=== PATIENT | female | born 1955 ===

== ENCOUNTER 2017-01-20 14:46 | Emergency (ER) | payer OTHER ==
[2017-01-20 14:47] VITALS: BMI 33.5
[2017-01-20 15:00] VITALS: BP 152/86; PULSE 76; RESP 18; TEMP 97.5; O2SAT 96
[2017-01-20] MEDS ORDERED: TDAP Vaccine 0.5 mL Syr IM ONE (15:12)
--- NOTE | 2017-01-20 16:16 | ED PDOC ---
Arrival/HPI <AlexdeyaniraDavidy - Last Filed: 01/20/17 16:59> - General Historian: Patient <Sunny Mcclelland - Last Filed: 01/20/17 21:20> - General Chief Complaint: Lower Extremity Problem/Injury Time Seen by Provider: 01/20/17 15:01 - History of Present Illness Narrative History of Present Illness (Text): 01/20/17 16:11 61 y/o female presenting s/p fall with right knee injury. Patient states she was standing from a sitting position when her right knee gave out and she fell forward injuring her right knee. Patient denies LOC, head injury or syncope. She is complaining of mild right knee discomfort, worse with knee flexion. Patient denies hip pain or ankle pain. Tetanus status is unknown according to the patient. (Sunny Mcclelland) Past Medical History - Provider Review Nursing Documentation Reviewed: Yes - Infectious Disease Hx of Infectious Diseases: None - Tetanus Immunization Tetanus Immunization: Unknown - Cardiac Hx Cardiac Disorders: Yes Hx Hypertension: Yes - Pulmonary Hx Respiratory Disorders: Yes Hx Asthma: Yes Hx Chronic Obstructive Pulmonary Disease (COPD): Yes - Neurological Hx Neurological Disorder: No - HEENT Hx HEENT Disorder: Yes Hx Glaucoma: Yes (laser sx aug 2016) - Renal Hx Renal Disorder: No - Endocrine/Metabolic Hx Endocrine Disorders: No - Hematological/Oncological Hx Blood Disorders: Yes - Integumentary Hx Dermatological Disorder: No Other/Comment: hx shingles face and head 10 yrs ago - Musculoskeletal/Rheumatological Hx Musculoskeletal Disorders: Yes Hx Arthritis: Yes (RA) Hx Falls: No - Gastrointestinal Hx Gastrointestinal Disorders: Yes Other/Comment: heart burn - Genitourinary/Gynecological Hx Genitourinary Disorders: No - Psychiatric Hx Psychophysiologic Disorder: No Hx Depression: No Hx Emotional Abuse: No Hx Physical Abuse: No Hx Substance Use: No - Surgical History Hx Appendectomy: Yes Hx Cholecystectomy: Yes Hx Hysterectomy: Yes - Suicidal Assessment Feels Threatened In Home Enviroment: No <Sunny Mcclelland - Last Filed: 01/20/17 21:20> Family/Social History - Physician Review Nursing Documentation Reviewed: Yes Family/Social History: Unknown Family HX Smoking Status: Former Smoker Hx Alcohol Use: Yes Hx Substance Use: No Hx Substance Use Treatment: No <Sunny Mcclelland - Last Filed: 01/20/17 21:20> Allergies/Home Meds <RachelparvezTee - Last Filed: 01/20/17 16:59> <Sunny Mcclelland - Last Filed: 01/20/17 21:20> Allergies/Adverse Reactions: Allergies Penicillins Allergy (Verified 01/20/17 15:00) SWELLING Home Medications: Home Meds Medication Instructions Recorded Confirmed Albuterol Sulfate [Ventolin Hfa] 0.09 mg IH 06/08/13 11/29/15 Carisoprodol 350 mg PO DAILY 06/08/13 11/29/15 Darunavir Ethanolate [Prezista] 600 mg PO DAILY 06/08/13 11/29/15 Diphenhydramine Hydrochlorid 50 mg PO PRN PRN 06/08/13 11/29/15 [Benadryl] Raltegravir Potassium [Isentress] 400 mg PO DAILY 06/08/13 11/29/15 Ranitidine HCl [Zantac 150] 150 mg PO DAILY 06/08/13 11/29/15 Ritonavir [Norvir] 100 mg PO DAILY 06/08/13 11/29/15 Valsartan [Diovan] 40 mg PO DAILY 06/08/13 11/29/15 Vitamin B Complex & Vitamin C 1 tab PO DAILY 06/08/13 11/29/15 [Strovite] Review of Systems - Physician Review All systems were reviewed & negative as marked: Yes - Review of Systems Constitutional: absent: Fatigue, Fevers Musculoskeletal: absent: Back Pain, Neck Pain Skin: Other (right knee avulsion ) <Sunny Mcclelland - Last Filed: 01/20/17 21:20> Physical Exam Vital Signs Reviewed: Yes Temperature: Afebrile Blood Pressure: Normal Pulse: Regular Respiratory Rate: Normal Appearance: Positive for: Well-Appearing Pain Distress: Mild Mental Status: Positive for: Alert and Oriented X 3 - Systems Exam Head: Present: Atraumatic, Normocephalic Pupils: Present: PERRL Extroacular Muscles: Present: EOMI Conjunctiva: Present: Normal Mouth: Present: Moist Mucous Membranes Neck: Present: Normal Range of Motion Respiratory/Chest: Present: Clear to Auscultation, Good Air Exchange. No: Respiratory Distress Cardiovascular: Present: Regular Rate and Rhythm, Normal S1, S2 Abdomen: Present: Normal Bowel Sounds. No: Tenderness Upper Extremity: Present: Normal Inspection, Normal ROM, NORMAL PULSES. No: Cyanosis, Edema Lower Extremity: Present: NORMAL PULSES, Normal ROM. No: Normal Inspection ( right anterior knee circulinear avulsion. 4 cm in lenth. approx 0.5 to 1cm in depth. ), Edema, CALF TENDERNESS, Tenderness (no jointline tenderness or patellar tenderness to right knee ) Neurological: Present: GCS=15, CN II-XII Intact, Speech Normal, Motor Func Grossly Intact Skin: Present: Warm, Dry Psychiatric: Present: Alert, Oriented x 3, Normal Insight, Normal Concentration <Sunny Mcclelland - Last Filed: 01/20/17 21:20> Vital Signs Temp Pulse Resp BP Pulse Ox 01/20/17 14:55 97.5 F L 76 18 152/86 H 96 Medical Decision Making <Tee Slater - Last Filed: 01/20/17 16:59> <Sunny Mcclelland - Last Filed: 01/20/17 21:20> ED Course and Treatment: 01/20/17 16:33 Patient seen and examined with resident Came up with treatment and disposition plan with resident 01/20/17 16:59 Patient in the emergency department after mechanical fall while at home. Laceration repaired Patient to be discharged home with antibiotics Knee and ankle x-rays show no acute fractures or dislocations. Patient informed of the incidental finding on the ankle x-ray for which she has to follow-up with her primary physician had an extensive d/w pt that although xrays are negative for any acute bony abnormality, it is still very important to fu with pmd and ortho specialist for further w/u and testing such as MRI to r/o any ligamentous/tendenous/meniscal injury. Pt verbalized full understanding of above discussion. Patient is ambulating in the emergency department Pt states she understands to return to the ER right away for new or worsening symptoms or for inability to f/u with PMD or specialist as instructed. Patient states that she fully agrees with and understands discharge instructions. States that she agrees with the plan and disposition. Verbalized and repeated discharge instructions and plan. I have given the patient opportunity to ask any additional questions. (Tee Slater) 01/20/17 16:20 61 y/o female presenting with right anterior circulinear avulsion injury to right anterior knee s/p mechanical fall. There is no history of syncope, focal deficit or loss of consciousness. Avulsion injury requires repair with sutures. - Tetanus booster - Motrin 800mg for pain - xray right knee, right ankle - patient will be discharged on antibiotics and f/u here or with her PCP for suture removal in 7 to 10 days. (Sunny Mcclelland) - RAD Interpretation Radiology Orders: 01/20/17 16:09 ANKLE RIGHT 3 VIEWS ROUTINE [RAD] Stat KNEE W PATELLA RIGHT 3 VIEW [RAD] Stat - Medication Orders Current Medication Orders: Discontinued Medications Ibuprofen (Motrin Tab) 800 mg PO STAT STA Stop: 01/20/17 16:09 Last Admin: 01/20/17 16:20 Dose: 800 MG [facility] Pain/Vitals Document 01/20/17 16:20 FJ (Rec: 01/20/17 16:20 FJ [id number]) Pain Reassessment Is This A Pain ReAssessment? No Sleep Is patient sleeping during reassessment? No Presence of Pain Presence of Pain Yes Pain Scale Used Pain Scale Used Numeric Location Left, Right or Bilateral Right Pain Location Body Site Knee Description Constant Intensity 6 Scale Used Numeric Tetanus/Reduced Diphtheria/Acell Pertussis (Boostrix Vaccine Inj) 0.5 ml IM .ONCE ONE Stop: 01/20/17 15:13 Last Admin: 01/20/17 16:20 Dose: 0.5 ML [facility] Immunization Data Document 01/20/17 16:20 FJA (Rec: 01/20/17 16:21 [id number]) Immunization Data Opt out of sending immunization data to Yes respository? Suppress immunization data to other Yes providers from registry? Vaccine Eligibility Yes Vaccine Information Sheet Given Yes Informed Consent Given Yes Vaccine Lot Number [id number] Vaccine Expiration Date 01/02/19 Site Given Left Deltoid Route Intramuscular Immunization Units ml - Procedure PROCEDURE NOTE (Text): 01/20/17 16:34 Attestation:: I certify that I have explained the specified Operation(s) or Procedure(s), risks, benefits and reasonable alternatives to the Patient and/or other person responsible. The opportunity was given to ask questions and all questions answered - Laceration with EPI simple, single layer contaminated irrigated extensively right lower extremity 4-0 other local infiltration simple, interrupted Site: lower extremity Side (if applicable): left Size (cm): 4 Description: other (circulinear ) Depth: simple, single layer Anesthesia used: lidocaine 1%, with EPI Anesthesia technique: local infiltration Amount (mLs): 15 Pre-repair: wound explored, irrigated extensively, deep structures intact Skin layer closed with: other (ethilon ) Size: 4-0 Number of sutures: 11 Technique: simple, interrupted (Sunny Mcclelland) Disposition/Present on Arrival - Present on Arrival Any Indicators Present on Arrival: No - Disposition Have Diagnosis and Disposition been Completed?: Yes Disposition Time: 17:01 Patient Plan: Discharge <Tee Slater - Last Filed: 01/20/17 16:59> - Present on Arrival History of DVT/PE: No History of Uncontrolled Diabetes: No Urinary Catheter: No History of Decub. Ulcer: No History Surgical Site Infection Following: None <Sunny Mcclelland - Last Filed: 01/20/17 21:20> - Disposition Diagnosis: Fall Disposition: HOME/ ROUTINE Condition: GOOD Discharge Instructions (ExitCare): Care For Your Stitches (ED), Laceration (ED) , Fall Prevention for Older Adults (ED) Additional Instructions: PLEASE RETURN TO THE EMERGENCY DEPARTMENT FOR NEW OR WORSENING SYMPTOMS. RETURN RIGHT AWAY IF YOU CANNOT FOLLOW UP WITH YOUR PRIMARY CARE DOCTOR, CLINIC, OR SPECIALIST IN 1-2 DAYS. Please follow-up with your primary physician or the emergency department for suture removal in 7-10 days Prescriptions: Cephalexin [Keflex] 500 mg PO TID #21 capsule Cephalexin [cephalexin] 500 mg PO Q12H #14 cap Referrals: Ty Ramírez JD, MD [Primary Care Provider] - Follow up with primary
--- NOTE | 2017-01-20 16:28 | PCM.PROC ---
Procedures Attestation:: I certify that I have explained the specified Operation(s) or Procedure(s), risks, benefits and reasonable alternatives to the Patient and/or other person responsible. The opportunity was given to ask questions and all questions answered - Laceration with EPI simple, single layer contaminated irrigated extensively right lower extremity 4-0 other local infiltration simple, interrupted Site: lower extremity Side (if applicable): left Size (cm): 4 Description: other (circulinear ) Depth: simple, single layer Anesthesia used: lidocaine 1%, with EPI Anesthesia technique: local infiltration Amount (mLs): 15 Pre-repair: wound explored, irrigated extensively, deep structures intact Skin layer closed with: other (ethilon ) Size: 4-0 Number of sutures: 11 Technique: simple, interrupted
--- NOTE | 2017-01-20 17:31 | RAD ---
PROCEDURE: Right Knee Radiographs. HISTORY: fall COMPARISON: None. FINDINGS: BONES: Normal. No fracture. JOINTS: Normal. No osteoarthritis. JOINT EFFUSION: None. OTHER FINDINGS: None. IMPRESSION: Normal radiographs of the right knee.
--- NOTE | 2017-01-20 17:32 | RAD ---
PROCEDURE: Right Ankle Radiographs. HISTORY: fall COMPARISON: None FINDINGS: BONES: Normal. No fracture. JOINTS: Normal. No osteoarthritis. Ankle mortise maintained. Talar dome intact SOFT TISSUES: Normal. OTHER FINDINGS: None. IMPRESSION: No acute fracture
== END 2017-01-20 17:32 | disposition home or self-care (01) ==
LOC: ED 14:46
DX: S81.011A Laceration without foreign body, right knee, initial encounter (principal); W01.0XXA Fall on same level from slipping, tripping and stumbling without subsequent striking against object, initial encounter; Y92.009 Unspecified place in unspecified non-institutional (private) residence as the place of occurrence of the external cause; Z23 Encounter for immunization

== ENCOUNTER 2017-02-19 14:46 | Inpatient (IN) | payer OTHER, MEDICAID ==
[2017-02-19] MEDS ORDERED: Albuterol-Ipratrop 3 mg / 0.5 (3 ml) UD IH STA ×3 (15:53→17:06)
[2017-02-19 16:08] LABS: ADD MANUAL DIFF? NO
[2017-02-19 16:12] LABS: VENOUS BLOOD GAS BASE EXCESS -0.6 mmol/L (0.0-2.0); VENOUS BLOOD PH 7.43 (7.32-7.43)
[2017-02-19 16:14] LABS: BASO # 0.03 K/mm3 (0.0-2.0); BASO % 0.4 % (0.0-3.0); EOS # 0.1 (0.0-0.7); EOS % 1.6 % (1.5-5.0); GRAN # 4.13 (1.4-6.5); GRAN % 61.8 % (50.0-68.0); HEMATOCRIT 39.5 % (36.0-48.0); LYMPH # 1.6 (1.2-3.4); LYMPH % 24.3 % (22.0-35.0); MEAN CELL VOLUME 91.6 fL (80.0-105.0); MEAN CORPUSCULAR HEMOGLOBIN 30.6 pg (25.0-35.0); MEAN CORPUSCULAR HGB CONC 33.4 g/dl (31.0-37.0); MEAN PLATELET VOLUME 10.7 fl (7.0-11.0); MONO # 0.8 (0.1-0.6); MONO % 11.9 % (1.0-6.0); PLATELET COUNT 71 10^3/uL (120.0-450.0); RED CELL DISTRIBUTION WIDTH 16.5 % (11.5-14.5); WHITE BLOOD COUNT 6.7 10^3/ul (4.5-11.0)
[2017-02-19 16:24] LABS: ALB/GLOB RATIO 1.1 (1.1-1.8); ALKALINE PHOSPHATASE 62 U/L (38-133); ALT/SGPT 61 U/L (7-56); AST/SGOT 37 U/L (15-39); BILIRUBIN,TOTAL 1.2 mg/dL (0.2-1.3); BLOOD UREA NITROGEN 14 mg/dL (7-21); CALCIUM 9.1 mg/dL (8.4-10.5); CARBON DIOXIDE 21 mmol/L (21-33); CHLORIDE 102 mmol/L (98-107); GFR AFRICAN-AMERICAN > 60; GLUCOSE,RANDOM 111 mg/dL (70-110); POTASSIUM 3.6 mmol/L (3.6-5.0); SODIUM 138 mmol/L (132-148); TOTAL PROTEIN 7.3 g/dL (5.8-8.3)
[2017-02-19 16:35] LABS: TROPONIN I 0.03 ng/mL
--- NOTE | 2017-02-19 16:44 | RAD ---
HISTORY: r/o infiltrate COMPARISON: No prior. FINDINGS: LUNGS: Right perihilar reticular opacities are seen. Otherwise no evidence of infiltrate or consolidation in the lungs P PLEURA: No significant pleural effusion identified, no pneumothorax apparent. CARDIOVASCULAR: Normal. OSSEOUS STRUCTURES: No significant abnormalities. VISUALIZED UPPER ABDOMEN: Normal. OTHER FINDINGS: None. IMPRESSION: Prominent lung markings versus reticular perihilar opacities seen in the right lung.
[2017-02-19] MEDS ORDERED: Vancomycin 1gm in NS 250ml 1 GM/250 ML BAG IVPB STA (17:14)
[2017-02-19] MEDS ORDERED: Morphine 2 mg/ml ISec IVP STA (17:19)
--- NOTE | 2017-02-19 18:54 | ED PDOC ---
Arrival/HPI - General Chief Complaint: GI Problem Time Seen by Provider: 02/19/17 15:35 Historian: Patient - History of Present Illness Narrative History of Present Illness (Text): 02/19/17 15:35 A 61 year old female, whose past medical history includes asthma and HIV (CD 4 count 900+ and viral load undetected), presents to the emergency department complaining of shortness of breath for the past 2 days. Patient notes associated productive cough with white sputum, subjective fever and mild nausea. Patient denies any vomiting, recent travel, or other complaints. Patient says she is compliant with heart medications. Time/Duration: Other (2 days) Symptom Onset: Sudden Symptom Course: Unchanged Quality: Other Activities at Onset: Rest Context: Home Past Medical History - Provider Review Nursing Documentation Reviewed: Yes - Reproductive Menopause: Yes - Cardiac Hx Cardiac Disorders: Yes Hx Hypertension: Yes - Pulmonary Hx Respiratory Disorders: Yes Hx Asthma: Yes - Neurological Hx Neurological Disorder: Yes Hx Dizziness: Yes Hx Headaches: Yes Hx Migraine: Yes - HEENT Hx HEENT Disorder: No - Renal Hx Renal Disorder: No - Endocrine/Metabolic Hx Endocrine Disorders: No - Hematological/Oncological Hx Blood Disorders: Yes Hx Blood Transfusions: Yes Hx Blood Transfusion Reaction: No - Integumentary Hx Dermatological Disorder: No - Musculoskeletal/Rheumatological Hx Musculoskeletal Disorders: Yes Hx Arthritis: Yes Hx Back Pain: Yes - Gastrointestinal Hx Gastrointestinal Disorders: Yes Hx Gastritis: Yes Hx Gastroesophageal Reflux: Yes Hx Nausea: Yes - Genitourinary/Gynecological Hx Genitourinary Disorders: Yes Hx Sexually Transmitted Diseases: Yes - Psychiatric Hx Psychophysiologic Disorder: Yes Hx Anxiety: Yes Hx Depression: Yes Hx Substance Use: No - Surgical History Hx Appendectomy: Yes Hx Cholecystectomy: Yes Hx Hysterectomy: Yes Other/Comment: Fibroid removal. Cyst removal Family/Social History - Physician Review Nursing Documentation Reviewed: Yes Family/Social History: Unknown Family HX Smoking Status: Former Smoker Hx Alcohol Use: Yes Frequency of alcohol use: Socially Hx Substance Use: No Allergies/Home Meds Allergies/Adverse Reactions: Allergies Penicillins Allergy (Verified 02/19/17 15:23) SWELLING Home Medications: Home Meds Medication Instructions Recorded Confirmed ALPRAZolam [Xanax] 1 mg PO QID 02/19/17 02/19/17 Albuterol Sulfate [Proair Hfa] 0.09 mg IH DAILY 02/19/17 02/19/17 Albuterol/Ipratropium [Duoneb 3 3 ml IH Q6 PRN 02/19/17 02/19/17 MG/3 Ml-0.5 MG/3 Ml 3 Ml] Alendronate Sodium [Binosto] 70 mg PO DAILY 02/19/17 02/19/17 Aspirin [[place] Aspirin] 81 mg PO DAILY 02/19/17 02/19/17 Budesonide/Formoterol Fumarate 1 aer IH DAILY 02/19/17 02/19/17 [Symbicort] Cyclobenzaprine [Flexeril] 5 mg PO BID 02/19/17 02/19/17 Darunavir [Prezista] 800 mg PO DAILY 02/19/17 02/19/17 DiphenhydrAMINE [Benadryl] 50 mg PO PRN PRN 02/19/17 02/19/17 Enalapril Maleate [Vasotec] 10 mg PO BID 02/19/17 02/19/17 Famotidine [Heartburn Prevention] 20 mg PO DAILY 02/19/17 02/19/17 Furosemide [Lasix] 20 mg PO DAILY 02/19/17 02/19/17 Hydrochlorothiazide [Microzide] 25 mg PO DAILY 02/19/17 02/19/17 Metoprolol Tartrate [Lopressor] 50 mg PO DAILY 02/19/17 02/19/17 Mv,Min10/Folic Acid/D3/Ala/Lut 1 tab PO DAILY 02/19/17 02/19/17 [Strovite One Caplet] Oxycodone HCl/Acetaminophen 1 each PO Q4 02/19/17 02/19/17 [Endocet 10-325 mg Tablet] Potassium Chloride [Klor-Con 10] 10 meq PO DAILY 02/19/17 02/19/17 Raltegravir Potassium [Isentress] 400 mg PO BID 02/19/17 02/19/17 Ranitidine HCl [Acid Drafting Layout Worker 150] 150 mg PO DAILY 02/19/17 02/19/17 Ritonavir [Norvir] 100 mg PO DAILY 02/19/17 02/19/17 Theophylline Anhydrous [Jose-24] 300 mg PO DAILY 02/19/17 02/19/17 Umeclidinium Brm/Vilanterol Tr 1 pow IH BID 02/19/17 02/19/17 [Anoro Ellipta] Varenicline Tartrate [Chantix] 1 mg PO BID 02/19/17 02/19/17 Review of Systems - Physician Review All systems were reviewed & negative as marked: Yes - Review of Systems Constitutional: Fevers Respiratory: SOB, Cough, Sputum Gastrointestinal: Nausea. absent: Vomiting Physical Exam Vital Signs Reviewed: Yes Vital Signs Temp Pulse Resp BP Pulse Ox 02/19/17 20:00 98.1 F 119 H 20 161/95 H 94 L 02/19/17 18:07 98.1 F 121 H 18 161/78 H 95 02/19/17 15:24 97.9 F 120 H 22 136/91 H 97 Temperature: Afebrile Blood Pressure: Hypertensive Pulse: Tachycardic Respiratory Rate: Normal Appearance: Positive for: Well-Appearing, Non-Toxic, Comfortable Pain Distress: None Mental Status: Positive for: Alert and Oriented X 3 - Systems Exam Head: Present: Atraumatic, Normocephalic Pupils: Present: PERRL Extroacular Muscles: Present: EOMI Conjunctiva: Present: Normal Mouth: Present: Moist Mucous Membranes Neck: Present: Normal Range of Motion Respiratory/Chest: Present: Clear to Auscultation, Good Air Exchange. No: Respiratory Distress, Accessory Muscle Use Cardiovascular: Present: Normal S1, S2, Tachycardic. No: Murmurs Abdomen: Present: Normal Bowel Sounds. No: Tenderness, Distention, Peritoneal Signs Back: Present: Normal Inspection Upper Extremity: Present: Normal Inspection. No: Cyanosis, Edema Lower Extremity: Present: Normal Inspection. No: Edema Neurological: Present: GCS=15, CN II-XII Intact, Speech Normal Skin: Present: Warm, Dry, Normal Color. No: Rashes Psychiatric: Present: Alert, Oriented x 3, Normal Insight, Normal Concentration Medical Decision Making ED Course and Treatment: 02/19/17 15:35 Impression: A 61 year old female with shortness of breath and cough. Differential Diagnosis include but are not limited to: asthma exacerbations. Plan: -- EKG -- Chest X-ray -- Labs -- Duoneb -- Reassess and disposition Progress Notes: 02/19/17 16:45 Chest X-ray: Creator : Grady Bowles IMPRESSION: Prominent lung markings versus reticular perihilar opacities seen in the right lung. 02/19/17 17:[address] Ramírez, who is aware and agrees with the plan to admit the patient to Med/Surg under his service for asthma exacerbation and clinical pneumonia I have discussed the results and plan with the patient, who expresses understanding. Patient given the opportunity to ask question, all questions were answered and there is agreement with the plan to be admitted to the hospital. - Lab Interpretations Microbiology Results: Microbiology Results 02/19/17 16:25 Blood-Venous Blood Culture - Preliminary NO GROWTH AFTER 48 HOURS 02/19/17 16:00 Blood-Venous Blood Culture - Preliminary NO GROWTH AFTER 48 HOURS Lab Results: 02/19/17 16:00 02/19/17 16:00 Lab Results 02/19/17 16:00: Sodium 138, Chloride 102, Potassium 3.6, Carbon Dioxide 21, Anion Gap 19, BUN 14, Creatinine 0.8, Est GFR ( Amer) > 60, Est GFR (Non- Af Amer) > 60, Random Glucose 111 H, Calcium 9.1, Total Bilirubin 1.2, AST 37, ALT 61 H, Alkaline Phosphatase 62, Lactate Dehydrogenase 1057 H, Total Creatine Kinase 88, Troponin I 0.03, NT-Pro-B Natriuret Pep 360, Total Protein 7.3, Albumin 3.8, Globulin 3.4, Albumin/Globulin Ratio 1.1 02/19/17 16:00: pO2 185 H, VBG pH 7.43, VBG pCO2 35.0 L, VBG HCO3 23.2, VBG Total CO2 24.3, VBG O2 Sat (Calc) 99.6 H, VBG Base Excess -0.6 L, VBG Potassium 4.0, Sodium 139.0, Chloride 106.0, Glucose 114 H, Lactate 2.6 H, FiO2 21.0, Venous Blood Potassium 4.0 02/19/17 16:00: WBC 6.7 D, RBC 4.31, Hgb 13.2, Hct 39.5, MCV 91.6, MCH 30.6, MCHC 33.4, RDW 16.5 H, Plt Count 71 L, MPV 10.7, Gran % 61.8, Lymph % (Auto) 24.3, [place] % (Auto) 11.9 H, Eos % (Auto) 1.6, Baso % (Auto) 0.4, Gran # 4.13, Lymph # 1.6, [place] # 0.8 H, Eos # 0.1, Baso # 0.03 I have reviewed the lab results: Yes - RAD Interpretation Radiology Orders: 02/19/17 15:53 CHEST PORTABLE [RAD] Stat - Medication Orders Current Medication Orders: Albuterol/Ipratropium (Duoneb 3 Mg/0.5 Mg (3 Ml) Ud) 3 ml IH [id number] [facility] Last Admin: 02/21/17 13:43 Dose: 3 ml Alprazolam (Xanax) 1 mg PO TID PRN; Protocol PRN Reason: Anxiety Last Admin: 02/21/17 09:51 Dose: 1 mg Re-Assess: Reassess Psych Meds Document 02/21/17 10:51 NB (Rec: 02/21/17 11:30 NB [id number]) Reassess Psych Med Effective Arformoterol Tartrate (Brovana) 15 mcg IH [id number] [facility] Last Admin: 02/21/17 07:56 Dose: 15 mcg Azithromycin (Zithromax) 500 mg PO DAILY GABRIEL PRN Reason: Protocol Last Admin: 02/21/17 09:50 Dose: 500 mg Budesonide (Pulmicort Respules) 0.5 mg IH [id number] [facility] Last Admin: 02/21/17 07:56 Dose: 0.5 mg Lisinopril (Zestril) 10 mg PO DAILY [facility] Last Admin: 02/21/17 09:50 Dose: 10 mg Methylprednisolone (Solu-Medrol) 40 mg IVP Q12 GABRIEL Last Admin: 02/21/17 10:10 Dose: 40 mg Metoprolol Succinate (Toprol Xl) 50 mg PO BRK [facility] Last Admin: 02/21/17 08:56 Dose: 50 mg Oxycodone/Acetaminophen (Percocet 10/325 Mg Tab) 1 tab PO Q6H PRN PRN Reason: Pain, moderate (4-7) Last Admin: 02/21/17 12:18 Dose: 1 tab Raltegravir (Isentress) 400 mg PO BID [facility] Last Admin: 02/21/17 10:16 Dose: 400 mg Ritonavir (Norvir) 100 mg PO BRKDIN [facility] Last Admin: 02/21/17 08:55 Dose: 100 mg Discontinued Medications Acetaminophen (Tylenol 325mg Tab) 650 mg PO STAT STA Stop: 02/20/17 00:17 Last Admin: 02/20/17 00:36 Dose: 650 mg Albuterol/Ipratropium (Duoneb 3 Mg/0.5 Mg (3 Ml) Ud) 3 ml IH STAT STA Stop: 02/19/17 15:54 Last Admin: 02/19/17 16:32 Dose: 3 ml Albuterol/Ipratropium (Duoneb 3 Mg/0.5 Mg (3 Ml) Ud) 3 ml IH STAT STA Stop: 02/19/17 17:07 Last Admin: 02/19/17 17:24 Dose: 3 ml Albuterol/Ipratropium (Duoneb 3 Mg/0.5 Mg (3 Ml) Ud) 3 ml IH STAT STA Stop: 02/19/17 17:07 Last Admin: 02/19/17 17:48 Dose: 3 ml Albuterol/Ipratropium (Duoneb 3 Mg/0.5 Mg (3 Ml) Ud) 3 ml IH STAT STA Stop: 02/20/17 01:33 Last Admin: 02/20/17 01:35 Dose: 3 ml Vancomycin HCl (Vancomycin 1gm) 1 gm in 250 mls @ 167 mls/hr IVPB STAT STA PRN Reason: Protocol Stop: 02/19/17 18:43 Last Admin: 02/19/17 17:48 Dose: 167 mls/hr Aztreonam (Azactam 1 Gm) 100 mls @ 100 mls/hr IVPB Q8 GABRIEL PRN Reason: Protocol Stop: 02/21/17 06:59 Last Admin: 02/21/17 06:10 Dose: 100 mls/hr Iohexol (Omnipaque 300 100 Ml) Confirm Administered Dose 100 ml IJ .STK-MED ONE Stop: 02/20/17 08:31 Iohexol (Omnipaque 300 100 Ml) Confirm Administered Dose 100 ml IJ .STK-MED ONE Stop: 02/20/17 09:00 Lisinopril (Zestril) 10 mg PO ONCE ONE Stop: 02/19/17 21:16 Last Admin: 02/19/17 21:34 Dose: 10 mg Meclizine HCl (Antivert) 25 mg PO STAT STA Stop: 02/19/17 16:11 Last Admin: 02/19/17 16:32 Dose: 25 mg Methylprednisolone (Solu-Medrol) 125 mg IVP STAT STA Stop: 02/19/17 15:54 Last Admin: 02/19/17 16:32 Dose: 125 mg Morphine Sulfate (Morphine) 2 mg IVP STAT STA Stop: 02/19/17 17:20 Last Admin: 02/19/17 17:25 Dose: 2 mg - Scribe Statement The provider has reviewed the documentation as recorded by the Sonny Huber Provider Migelibe Attestation: All medical record entries made by the Sonny were at my direction and personally dictated by me. I have reviewed the chart and agree that the record accurately reflects my personal performance of the history, physical exam, medical decision making, and the department course for this patient. I have also personally directed, reviewed, and agree with the discharge instructions and disposition. Disposition/Present on Arrival - Present on Arrival Any Indicators Present on Arrival: No History of DVT/PE: No History of Uncontrolled Diabetes: No Urinary Catheter: No History of Decub. Ulcer: No History Surgical Site Infection Following: None - Disposition Have Diagnosis and Disposition been Completed?: Yes Diagnosis: Asthma exacerbation, HIV (human immunodeficiency virus infection) Disposition: HOSPITALIZED Disposition Time: 17:15 Patient Problems: Current Active Problems Problem Status Onset Asthma exacerbation Acute HIV (human immunodeficiency virus infection) Acute Condition: STABLE
[2017-02-19] MEDS ORDERED: Home Med 1 UNIT PO ONE (20:58)
[2017-02-19 21:38] LABS: VENOUS BLOOD GAS BASE EXCESS -4.1 mmol/L (0.0-2.0); VENOUS BLOOD PH 7.39 (7.32-7.43)
[2017-02-20 01:01] LABS: VENOUS BLOOD GAS BASE EXCESS -0.7 mmol/L (0.0-2.0); VENOUS BLOOD PH 7.42 (7.32-7.43)
[2017-02-20] MEDS ORDERED: Albuterol-Ipratrop 3 mg / 0.5 (3 ml) UD IH STA (01:32)
[2017-02-20] MEDS ORDERED: Iohexol 300 100 ML IJ ONE ×2 (08:30→08:59)
--- NOTE | 2017-02-20 08:51 | CARD ---
APPROVED REPORT EKG Measurement Heart [id number] <Conclusion> Sinus tachycardia Minimal voltage criteria for LVH, may be normal variant Borderline ECG
[2017-02-20] MEDS: Oxycodone/Acetaminophen 10/325 mg Tab PO PRN ×2 (09:59→16:11)
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
--- NOTE | 2017-02-20 10:26 | CT ---
PROCEDURE: CT Chest with contrast HISTORY: lung infiltrate?/HIV pos. COMPARISON: None. TECHNIQUE: Contiguous axial images were obtained through the chest with intravenous contrast enhancement. Sagittal and coronal reconstructions were performed. IV contrast: 100 mL Omnipaque 300 Radiation dose (DLP): 593.03 mGy-cm. This CT exam was performed using one or more of the following dose reduction techniques: Automated exposure control, adjustment of the mA and/or kV according to patient size, and/or use of iterative reconstruction technique. FINDINGS: LUNGS: 15.5 x 14.8 millimeter spiculated density seen at the right lung upper lobe image 22 series 4. Small foci of ground-glass opacities seen in both lungs nonspecific and the possibility of infectious process is not totally excluded. Otherwise no evidence of consolidation in the lungs. MEDIASTINUM: Unremarkable thoracic aorta. No aneurysm or dissection. Normal sized heart. Main pulmonary artery unremarkable. No vascular congestion. No lymphadenopathy. PLEURA: No pleural fluid. No pneumothorax. BONES: There is suspicious bowel mild compression fracture and the superior endplate of T5. UPPER ABDOMEN: Mild hepatomegaly with findings suspicious for mild hepatic steatosis. OTHER FINDINGS: None. IMPRESSION: Spiculated density at the right lung upper lobe measures 1.5 centimeter. Follow-up reassessment in 1-3 months is suggested to evaluate for possible infectious versus neoplasm process. Small ground-glass opacities in the lungs nonspecific and differential diagnosis includes infectious process. No evidence of pleural effusion mediastinal lymphadenopathy or central pulmonary embolus. Hepatomegaly with associated with mild hepatic steatosis. Suspicious for mild compression fracture at the superior endplate of T5.
[2017-02-20] MEDS: Albuterol-Ipratrop 3 mg / 0.5 (3 ml) UD IH SCH ×2 (13:48→20:37)
[2017-02-20] MEDS: Metoprolol Succinate 50 mg XL Tab PO SCH (16:11)
--- NOTE | 2017-02-20 20:35 | CP.PCM.CON ---
History of Present Illness - History of Present Illness History of Present Illness: Infectious Disease Consultation: February 20, 2017 61 yo female with presentation of nausea, dizziness, and subjective fevers. She also complains of cough, shortness of breath, and wheezing. The patient is known to have HIV and is on HAART treatment. CD4 is reported as over 900 with an undetectable viral load. The patient without leukocytosis. No fevers observed in hospital. Spiculated density in right upper lobe. Small ground-glass opacity at lung bases. PMHx: Hypertension, Asthma, HIV, lymphoma PSHx: hysterectomy, appendectomy, nephrectomy Allergies: PCN Social Hx: No EtOH or illicit drug use. 40 pack year tobacco use history. Active Medications Albuterol/Ipratropium (Duoneb 3 Mg/0.5 Mg (3 Ml) Ud) 3 ml IH [id number] [facility] Last Admin: 02/20/17 13:48 Dose: 3 ml Alprazolam (Xanax) 1 mg PO TID PRN; Protocol PRN Reason: Anxiety Last Admin: 02/20/17 17:53 Dose: 1 mg Lisinopril (Zestril) 10 mg PO DAILY [facility] Last Admin: 02/20/17 10:00 Dose: 10 mg Metoprolol Succinate (Toprol Xl) 50 mg PO BRK [facility] Last Admin: 02/20/17 16:11 Dose: 50 mg Oxycodone/Acetaminophen (Percocet 10/325 Mg Tab) 1 tab PO Q6H PRN PRN Reason: Pain, moderate (4-7) Last Admin: 02/20/17 16:11 Dose: 1 tab Raltegravir (Isentress) 400 mg PO BID [facility] Last Admin: 02/20/17 17:53 Dose: 400 mg Ritonavir (Norvir) 100 mg PO BRKDIN [facility] Last Admin: 02/20/17 17:53 Dose: 100 mg Family Hx: none ROS: leg rash, cough, SOB, wheezing. subjective fever. No melena, hematuria, hematemesis, hematochezia, depression,anxiety. Past Patient History - Past Social History Smoking Status: Former Smoker - CARDIAC Hx Cardiac Disorders: Yes Hx Hypertension: Yes - PULMONARY Hx Respiratory Disorders: Yes Hx Asthma: Yes - NEUROLOGICAL Hx Neurological Disorder: Yes Hx Dizziness: Yes Hx Migraine: Yes - HEENT Hx HEENT Problems: No - RENAL Hx Chronic Kidney Disease: No - ENDOCRINE/METABOLIC Hx Endocrine Disorders: No - HEMATOLOGICAL/ONCOLOGICAL Hx Blood Disorders: Yes Hx Blood Transfusions: Yes Hx Blood Transfusion Reaction: No - INTEGUMENTARY Hx Dermatological Problems: No - MUSCULOSKELETAL/RHEUMATOLOGICAL Hx Musculoskeletal Disorders: Yes Hx Arthritis: Yes Hx Back Pain: Yes - GASTROINTESTINAL Hx Gastrointestinal Disorders: Yes Hx Gastritis: Yes Hx Gastroesophageal Reflux: Yes Hx Nausea: Yes - GENITOURINARY/GYNECOLOGICAL Hx Genitourinary Disorders: Yes Hx Sexually Transmitted Disorders: Yes - PSYCHIATRIC Hx Psychophysiologic Disorder: Yes Hx Anxiety: Yes Hx Depression: Yes Hx Substance Use: No - SURGICAL HISTORY Hx Appendectomy: Yes Hx Cholecystectomy: Yes Hx Hysterectomy: Yes Other/Comment: Fibroid removal. Cyst removal Meds Allergies/Adverse Reactions: Allergies Allergy/AdvReac Type Severity Reaction Status Date / Time Penicillins Allergy SWELLING Verified 02/19/17 15:23 - Medications Medications: Current Medications Albuterol/Ipratropium (Duoneb 3 Mg/0.5 Mg (3 Ml) Ud) 3 ml IH [id number] [facility] Last Admin: 02/20/17 13:48 Dose: 3 ml Alprazolam (Xanax) 1 mg PO TID PRN; Protocol PRN Reason: Anxiety Last Admin: 02/20/17 17:53 Dose: 1 mg Lisinopril (Zestril) 10 mg PO DAILY [facility] Last Admin: 02/20/17 10:00 Dose: 10 mg Metoprolol Succinate (Toprol Xl) 50 mg PO BRK [facility] Last Admin: 02/20/17 16:11 Dose: 50 mg Oxycodone/Acetaminophen (Percocet 10/325 Mg Tab) 1 tab PO Q6H PRN PRN Reason: Pain, moderate (4-7) Last Admin: 02/20/17 16:11 Dose: 1 tab Raltegravir (Isentress) 400 mg PO BID [facility] Last Admin: 02/20/17 17:53 Dose: 400 mg Ritonavir (Norvir) 100 mg PO BRKDIN [facility] Last Admin: 02/20/17 17:53 Dose: 100 mg Physical Exam - Constitutional Appears: Non-toxic, No Acute Distress - Head Exam Head Exam: ATRAUMATIC, NORMOCEPHALIC - Eye Exam Eye Exam: EOMI, PERRL Pupil Exam: NORMAL ACCOMODATION, PERRL - ENT Exam ENT Exam: Mucous Membranes Moist, Normal External Ear Exam, TM's Normal Bilaterally - Neck Exam Neck exam: Positive for: Full Rom, Normal Inspection - Respiratory Exam Respiratory Exam: Decreased Breath Sounds, NORMAL BREATHING PATTERN. absent: Rales, Rhonchi, Wheezes - Cardiovascular Exam Cardiovascular Exam: REGULAR RHYTHM, RRR, +S1, +S2 - GI/Abdominal Exam GI & Abdominal Exam: Normal Bowel Sounds, Soft. absent: Distended, Tenderness - Extremities Exam Extremities exam: Positive for: full ROM, normal inspection - Neurological Exam Neurological exam: Alert, CN II-XII Intact, Normal Gait, Oriented x3 - Psychiatric Exam Psychiatric exam: Normal Affect, Normal Mood - Skin Skin Exam: Intact, Normal Color Results - Vital Signs Recent Vital Signs: Last Vital Signs Temp 97.7 F 02/20/17 16:00 Pulse 118 H 02/20/17 16:11 Resp 20 02/20/17 16:00 BP 106/67 02/20/17 16:11 Pulse Ox 94 L 02/20/17 16:00 - Labs Result Diagrams: 02/19/17 16:00 02/19/17 16:00 Labs: Laboratory Results - last 24 hr 02/19/17 02/20/17 21:25 00:50 pO2 84 H 58 H VBG pH 7.39 7.42 VBG pCO2 33.0 L 36.0 L VBG HCO3 20.0 L 23.4 VBG Total CO2 21.0 L 24.5 VBG O2 Sat (Calc) 98.0 H 93.4 H VBG Base Excess -4.1 L -0.7 L VBG Potassium 3.4 L 3.8 Sodium 140.0 141.0 Chloride 106.0 107.0 Glucose 241 H 237 H Lactate 2.6 H 2.6 H FiO2 21.0 21.0 Venous Blood Potassium 3.4 L 3.8 Assessment & Plan - Assessment and Plan (Free Text) Assessment: 61 yo female with known HIV on good control with HAART presenting with subjective fevers, chills, nausea, and cough. Imaging studies show possible right lung reticular perihilar opacities. CT scan showing spiculated density at the right lung upper lobe about 1.5 centimeter in size. Small ground glass opacities noted. No evidence of pleural effusion. Possible mild compression fracture in T5 superior endplate. Started on one dose of Vancomycin. Will start Teflaro for antibiotic treatment at this time. Thank you for allowing me to participate in the care of the patient, we will follow with you.
[2017-02-21] MEDS: Aztreonam 1 Gm in NS 100mL 100 ML IVPB SCH ×2 (01:16→06:10)
[2017-02-21] MEDS: MethylPREDNISolone 40 mg Vial IVP SCH ×3 (01:16→21:51)
[2017-02-21] MEDS: Albuterol-Ipratrop 3 mg / 0.5 (3 ml) UD IH SCH ×4 (01:18→21:10)
[2017-02-21] MEDS: Oxycodone/Acetaminophen 10/325 mg Tab PO PRN ×4 (01:25→18:00)
--- NOTE | 2017-02-21 07:13 | CON ---
DATE: 02/20/2017 REFERRING PHYSICIAN: Dr. Ramírez. REASON FOR CONSULT: Chronic obstructive lung disease, has a lung nodule, may have sleep apnea syndro me. HISTORY OF PRESENT ILLNESS: This is a 61-year-old female known to have chronic obstructive lung dise ase, history of HIV positive, hypertension, overweight, comes in to Emergency Room with cough, shortn ess of breath, sputum production for the last few days, did not improve by home remedies, comes to ER . She received IV and inhaled bronchodilator with some benefit, persistent symptom, ended up getting admitted, presently feels a little better. Admitted to have loud snoring, daytime sleepy and tired. PAST MEDICAL HISTORY: Asthma, hypertension, HIV positive with non-detectable viral load. ALLERGIES: PENICILLIN. SOCIAL HISTORY: Positive history of smoking. Denied any alcohol use. FAMILY HISTORY: No significant cardiopulmonary disease reported. MEDICATIONS: She is on DuoNeb q. 6 hours, Isentress 400 mg twice a day, Norvir 100 mg twice a day, P ercocet 10/325 one tab q. 6 hours p.r.n., Toprol-XL 50 mg daily, Xanax 1 mg 3 times a day p.r.n., Zes tril 10 mg daily. REVIEW OF SYSTEMS: No headache, no rhinitis. Has cough, shortness of breath. No chest pain, no hilda sea, no vomiting, no diarrhea, no dysuria, no leg pain or leg swelling. Admitted to have snoring at nighttime, daytime sleepy and tired. PHYSICAL EXAMINATION: GENERAL: Lying in the bed in mild distress secondary to shortness of breath. VITAL SIGNS: Temp is 98, heart rate is 118, respiratory rate is 20, blood pressure 106/67 and pulse ox 94% on room air. HEENT: Moist mucous membranes. Crowded airway. Mallampati score is 4. NECK: Supple. No JVD. LUNGS: Have a prolonged expiratory phase with some wheezing. HEART: S1 and S2. ABDOMEN: Soft, nontender. No organomegaly. EXTREMITIES: There is no edema. NEUROLOGIC: Awake, alert, follows simple commands. LABORATORY DATA: Shows hemoglobin 13.2, hematocrit 39.5, WBC 6.7, platelet is 71, blood gas shows pH 7.42, pCO2 is 36, O2 is 58. This is a VBG. Sodium 138, potassium 3.6, chloride 102, bicarbonate 21 , BUN 14, creatinine 0.8, glucose 111, , calcium 9.1, AST 37, ALT 61, alk phos 62. LDH 1057. Tropon in 0.03. Albumin 3.8. Microbiology: Blood cultures have been negative. CAT scan of the chest was done through EG which is remarkable for spiculated density in the right lung upper lobe 1.5 cm, mild ground-glass opacity in the lung, nonspecified, has hepatomegaly, may have a compression fracture of the superior endplate of T5. IMPRESSION AND PLAN: Exacerbation of asthma, may have pneumonia, right upper lobe lung nodule, human immunodeficiency virus positive, hypertension, may have sleep apnea syndrome, anxiety disorder. Agr ee with Dr. Ramírez with the present management. Continue antibiotics, add Solu-Medrol 40 mg q. 12 balbir rs, inhaled bronchodilator. Gastric prophylaxis. Deep venous thrombosis prophylaxis. Sleep apnea p recaution. Outpatient, needs full PFT and also needs attended sleep study. We will follow with you. Tamiko Collado MD cc: [id number] TT: 02/21/2017 07:12:27 Confirmation # [id number] Dictation # [id number] tn
[2017-02-21 07:29] LABS: HEMATOCRIT 37.2 % (36.0-48.0); MEAN CELL VOLUME 93.9 fL (80.0-105.0); MEAN CORPUSCULAR HEMOGLOBIN 30.1 pg (25.0-35.0); RED CELL DISTRIBUTION WIDTH 17.4 % (11.5-14.5); WHITE BLOOD COUNT 14.6 10^3/ul (4.5-11.0)
[2017-02-21 07:39] LABS: ALB/GLOB RATIO 1.2 (1.1-1.8); BILIRUBIN,TOTAL 0.4 mg/dL (0.2-1.3); CALCIUM 8.7 mg/dL (8.4-10.5); POTASSIUM 4.3 mmol/L (3.6-5.0); TOTAL PROTEIN 6.8 g/dL (5.8-8.3)
[2017-02-21] MEDS: Budesonide 0.5 mg/2 ml Inhal Susp UD IH SCH ×2 (07:56→21:10)
[2017-02-21] MEDS: Arformoterol 15 mcg/2 ml Inh Sol IH SCH ×2 (07:56→21:10)
[2017-02-21] MEDS: Metoprolol Succinate 50 mg XL Tab PO SCH (08:56)
--- NOTE | 2017-02-21 16:22 | CP.PCM.PN ---
Subjective - Date & Time of Evaluation Date of Evaluation: 02/21/17 Time of Evaluation: 15:30 - Subjective Subjective: Infectious Disease Follow Up: February 21, 2017 61 yo female with presentation of nausea, dizziness, and subjective fevers. She also complains of cough, shortness of breath, and wheezing. The patient is known to have HIV and is on HAART treatment. CD4 is reported as over 900 with an undetectable viral load. The patient without leukocytosis. No fevers observed in hospital. Spiculated density in right upper lobe. Small ground-glass opacity at lung bases. No new findings today. Supportive care. Objective - Vital Signs/Intake and Output Vital Signs (last 24 hours): Temp Pulse Resp BP Pulse Ox 97.8 F 82 20 109/67 97 02/21/17 07:30 02/21/17 09:50 02/21/17 07:30 02/21/17 09:50 02/21/17 07:30 Intake and Output: 02/21/17 02/21/17 06:59 18:59 Intake Total 240 Balance 240 - Medications Medications: Current Medications Albuterol/Ipratropium (Duoneb 3 Mg/0.5 Mg (3 Ml) Ud) 3 ml IH [id number] [facility] Last Admin: 02/21/17 13:43 Dose: 3 ml Alprazolam (Xanax) 1 mg PO TID PRN; Protocol PRN Reason: Anxiety Last Admin: 02/21/17 09:51 Dose: 1 mg Arformoterol Tartrate (Brovana) 15 mcg IH [id number] [facility] Last Admin: 02/21/17 07:56 Dose: 15 mcg Azithromycin (Zithromax) 500 mg PO DAILY [facility] PRN Reason: Protocol Last Admin: 02/21/17 09:50 Dose: 500 mg Budesonide (Pulmicort Respules) 0.5 mg IH [id number] [facility] Last Admin: 02/21/17 07:56 Dose: 0.5 mg Lisinopril (Zestril) 10 mg PO DAILY [facility] Last Admin: 02/21/17 09:50 Dose: 10 mg Methylprednisolone (Solu-Medrol) 40 mg IVP Q12 [facility] Last Admin: 02/21/17 10:10 Dose: 40 mg Metoprolol Succinate (Toprol Xl) 50 mg PO BRK [facility] Last Admin: 02/21/17 08:56 Dose: 50 mg Oxycodone/Acetaminophen (Percocet 10/325 Mg Tab) 1 tab PO Q6H PRN PRN Reason: Pain, moderate (4-7) Last Admin: 02/21/17 12:18 Dose: 1 tab Raltegravir (Isentress) 400 mg PO BID [facility] Last Admin: 02/21/17 10:16 Dose: 400 mg Ritonavir (Norvir) 100 mg PO BRKDIN [facility] Last Admin: 02/21/17 08:55 Dose: 100 mg - Labs Labs: 02/21/17 06:00 02/21/17 06:00 - Constitutional Appears: Non-toxic, No Acute Distress, Chronically Ill - Head Exam Head Exam: ATRAUMATIC, NORMOCEPHALIC - Eye Exam Eye Exam: EOMI, PERRL Pupil Exam: NORMAL ACCOMODATION, PERRL - ENT Exam ENT Exam: Mucous Membranes Moist, Normal External Ear Exam, TM's Normal Bilaterally - Neck Exam Neck Exam: Full ROM, Normal Inspection - Respiratory Exam Respiratory Exam: Decreased Breath Sounds, NORMAL BREATHING PATTERN. absent: Rales, Rhonchi, Wheezes - Cardiovascular Exam Cardiovascular Exam: REGULAR RHYTHM, RRR, +S1, +S2 - GI/Abdominal Exam GI & Abdominal Exam: Soft, Normal Bowel Sounds. absent: Distended, Tenderness - Extremities Exam Extremities Exam: Full ROM, Normal Inspection - Neurological Exam Neurological Exam: Alert, Awake, CN II-XII Intact, Oriented x3 - Psychiatric Exam Psychiatric exam: Normal Affect, Normal Mood - Skin Skin Exam: Intact, Normal Color Assessment and Plan - Assessment and Plan (Free Text) Assessment: 61 yo female with known HIV on good control with HAART presenting with subjective fevers, chills, nausea, and cough. Imaging studies show possible right lung reticular perihilar opacities. CT scan showing spiculated density at the right lung upper lobe about 1.5 centimeter in size. Small ground glass opacities noted. No evidence of pleural effusion. Possible mild compression fracture in T5 superior endplate. Started on one dose of Vancomycin. Continue on Teflaro for antibiotic treatment at this time. Patient feeling a little better. Thank you for allowing me to participate in the care of the patient, we will follow with you.
--- NOTE | 2017-02-21 17:52 | PN ---
DATE: 02/21/2017 SUBJECTIVE: The patient is lying in bed in no acute distress. She complains of some wheezing, short ness of breath and nonproductive cough. She denies any nausea, vomiting. There is no dysuria or hem aturia, no fever, no chills. OBJECTIVE: VITAL SIGNS: Blood pressure 144/87, temperature 97.6, pulse 90, respiratory rate 22. LUNGS: Show a few scattered crepitations and bilateral expiratory wheezes. HEART: Regular rate and rhythm. ABDOMEN: Soft, nontender. Bowel sounds are normoactive. EXTREMITIES: Without cyanosis, clubbing or edema. NEUROLOGIC: The patient is awake and oriented x 3 without focal sensory or motor deficits. SKIN: Warm and dry. LABORATORY DATA: WBC is 14.6, hemoglobin 11.9, hematocrit 37.2. Sodium 141, potassium 4.3, chloride 105, CO2 of 24, BUN 42, creatinine 2.6, glucose 157. IMPRESSION: 1. Exacerbation of asthma, rule out pneumonia. 2. Human immunodeficiency virus positive. 3. Hypertension. 4. Anxiety disorder. 5. Azotemia, rule out acute kidney injury, possibly secondary to vancomycin versus ESTRELLA inhibitors, po ssibly secondary to IV contrast. PLAN: I will repeat BUN and creatinine levels. Obtain nephrology consultation and renal ultrasound. Continue pulmonary followup with Dr. Collado and infectious disease followup with Dr. Carr. Monitor r enal function closely. Ty Ramírez JD, MD cc: [id number] TT: 02/21/2017 17:51:18 Confirmation # [id number] Dictation # [id number] klarissa
[2017-02-21 18:35] LABS: ALB/GLOB RATIO 1.2 (1.1-1.8); BILIRUBIN,TOTAL 0.4 mg/dL (0.2-1.3); CALCIUM 8.8 mg/dL (8.4-10.5); POTASSIUM 4.2 mmol/L (3.6-5.0); TOTAL PROTEIN 7.2 g/dL (5.8-8.3)
--- NOTE | 2017-02-21 22:32 | PN ---
DATE: 02/21/2017 REFERRING PHYSICIAN: Dr. Ramírez. SUBJECTIVE: She is sitting up in bed. Still has a cough, shortness of breath. Complaining about ba ck pain. No nausea, no vomiting, no diarrhea. No leg pain or leg swelling. OBJECTIVE: GENERAL: No acute distress. VITAL SIGNS: Temp is 98, heart rate 90, respiratory rate is 20, blood pressure 144/87 and pulse ox 9 7% on room air. HEENT: Moist mucous membranes. Small oral cavity. Crowded airway. NECK: Supple, no JVD. LUNGS: Have bilateral wheezing. HEART: S1, S2. ABDOMEN: Soft, nontender. No organomegaly. EXTREMITIES: There is no edema. NEUROLOGIC: Awake, alert, follows simple commands. MEDICATIONS: She is on Brovana 15 mcg inhaled twice a day, DuoNeb q. 6 hours, Isentress 400 mg twice a day, Norvir ____ mg twice a day, Percocet 10/325 one tab q. 6 hours p.r.n., Pulmicort inhaled twic e a day, Solu-Medrol 40 mg q. 12 hours, Toprol-XL 50 mg daily, Xanax 7 mg three times a day p.r.n., Z ithromax 500 mg daily. LABORATORY DATA: Shows hemoglobin 11.9, hematocrit 37.2, WBC 14.6, platelets are 362. Sodium 140, p otassium 4.2, chloride 104, bicarbonate is 19, BUN 53, creatinine 2.7, glucose 147. AST 37, ALT 70, alkaline phosphatase is 81, albumin is 4.0. Microbiology: Blood cultures have been negative. Renal ultrasound is being done. IMPRESSION AND PLAN: Exacerbation of asthma, probably has pneumonia, lung nodule is more suspicious for pneumonia, human immunodeficiency virus positive, hypertension, may have sleep apnea syndrome, an xiety disorder, acute renal failure. Renal failure could be combination of dose of vancomycin, also receiving contrast ____ I doubt that is the cause. Will give her doxycycline 100 mg twice a day. Co ntinue IV steroids, inhaled bronchodilator. Add Singulair 10 mg daily, Daliresp 500 mcg daily. Cont inue pain management. Gastric prophylaxis. Deep vein thrombosis prophylaxis. Follow up her ____ in the morning. Thank you, and will follow with you. Tamiko Collado MD cc: [facility] TT: 02/21/2017 22:31:57 Confirmation # [id number] Dictation # [id number] mn
[2017-02-22] MEDS: Oxycodone/Acetaminophen 10/325 mg Tab PO PRN ×4 (00:27→23:13)
[2017-02-22] MEDS: Albuterol-Ipratrop 3 mg / 0.5 (3 ml) UD IH SCH ×4 (03:10→20:11)
[2017-02-22] MEDS: Budesonide 0.5 mg/2 ml Inhal Susp UD IH SCH ×2 (07:31→20:12)
[2017-02-22] MEDS: Arformoterol 15 mcg/2 ml Inh Sol IH SCH ×2 (07:31→20:11)
[2017-02-22 07:40] LABS: CALCIUM 8.4 mg/dL (8.4-10.5); POTASSIUM 4.1 mmol/L (3.6-5.0)
[2017-02-22] MEDS: Metoprolol Succinate 50 mg XL Tab PO SCH (08:48)
--- NOTE | 2017-02-22 09:23 | US ---
PROCEDURE: Ultrasound of the Kidneys HISTORY: azotemia COMPARISON: None available. TECHNIQUE: Sonogram of the kidneys. FINDINGS: RIGHT KIDNEY: Measures: 11.1 cm. Normal in size, contour and echogenicity. No stone, solid mass lesion or hydronephrosis visualized. LEFT KIDNEY: Measures: 10.1 cm. Normal in size, contour and echogenicity. No stone, solid mass lesion or hydronephrosis visualized. OTHER FINDINGS: None. IMPRESSION: Unremarkable renal sonogram.
[2017-02-22 09:45] LABS: ADD MANUAL DIFF? NO
[2017-02-22 09:47] LABS: BASO # 0.03 K/mm3 (0.0-2.0); BASO % 0.2 % (0.0-3.0); GRAN # 16.59 (1.4-6.5); GRAN % 89.3 % (50.0-68.0); HEMATOCRIT 35.1 % (36.0-48.0); LYMPH # 1.3 (1.2-3.4); LYMPH % 7.1 % (22.0-35.0); MEAN CELL VOLUME 93.9 fL (80.0-105.0); MEAN CORPUSCULAR HEMOGLOBIN 30.7 pg (25.0-35.0); MEAN CORPUSCULAR HGB CONC 32.8 g/dl (31.0-37.0); MEAN PLATELET VOLUME 9.9 fl (7.0-11.0); MONO # 0.6 (0.1-0.6); MONO % 3.4 % (1.0-6.0); PLATELET COUNT 402 10^3/uL (120.0-450.0); RED CELL DISTRIBUTION WIDTH 17.1 % (11.5-14.5); WHITE BLOOD COUNT 18.6 10^3/ul (4.5-11.0)
[2017-02-22] MEDS: MethylPREDNISolone 40 mg Vial IVP SCH ×2 (10:37→21:07)
--- NOTE | 2017-02-22 12:00 | PN ---
DATE: 02/22/2017 SUBJECTIVE: The patient is lying in bed in no acute distress. She complains of some wheezing, short ness of breath and nonproductive cough. She denies any nausea, no vomiting. There is no dysuria, he maturia, no fever, no chills, no abdominal pain. OBJECTIVE: VITAL SIGNS: Blood pressure 116/70, pulse 76, temperature 98.7, respiratory rate 18. LUNGS: Show a few scattered crepitations and bilateral expiratory wheezes. HEART: Regular rate and rhythm. ABDOMEN: Soft, nontender, bowel sounds are normoactive. EXTREMITIES: Without cyanosis, clubbing, or edema. NEUROLOGIC: The patient is awake and oriented x 3 without focal sensory or motor deficits. SKIN: Warm and dry. LABORATORY DATA: WBC is 18.6, hemoglobin 11.5, hematocrit 35.1. Sodium 138, potassium 4.1, chloride 106, CO2 18, BUN 65, creatinine 2.5, glucose 168. IMPRESSION: 1. Exacerbation of asthma, rule out pneumonia. 2. Human immunodeficiency virus positive. 3. Hypertension. 4. Anxiety disorder. 5. Hyperglycemia and leukocytosis probably secondary to steroids. 6. Azotemia, rule out acute kidney injury secondary to intravenous contrast versus vancomycin versus angiotensin converting enzyme inhibitors. PLAN: Continue pulmonary followup with Dr. Collado and infectious disease followup with Dr. Go. De La Rosa tor renal functions. Start IV saline. Nephrology consultation pending. Renal ultrasound is negativ e for any obstruction. Ty Ramírez JD, MD cc: [id number] TT: 02/22/2017 12:00:00 Confirmation # [id number] Dictation # [id number] mn
--- NOTE | 2017-02-22 12:30 | CON ---
DATE: 02/22/2017 REASON FOR CONSULTATION: Acute kidney injury. HISTORY OF PRESENTING ILLNESS: A 61-year-old lady previously unknown to me, admitted on 02/19 with com plaints of headache, abdominal pain, nausea, vomiting, diarrhea. She also complained of shortness of breath, wheezing and cough with whitish sputum. The patient reported very loose stools which was al most black, she says. She had some blood tinge to vomitus. She was admitted for asthmatic bronchiti s. She was started on doxycycline, Solu-Medrol 40 mg IV q. 12, Toprol-XL and Zithromax. She was hem odynamically stable at the time of admission. She had no documented fevers. Her hemoglobin was 13 a t the time of admission. Her BUN was 14 and creatinine was 0.8. Subsequently, on 02/21, her BUN was found to be 42 and creatinine was 2.6. Hence, consultation is requested. PAST MEDICAL AND SURGICAL HISTORY: Longstanding hypertension, HIV. The patient reports she never devries d a documented opportunistic infection. Her CD4 count is 900. Her viral load is negligible. She is on antiretrovirals. She denies any history of diabetes. She denies any history of CAD. She does g lakshmi a history of asthma. She reports she has had multiple pneumonias, cholecystectomy, hysterectomy. FAMILY HISTORY: Noncontributory. SOCIAL HISTORY: No smoking, no alcohol use, no IV drug abuse. ALLERGIES: PENICILLIN. MEDICATIONS: Brovana, roflumilast, doxycycline 100 q. 12, DuoNeb, Isentress, ritonavir, normal salin e with 20 mEq of potassium at 100 that was stopped this morning, Singulair, Solu-Medrol 40 q. 12 hour s, Toprol-XL 50, Xanax, Zithromax, and Zestril 10 mg daily, which was stopped yesterday. REVIEW OF SYSTEMS: All systems are reviewed. Pertinent positives as mentioned in the history of pre senting illness, rest unremarkable. PHYSICAL EXAMINATION: GENERAL: Obese elderly lady sitting in bed in moderate distress secondary to cough. VITAL SIGNS: Blood pressure 116/70, heart rate 76, respiratory rate 18, temperature 98.7. HEENT: Normocephalic, atraumatic. No pallor, no icterus. NECK: Supple, no JVD. LUNGS: Bilateral rhonchi, equal expansion, no rales. CARDIAC: S1, S2, regular rate and rhythm, no murmur, no rub. ABDOMEN: Obese, distended, soft, nontender, positive scar in the right upper quadrant, bowel sounds present. EXTREMITIES: 1+ pitting edema of the lower extremities. INTAKE AND OUTPUT: Not charted. LABORATORY DATA: WBC 18.6, hemoglobin 11.5, hematocrit 35, platelets 402, polys 89%, lymphs 7%, mono cytes 3.4%, no eosinophils. Sodium 138, potassium 4.1, chloride 106, CO2 18, BUN 65, creatinine 2.5, glucose 168, calcium 8.4. Renal ultrasound, right kidney 11 cm, left kidney 10 cm. No hydronephrosis, no stones. CT of the est with contrast shows spiculated density in the right upper lobe measuring 1.5 cm, small ground-gla ss opacities in the lungs. No evidence of pleural effusion, hepatomegaly, suspicious mild compressio n fracture of T5. ASSESSMENT: 1. Acute kidney injury, suspect acute tubular necrosis secondary to contrast exposure. 2. No evidence of acute interstitial nephritis, are negative. 3. Human immunodeficiency virus. 4. Asthmatic bronchitis 5. Leukocytosis ? steroid- related. PLAN: 1. Urinalysis. 2. Urine eosinophils. 3. Avoid nephrotoxins. 4. Agree with holding ESTRELLA inhibitor. 5. Agree with IV fluids. 6. Monitor urine output closely. 7. Daily labs. Kelly Cantu MD cc: [id number] TT: 02/22/2017 12:29:02 Confirmation # [id number] Dictation # [id number] rolando
[2017-02-22 15:08] LABS: PH,URINE 5.5 (4.7-8.0); URINE BILIRUBIN NEGATIVE (NEGATIVE); URINE BLOOD LARGE (NEGATIVE); URINE GLUCOSE (UA) NEGATIVE (NEGATIVE); URINE KETONE NEGATIVE (NEGATIVE); URINE LEUKOCYTE ESTERASE NEGATIVE Leu/uL (NEGATIVE); URINE PROTEIN 100 mg/dL (<30 mg/dL); URINE UROBILINOGEN 0.2 E.U./dL (<1 E.U./dL)
[2017-02-22 15:11] LABS: URINE APPEARANCE SL CLOUDY (CLEAR); URINE COLOR YELLOW (YELLOW)
[2017-02-22 15:17] LABS: URINE WBC 0 - 2 /hpf (0-6)
[2017-02-22 15:18] LABS: URINE BACTERIA FEW (NEG)
--- NOTE | 2017-02-22 18:33 | PN ---
DATE: 02/22/2017 REFERRING PHYSICIAN: Dr. Ramírez. SUBJECTIVE: The patient is sitting side of the bed. Night was unremarkable, feels a little better, decreased cough, decreased shortness of breath. No nausea, no vomiting, no diarrhea. No leg pain or leg swelling. OBJECTIVE: GENERAL: No acute distress. VITAL SIGNS: Temperature is 98, heart rate 76, respiratory rate is 20, blood pressure 116/70, pulse ox 96% on nasal cannula. HEENT: Moist mucous membranes. Small oral cavity. Crowded airway. NECK: Supple. No JVD. LUNGS: Prolonged expiratory phase with some wheezing. HEART: S1 and S2. ABDOMEN: Soft, nontender. No organomegaly. EXTREMITIES: There is no edema. NEUROLOGIC: Awake, alert, follows simple command. MEDICATIONS: She is on Brovana 50 mcg inhaled twice a day, Daliresp 500 mcg daily, doxycycline 100 m g twice a day, DuoNeb q. 6 hours , Isentress 400 mg twice a day, Norvir 100 mg twice a day, Perc ocet 10/325 one tab q. 6 hours p.r.n., potassium with IV fluids, Pulmicort inhaled twice a day, Singu lair 10 mg daily, Solu-Medrol 40 mg q. 12 hours, Toprol-XL 50 mg daily, Xanax 1 mg 3 times a day p.r. n., Zithromax 500 mg daily. LABORATORY DATA: Shows hemoglobin 11.5, hematocrit 35.1, WBC 18.6, platelet is 402. Sodium 138, pot assium 4.1, chloride 106, bicarbonate 18, BUN is 65, creatinine 2.5, glucose 158, calcium 8.4. MICROBIOLOGY: Blood culture has been negative. IMPRESSION AND PLAN: Exacerbation of asthma, probably has pneumonia and lung nodule, probably is inf iltrate, suspicious for malignancy, HIV positive, hypertension, may have a sleep apnea syndrome, anxi ety disorder, acute renal failure. Pulmonary point of view, doing okay. Continue IV steroids, inhal ed bronchodilator, antibiotics. Sleep apnea precautions. Careful with sedation. Keep head elevated at 45 degrees. Continue IV fluid. Nephrology followup. Follow up BUN and creatinine. Concerning pulmonary infiltrate need followup CAT scan to assure the stability of her lung nodule. Will need at tended sleep study as outpatient, PFT as outpatient. Follow up electrolytes in the morning. Thank estela temple and will follow with you. Tamiko Collado MD cc: [phone] TT: 02/22/2017 18:33:04 Confirmation # [id number] Dictation # [id number] mn
--- NOTE | 2017-02-22 21:43 | CP.PCM.PN ---
Subjective - Date & Time of Evaluation Date of Evaluation: 02/22/17 Time of Evaluation: 14:45 - Subjective Subjective: Infectious Disease Follow Up: February 22, 2017 61 yo female with presentation of nausea, dizziness, and subjective fevers. She also complains of cough, shortness of breath, and wheezing. The patient is known to have HIV and is on HAART treatment. CD4 is reported as over 900 with an undetectable viral load. The patient without leukocytosis. No fevers observed in hospital. Spiculated density in right upper lobe. Small ground-glass opacity at lung bases. No new findings today. Supportive care. CAP. Objective - Vital Signs/Intake and Output Vital Signs (last 24 hours): Temp Pulse Resp BP Pulse Ox 97.6 F 87 20 148/79 97 02/22/17 16:00 02/22/17 16:00 02/22/17 16:00 02/22/17 16:00 02/22/17 16:00 Intake and Output: 02/22/17 02/23/17 18:59 06:59 Intake Total 900 Output Total 3 Balance 897 - Medications Medications: Current Medications Albuterol/Ipratropium (Duoneb 3 Mg/0.5 Mg (3 Ml) Ud) 3 ml IH [id number] [facility] Last Admin: 02/22/17 20:11 Dose: 3 ml Alprazolam (Xanax) 1 mg PO TID PRN; Protocol PRN Reason: Anxiety Last Admin: 02/22/17 21:07 Dose: 1 mg Arformoterol Tartrate (Brovana) 15 mcg IH [id number] [facility] Last Admin: 02/22/17 20:11 Dose: 15 mcg Azithromycin (Zithromax) 500 mg PO DAILY [facility] PRN Reason: Protocol Last Admin: 02/22/17 10:38 Dose: 500 mg Budesonide (Pulmicort Respules) 0.5 mg IH [id number] [facility] Last Admin: 02/22/17 20:12 Dose: 0.5 mg Doxycycline Hyclate (Doryx) 100 mg PO Q12 [facility] PRN Reason: Protocol Last Admin: 02/22/17 21:07 Dose: 100 mg Potassium Chloride 20 meq/ (Sodium Chloride) 1,010 mls @ 100 mls/hr IV .Q10H6M [facility] Last Admin: 02/22/17 13:14 Dose: 100 mls/hr Methylprednisolone (Solu-Medrol) 40 mg IVP Q12 [facility] Last Admin: 02/22/17 21:07 Dose: 40 mg Metoprolol Succinate (Toprol Xl) 50 mg PO BRK [facility] Last Admin: 02/22/17 08:48 Dose: 50 mg Montelukast Sodium (Singulair) 10 mg PO HS [facility] Last Admin: 02/22/17 21:07 Dose: 10 mg Oxycodone/Acetaminophen (Percocet 10/325 Mg Tab) 1 tab PO Q6H PRN PRN Reason: Pain, moderate (4-7) Last Admin: 02/22/17 17:05 Dose: 1 tab Raltegravir (Isentress) 400 mg PO BID [facility] Last Admin: 02/22/17 17:02 Dose: 400 mg Ritonavir (Norvir) 100 mg PO BRKDIN [facility] Last Admin: 02/22/17 17:02 Dose: 100 mg Roflumilast (Daliresp) 500 mcg PO DAILY [facility] Last Admin: 02/22/17 10:39 Dose: 500 mcg - Labs Labs: 02/22/17 08:45 02/22/17 06:30 - Constitutional Appears: Non-toxic, No Acute Distress, Chronically Ill - Head Exam Head Exam: ATRAUMATIC, NORMOCEPHALIC - Eye Exam Eye Exam: EOMI, PERRL Pupil Exam: NORMAL ACCOMODATION, PERRL - ENT Exam ENT Exam: Mucous Membranes Moist, Normal External Ear Exam, TM's Normal Bilaterally - Neck Exam Neck Exam: Full ROM, Normal Inspection - Respiratory Exam Respiratory Exam: Clear to Ausculation Bilateral, NORMAL BREATHING PATTERN. absent: Rales, Rhonchi, Wheezes - Cardiovascular Exam Cardiovascular Exam: REGULAR RHYTHM, RRR, +S1, +S2 - GI/Abdominal Exam GI & Abdominal Exam: Soft, Normal Bowel Sounds. absent: Distended, Tenderness - Extremities Exam Extremities Exam: Full ROM, Normal Inspection - Neurological Exam Neurological Exam: Alert, Awake, CN II-XII Intact, Oriented x3 - Psychiatric Exam Psychiatric exam: Normal Affect, Normal Mood - Skin Skin Exam: Intact, Normal Color Assessment and Plan - Assessment and Plan (Free Text) Assessment: 61 yo female with known HIV on good control with HAART presenting with subjective fevers, chills, nausea, and cough. Imaging studies show possible right lung reticular perihilar opacities. CT scan showing spiculated density at the right lung upper lobe about 1.5 centimeter in size. Small ground glass opacities noted. No evidence of pleural effusion. Possible mild compression fracture in T5 superior endplate. Started on one dose of Vancomycin. Continuing on Teflaro for antibiotic treatment at this time. Patient feeling better overall. Thank you for allowing me to participate in the care of the patient, we will follow with you.
[2017-02-23] MEDS: Linezolid 600 mg in D5W 300 ml 600 MG/300 ML BAG IVPB SCH ×2 (00:07→22:08)
[2017-02-23] MEDS: Albuterol-Ipratrop 3 mg / 0.5 (3 ml) UD IH SCH ×4 (01:19→20:37)
[2017-02-23] MEDS: Oxycodone/Acetaminophen 10/325 mg Tab PO PRN ×4 (05:26→22:35)
[2017-02-23 07:20] LABS: ADD MANUAL DIFF? NO
[2017-02-23 07:23] LABS: BASO # 0.07 K/mm3 (0.0-2.0); BASO % 0.4 % (0.0-3.0); GRAN # 14.04 (1.4-6.5); GRAN % 86.8 % (50.0-68.0); HEMATOCRIT 34.3 % (36.0-48.0); LYMPH # 1.2 (1.2-3.4); LYMPH % 7.3 % (22.0-35.0); MEAN CORPUSCULAR HEMOGLOBIN 30.6 pg (25.0-35.0); MEAN CORPUSCULAR HGB CONC 33.2 g/dl (31.0-37.0); MEAN PLATELET VOLUME 9.8 fl (7.0-11.0); MONO # 0.9 (0.1-0.6); MONO % 5.5 % (1.0-6.0); PLATELET COUNT 382 10^3/uL (120.0-450.0); RED CELL DISTRIBUTION WIDTH 16.9 % (11.5-14.5); WHITE BLOOD COUNT 16.2 10^3/ul (4.5-11.0)
[2017-02-23] MEDS: Arformoterol 15 mcg/2 ml Inh Sol IH SCH ×2 (07:31→20:37)
[2017-02-23] MEDS: Budesonide 0.5 mg/2 ml Inhal Susp UD IH SCH ×2 (07:31→20:37)
[2017-02-23] MEDS: Metoprolol Succinate 50 mg XL Tab PO SCH (08:11)
[2017-02-23 09:03] LABS: ALB/GLOB RATIO 1.4 (1.1-1.8); BILIRUBIN,TOTAL 0.3 mg/dL (0.2-1.3); CALCIUM 8.1 mg/dL (8.4-10.5); POTASSIUM 4.8 mmol/L (3.6-5.0); TOTAL PROTEIN 6.1 g/dL (5.8-8.3)
[2017-02-23] MEDS: MethylPREDNISolone 40 mg Vial IVP SCH ×2 (09:07→22:09)
--- NOTE | 2017-02-23 11:50 | PN ---
DATE: 02/23/2017 SUBJECTIVE: The patient is out of bed in a chair in no acute distress. She complains of some wheezi ng and shortness of breath and nonproductive cough. There is no nausea, no vomiting, no dysuria, no hematuria. OBJECTIVE: VITAL SIGNS: Blood pressure 160/85, pulse 80, temperature 97.5, respiratory rate 19. LUNGS: Show a few scattered crepitations and bilateral expiratory wheezes. HEART: Regular rate and rhythm. ABDOMEN: Soft, nontender, bowel sounds are normoactive. EXTREMITIES: Without cyanosis, clubbing, or edema. NEUROLOGIC: The patient is awake and oriented x 3 without focal sensory or motor deficits. SKIN: Warm and dry. LABORATORY DATA: WBC 16.2, hemoglobin 11.4, hematocrit 34.3. Sodium 139, potassium 4.8, chloride 11 0, CO2 of 16, BUN 64, creatinine 1.7, glucose 165. IMPRESSION: 1. Exacerbation of asthma, rule out pneumonia. 2. Human immunodeficiency virus. 3. Hypertension. 4. Anxiety disorder. 5. Hyperglycemia and leukocytosis probably secondary to steroids. 6. Azotemia secondary to acute kidney injury from IV contrast from CAT scan. PLAN: Continue to monitor renal function. Continue pulmonary followup with Dr. Collado. Renal consu ltation with Dr. Cantu is appreciated. Ty Ramírez JD, MD cc: [id number] TT: 02/23/2017 11:50:04 Confirmation # [id number] Dictation # [id number] sn
--- NOTE | 2017-02-23 12:03 | PN ---
DATE: 02/23/2017 REFERRING PHYSICIAN: Dr. Ramírez. SUBJECTIVE: She is lying in the bed. Night was remarkable for cough. According to patient, she has more cough at nighttime than daytime. Not much sputum production. No nausea, no vomiting or diarrh ea. No leg pain or leg swelling. OBJECTIVE: GENERAL: In no acute distress. VITAL SIGNS: Temperature is 98, heart is 80, respiratory rate is 18, blood pressure 160/85, pulse ox 98% on 2 liters nasal cannula. HEENT: Moist mucous membranes. Small oral cavity. Crowded airway. NECK: Supple. No JVD. LUNGS: Have a prolonged respiratory phase with some rhonchi. HEART: S1, S2. ABDOMEN: Soft, nontender. No organomegaly. EXTREMITIES: There is no edema. NEUROLOGIC: Awake, alert, follows simple commands. MEDICATIONS: She is on Brovana 15 mcg inhaled twice a day, Colace 100 mg twice a day, Daliresp 500 m cg daily, doxycycline 100 mg twice a day, DuoNeb q. 6 hours, Isentress 400 mg twice a day, Norvir 100 mg twice a day, Percocet 10/325 one tab q. 6 hours p.r.n., IV fluid with 20 mEq KCl 100 mL per hour, Pulmicort inhaled twice a day, Singulair 10 mg daily, Solu-Medrol 40 mg q. 12 hours, Toprol-XL 50 mg daily, Xanax 1 mg 3 times a day p.r.n., Zithromax 500 mg daily, Zyvox 600 mg q. 12 hours. LABORATORY DATA: Shows hemoglobin 11.4, hematocrit 34.3, WBC 16.2, platelet is 382. Sodium 139, pot assium 4.8, chloride 110, bicarbonate 16, BUN 64, creatinine 1.7, glucose 165, calcium 8.1. AST 32, ALT 50, alkaline phosphatase is 115, albumin is 3.5. MICROBIOLOGY: Blood culture has been negative. IMPRESSION AND PLAN: Exacerbation of chronic obstructive lung disease, may have pneumonia, lung nodu le, human immunodeficiency virus positive, hypertension, may have a component of sleep apnea syndrome , anxiety disorder, renal failure. From pulmonary point of view, a little bit improved. Nocturnal c ough suggesting may have a sleep apnea syndrome. Will place her on CPAP 7 cm with 30% oxygen while s leeping tonight and see how she does. Decrease steroids. Continue IV fluid. Gastric prophylaxis. Deep venous thrombosis prophylaxis. Thank you, and will follow with you. Tamiko Collado MD cc: [phone] TT: 02/23/2017 12:02:19 Confirmation # [id number] Dictation # [id number] mn
--- NOTE | 2017-02-23 14:37 | PN ---
DATE: 02/23/2017 SUBJECTIVE: The patient is seen lying in bed. She is awake. She is alert. Multiple family members at bedside. She reports cough is off and on. She denies any chest tightness. PHYSICAL EXAMINATION: GENERAL: Obese elderly lady lying in bed. VITAL SIGNS: Blood pressure 160/85, heart rate 80, respiratory rate 18, temperature 97.5. HEENT: Normocephalic, atraumatic. NECK: Supple, no JVD. LUNGS: Bilateral equal air entry, bilateral rhonchi, rales right base. CARDIAC: S1, S2, regular rate and rhythm, no murmur, no rub. ABDOMEN: Obese, distended, soft, nontender, bowel sounds present. EXTREMITIES: Trace lower extremity edema. INTAKE AND OUTPUT: Not charted. LABORATORY DATA: WBC 16, hemoglobin 11, hematocrit 34, platelets 382. Sodium 139, potassium 4.8, ch loride 110, CO2 16, BUN 64, creatinine 1.7, glucose 165, calcium 8.1, albumin 3.5, anion gap 13. Uri nalysis: Yellow, slightly cloudy, pH 5.5, specific gravity greater than 1.030, protein 100, blood la rge, nitrite negative, leukocyte esterase negative. Urine eosinophils negative. Blood cultures no growth. CURRENT MEDICATIONS: Brovana, Colace, roflumilast, Doryx, DuoNeb, Raltegravir, ritonavir, Percocet, IV fluids, normal saline with 20 mEq of KCl, Singulair, Solu-Medrol, Toprol-XL, Xanax, Zithromax, Zyv ox. ASSESSMENT: 1. Acute kidney injury, acute tubular necrosis secondary to contrast exposure. 2. Exacerbation of asthma. 3. Suspected pneumonia. 4. Human immunodeficiency virus. 5. Hypertension. 6. Anxiety disorder. PLAN: 1. Repeat chest x-ray, crackles right base. 2. Discontinue IV fluids. 3. Push p.o. fluids. 4. Continue antibiotics. 5. Avoid nephrotoxins. 6. Continue antiretrovirals. 7. No evidence of acute interstitial nephritis. Kelly Cantu MD cc: [id number] TT: 02/23/2017 14:36:08 Confirmation # [id number] Dictation # [id number] jn
--- NOTE | 2017-02-23 15:14 | RAD ---
HISTORY: cough COMPARISON: 02/19/2017 TECHNIQUE: Chest PA and lateral FINDINGS: LUNGS: No active pulmonary disease. PLEURA: No significant pleural effusion identified. No pneumothorax apparent. CARDIOVASCULAR: Normal. OSSEOUS STRUCTURES: No significant abnormalities. VISUALIZED UPPER ABDOMEN: Normal. OTHER FINDINGS: None. IMPRESSION: No active disease.
--- NOTE | 2017-02-23 16:02 | CP.PCM.PN ---
Subjective - Date & Time of Evaluation Date of Evaluation: 02/23/17 Time of Evaluation: 15:15 - Subjective Subjective: Infectious Disease Follow Up: February 23, 2017 61 yo female with presentation of nausea, dizziness, and subjective fevers. She also complains of cough, shortness of breath, and wheezing. The patient is known to have HIV and is on HAART treatment. CD4 is reported as over 900 with an undetectable viral load. The patient without leukocytosis. No fevers observed in hospital. Spiculated density in right upper lobe. Small ground-glass opacity at lung bases. No new findings today. Supportive care. CAP. Most recent Chest X-ray clear. Objective - Vital Signs/Intake and Output Vital Signs (last 24 hours): Temp Pulse Resp BP Pulse Ox 97.5 F L 80 19 160/85 H 98 02/23/17 08:00 02/23/17 08:11 02/23/17 08:00 02/23/17 08:11 02/23/17 08:00 Intake and Output: 02/23/17 02/23/17 06:59 18:59 Intake Total 540 1080 Balance 540 1080 - Medications Medications: Current Medications Albuterol/Ipratropium (Duoneb 3 Mg/0.5 Mg (3 Ml) Ud) 3 ml IH [id number] [facility] Last Admin: 02/23/17 13:38 Dose: 3 ml Alprazolam (Xanax) 1 mg PO TID PRN; Protocol PRN Reason: Anxiety Last Admin: 02/23/17 07:34 Dose: 1 mg Arformoterol Tartrate (Brovana) 15 mcg IH [id number] [facility] Last Admin: 02/23/17 07:31 Dose: 15 mcg Azithromycin (Zithromax) 500 mg PO DAILY [facility] PRN Reason: Protocol Last Admin: 02/23/17 09:06 Dose: 500 mg Budesonide (Pulmicort Respules) 0.5 mg IH [id number] [facility] Last Admin: 02/23/17 07:31 Dose: 0.5 mg Docusate Sodium (Colace) 100 mg PO BID [facility] Last Admin: 02/23/17 10:13 Dose: 100 mg Doxycycline Hyclate (Doryx) 100 mg PO Q12 [facility] PRN Reason: Protocol Last Admin: 02/23/17 09:06 Dose: 100 mg Potassium Chloride 20 meq/ (Sodium Chloride) 1,010 mls @ 100 mls/hr IV .Q10H6M [facility] Stop: 02/23/17 18:00 Last Admin: 02/23/17 11:44 Dose: 100 mls/hr Linezolid (Zyvox 600mg/300ml D5w) 600 mg in 300 mls @ 200 mls/hr IVPB Q12 [facility] PRN Reason: Protocol Stop: 02/28/17 23:59 Last Admin: 02/23/17 00:07 Dose: 200 mls/hr Methylprednisolone (Solu-Medrol) 20 mg IVP Q12 [facility] Metoprolol Succinate (Toprol Xl) 50 mg PO BRK [facility] Last Admin: 02/23/17 08:11 Dose: 50 mg Montelukast Sodium (Singulair) 10 mg PO HS [facility] Last Admin: 02/22/17 21:07 Dose: 10 mg Oxycodone/Acetaminophen (Percocet 10/325 Mg Tab) 1 tab PO Q6H PRN PRN Reason: Pain, moderate (4-7) Last Admin: 02/23/17 11:44 Dose: 1 tab Raltegravir (Isentress) 400 mg PO BID [facility] Last Admin: 02/23/17 09:10 Dose: 400 mg Ritonavir (Norvir) 100 mg PO BRKDIN [facility] Last Admin: 02/23/17 08:11 Dose: 100 mg Roflumilast (Daliresp) 500 mcg PO DAILY [facility] Last Admin: 02/23/17 09:07 Dose: 500 mcg - Labs Labs: 02/23/17 07:00 02/23/17 07:00 - Constitutional Appears: Non-toxic, No Acute Distress, Chronically Ill - Head Exam Head Exam: ATRAUMATIC, NORMOCEPHALIC - Eye Exam Eye Exam: EOMI, PERRL Pupil Exam: NORMAL ACCOMODATION, PERRL - ENT Exam ENT Exam: Mucous Membranes Moist, Normal External Ear Exam, TM's Normal Bilaterally - Neck Exam Neck Exam: Full ROM, Normal Inspection - Respiratory Exam Respiratory Exam: Clear to Ausculation Bilateral, NORMAL BREATHING PATTERN. absent: Rales, Rhonchi, Wheezes - Cardiovascular Exam Cardiovascular Exam: REGULAR RHYTHM, RRR, +S1, +S2 - GI/Abdominal Exam GI & Abdominal Exam: Soft, Normal Bowel Sounds. absent: Distended, Tenderness - Extremities Exam Extremities Exam: Full ROM, Normal Inspection - Neurological Exam Neurological Exam: Alert, Awake, CN II-XII Intact, Oriented x3 - Psychiatric Exam Psychiatric exam: Normal Affect, Normal Mood - Skin Skin Exam: Intact, Normal Color Assessment and Plan - Assessment and Plan (Free Text) Assessment: 61 yo female with known HIV on good control with HAART presenting with subjective fevers, chills, nausea, and cough. Imaging studies show possible right lung reticular perihilar opacities. CT scan showing spiculated density at the right lung upper lobe about 1.5 centimeter in size. Small ground glass opacities noted. No evidence of pleural effusion. Possible mild compression fracture in T5 superior endplate. Started on one dose of Vancomycin. Difficult to administer more doses as the patient's renal function was affected by the dye administration and possibly the Vancomycin dose. Patient feeling better overall. Zyvox given instead due to PCN allergies. Thank you for allowing me to participate in the care of the patient, we will follow with you.
[2017-02-24] MEDS: Albuterol-Ipratrop 3 mg / 0.5 (3 ml) UD IH SCH ×4 (01:33→21:51)
[2017-02-24] MEDS: Oxycodone/Acetaminophen 10/325 mg Tab PO PRN ×4 (04:43→23:56)
[2017-02-24] MEDS: Arformoterol 15 mcg/2 ml Inh Sol IH SCH ×2 (07:10→21:51)
[2017-02-24] MEDS: Budesonide 0.5 mg/2 ml Inhal Susp UD IH SCH ×2 (07:10→21:51)
[2017-02-24 08:30] LABS: CALCIUM 8.1 mg/dL (8.4-10.5); POTASSIUM 5.4 mmol/L (3.6-5.0)
[2017-02-24] MEDS: MethylPREDNISolone 40 mg Vial IVP SCH ×2 (09:23→21:22)
[2017-02-24] MEDS: Linezolid 600 mg in D5W 300 ml 600 MG/300 ML BAG IVPB SCH ×2 (09:25→21:22)
[2017-02-24] MEDS: Metoprolol Succinate 50 mg XL Tab PO SCH (09:26)
--- NOTE | 2017-02-24 12:55 | CP.PCM.PN ---
Subjective - Date & Time of Evaluation Date of Evaluation: 02/24/17 Time of Evaluation: 12:00 - Subjective Subjective: Infectious Disease Follow Up: February 23, 2017 61 yo female with presentation of nausea, dizziness, and subjective fevers. She also complains of cough, shortness of breath, and wheezing. The patient is known to have HIV and is on HAART treatment. CD4 is reported as over 900 with an undetectable viral load. The patient without leukocytosis. No fevers observed in hospital. Spiculated density in right upper lobe. Small ground-glass opacity at lung bases. No new findings today. Supportive care. CAP. Most recent Chest X-ray clear. Highly anxious personality. Objective - Vital Signs/Intake and Output Vital Signs (last 24 hours): Temp Pulse Resp BP Pulse Ox 97.0 F L 78 24 162/92 H 97 02/24/17 07:30 02/24/17 07:30 02/24/17 07:30 02/24/17 09:26 02/24/17 07:30 Intake and Output: 02/24/17 02/24/17 06:59 18:59 Intake Total 540 240 Balance 540 240 - Medications Medications: Current Medications Albuterol/Ipratropium (Duoneb 3 Mg/0.5 Mg (3 Ml) Ud) 3 ml IH [id number] [facility] Last Admin: 02/24/17 07:10 Dose: 3 ml Alprazolam (Xanax) 1 mg PO TID PRN; Protocol PRN Reason: Anxiety Last Admin: 02/24/17 09:24 Dose: 1 mg Arformoterol Tartrate (Brovana) 15 mcg IH [id number] [facility] Last Admin: 02/24/17 07:10 Dose: 15 mcg Azithromycin (Zithromax) 500 mg PO DAILY [facility] PRN Reason: Protocol Last Admin: 02/24/17 09:24 Dose: 500 mg Budesonide (Pulmicort Respules) 0.5 mg IH [id number] [facility] Last Admin: 02/24/17 07:10 Dose: 0.5 mg Docusate Sodium (Colace) 100 mg PO BID [facility] Last Admin: 02/24/17 09:24 Dose: 100 mg Doxycycline Hyclate (Doryx) 100 mg PO Q12 [facility] PRN Reason: Protocol Last Admin: 02/24/17 09:23 Dose: 100 mg Linezolid (Zyvox 600mg/300ml D5w) 600 mg in 300 mls @ 200 mls/hr IVPB Q12 [facility] PRN Reason: Protocol Stop: 02/28/17 23:59 Last Admin: 02/24/17 09:25 Dose: 200 mls/hr Methylprednisolone (Solu-Medrol) 20 mg IVP Q12 [facility] Last Admin: 02/24/17 09:23 Dose: 20 mg Metoprolol Succinate (Toprol Xl) 50 mg PO BRK [facility] Last Admin: 02/24/17 09:26 Dose: 50 mg Montelukast Sodium (Singulair) 10 mg PO HS [facility] Last Admin: 02/23/17 22:10 Dose: 10 mg Oxycodone/Acetaminophen (Percocet 10/325 Mg Tab) 1 tab PO Q6H PRN PRN Reason: Pain, moderate (4-7) Last Admin: 02/24/17 11:10 Dose: 1 tab Raltegravir (Isentress) 400 mg PO BID [facility] Last Admin: 02/24/17 09:23 Dose: 400 mg Ritonavir (Norvir) 100 mg PO BRKDIN [facility] Last Admin: 02/24/17 09:23 Dose: 100 mg Roflumilast (Daliresp) 500 mcg PO DAILY [facility] Last Admin: 02/24/17 09:23 Dose: 500 mcg - Labs Labs: 02/23/17 07:00 02/24/17 08:11 - Constitutional Appears: Non-toxic, No Acute Distress, Chronically Ill - Head Exam Head Exam: ATRAUMATIC, NORMOCEPHALIC - Eye Exam Eye Exam: EOMI, PERRL Pupil Exam: NORMAL ACCOMODATION, PERRL - ENT Exam ENT Exam: Mucous Membranes Moist, Normal External Ear Exam, TM's Normal Bilaterally - Neck Exam Neck Exam: Full ROM, Normal Inspection - Respiratory Exam Respiratory Exam: Clear to Ausculation Bilateral, NORMAL BREATHING PATTERN. absent: Rales, Rhonchi, Wheezes - Cardiovascular Exam Cardiovascular Exam: REGULAR RHYTHM, RRR, +S1, +S2 - GI/Abdominal Exam GI & Abdominal Exam: Soft, Normal Bowel Sounds. absent: Distended, Tenderness - Extremities Exam Extremities Exam: Full ROM, Normal Inspection - Neurological Exam Neurological Exam: Alert, Awake, CN II-XII Intact, Oriented x3 - Psychiatric Exam Psychiatric exam: Normal Affect, Normal Mood - Skin Skin Exam: Intact, Normal Color Assessment and Plan - Assessment and Plan (Free Text) Assessment: 61 yo female with known HIV on good control with HAART presenting with subjective fevers, chills, nausea, and cough. Imaging studies show possible right lung reticular perihilar opacities. CT scan showing spiculated density at the right lung upper lobe about 1.5 centimeter in size. Small ground glass opacities noted. No evidence of pleural effusion. Possible mild compression fracture in T5 superior endplate. Started on one dose of Vancomycin. Difficult to administer more doses as the patient's renal function was affected by the dye administration and possibly the Vancomycin dose. Patient feeling better overall. Zyvox given instead due to PCN allergies. Creatinine improving. Thank you for allowing me to participate in the care of the patient, we will follow with you.
--- NOTE | 2017-02-24 14:04 | PN ---
DATE: 02/24/2017 SUBJECTIVE: The patient is seen sitting in bed. She appears anxious. She complains of shortness of breath. She complains of bleeding from her right elbow. She has multiple ecchymoses, she appears v edith flushed. PHYSICAL EXAMINATION: GENERAL: Obese elderly lady sitting in bed. VITAL SIGNS: Blood pressure 162/92, heart rate 78, respiratory rate 24, temperature 97. HEENT: Normocephalic, atraumatic, positive pallor. NECK: Supple, no JVD. LUNGS: Bilateral equal air entry, bilateral rhonchi, minimal rales. CARDIAC: S1, S2, regular rate and rhythm, no murmur, no rub. ABDOMEN: Obese, distended, soft, nontender, bowel sounds present. EXTREMITIES: 1+ pitting edema of the lower extremities, diffuse ecchymosis of the upper extremities. INTAKE AND OUTPUT: /not charted. LABORATORY DATA: WBC 16, hemoglobin 11, hematocrit 34, platelets 382. Sodium 140, potassium 5.4, ch loride 113, CO2 14, BUN 47, creatinine 1.2, glucose 116, calcium 8.1. CURRENT MEDICATIONS: Brovana, Colace, Daliresp, doxycycline 100 q. 12, DuoNeb, raltegravir, Norvir, Percocet, Singulair, Solu-Medrol, Toprol-XL, Xanax, Zithromax, Zyvox. ASSESSMENT AND PLAN: 1. Acute kidney injury, resolving. 2. Hyperkalemia, likely secondary to IV fluids with potassium that she received. 3. Asthma exacerbation. 4. Leukocytosis ? related to steroids. 5. Diffuse ecchymosis. 6. Human immunodeficiency virus. PLAN: 1. Resolved acute kidney injury, acute tubular necrosis secondary to contrast exposure. 2. Check PT, PTT, INR. 3. Continue HAART. 4. Continue empiric antibiotics. 5. Continue respiratory treatments. Kelly Cantu MD cc: [id number] TT: 02/24/2017 14:04:13 Confirmation # [id number] Dictation # [id number] dn
[2017-02-24 14:09] LABS: INR 1.06 (0.93-1.08)
--- NOTE | 2017-02-24 14:11 | PN ---
DATE: 02/24/2017 SUBJECTIVE: The patient is out of bed in a chair in no acute distress. She complains of some wheezi ng and shortness of breath and nonproductive cough which is decreased from previous. She also compla ins of fatigue and generalized muscle aches. There is no nausea, no vomiting, no diarrhea, no hematu jose raul. OBJECTIVE: VITAL SIGNS: Blood pressure 162/92, pulse 78, temperature 97, respiratory rate 24. LUNGS: Show an occasional expiratory wheeze and a few scattered crepitations at the bases. HEART: Regular rate and rhythm. ABDOMEN: Soft, nontender, bowel sounds are normoactive. EXTREMITIES: Without cyanosis, clubbing, or edema. NEUROLOGIC: The patient is awake and oriented x 3 without focal sensory or motor deficits. SKIN: Warm and dry. LABORATORY DATA: Sodium is 140, potassium 5.4, chloride 113, CO2 14, BUN 47, creatinine 1.2, glucose 116. IMPRESSION: 1. Exacerbation of asthma with possible pneumonia. 2. Human immunodeficiency virus positive. 3. Hypertension. 4. Anxiety disorder. 5. Hyperglycemia and leukocytosis probably secondary to steroids. 6. Acute kidney injury secondary to IV contrast from CT scan of the chest. 7. Metabolic acidosis/hyperkalemia, rule out lactic acidosis secondary to Zyvox. PLAN: Renal function continues to improve. We will check lactic acid level. Continue pulmonary fol lowup with Dr. Collado, infectious disease followup with Dr. Carr, renal followup with Dr. Cantu, social work for discharge planning. Ty Ramírez JD, MD cc: [id number] TT: 02/24/2017 14:11:07 Confirmation # [id number] Dictation # [id number] rolando
--- NOTE | 2017-02-24 19:21 | PN ---
DATE: 02/24/2017 REFERRING PHYSICIAN: Dr. Ramírez. SUBJECTIVE: She is sitting side of the bed, short of breath with minimal exertion. Tolerated CPAP w ell last night. Cough seemed better last night. No nausea, no vomiting, no diarrhea, no leg pain or leg swelling, but gets short of breath with minimal exertion though. OBJECTIVE: GENERAL: No acute distress. VITAL SIGNS: Temp is 98, heart rate is 78, respiratory rate is 24, blood pressure 164/91, pulse ox 9 6% on room air. HEENT: Moist mucous membranes. Crowded airway. Mallampati score is 4. NECK: Supple. No JVD. LUNGS: Has a prolonged expiratory phase, no wheezing. HEART: S1 and S2. ABDOMEN: Soft, nontender. No organomegaly. EXTREMITIES: There is not much edema. NEUROLOGIC: Awake, alert, follows simple commands. MEDICATIONS: She is on Brovana 15 mcg inhaled twice a day, Colace 100 mg twice a day, Daliresp 500 m cg daily, doxycycline 100 mg twice a day, DuoNeb q. 6 hours, Isentress 400 mg twice a day, Mycelex tr oche 10 mg 5 times a day, Norvir 100 mg twice a day, Percocet 10/325 mg q. 6 hours p.r.n., Pulmicort inhaled twice a day, Singulair 10 mg daily, Solu-Medrol 20 mg q. 12 hours, Toprol-XL 50 mg daily, Xa nax 1 mg q. 8 hours p.r.n., Zithromax 500 mg daily, Zyvox 600 mg twice a day. LABORATORY DATA: Reviewed. INR 1.06, PTT is 21. Sodium 140, potassium 5.4, chloride 113, bicarbonat e is 14, BUN 47, creatinine 1.2, glucose is 116, calcium is 8.1. Procalcitonin is 1.63. Microbiolog y: Blood cultures have been negative. IMPRESSION AND PLAN: Exacerbation of chronic obstructive lung disease, pneumonia, lung nodule, human immunodeficiency virus positive, hypertension, may have sleep apnea syndrome, renal insufficiency. Pulmonary status seems improved compared to last few days. Tolerated BiPAP well and cough was decrea sed. Procalcitonin is high, suggesting maybe nodule is a pneumonia, but of course needs followup CT scan to assure the stability of this nodule. I also would like to rule out cardiac causes of shortne ss of breath. May start with an echocardiogram to assess RV and LV function. May not be a bad idea to assess coronary arteries. Will follow with you. Tamiko Collado MD cc: [phone] TT: 02/24/2017 19:20:27 Confirmation # [id number] Dictation # [id number] rn
[2017-02-25] MEDS: Albuterol-Ipratrop 3 mg / 0.5 (3 ml) UD IH SCH ×4 (02:52→22:17)
[2017-02-25] MEDS: Oxycodone/Acetaminophen 10/325 mg Tab PO PRN ×3 (06:05→18:51)
[2017-02-25] MEDS: Budesonide 0.5 mg/2 ml Inhal Susp UD IH SCH ×2 (08:14→22:17)
[2017-02-25] MEDS: Arformoterol 15 mcg/2 ml Inh Sol IH SCH ×2 (08:14→22:16)
[2017-02-25] MEDS: Metoprolol Succinate 50 mg XL Tab PO SCH (08:20)
[2017-02-25] MEDS: MethylPREDNISolone 40 mg Vial IVP SCH ×2 (09:39→21:33)
[2017-02-25] MEDS: Linezolid 600 mg in D5W 300 ml 600 MG/300 ML BAG IVPB SCH (09:39)
--- NOTE | 2017-02-25 11:59 | PN ---
DATE: 02/25/2017 SUBJECTIVE: The patient is out of bed in a chair in no acute distress. She denies any shortness of breath. She complains of some fatigue, muscle aches with mild nausea. No vomiting, no diarrhea or h ematuria. OBJECTIVE: VITAL SIGNS: Blood pressure 162/90, pulse 74, temperature 97.5, respiratory rate 20. LUNGS: Show a few scattered crepitations and occasional expiratory wheeze. HEART: Regular rate and rhythm. ABDOMEN: Soft, nontender. Bowel sounds are normoactive. EXTREMITIES: Without cyanosis, clubbing, or edema. NEUROLOGIC: The patient is awake and oriented x 3 without focal sensory or motor deficits. SKIN: Warm and dry. LABORATORY DATA: Lactic acid is elevated at 3.2. IMPRESSION: 1. Lactic acidosis with mild hyperkalemia, probably secondary to Zyvox. 2. Exacerbation of asthma with possible pneumonia. 3. Human immunodeficiency virus positive. 4. Hypertension. 5. Anxiety disorder. 6. Hyperglycemia and leukocytosis probably secondary to steroids. 7. Status post acute kidney injury secondary to IV contrast from CT chest. PLAN: We will discontinue IV Zyvox, monitor electrolytes, renal function. Continue pulmonary follow up with Dr. Collado, infectious disease followup with Dr. Carr, and renal followup with Dr. Cantu. Heidi al work for discharge planning. Ty Ramírez JD, MD cc: [phone] TT: 02/25/2017 11:58:08 Confirmation # [id number] Dictation # [id number] florentin
--- NOTE | 2017-02-25 18:12 | CP.PCM.PN ---
Subjective - Date & Time of Evaluation Date of Evaluation: 02/25/17 Time of Evaluation: 15:30 - Subjective Subjective: Infectious Disease Follow Up: February 25, 2017 61 yo female with presentation of nausea, dizziness, and subjective fevers. She also complains of cough, shortness of breath, and wheezing. The patient is known to have HIV and is on HAART treatment. CD4 is reported as over 900 with an undetectable viral load. The patient without leukocytosis. No fevers observed in hospital. Spiculated density in right upper lobe. Small ground-glass opacity at lung bases. No new findings today. Supportive care. CAP. Most recent Chest X-ray clear. Highly anxious personality. Lactic acid levels are elevated at 3.2. Unclear if this is secondary to Zyvox or present since start of admission. CO2 levels are low however. Noted that Zyvox was stopped. Patient did receive 3 days worth. There are case reports of Zyvox being the cause of lactic acidosis. Objective - Vital Signs/Intake and Output Vital Signs (last 24 hours): Temp Pulse Resp BP Pulse Ox 97.5 F L 74 22 162/90 H 97 02/25/17 08:00 02/25/17 08:20 02/25/17 08:00 02/25/17 08:20 02/25/17 08:00 Intake and Output: 02/25/17 02/25/17 06:59 18:59 Intake Total 1200 540 Balance 1200 540 - Medications Medications: Current Medications Albuterol/Ipratropium (Duoneb 3 Mg/0.5 Mg (3 Ml) Ud) 3 ml IH [id number] [facility] Last Admin: 02/25/17 14:20 Dose: 3 ml Alprazolam (Xanax) 1 mg PO TID PRN; Protocol PRN Reason: Anxiety Last Admin: 02/24/17 21:21 Dose: 1 mg Arformoterol Tartrate (Brovana) 15 mcg IH [id number] [facility] Last Admin: 02/25/17 08:14 Dose: 15 mcg Budesonide (Pulmicort Respules) 0.5 mg IH [id number] [facility] Last Admin: 02/25/17 08:14 Dose: 0.5 mg Clotrimazole (Mycelex Estee) 10 mg MT 5XD [facility] Last Admin: 02/25/17 17:02 Dose: 10 mg Docusate Sodium (Colace) 100 mg PO BID [facility] Last Admin: 02/25/17 17:02 Dose: 100 mg Doxycycline Hyclate (Doryx) 100 mg PO Q12 [facility] PRN Reason: Protocol Last Admin: 02/25/17 09:39 Dose: 100 mg Methylprednisolone (Solu-Medrol) 20 mg IVP Q12 [facility] Last Admin: 02/25/17 09:39 Dose: 20 mg Metoprolol Succinate (Toprol Xl) 50 mg PO BRK [facility] Last Admin: 02/25/17 08:20 Dose: 50 mg Montelukast Sodium (Singulair) 10 mg PO HS [facility] Last Admin: 02/24/17 21:21 Dose: 10 mg Oxycodone/Acetaminophen (Percocet 10/325 Mg Tab) 1 tab PO Q6H PRN PRN Reason: Pain, moderate (4-7) Last Admin: 02/25/17 11:51 Dose: 1 tab Raltegravir (Isentress) 400 mg PO BID [facility] Last Admin: 02/25/17 17:02 Dose: 400 mg Ritonavir (Norvir) 100 mg PO BRKDIN [facility] Last Admin: 02/25/17 17:02 Dose: 100 mg Roflumilast (Daliresp) 500 mcg PO DAILY [facility] Last Admin: 02/25/17 09:38 Dose: 500 mcg - Labs Labs: 02/23/17 07:00 02/24/17 08:11 PT 11.5 Seconds (9.9-11.8) 02/24/17 13:42 INR 1.06 (0.93-1.08) 02/24/17 13:42 APTT 21.0 Seconds (23.7-30.8) L 02/24/17 13:42 - Constitutional Appears: Non-toxic, No Acute Distress, Chronically Ill - Head Exam Head Exam: ATRAUMATIC, NORMOCEPHALIC - Eye Exam Eye Exam: EOMI, PERRL Pupil Exam: NORMAL ACCOMODATION, PERRL - ENT Exam ENT Exam: Mucous Membranes Moist, Normal External Ear Exam, TM's Normal Bilaterally - Neck Exam Neck Exam: Full ROM, Normal Inspection - Respiratory Exam Respiratory Exam: Clear to Ausculation Bilateral, NORMAL BREATHING PATTERN. absent: Rales, Rhonchi, Wheezes - Cardiovascular Exam Cardiovascular Exam: REGULAR RHYTHM, RRR, +S1, +S2 - GI/Abdominal Exam GI & Abdominal Exam: Soft, Normal Bowel Sounds. absent: Distended, Tenderness - Extremities Exam Extremities Exam: Full ROM, Normal Inspection - Neurological Exam Neurological Exam: Alert, Awake, CN II-XII Intact, Oriented x3 - Psychiatric Exam Psychiatric exam: Anxious, Normal Affect - Skin Additional comments: multiple bruises on arms and legs. Assessment and Plan - Assessment and Plan (Free Text) Assessment: 61 yo female with known HIV on good control with HAART presenting with subjective fevers, chills, nausea, and cough. Imaging studies show possible right lung reticular perihilar opacities. CT scan showing spiculated density at the right lung upper lobe about 1.5 centimeter in size. Small ground glass opacities noted. No evidence of pleural effusion. Possible mild compression fracture in T5 superior endplate. Started on one dose of Vancomycin. Difficult to administer more doses as the patient's renal function was affected by the dye administration and possibly the Vancomycin dose. Patient feeling better overall. Zyvox given instead due to PCN allergies. Creatinine improving. Lactic acid was done showing a value of 3.2. Noted Zyvox stopped for fears of lactic acidosis secondary to Zyvox administration. Monitor lactic acidosis. Continue to monitor renal function. Noted low CO2 levels as well. Thank you for allowing me to participate in the care of the patient, we will follow with you.
--- NOTE | 2017-02-25 18:57 | PN ---
DATE: 02/25/2017 REFERRING PHYSICIAN: Dr. Ramírez. SUBJECTIVE: She is out of bed to chair, feels better, slept well, used BiPAP, still having shortness of breath and minimal exertion. No nausea, vomiting, diarrhea. No leg pain or leg swelling. OBJECTIVE: GENERAL: No acute distress. VITAL SIGNS: Temperature is 98, heart rate 74, respiratory rate is 20, blood pressure 162/90, pulse ox 97% on room air. HEENT: Moist mucous membranes. Small oral cavity. Crowded airway. NECK: Supple. No JVD. LUNGS: Has a fair airflow with prolonged expiratory phase. HEART: S1 and S2. ABDOMEN: Soft, nontender. No organomegaly. EXTREMITIES: No edema. NEUROLOGIC: Awake, alert, follows simple commands. MEDICATIONS: She is on Brovana 15 mcg inhaled twice a day, Colace 100 mg twice a day, Daliresp 500 m cg daily, doxycycline 100 mg daily, DuoNeb q. 6 hours, Isentress 400 mg twice a day, Mycelex mireya 1 0 mg 5 times a day, Norvir 100 mg twice a day, Percocet 10/325 one tab q. 6 hours p.r.n., Pulmicort i nhaled twice a day, Singulair 10 mg at bedtime, Solu-Medrol 20 mg q. 12 hours, metoprolol succinate 5 0 mg daily, Xanax p.r.n. basis. LABORATORY DATA: Reviewed. No new lab is available. IMPRESSION AND PLAN: Exacerbation of chronic obstructive lung disease and lung nodules, HIV positive , hypertension, may have sleep apnea syndrome, renal insufficiency. Need to rule out cardiac causes of shortness of breath. Echocardiogram has been ordered. Also need to rule out pulmonary hypertensi on, may continue CPAP while sleeping, bronchodilator, antibiotics. Gastric prophylaxis. DVT prophyl axis. Thank you and will follow with you. Tamiko Collado MD cc: [phone] TT: 02/25/2017 18:57:07 Confirmation # [id number] Dictation # [id number] mn
[2017-02-26] MEDS: Oxycodone/Acetaminophen 10/325 mg Tab PO PRN ×4 (01:04→19:53)
[2017-02-26] MEDS: Albuterol-Ipratrop 3 mg / 0.5 (3 ml) UD IH SCH ×4 (03:19→20:15)
[2017-02-26] MEDS: Metoprolol Succinate 50 mg XL Tab PO SCH (08:45)
[2017-02-26] MEDS: Budesonide 0.5 mg/2 ml Inhal Susp UD IH SCH ×2 (08:46→20:15)
[2017-02-26] MEDS: Arformoterol 15 mcg/2 ml Inh Sol IH SCH ×2 (08:46→20:15)
[2017-02-26 08:55] LABS: ADD MANUAL DIFF? NO
[2017-02-26 08:58] LABS: BASO % 0.7 % (0.0-3.0); GRAN % 86.3 % (50.0-68.0); HEMATOCRIT 35.3 % (36.0-48.0); LYMPH % 7.1 % (22.0-35.0); MEAN CELL VOLUME 91.5 fL (80.0-105.0); MEAN CORPUSCULAR HEMOGLOBIN 30.1 pg (25.0-35.0); MEAN CORPUSCULAR HGB CONC 32.9 g/dl (31.0-37.0); MEAN PLATELET VOLUME 9.4 fl (7.0-11.0); MONO # 0.9 (0.1-0.6); MONO % 5.9 % (1.0-6.0); PLATELET COUNT 335 10^3/uL (120.0-450.0); RED CELL DISTRIBUTION WIDTH 16.7 % (11.5-14.5); WHITE BLOOD COUNT 14.6 10^3/ul (4.5-11.0)
[2017-02-26 09:12] LABS: ALB/GLOB RATIO 1.3 (1.1-1.8); ALKALINE PHOSPHATASE 53 U/L (38-133); ALT/SGPT 55 U/L (7-56); AST/SGOT 28 U/L (15-39); BILIRUBIN,TOTAL 0.5 mg/dL (0.2-1.3); BLOOD UREA NITROGEN 40 mg/dL (7-21); CARBON DIOXIDE 22 mmol/L (21-33); CHLORIDE 109 mmol/L (98-107); GFR AFRICAN-AMERICAN > 60; GLUCOSE,RANDOM 111 mg/dL (70-110); POTASSIUM 4.4 mmol/L (3.6-5.0); SODIUM 140 mmol/L (132-148); TOTAL PROTEIN 6.6 g/dL (5.8-8.3)
[2017-02-26] MEDS: MethylPREDNISolone 40 mg Vial IVP SCH ×2 (09:42→22:38)
--- NOTE | 2017-02-26 14:26 | PN ---
DATE: 02/26/2017 SUBJECTIVE: The patient is out of bed in a chair in no acute distress. She denies any shortness of breath. She complains of some fatigue, muscle aches and mild ____. There is no ____, no vomiting, n o hematuria. OBJECTIVE: VITAL SIGNS: Blood pressure 165/80, pulse 75, temperature 97.9, respiratory rate 18. LUNGS: Show a few scattered crepitations and occasional expiratory wheeze. HEART: Regular rate and rhythm. ABDOMEN: Soft, nontender, bowel sounds are normoactive. EXTREMITIES: Without cyanosis, clubbing, or edema. NEUROLOGIC: The patient is awake and oriented x 3 without focal sensory or motor deficits. SKIN: Warm and dry. LABORATORY DATA: WBC is 14.6, hemoglobin 11.6, hematocrit 35.3, sodium 140, potassium 4.4, chloride 109, CO2 of 22, BUN 40, creatinine 0.9, glucose 111. IMPRESSION: 1. Metabolic acidosis, probably lactic acidosis, improving status post discontinuation Zyvox. Hyper kalemia has also resolved. 2. Exacerbation of asthma with possible pneumonia. 3. Human immunodeficiency virus positive. 4. Hypertension. 5. Anxiety disorder. 6. Hyperglycemia and leukocytosis, probably secondary to steroids. PLAN: Continue IV steroid taper as tolerated. Pulmonary followup with Dr. Collado, ID followup with Dr. Carr and renal followup with Dr. Cantu. Social work for discharge planning. We will add amlodipin e 5 mg daily for elevated blood pressure. Check, monitor electrolytes and labs in a.m. Ty Ramírez JD, MD cc: [id number] TT: 02/26/2017 12:13:31 Confirmation # [id number] Dictation # [id number] sn
--- NOTE | 2017-02-26 16:08 | PN ---
DATE: 02/26/2017 SUBJECTIVE: The patient is seen lying in bed. She is awake. She is alert. She is complaining of s hortness of breath. She is anxious. PHYSICAL EXAMINATION: GENERAL: Elderly lady, lying in bed. VITAL SIGNS: Blood pressure 187/99, heart rate 88, respiratory rate 18, temperature 97.9. HEENT: Normocephalic, atraumatic. NECK: Supple, no JVD. LUNGS: Bilateral rhonchi, distant breath sounds. CARDIAC: S1, S2, regular rate and rhythm, no murmur, no rub. ABDOMEN: Obese, distended, soft, nontender, bowel sounds present. EXTREMITIES: Trace lower extremity edema. INTAKE AND OUTPUT: Not charted. LABORATORY DATA: WBC 14.6, hemoglobin 11.6, hematocrit 35, platelets 335. Sodium 140, potassium 4.4 , chloride 109, CO2 22, BUN 40, creatinine 0.9, glucose 111. Lactic acid 3.2. Calcium 9.0, albumin 3.7. Blood cultures negative. CURRENT MEDICATIONS: Brovana, Colace, doxycycline 100 q. 12, Isentress, amlodipine 5, Norvir, Singul air, Solu-Medrol, Toprol-XL 50, Xanax. ASSESSMENT: 1. Resolved acute kidney injury. 2. Asthma exacerbation. 3. ? Superimposed infection. 4. Severe uncontrolled hypertension. 5. Human immunodeficiency virus. 6. Anxiety. PLAN: 1. Restart Vasotec 10 mg b.i.d., home med. 2. Okay with amlodipine 5 mg daily. 3. Elevated lactic acid? Repeat cultures. 4. Continue antibiotics as per infectious disease recommendations. 5. Avoid nephrotoxins. Kelly Cantu MD cc: [id number] TT: 02/26/2017 16:07:35 Confirmation # [id number] Dictation # [id number] en
--- NOTE | 2017-02-26 18:50 | CP.PCM.PN ---
Subjective - Date & Time of Evaluation Date of Evaluation: 02/26/17 Time of Evaluation: 17:30 - Subjective Subjective: Infectious Disease Follow Up: February 26, 2017 61 yo female with presentation of nausea, dizziness, and subjective fevers. She also complains of cough, shortness of breath, and wheezing. The patient is known to have HIV and is on HAART treatment. CD4 is reported as over 900 with an undetectable viral load. The patient without leukocytosis. No fevers observed in hospital. Spiculated density in right upper lobe. Small ground-glass opacity at lung bases. No new findings today. Supportive care. CAP. Most recent Chest X-ray clear. Highly anxious personality. Lactic acid levels are elevated at 3.2. Unclear if this is secondary to Zyvox or present since start of admission. CO2 levels are low however. Noted that Zyvox was stopped. Patient did receive 3 days worth. There are case reports of Zyvox being the cause of lactic acidosis. Lactic acid did show improvement today. The patient remains highly anxious. Supportive care. Patient complains that she is still short of breath. Objective - Vital Signs/Intake and Output Vital Signs (last 24 hours): Temp Pulse Resp BP Pulse Ox 97.9 F 79 18 186/97 H 99 02/26/17 07:52 02/26/17 16:52 02/26/17 07:52 02/26/17 16:52 02/26/17 07:52 Intake and Output: 02/26/17 02/26/17 06:59 18:59 Intake Total 660 600 Balance 660 600 - Medications Medications: Current Medications Albuterol/Ipratropium (Duoneb 3 Mg/0.5 Mg (3 Ml) Ud) 3 ml IH [id number] [facility] Last Admin: 02/26/17 14:00 Dose: Not Given Alprazolam (Xanax) 1 mg PO TID PRN; Protocol PRN Reason: Anxiety Last Admin: 02/25/17 21:33 Dose: 1 mg Amlodipine Besylate (Norvasc) 5 mg PO DAILY [facility] Last Admin: 02/26/17 12:11 Dose: 5 mg Arformoterol Tartrate (Brovana) 15 mcg IH [id number] [facility] Last Admin: 02/26/17 08:46 Dose: 15 mcg Budesonide (Pulmicort Respules) 0.5 mg IH [id number] [facility] Last Admin: 02/26/17 08:46 Dose: 0.5 mg Clotrimazole (Mycelex Estee) 10 mg MT 5XD [facility] Last Admin: 02/26/17 17:06 Dose: 10 mg Docusate Sodium (Colace) 100 mg PO BID [facility] Last Admin: 02/26/17 17:06 Dose: 100 mg Doxycycline Hyclate (Doryx) 100 mg PO Q12 [facility] PRN Reason: Protocol Last Admin: 02/26/17 09:40 Dose: 100 mg Lisinopril (Zestril) 20 mg PO DAILY [facility] Last Admin: 02/26/17 16:52 Dose: 20 mg Methylprednisolone (Solu-Medrol) 20 mg IVP Q12 [facility] Last Admin: 02/26/17 09:42 Dose: 20 mg Metoprolol Succinate (Toprol Xl) 50 mg PO BRK [facility] Last Admin: 02/26/17 08:45 Dose: 50 mg Montelukast Sodium (Singulair) 10 mg PO HS [facility] Last Admin: 02/25/17 21:33 Dose: 10 mg Oxycodone/Acetaminophen (Percocet 10/325 Mg Tab) 1 tab PO Q6H PRN PRN Reason: Pain, moderate (4-7) Last Admin: 02/26/17 13:38 Dose: 1 tab Raltegravir (Isentress) 400 mg PO BID [facility] Last Admin: 02/26/17 17:06 Dose: 400 mg Ritonavir (Norvir) 100 mg PO BRKDIN [facility] Last Admin: 02/26/17 17:06 Dose: 100 mg Roflumilast (Daliresp) 500 mcg PO DAILY [facility] Last Admin: 02/26/17 09:41 Dose: 500 mcg - Labs Labs: 02/26/17 08:15 02/26/17 08:15 PT 11.5 Seconds (9.9-11.8) 02/24/17 13:42 INR 1.06 (0.93-1.08) 02/24/17 13:42 APTT 21.0 Seconds (23.7-30.8) L 02/24/17 13:42
--- NOTE | 2017-02-26 22:30 | PN ---
DATE: 02/26/2017 REFERRING PHYSICIAN: Dr. Ramírez. SUBJECTIVE: She is sitting on the side of the bed. Tolerated well BiPAP last night. Cough is cyndy r, still short of breath with exertion. No nausea, vomiting, diarrhea. No leg pain or leg swelling. OBJECTIVE: GENERAL: No acute distress. VITAL SIGNS: Temp is 98, heart rate is , respiratory rate is 20, blood pressure 186/97, pulse o x 97% on room air. HEENT: Moist mucous membranes. Crowded airway. NECK: Short, thick neck. LUNGS: Have a prolonged respiratory phase. No wheezing. HEART: S1, S2. ABDOMEN: Soft, nontender. No organomegaly. EXTREMITIES: There is no edema. NEUROLOGIC: Awake, alert, follows simple commands. MEDICATIONS: She is on Brovana 15 mcg inhaled twice a day, Colace 100 mg twice a day, Daliresp 500 m cg daily, doxycycline 100 mg daily, DuoNeb q. 6 hours, Isentress 400 mg twice a day, Mycelex mireya 1 0 mg 5 times a day, Norvasc 5 mg daily, Norvir 100 mg twice a day, Percocet 10/325 one tab q. 6 hour s p.r.n., Pulmicort inhaled twice a day, Singulair 10 mg daily, Solu-Medrol 20 mg q. 12 hours, Toprol -XL 50 mg daily, Xanax 1 mg 3 times a day p.r.n., Zestril 20 mg daily. LABORATORY DATA: Shows hemoglobin 11.6, hematocrit 35.3, WBC 14.6, platelet is 235. Sodium 140, pot assium 4.4, chloride 109, bicarbonate 22, BUN 40, creatinine 0.9, glucose 111, lactic acid is 2.8, T 28, ALT 55, alk phos is 53, albumin is 3.7. Microbiology: Blood cultures have been negative. Ech ocardiogram is done and the report is still pending. IMPRESSION AND PLAN: Exacerbation of chronic obstructive lung disease, has a lung nodule, HIV positi ve, hypertension, may have sleep apnea syndrome, renal insufficiency. Echocardiogram report is still pending. Will continue to encourage BiPAP while sleeping. Keep head elevated at 45 degrees. Needs followup CAT scan to assure the stability of right upper lobe infiltrate versus nodule. Gastric pro phylaxis, DVT prophylaxis. Echo is unremarkable. Thank you and will follow with you. Tamiko Collado MD cc: [phone] TT: 02/26/2017 22:29:47 Confirmation # [id number] Dictation # [id number] mn
--- NOTE | 2017-02-27 01:19 | CARD ---
APPROVED REPORT EXAM: Two-dimensional and M-mode echocardiogram with Doppler and color Doppler. 2D DIMENSIONS IVSd1.3 (0.7-1.1cm)LVDd4.7 (3.9-5.9cm) PWd1.3 (0.7-1.1cm)LVDs2.7 (2.5-4.0cm) FS (%) 43.2 %LVEF (%)74.3 (>50%) M-Mode DIMENSIONS Left Atrium (MM)3.30 (2.5-4.0cm)Aortic Root4.10 (2.2-3.7cm) Aortic Cusp Exc.1.80 (1.5-2.0cm) Aortic Valve AoV Peak Qcbtfbdn667.0cm/sAoV VTI53.9cmAO Peak GR.22mmHg LVOT Peak Aufuvfuo639.0cm/sLVOT VTI39.60cmAO Mean GR.13mmHg Mitral Valve MV E Xbruhpti104.0cm/sMV A Zqahamjo834.0cm/sE/A ratio0.9 TDI Lateral E' Peak V7.12cm/sMedial E' Peak V5.46cm/sE/Lateral E'17.1 E/Medial E'22.3 Tricuspid Valve TR Peak Trlrwkpb593da/sRAP YEOMPHJF42jgEvDJ Peak Gr.29mmHg VEAR00coHn LEFT VENTRICLE The left ventricle is normal size. There is mild concentric left ventricular hypertrophy. The left ventricular function is normal. The left ventricular ejection fraction is within the normal range. There is normal LV segmental wall motion. Transmitral Doppler flow pattern is Grade I-abnormal relaxation pattern. RIGHT VENTRICLE The right ventricle is normal size. There is normal right ventricular wall thickness. The right ventricular systolic function is normal. ATRIA The left atrium size is normal. The right atrium size is normal. AORTIC VALVE The aortic valve is severely sclerotic. There is mild valvular aortic stenosis. MITRAL VALVE Mitral regurgitation is trace. TRICUSPID VALVE There is mild pulmonary hypertension. GREAT VESSELS The aortic root is normal in size. The IVC is normal in size and collapses >50% with inspiration. PERICARDIAL EFFUSION There is a trace loculated anterior pericardial effusion. <Conclusion> The left ventricle is normal size. There is mild concentric left ventricular hypertrophy. The left ventricular function is normal. The left ventricular ejection fraction is within the normal range. There is normal LV segmental wall motion. Transmitral Doppler flow pattern is Grade I-abnormal relaxation pattern. The aortic valve is severely sclerotic. There is mild valvular aortic stenosis. There is mild pulmonary hypertension.
[2017-02-27] MEDS: Albuterol-Ipratrop 3 mg / 0.5 (3 ml) UD IH SCH ×4 (02:55→19:30)
[2017-02-27] MEDS: Oxycodone/Acetaminophen 10/325 mg Tab PO PRN ×3 (03:31→19:35)
[2017-02-27] MEDS: Arformoterol 15 mcg/2 ml Inh Sol IH SCH ×2 (07:30→19:30)
[2017-02-27] MEDS: Budesonide 0.5 mg/2 ml Inhal Susp UD IH SCH ×2 (07:30→19:30)
[2017-02-27] MEDS: Metoprolol Succinate 50 mg XL Tab PO SCH (07:59)
[2017-02-27] MEDS: MethylPREDNISolone 40 mg Vial IVP SCH ×2 (10:04→21:17)
--- NOTE | 2017-02-27 13:57 | PN ---
DATE: 02/27/2017 SUBJECTIVE: Patient appears to be comfortable. Creatinine has dropped back to baseline. MEDICATIONS: Medication list reviewed. The patient is currently on Brovana, Colace, Daliresp, Doryx, DuoNeb, Isentress, Mycelex, Norvasc, Norvir, Percocet, Pulmicort, Singulair, Solu-Medrol, metoprolol, Xanax, and lisinopril. OBJECTIVE: INTAKE AND OUTPUT: Intake 1440, output not charted. VITAL SIGNS: Blood pressure 168/89, heart rate is 73, respiratory rate is 20, pulse ox 100 with a temperature of 98.2. HEENT: Shows her to be normocephalic, atraumatic. Conjunctivae are pink. Sclerae are nonicteric. NECK: Supple, no neck vein distention. CHEST: Clear to auscultation and percussion. No rales, no rhonchi, no wheezing. CARDIOVASCULAR: Shows a regular rate and rhythm without murmurs, rubs, or gallops. ABDOMEN: Soft. Mild obesity. Bowel sounds normal. No rebound, no guarding. EXTREMITIES: Show 1+ pitting edema of her lower extremities bilaterally. No cyanosis, no clubbing. LABORATORY DATA AND IMAGING: CBC: White blood cell count today 14.6, hemoglobin 11.6 with a platelet count of 335,000. Chemistries show normal electrolytes. Chloride 109, BUN is down from 65-40. Creatinine is down from 2.7 to 0.9. Glucose is 111. Lactic acid mildly elevated at 2.8. Liver enzymes are normal. Calcium is 9.0. Albumin is 3.7. ASSESSMENT: 1. Acute renal failure, resolved. The patient is mildly prerenal secondary to the use of steroids. Of note, the patient does have some mild leg edema. Presently, the patient is receiving no diuretic therapy. 2. Asthma exacerbation, currently stable on above medication. 3. Hypertension. The patient has been restarted back on all blood pressure medicine, expect blood pressure parameters to improve. 4. History of human immunodeficiency virus. The patient continues on HAART therapy. 5. Mild anemia, currently stable. PLAN: 1. Continue present blood pressure medication. Would be cautious not to increase the dose of calcium channel colton in light of her lower extremity edema. Once her BUN stabilizes, diuretic therapy may be added to her blood pressure medication, especially given her lower extremity edema. 2. Continue to monitor labs closely while an inpatient. 3. ID and pulmonary followup appreciated. 4. The patient will likely require a followup CT scan imaging study of her right upper lobe density. Umesh Tran MD cc: [id number] TT: 02/27/2017 13:56:45 Confirmation # [id number] Dictation # [id number] rolando MARTEL
--- NOTE | 2017-02-27 14:37 | PN ---
DATE: 02/27/2017 SUBJECTIVE: The patient is out of bed in a chair in no acute distress. She denies any shortness noelle ath. She complains of some fatigue, muscle aches and mild nausea. There is no vomiting, no hematuri a. OBJECTIVE: VITAL SIGNS: Blood pressure 168/89, temperature 98.2, pulse 73, respiratory rate 20. LUNGS: Clear. HEART: Regular rate and rhythm. ABDOMEN: Soft, nontender, bowel sounds are normoactive. EXTREMITIES: Without cyanosis, clubbing, or edema. NEUROLOGIC: The patient is awake and oriented x 3 without focal sensory or motor deficits. SKIN: Warm and dry. IMPRESSION: 1. Lactic acidosis, improving, status post discontinuation of Zyvox. 2. Exacerbation of asthma with pneumonia versus bronchitis. 3. Human immunodeficiency virus positive. 4. Hypertension. 5. Anxiety disorder. 6. Hyperglycemia and leukocytosis secondary to steroids. PLAN: Continue to taper IV steroids as tolerated. Pulmonary followup with Dr. Collado, ID followup w [facility] Dr. Carr, and renal followup with Dr. Cantu is appreciated. Will increase amlodipine to 10 mg kristin y for elevated blood pressure. Monitor electrolytes and lactic acid levels. Social work for dischar ge planning. Ty Ramírez JD, MD cc: [id number] TT: 02/27/2017 14:37:14 Confirmation # [id number] Dictation # [id number]
--- NOTE | 2017-02-27 15:20 | CP.PCM.PN ---
Subjective - Date & Time of Evaluation Date of Evaluation: 02/27/17 Time of Evaluation: 14:00 - Subjective Subjective: Infectious Disease Follow Up: February 27, 2017 61 yo female with presentation of nausea, dizziness, and subjective fevers. She also complains of cough, shortness of breath, and wheezing. The patient is known to have HIV and is on HAART treatment. CD4 is reported as over 900 with an undetectable viral load. The patient without leukocytosis. No fevers observed in hospital. Spiculated density in right upper lobe. Small ground-glass opacity at lung bases. No new findings today. Supportive care. CAP. Most recent Chest X-ray clear. Highly anxious personality. Lactic acid levels are elevated at 3.2. Unclear if this is secondary to Zyvox or present since start of admission. CO2 levels are low however. Noted that Zyvox was stopped. Patient did receive 3 days worth. There are case reports of Zyvox being the cause of lactic acidosis. Lactic acid did show improvement today. The patient remains highly anxious. Supportive care. Patient complains that she is still short of breath. Echocardiogram shows severe sclerotic disease to the aortic valve. Objective - Vital Signs/Intake and Output Vital Signs (last 24 hours): Temp Pulse Resp BP Pulse Ox 98.2 F 73 20 168/89 H 100 02/27/17 09:04 02/27/17 10:10 02/27/17 09:04 02/27/17 10:10 02/27/17 09:04 Intake and Output: 02/27/17 02/27/17 06:59 18:59 Intake Total 840 780 Balance 840 780 - Medications Medications: Current Medications Albuterol/Ipratropium (Duoneb 3 Mg/0.5 Mg (3 Ml) Ud) 3 ml IH [id number] [facility] Last Admin: 02/27/17 13:30 Dose: 3 ml Alprazolam (Xanax) 1 mg PO TID PRN; Protocol PRN Reason: Anxiety Last Admin: 02/25/17 21:33 Dose: 1 mg Amlodipine Besylate (Norvasc) 10 mg PO DAILY [facility] Arformoterol Tartrate (Brovana) 15 mcg IH [id number] [facility] Last Admin: 02/27/17 07:30 Dose: 15 mcg Budesonide (Pulmicort Respules) 0.5 mg IH [id number] [facility] Last Admin: 02/27/17 07:30 Dose: 0.5 mg Clotrimazole (Mycelex Estee) 10 mg MT 5XD [facility] Last Admin: 02/27/17 10:11 Dose: 10 mg Docusate Sodium (Colace) 100 mg PO BID [facility] Last Admin: 02/27/17 10:10 Dose: 100 mg Doxycycline Hyclate (Doryx) 100 mg PO Q12 [facility] PRN Reason: Protocol Last Admin: 02/27/17 10:10 Dose: 100 mg Lisinopril (Zestril) 20 mg PO DAILY [facility] Last Admin: 02/27/17 10:10 Dose: 20 mg Methylprednisolone (Solu-Medrol) 20 mg IVP Q12 [facility] Last Admin: 02/27/17 10:04 Dose: 20 mg Metoprolol Succinate (Toprol Xl) 50 mg PO BRK [facility] Last Admin: 02/27/17 07:59 Dose: 50 mg Montelukast Sodium (Singulair) 10 mg PO HS [facility] Last Admin: 02/26/17 22:37 Dose: 10 mg Oxycodone/Acetaminophen (Percocet 10/325 Mg Tab) 1 tab PO Q6H PRN PRN Reason: Pain, moderate (4-7) Last Admin: 02/27/17 12:10 Dose: 1 tab Raltegravir (Isentress) 400 mg PO BID [facility] Last Admin: 02/27/17 10:11 Dose: 400 mg Ritonavir (Norvir) 100 mg PO BRKDIN [facility] Last Admin: 02/27/17 10:09 Dose: 100 mg Roflumilast (Daliresp) 500 mcg PO DAILY [facility] Last Admin: 02/27/17 10:10 Dose: 500 mcg - Labs Labs: 02/26/17 08:15 02/26/17 08:15 PT 11.5 Seconds (9.9-11.8) 02/24/17 13:42 INR 1.06 (0.93-1.08) 02/24/17 13:42 APTT 21.0 Seconds (23.7-30.8) L 02/24/17 13:42 - Constitutional Appears: Non-toxic, No Acute Distress, Chronically Ill - Head Exam Head Exam: ATRAUMATIC, NORMOCEPHALIC - Eye Exam Eye Exam: EOMI, PERRL Pupil Exam: NORMAL ACCOMODATION, PERRL - ENT Exam ENT Exam: Mucous Membranes Moist, Normal External Ear Exam, TM's Normal Bilaterally - Neck Exam Neck Exam: Full ROM, Normal Inspection - Respiratory Exam Respiratory Exam: Clear to Ausculation Bilateral, NORMAL BREATHING PATTERN. absent: Rales, Rhonchi, Wheezes - Cardiovascular Exam Cardiovascular Exam: REGULAR RHYTHM, RRR, +S1, +S2 - GI/Abdominal Exam GI & Abdominal Exam: Soft, Normal Bowel Sounds. absent: Distended, Tenderness - Extremities Exam Extremities Exam: Full ROM, Normal Inspection - Neurological Exam Neurological Exam: Alert, Awake, CN II-XII Intact, Oriented x3 - Psychiatric Exam Psychiatric exam: Normal Affect, Normal Mood - Skin Skin Exam: Intact, Normal Color Assessment and Plan - Assessment and Plan (Free Text) Assessment: 61 yo female with known HIV on good control with HAART presenting with subjective fevers, chills, nausea, and cough. Imaging studies show possible right lung reticular perihilar opacities. CT scan showing spiculated density at the right lung upper lobe about 1.5 centimeter in size. Small ground glass opacities noted. No evidence of pleural effusion. Possible mild compression fracture in T5 superior endplate. Started on one dose of Vancomycin. Difficult to administer more doses as the patient's renal function was affected by the dye administration and possibly the Vancomycin dose. Patient feeling better overall. Zyvox given instead due to PCN allergies. Creatinine improving. Renal insufficiency resolved. Lactic acid was done showing a value of 2.8 down from 3.2. Noted Zyvox stopped for fears of lactic acidosis secondary to Zyvox administration. Monitor lactic acidosis. Continue to monitor renal function. Noted low CO2 levels as well. No lactic acid level done today. Thank you for allowing me to participate in the care of the patient, we will follow with you.
--- NOTE | 2017-02-27 23:19 | PN ---
DATE: 02/27/2017 REFERRING PHYSICIAN: Dr. Ramírez. SUBJECTIVE: She is lying in the bed. Overall, feels better, decreased cough, decreased shortness of breath. No nausea, vomiting, diarrhea. No leg pain or leg swelling. OBJECTIVE: GENERAL: In no acute distress. VITAL SIGNS: Temp is 98, heart rate is 90, respiratory rate is 20, blood pressure 159/93, pulse ox 1 00% on room air. HEENT: Moist mucous membranes. Crowded airway. No thrush noted. NECK: Supple. No JVD. LUNGS: Has prolonged expiratory phase.ve HEART: S1 and S2. ABDOMEN: Soft, nontender. No organomegaly. EXTREMITIES: No edema. NEUROLOGIC: Awake, alert, follows simple command. MEDICATIONS: She is on Brovana 15 mcg inhaled twice a day, Colace 100 mg twice a day, Daliresp 500 m cg daily, doxycycline 100 mg twice a day, DuoNeb q. 6 hours, Isentress 400 mg twice a day, Mycelex tr oche 10 mg 5 times a day, Norvasc 10 mg twice a day, Percocet 10/325 one tab q. 6 hours p.r.n., Pulmi ernestine inhaled twice a day, Singulair 10 mg daily, Solu-Medrol 20 mg q. 12 hours, Toprol-XL 50 mg daily , Xanax 1 mg 3 times a day p.r.n., Zestril 20 mg daily. LABORATORY DATA: No new lab is available since yesterday. Blood cultures have been negative. Echoc ardiogram was done yesterday, which shows mild pulmonary hypertension, mild concentric left ventricul ar hypertrophy, right ventricular systolic pressure estimated at 39. IMPRESSION AND PLAN: Exacerbation of chronic lung disease, lung nodule versus pneumonia, HIV positiv e, hypertension, may have sleep apnea syndrome, renal insufficiency. Echocardiogram suggests mild pu lmonary hypertension with mild cardiac diastolic dysfunction. Pulmonary point of view, doing well. Will discontinue Solu-Medrol, place on prednisone 20 mg daily and taper off next 5 days, continue inh aled bronchodilator, antibiotics as per infectious diseases. Gastric prophylaxis. DVT prophylaxis. Will need outpatient pulmonary function test to assess the lung function. If lung function is cherelle l, she will benefit from a pulmonary vasodilator that may be related to combination of sleep apnea sy ndrome and HIV status. Also has some difficulties swallowing with pain. Will discontinued Nystatin, add Diflucan 200 mg for 4-5 days. Thank you, will follow with you. Tamiko Collado MD cc: [phone] TT: 02/27/2017 23:18:31 Confirmation # [id number] Dictation # [id number] mn
[2017-02-28] MEDS: Albuterol-Ipratrop 3 mg / 0.5 (3 ml) UD IH SCH ×4 (02:00→20:16)
[2017-02-28] MEDS: Oxycodone/Acetaminophen 10/325 mg Tab PO PRN ×2 (02:46→08:32)
[2017-02-28] MEDS: Budesonide 0.5 mg/2 ml Inhal Susp UD IH SCH ×2 (07:26→20:16)
[2017-02-28] MEDS: Arformoterol 15 mcg/2 ml Inh Sol IH SCH ×2 (07:26→20:16)
[2017-02-28 07:52] LABS: HEMATOCRIT 36.2 % (36.0-48.0); MEAN CELL VOLUME 89.4 fL (80.0-105.0); MEAN CORPUSCULAR HEMOGLOBIN 30.1 pg (25.0-35.0); MEAN CORPUSCULAR HGB CONC 33.7 g/dl (31.0-37.0); MEAN PLATELET VOLUME 9.6 fl (7.0-11.0); RED CELL DISTRIBUTION WIDTH 16.4 % (11.5-14.5); WHITE BLOOD COUNT 12.5 10^3/ul (4.5-11.0)
[2017-02-28 08:04] LABS: ALB/GLOB RATIO 1.3 (1.1-1.8); ALKALINE PHOSPHATASE 61 U/L (38-133); ALT/SGPT 60 U/L (7-56); AST/SGOT 26 U/L (15-39); BILIRUBIN,TOTAL 0.5 mg/dL (0.2-1.3); BLOOD UREA NITROGEN 37 mg/dL (7-21); CALCIUM 9.1 mg/dL (8.4-10.5); CARBON DIOXIDE 25 mmol/L (21-33); CHLORIDE 105 mmol/L (98-107); GFR AFRICAN-AMERICAN > 60; GLUCOSE,RANDOM 131 mg/dL (70-110); MAGNESIUM 2.4 mg/dL (1.7-2.2); PHOSPHOROUS 3.9 mg/dL (2.5-4.5); POTASSIUM 3.9 mmol/L (3.6-5.0); SODIUM 141 mmol/L (132-148); TOTAL PROTEIN 6.2 g/dL (5.8-8.3)
[2017-02-28] MEDS: Metoprolol Succinate 50 mg XL Tab PO SCH (08:30)
--- NOTE | 2017-02-28 13:17 | CT ---
PROCEDURE: CT Chest without contrast HISTORY: right upper lobe nodule COMPARISON: 02/20/2017. Summary of findings on the comparison examination: Spiculated density right upper lobe 1.5 cm. TECHNIQUE: Contiguous axial images were obtained through the chest without intravenous contrast enhancement. Sagittal and coronal reconstructions were performed. Radiation dose (DLP): 731.72 mGy-cm. This CT exam was performed using one or more of the following dose reduction techniques: Automated exposure control, adjustment of the mA and/or kV according to patient size, and/or use of iterative reconstruction technique. FINDINGS: LUNGS: Interval improvement in right apical infiltrate compared to the prior study. B improvement over a relatively short appeared of time suggests an acute infectious/inflammatory etiology. Subsegmental infiltrate in the lingula a new finding compared to the prior study. MEDIASTINUM: Unremarkable thoracic aorta. No aneurysm. No radiographic findings to suggest acute or significant cardiovascular disease. Trace pericardial effusion. Main pulmonary artery unremarkable. No vascular congestion. No lymphadenopathy. PLEURA: No pleural fluid. No pneumothorax. BONES: No fracture. No destructive lesion. UPPER ABDOMEN: Grossly unremarkable. OTHER FINDINGS: None. IMPRESSION: Interval improvement right apical infiltrate. New subsegmental infiltrate in the lingula.
--- NOTE | 2017-02-28 14:04 | PN ---
DATE: 02/28/2017 SUBJECTIVE: The patient is out of bed in no acute distress. She denies any cough or shortness of br eath. There is no nausea, vomiting or hematuria. OBJECTIVE: VITAL SIGNS: Blood pressure 168/95, pulse 69, temperature 97.8, respiratory rate 20. LUNGS: Clear. HEART: Regular rate and rhythm. ABDOMEN: Soft, nontender, bowel sounds are normoactive. EXTREMITIES: Without cyanosis, clubbing, or edema. NEUROLOGIC: The patient is awake and oriented x 3 without focal sensory or motor deficits. SKIN: Warm and dry. LABORATORY DATA: WBC is 12.5, hemoglobin 12.2, hematocrit 36.2. Sodium 141, potassium 3.9, chloride 105, CO2 of 25, BUN 37, creatinine 0.9, glucose 131. Lactic acid level is 3.3. CT scan of the ches t shows improvement of the right apical infiltrate with a new subsegmental lingular infiltrate. IMPRESSION: 1. Exacerbation of asthma with pneumonia versus bronchitis. 2. Lactic acidosis, status post discontinuation of Zyvox. 3. Human immunodeficiency virus positive. 4. Hypertension. 5. Hyperglycemia and leukocytosis secondary to steroids. 6. Anxiety disorder. PLAN: The patient is now on p.o. prednisone. Continue pulmonary followup with Dr. Collado, ID follow up with Dr. Carr and renal followup with Dr. Cantu. Continue to adjust medications for elevated blood pressure. Social work for discharge planning. Ty Ramírez JD, MD cc: [id number] TT: 02/28/2017 14:03:50 Confirmation # [id number] Dictation # [id number]
--- NOTE | 2017-02-28 15:46 | CP.PCM.PN ---
Subjective - Date & Time of Evaluation Date of Evaluation: 02/28/17 Time of Evaluation: 14:30 - Subjective Subjective: Infectious Disease Follow Up: February 28, 2017 61 yo female with presentation of nausea, dizziness, and subjective fevers. She also complains of cough, shortness of breath, and wheezing. The patient is known to have HIV and is on HAART treatment. CD4 is reported as over 900 with an undetectable viral load. The patient without leukocytosis. No fevers observed in hospital. Spiculated density in right upper lobe. Small ground-glass opacity at lung bases. No new findings today. Supportive care. CAP. Most recent Chest X-ray clear. Highly anxious personality. Lactic acid levels are elevated at 3.2. Unclear if this is secondary to Zyvox or present since start of admission. CO2 levels are low however. Noted that Zyvox was stopped. Patient did receive 3 days worth. There are case reports of Zyvox being the cause of lactic acidosis. Lactic acid did show improvement today. The patient remains highly anxious. Supportive care. Patient complains that she is still short of breath. Echocardiogram shows severe sclerotic disease to the aortic valve. Objective - Vital Signs/Intake and Output Vital Signs (last 24 hours): Temp Pulse Resp BP Pulse Ox 97.8 F 69 20 168/95 H 99 02/28/17 08:00 02/28/17 10:04 02/28/17 08:00 02/28/17 10:04 02/28/17 08:00 Intake and Output: 02/28/17 02/28/17 06:59 18:59 Intake Total 900 1080 Balance 900 1080 - Medications Medications: Current Medications Albuterol/Ipratropium (Duoneb 3 Mg/0.5 Mg (3 Ml) Ud) 3 ml IH [id number] [facility] Last Admin: 02/28/17 13:10 Dose: 3 ml Alprazolam (Xanax) 1 mg PO TID PRN; Protocol PRN Reason: Anxiety Last Admin: 02/28/17 08:32 Dose: 1 mg Amlodipine Besylate (Norvasc) 10 mg PO DAILY [facility] Last Admin: 02/28/17 10:03 Dose: 10 mg Arformoterol Tartrate (Brovana) 15 mcg IH [id number] [facility] Last Admin: 02/28/17 07:26 Dose: 15 mcg Budesonide (Pulmicort Respules) 0.5 mg IH [id number] [facility] Last Admin: 02/28/17 07:26 Dose: 0.5 mg Docusate Sodium (Colace) 100 mg PO BID [facility] Last Admin: 02/28/17 10:11 Dose: Not Given Fluconazole (Diflucan) 200 mg PO DAILY [facility] PRN Reason: Protocol Last Admin: 02/28/17 10:04 Dose: 200 mg Furosemide (Lasix) 20 mg PO DAILY [facility] Lisinopril (Zestril) 20 mg PO DAILY [facility] Last Admin: 02/28/17 10:04 Dose: 20 mg Metoprolol Succinate (Toprol Xl) 50 mg PO BRK [facility] Last Admin: 02/28/17 08:30 Dose: 50 mg Montelukast Sodium (Singulair) 10 mg PO HS [facility] Last Admin: 02/27/17 21:16 Dose: 10 mg Prednisone (Prednisone Tab) 20 mg PO DAILY [facility] Last Admin: 02/28/17 10:04 Dose: 20 mg Raltegravir (Isentress) 400 mg PO BID [facility] Last Admin: 02/28/17 10:03 Dose: 400 mg Ritonavir (Norvir) 100 mg PO BRKDIN [facility] Last Admin: 02/28/17 08:32 Dose: 100 mg Roflumilast (Daliresp) 500 mcg PO DAILY [facility] Last Admin: 02/28/17 10:06 Dose: 500 mcg - Labs Labs: 02/28/17 07:00 02/28/17 07:00 PT 11.5 Seconds (9.9-11.8) 02/24/17 13:42 INR 1.06 (0.93-1.08) 02/24/17 13:42 APTT 21.0 Seconds (23.7-30.8) L 02/24/17 13:42 - Constitutional Appears: Non-toxic, No Acute Distress, Chronically Ill - Head Exam Head Exam: ATRAUMATIC, NORMOCEPHALIC - Eye Exam Eye Exam: EOMI, PERRL Pupil Exam: NORMAL ACCOMODATION, PERRL - ENT Exam ENT Exam: Mucous Membranes Moist, Normal External Ear Exam, TM's Normal Bilaterally - Neck Exam Neck Exam: Full ROM, Normal Inspection - Respiratory Exam Respiratory Exam: Clear to Ausculation Bilateral, NORMAL BREATHING PATTERN. absent: Rales, Rhonchi, Wheezes - Cardiovascular Exam Cardiovascular Exam: REGULAR RHYTHM, RRR, +S1, +S2 - GI/Abdominal Exam GI & Abdominal Exam: Soft, Normal Bowel Sounds. absent: Distended, Tenderness - Extremities Exam Extremities Exam: Full ROM, Normal Inspection - Neurological Exam Neurological Exam: Alert, Awake, CN II-XII Intact, Oriented x3 - Psychiatric Exam Psychiatric exam: Normal Affect, Normal Mood - Skin Skin Exam: Intact, Normal Color Assessment and Plan - Assessment and Plan (Free Text) Assessment: 61 yo female with known HIV on good control with HAART presenting with subjective fevers, chills, nausea, and cough. Imaging studies show possible right lung reticular perihilar opacities. CT scan showing spiculated density at the right lung upper lobe about 1.5 centimeter in size. Small ground glass opacities noted. No evidence of pleural effusion. Possible mild compression fracture in T5 superior endplate. Started on one dose of Vancomycin. Difficult to administer more doses as the patient's renal function was affected by the dye administration and possibly the Vancomycin dose. Patient feeling better overall. Zyvox given instead due to PCN allergies. Creatinine improving. Renal insufficiency resolved. Lactic acid showing a value of 3.3 today up from 2.8. Noted Zyvox stopped for fears of lactic acidosis secondary to Zyvox administration. Monitor lactic acidosis. Continue to monitor renal function. Noted low CO2 levels as well. No lactic acid level done today. Thank you for allowing me to participate in the care of the patient, we will follow with you.
--- NOTE | 2017-02-28 16:21 | PN ---
DATE: 02/28/2017 SUBJECTIVE: The patient is seen sitting in chair. She is awake. She is alert. She is comfortable. She denies any pain. She denies any shortness of breath. PHYSICAL EXAMINATION: GENERAL: Obese elderly lady sitting in bed. VITAL SIGNS: Blood pressure 160/95, heart rate 69, respiratory rate 18-20, temperature 97.8. HEENT: Normocephalic, atraumatic. NECK: Supple, no JVD. LUNGS: Bilateral equal air entry, bilateral rhonchi. CARDIAC: S1, S2, regular rate and rhythm, no murmur, no rub. ABDOMEN: Obese, distended, soft, nontender, bowel sounds present. EXTREMITIES: Trace lower extremity edema. INTAKE AND OUTPUT: Not charted. LABORATORY DATA: WBC 12.5, hemoglobin 12, hematocrit 36, platelets 314. Sodium 141, potassium 3.9, chloride 105, CO2 25, BUN 37, creatinine 0.9, glucose 131. Lactic acid 3.3, calcium 9.1, phosphorus 3.9, magnesium 2.4, albumin 3.5. CURRENT MEDICATIONS: Brovana, Colace, Diflucan, Isentress, Norvasc, Norvir, prednisone, Singulair, T oprol-XL 50, Zestril 20. ASSESSMENT: 1. Resolved acute kidney injury, acute tubular necrosis secondary to contrast exposure. 2. Severe uncontrolled hypertension. The patient was on metoprolol 50 mg daily, Vasotec 10 b.i.d. a t home. Currently, she is on Zestril 20, Toprol-XL 50, amlodipine 10 and blood pressure is uncontrol led. 3. Asthma, status post exacerbation. 4. Human immunodeficiency virus. 5. Anxiety. PLAN: 1. Restart Lasix 20 mg daily, outpatient medication. Hopefully, will control blood pressure better. 2. If blood pressure is still uncontrolled, increase Zestril. 3. Continue respiratory treatments/inhaler/steroids. 4. Continue HAART therapy. 5. Discharge planning. Kelly Cantu MD cc: [id number] TT: 02/28/2017 16:21:06 Confirmation # [id number] Dictation # [id number] cn
--- NOTE | 2017-02-28 16:34 | PN ---
DATE: 02/28/2017 REFERRING PHYSICIAN: Dr. Ramírez. SUBJECTIVE: She is sitting side of the bed. Feels better. Decreased cough, decreased shortness of breath. No nausea, vomiting or diarrhea. No leg pain or leg swelling. OBJECTIVE: GENERAL: No acute distress. VITAL SIGNS: Temp is 98, heart rate is 69, respiratory rate is 20, blood pressure 168/95, pulse ox 9 9% on 2 liter nasal cannula. HEENT: Moist mucous membranes. Small oral cavity. NECK: Supple, no JVD. LUNGS: Have fair airflow with a few rhonchi. HEART: S1, S2. ABDOMEN: Soft, nontender. No organomegaly. EXTREMITIES: There is no edema. NEUROLOGIC: Awake, alert, follows simple commands. MEDICATIONS: She is on Brovana 15 mcg inhaled twice a day, Colace 100 mg twice a day, Daliresp 500 m cg daily, Diflucan 200 mg daily, DuoNeb q. 6 hours, Isentress 400 mg twice a day, Lasix 20 mg daily, Norvasc 10 mg daily, Norvir 100 mg with breakfast, prednisone 20 mg daily, Pulmicort inhaled twice a day, Singulair 10 mg daily, Toprol-XL 50 mg daily, Xanax 1 mg q. 8 hours p.r.n., Zestril 20 mg daily. LABORATORY DATA: Shows hemoglobin 12.2, hematocrit 36.2, WBC 12.2, platelet is 314. Sodium 141, pot assium 3.9, chloride 105, bicarbonate 25, BUN 37, creatinine 0.9, glucose 131. Lactic acid is 3.3, p hosphorus 3.9, magnesium 2.4. AST 26, ALT 60, alkaline phosphatase is 61, albumin is 3.5. MICROBIOLOGY: Blood culture has been negative. CAT scan of the chest is repeated because of the right upper lobe nodular infiltrate, so this CAT sca n last night shows interval improvement right apical infiltrate. There is a new segmental infarct in the lingula though. IMPRESSION AND PLAN: Exacerbation of chronic obstructive lung disease, lung nodule which now seems l andreas is pneumonia, resolving; human immunodeficiency virus positive, may have a sleep apnea syndrome, renal insufficiency, mild pulmonary hypertension with cardiac diastolic dysfunction, has increased la ctic acid. Pulmonary point of view, she is doing much better. I will decrease prednisone to 10 mg d aily and taper off in the next few days. Continue BiPAP while sleeping. Outpatient, she needs atten ded sleep study in the hospital. She has done very well with the BiPAP. Also may have a esophagitis . Continue Diflucan, completing 5 days' course. Thank you, and will follow with you. Tamiko Collado MD cc: [phone] TT: 02/28/2017 16:34:04 Confirmation # [id number] Dictation # [id number] mn
[2017-03-01] MEDS ORDERED: oxyCODONE 10 mg Immediate Release Tab PO ONE (17:50)
[2017-03-01] MEDS ORDERED: oxyCODONE 10 mg Immediate Release Tab ONE (18:06)
--- NOTE | 2017-03-01 19:23 | CP.PCM.PCO ---
Physician Communication Note - Physician Communication Note Physician Communication Note: written note in chart for today due to technical difficulties with EMR
--- NOTE | 2017-03-01 19:44 | PN ---
DATE: 03/01/2017 SUBJECTIVE: The patient is lying in bed in no acute distress. She complains of some dizziness statu s post fall. She states that she hit her head. The patient denies any nausea, no vomiting. There i s no chest pain or shortness of breath. PHYSICAL EXAMINATION: VITAL SIGNS: Blood pressure 165/92, pulse 79, temperature 97.7, respiratory rate 20. LUNGS: Clear. HEART: Regular rate and rhythm. ABDOMEN: Soft, nontender, bowel sounds are normoactive. EXTREMITIES: Without cyanosis, clubbing, or edema. NEUROLOGIC: The patient is awake and oriented x 3 without focal sensory or motor deficits. SKIN: Warm and dry. IMPRESSION: 1. Exacerbation of asthma with pneumonia. 2. Lactic acidosis, possibly secondary to Zyvox. 3. Human immunodeficiency virus positive. 4. Hypertension. 5. Hyperglycemia and leukocytosis secondary to steroids. 6. Anxiety disorder. PLAN: Continue pulmonary followup with Dr. Collado, ID followup with Dr. Carr and renal followup with Galina Cantu. Will add hydrochlorothiazide 25 mg daily. Social work for discharge planning. Ty Ramírez JD, MD cc: [phone] TT: 03/01/2017 19:43:22 Confirmation # [id number] Dictation # [id number] rolando
[2017-03-01] MEDS: Arformoterol 15 mcg/2 ml Inh Sol IH SCH (20:36)
[2017-03-01] MEDS: Albuterol-Ipratrop 3 mg / 0.5 (3 ml) UD IH SCH (20:36)
[2017-03-01] MEDS: Budesonide 0.5 mg/2 ml Inhal Susp UD IH SCH (20:37)
[2017-03-01] MEDS ORDERED: Benzocaine/Menthol (Cepacol) Lozenge MT PRN (21:05)
--- NOTE | 2017-03-01 22:40 | PN ---
DATE: 03/01/2017 REFERRING PHYSICIAN: Dr. Ramírez SUBJECTIVE: She is lying in the bed, no acute distress. Breathing is better. No cough, no nausea, no vomiting, diarrhea. No leg pain or leg swelling. Apparently, she slipped and fell, does have bru ises on the right elbow. OBJECTIVE: GENERAL: In no acute distress. VITAL SIGNS: Temp is 98, heart rate is 79, respiratory rate is 20, blood pressure 165/92, pulse ox 9 8% on room air. HEENT: Moist mucous membranes. Crowded airway. Mallampati score is 4. NECK: Supple. No JVD. LUNGS: Has a fair airflow with few rhonchi. HEART: S1, S2. ABDOMEN: Soft, nontender. No organomegaly. EXTREMITIES: There is no edema. NEUROLOGIC: Awake, alert, follows simple command. MEDICATIONS: She is on Brovana 15 mcg inhaled twice a day, Cepacol lozenges q. 12 hours p.r.n., Cola ce 100 mg twice a day, mcg daily, Diflucan 200 mg daily, DuoNeb q. 6 hours, hydrochlorothiazide 25 mg daily, Isentress 400 mg twice a day, Lasix 20 mg daily, Norvasc 10 mg daily, Norvir 100 mg twi ce a day, prednisone 10 mg daily, Pulmicort inhaler twice a day, Singulair 10 mg daily, Toprol-XL 50 mg daily, Xanax 1 mg 3 times a day p.r.n., Zestril 20 mg daily. LABORATORY DATA: Reviewed. Microbiology: Blood cultures have been negative. IMPRESSION AND PLAN: Exacerbation of chronic obstructive lung disease, previously thought lung nodul e is improving, probably was pneumonia, HIV positive, sleep apnea syndrome, renal insufficiency, mild pulmonary hypertension, cardiac diastolic dysfunction, probably have a sleep apnea syndrome. We juan manuel l decrease prednisone to 5 mg daily. Continue inhaled bronchodilators. Continue Diflucan for a tota l of 5 days, Cepacol lozenges, outpatient sleep study and PFT. Follow up labs in the morning. Thank you and we will follow with you. Tamiko Collado MD cc: [phone] TT: 03/01/2017 22:39:48 Confirmation # [id number] Dictation # [id number] cn
--- NOTE | 2017-03-01 23:25 | CT ---
PROCEDURE: CT HEAD WITHOUT CONTRAST. HISTORY: COMPARISON: None available. TECHNIQUE: Axial computed tomography images were obtained through the head/brain without intravenous contrast. Radiation dose: Total exam DLP = mGy-cm. This CT exam was performed using one or more of the following dose reduction techniques: Automated exposure control, adjustment of the mA and/or kV according to patient size, and/or use of iterative reconstruction technique. FINDINGS: HEMORRHAGE: No no parenchymal, subarachnoid or extra-axial hemorrhage. BRAIN: Minor chronic periventricular white matter ischemic changes. . Small extra-axial calcification right posterior temporoparietal region likely representing a simple dural base calcification. Possibility of an incidental tiny meningioma less likely though due to the lack of surrounding soft tissue however not completely excluded. Mild generalized volume loss. VENTRICLES: No evidence of obstructive hydrocephalus. CALVARIUM: No acute calvarial fractures. PARANASAL SINUSES: Mild hypoplasia right chamber frontal sinus. Remaining visualized paranasal sinuses are well-developed and currently well-aerated. MASTOID AIR CELLS: There is partial opacification of the right mastoid air complex right middle ear canal. OTHER FINDINGS: Note made of what appears represent exophthalmos. Clinic correlation with the ophthalmologic examination. IMPRESSION: No acute intracranial hemorrhage. Minor chronic periventricular white matter ischemic changes. Mild generalized volume loss. Small extra-axial calcification right posterior temporoparietal region as above Partial opacification right mastoid air complex and right middle ear canal. Findings consistent with mild exophthalmos.
[2017-03-02] MEDS: Albuterol-Ipratrop 3 mg / 0.5 (3 ml) UD IH SCH ×4 (03:00→20:23)
[2017-03-02] MEDS: Arformoterol 15 mcg/2 ml Inh Sol IH SCH ×2 (07:18→20:23)
[2017-03-02] MEDS: Budesonide 0.5 mg/2 ml Inhal Susp UD IH SCH ×2 (07:18→20:23)
[2017-03-02 07:20] LABS: HEMATOCRIT 37.9 % (36.0-48.0); MEAN CELL VOLUME 89.8 fL (80.0-105.0); MEAN CORPUSCULAR HEMOGLOBIN 30.3 pg (25.0-35.0); MEAN CORPUSCULAR HGB CONC 33.8 g/dl (31.0-37.0); MEAN PLATELET VOLUME 9.3 fl (7.0-11.0); RED CELL DISTRIBUTION WIDTH 15.9 % (11.5-14.5)
[2017-03-02 08:07] LABS: ALB/GLOB RATIO 1.1 (1.1-1.8); ALKALINE PHOSPHATASE 59 U/L (38-133); ALT/SGPT 66 U/L (7-56); AST/SGOT 23 U/L (15-39); BILIRUBIN,TOTAL 0.6 mg/dL (0.2-1.3); BLOOD UREA NITROGEN 30 mg/dL (7-21); CALCIUM 10.6 mg/dL (8.4-10.5); CARBON DIOXIDE 32 mmol/L (21-33); CHLORIDE 98 mmol/L (98-107); GFR AFRICAN-AMERICAN > 60; GLUCOSE,RANDOM 70 mg/dL (70-110); POTASSIUM 3.9 mmol/L (3.6-5.0); SODIUM 136 mmol/L (132-148); TOTAL PROTEIN 5.7 g/dL (5.8-8.3)
[2017-03-02] MEDS: Metoprolol Succinate 50 mg XL Tab PO SCH (08:29)
--- NOTE | 2017-03-02 09:34 | PN ---
DATE: 03/01/2017 SUBJECTIVE: The patient is seen lying in bed. She is awake. She is alert. She is using her an inh aler. She denies any chest tightness. She denies any shortness of breath. PHYSICAL EXAMINATION: GENERAL: Obese elderly lady lying in bed. VITAL SIGNS: Blood pressure 140/77, heart rate 85, respiratory rate 20, temperature 98. HEENT: Normocephalic, atraumatic. NECK: Supple, no JVD. LUNGS: Bilateral equal air entry, bilateral rhonchi. CARDIAC: S1, S2, regular rate and rhythm, no murmur, no rub. ABDOMEN: Obese, distended, soft, nontender, bowel sounds present. EXTREMITIES: No lower extremity edema. INTAKE AND OUTPUT: 1080/not charted. LABORATORY DATA: No labs available for review because of system failure. CURRENT MEDICATIONS: Brovana, Colace, Diflucan, hydrochlorothiazide, Lasix. ASSESSMENT: 1. Resolved acute kidney injury. 2. Asthmatic bronchitis. 3. Severe hypertension. 4. Human immunodeficiency virus. PLAN: 1. Continue current antihypertensives. 2. Avoid nephrotoxins. 3. Continue HAART therapy. 4. Continue respiratory treatments. Kelly Cantu MD cc: [phone] TT: 03/02/2017 09:33:23 Confirmation # [id number] Dictation # [id number] mn
[2017-03-02 10:22] LABS: BLOOD UREA NITROGEN 34 mg/dL (7-21); CHLORIDE 102 mmol/L (98-107); GFR AFRICAN-AMERICAN > 60; GLUCOSE,RANDOM 93 mg/dL (70-110); SODIUM 140 mmol/L (132-148)
[2017-03-02 10:23] LABS: ALB/GLOB RATIO 1.2 (1.1-1.8); ALKALINE PHOSPHATASE 57 U/L (38-133); ALT/SGPT 71 U/L (7-56); AST/SGOT 35 U/L (15-39); BILIRUBIN,TOTAL 0.8 mg/dL (0.2-1.3); CALCIUM 9.9 mg/dL (8.4-10.5); CARBON DIOXIDE 29 mmol/L (21-33); MAGNESIUM 2.3 mg/dL (1.7-2.2); TOTAL PROTEIN 6.6 g/dL (5.8-8.3)
[2017-03-02] MEDS: Apap-Butalbital-Caffeine 325-50-40mg Tab PO PRN ×2 (11:29→20:37)
[2017-03-02 11:58] LABS: MEAN CELL VOLUME 90.5 fL (80.0-105.0); MEAN CORPUSCULAR HEMOGLOBIN 30.8 pg (25.0-35.0); RED CELL DISTRIBUTION WIDTH 16.1 % (11.5-14.5); WHITE BLOOD COUNT 13.9 10^3/ul (4.5-11.0)
[2017-03-02] MEDS: Oxycodone/Acetaminophen 10/325 mg Tab PO PRN (13:10)
--- NOTE | 2017-03-02 14:12 | PN ---
DATE: 03/02/2017 SUBJECTIVE: The patient is lying in bed in no acute distress. She complains of some headache and di zziness. She denies nausea, no vomiting. There is no chest pain or shortness of breath. PHYSICAL EXAMINATION: VITAL SIGNS: Blood pressure 148/98, pulse 72, temperature 97.8, respiratory rate 20. LUNGS: Clear. HEART: Regular rate and rhythm. ABDOMEN: Soft, nontender, bowel sounds are normoactive. EXTREMITIES: Without cyanosis, clubbing, or edema. NEUROLOGIC: The patient is awake and oriented x 3 without focal sensory or motor deficits. SKIN: Warm and dry. LABORATORY DATA: WBC 16.0, hemoglobin 12.8, hematocrit 37.9. Sodium 136, potassium 3.9, chloride 98 , CO2 32, BUN 30, creatinine 0.7, glucose 70. CT scan of the head was negative for any acute bleeds or infarcts. IMPRESSION: 1. Possible postconcussion syndrome, status post head injury from fall. 2. Lactic acidosis, possibly secondary to Zyvox. 3. Human immunodeficiency virus positive. 4. Exacerbation of asthma with bilateral pneumonia, clinically improved. 5. Hypertension. 6. Leukocytosis, probably secondary to steroids. 7. Anxiety disorder. PLAN: We will obtain neurology consult with Dr. Akins. Continue pulmonary followup with Dr. Collado and ID followup with Dr. Carr, renal followup with Dr. Cantu. Social work for discharge planning. Ty Ramírez JD, MD cc: [phone] TT: 03/02/2017 14:11:49 Confirmation # [id number] Dictation # [id number] rolando
--- NOTE | 2017-03-02 16:17 | CP.PCM.PN ---
Subjective - Date & Time of Evaluation Date of Evaluation: 03/02/17 Time of Evaluation: 14:30 - Subjective Subjective: Infectious Disease Follow Up: March 02, 2017 61 yo female with presentation of nausea, dizziness, and subjective fevers. She also complains of cough, shortness of breath, and wheezing. The patient is known to have HIV and is on HAART treatment. CD4 is reported as over 900 with an undetectable viral load. The patient without leukocytosis. No fevers observed in hospital. Spiculated density in right upper lobe. Small ground-glass opacity at lung bases. No new findings today. Supportive care. CAP. Most recent Chest X-ray clear. Highly anxious personality. Lactic acid levels are elevated at 3.3 on last check. Zyvox was stopped several days ago. Patient did receive 3 days worth. There are case reports of Zyvox being the cause of lactic acidosis. The lactic acidosis has not improved. Lactic acid did show improvement today. The patient remains highly anxious. Supportive care. Patient complains that she is still short of breath. Echocardiogram shows severe sclerotic disease to the aortic valve. The patient did have a fall yesterday while going to the bathroom. Objective - Vital Signs/Intake and Output Vital Signs (last 24 hours): Temp Pulse Resp BP Pulse Ox 97.8 F 74 20 125/79 99 03/02/17 15:49 03/02/17 15:49 03/02/17 15:49 03/02/17 15:49 03/02/17 15:49 Intake and Output: 03/02/17 03/02/17 06:59 18:59 Intake Total 540 Balance 540 - Medications Medications: Current Medications Acetaminophen (Tylenol 325mg Tab) 650 mg PO QD6 PRN PRN Reason: Pain, Mild (1-3) Acetaminophen/Butalbital/Caffeine (Fioricet) 1 tab PO Q4H PRN PRN Reason: Headache Last Admin: 03/02/17 11:29 Dose: 1 tab Albuterol/Ipratropium (Duoneb 3 Mg/0.5 Mg (3 Ml) Ud) 3 ml IH [id number] Last Admin: 03/02/17 13:32 Dose: 3 ml Alprazolam (Xanax) 1 mg PO TID PRN; Protocol PRN Reason: Anxiety Last Admin: 02/28/17 21:25 Dose: 1 mg Amlodipine Besylate (Norvasc) 10 mg PO DAILY [facility] Last Admin: 03/02/17 10:26 Dose: 10 mg Arformoterol Tartrate (Brovana) 15 mcg IH [id number] [facility] Last Admin: 03/02/17 07:18 Dose: 15 mcg Benzocaine/Menthol (Cepacol Sore Throat) 1 linda MT Q2H PRN PRN Reason: Sore Throat Budesonide (Pulmicort Respules) 0.5 mg IH [id number] [facility] Last Admin: 03/02/17 07:18 Dose: 0.5 mg Docusate Sodium (Colace) 100 mg PO BID [facility] Last Admin: 03/02/17 10:24 Dose: 100 mg Fluconazole (Diflucan) 200 mg PO DAILY [facility] PRN Reason: Protocol Last Admin: 03/02/17 10:25 Dose: 200 mg Furosemide (Lasix) 20 mg PO DAILY [facility] Last Admin: 03/02/17 10:26 Dose: 20 mg Hydrochlorothiazide (Hydrodiuril) 25 mg PO DAILY [facility] Last Admin: 03/02/17 10:25 Dose: 25 mg Lisinopril (Zestril) 20 mg PO DAILY [facility] Last Admin: 03/02/17 10:27 Dose: 20 mg Metoprolol Succinate (Toprol Xl) 50 mg PO BRK [facility] Last Admin: 03/02/17 08:29 Dose: 50 mg Montelukast Sodium (Singulair) 10 mg PO HS [facility] Last Admin: 03/01/17 21:45 Dose: 10 mg Oxycodone/Acetaminophen (Percocet 10/325 Mg Tab) 1 tab PO Q4H PRN PRN Reason: Pain, moderate (4-7) Last Admin: 03/02/17 13:10 Dose: 1 tab Prednisone (Prednisone Tab) 5 mg PO DAILY [facility] Last Admin: 03/02/17 10:26 Dose: 5 mg Raltegravir (Isentress) 400 mg PO BID [facility] Last Admin: 03/02/17 10:26 Dose: 400 mg Ritonavir (Norvir) 100 mg PO BRKDIN [facility] Last Admin: 03/02/17 08:29 Dose: 100 mg Roflumilast (Daliresp) 500 mcg PO DAILY [facility] Last Admin: 03/02/17 10:25 Dose: 500 mcg - Labs Labs: 03/02/17 07:00 03/02/17 07:00 PT 11.5 Seconds (9.9-11.8) 02/24/17 13:42 INR 1.06 (0.93-1.08) 02/24/17 13:42 APTT 21.0 Seconds (23.7-30.8) L 02/24/17 13:42 - Constitutional Appears: Non-toxic, No Acute Distress, Chronically Ill - Head Exam Head Exam: ATRAUMATIC, NORMOCEPHALIC - Eye Exam Eye Exam: EOMI, PERRL Pupil Exam: NORMAL ACCOMODATION, PERRL - ENT Exam ENT Exam: Mucous Membranes Moist, Normal External Ear Exam, TM's Normal Bilaterally - Neck Exam Neck Exam: Full ROM, Normal Inspection - Respiratory Exam Respiratory Exam: Clear to Ausculation Bilateral, NORMAL BREATHING PATTERN. absent: Rales, Rhonchi, Wheezes - Cardiovascular Exam Cardiovascular Exam: REGULAR RHYTHM, RRR, +S1, +S2 - GI/Abdominal Exam GI & Abdominal Exam: Soft, Normal Bowel Sounds. absent: Distended, Tenderness - Extremities Exam Extremities Exam: Full ROM, Normal Inspection - Neurological Exam Neurological Exam: Alert, Awake, CN II-XII Intact, Oriented x3 - Psychiatric Exam Psychiatric exam: Normal Affect, Normal Mood - Skin Skin Exam: Intact, Normal Color Assessment and Plan - Assessment and Plan (Free Text) Assessment: 61 yo female with known HIV on good control with HAART presenting with subjective fevers, chills, nausea, and cough. Imaging studies show possible right lung reticular perihilar opacities. CT scan showing spiculated density at the right lung upper lobe about 1.5 centimeter in size. Small ground glass opacities noted. No evidence of pleural effusion. Possible mild compression fracture in T5 superior endplate. Started on one dose of Vancomycin. Difficult to administer more doses as the patient's renal function was affected by the dye administration and possibly the Vancomycin dose. Patient feeling better overall. Zyvox given instead due to PCN allergies. Creatinine improving. Renal insufficiency resolved. Lactic acid showing a value of 3.3 on last check up from 2.8. Noted Zyvox stopped for fears of lactic acidosis secondary to Zyvox administration but lactic acid levels remain high. Monitor lactic acidosis. Continue to monitor renal function. Noted low CO2 levels as well. No lactic acid level done today. Noted rapid response yesterday for fall. Patient attempted to go to bathroom under her own power. Thank you for allowing me to participate in the care of the patient, we will follow with you.
--- NOTE | 2017-03-02 19:16 | CON ---
DATE: 03/02/2017 CHIEF COMPLAINT: Headache. HISTORY OF PRESENT ILLNESS: This is a 61-year-old woman with history of HIV controlled on HAART pres ented with subjective fevers, chills and nausea. Study showed possible right lung particulate perihi lar opacities. CAT scan of the chest showed spiculated density to the right lung in the upper lobe 1 .5 cm and small ground glass opacities. She is on vancomycin per ID, feels much better. She had a s lip and fall in the bathroom when she was using her cane and hit the back of her head. She has a hea dache which is occipitally and on the frontal areas as well, diffuse pressure type without any auras. She is on CPAP for underlying COPD. She following commands, moving all extremities equally. CT he ad showed no acute intracranial abnormalities. PAST MEDICAL HISTORY: COPD, history of HIV, history of sleep apnea syndrome, renal insufficiency. SOCIAL HISTORY: No illicit drug use, smoking or ETOH abuse. FAMILY HISTORY: Noncontributory. HOME MEDICATIONS: Reviewed via nurse reconciliation sheet. ALLERGIES: PENICILLIN. FAMILY HISTORY: Noncontributory. PHYSICAL EXAMINATION: VITAL SIGNS: Temperature 97.8, pulse rate 74, blood pressure 125/79, respiratory rate 20, oxygen 99% on room air. GENERAL: The patient is sitting up in bed in no acute distress. HEENT: Atraumatic, normocephalic. PERRLA. Extraocular muscles intact. NECK: Supple, no JVD, no adenopathy noted. LUNGS: Clear to auscultation. No adventitious sounds. HEART: S1, S2, normal rate and rhythm. No murmurs, rubs, or gallops. ABDOMEN: Soft, nontender, nondistended. Bowel sounds are present. EXTREMITIES: No clubbing, no cyanosis. Peripheral pulses 2+ bilaterally. NEUROLOGIC: The patient is alert, oriented to person, place, month and year. Speech is fluent, with out any errors. Cranial nerves II through XII are intact. MOTOR: Moves all extremities equally. Toes downgoing bilaterally. SENSORY: Light touch, pinprick is decreased at the calves bilateral, decreased vibration of the toes . DTRs are 2+ throughout, 1 the ankles. COORDINATION: [id number] intact. GAIT: Deferred for now. LABORATORIES: Sodium is 136, potassium 3.9, chloride 98, carbon dioxide 22, BUN of 30, creatinine 0. 7, random glucose 70, calcium 10.6. ASSESSMENT AND PLAN: A 61-year-old woman with history of human immunodeficiency virus currently on H AART, chronic obstructive pulmonary disease, CPAP, history of renal insufficiency, hypertension came in for subjective fevers, chills and nausea being treated by ID. Had a slip and fall on the floor ou tside the bathroom and hit the back of the head. Complaining of headaches, mostly secondary to hyper tensive urgency with elevated blood pressure superimposed underlying posttraumatic headache. At this time, recommend Fioricet 1 tab p.o. q. 4 hours p.r.n. acute onset of headache and possible gabapenti n 300 mg p.o. at bedtime. At this time, continue with current present management. Thank you for this consult. We will sign off. Compa Akins MD cc: [id number] TT: 03/02/2017 19:15:57 Confirmation # [id number] Dictation # [id number] jn
--- NOTE | 2017-03-02 20:22 | PN ---
DATE: 03/02/2017 SUBJECTIVE: The patient is seen lying in bed. The patient is awake. She is alert. She is comforta ble. She reports that she fell last night. She fell backwards as she was trying to get into bed. S he hit her head. She just had a CT scan of her head. She denies any headaches, dizziness or . PHYSICAL EXAMINATION: GENERAL: Obese lady lying in bed. VITAL SIGNS: Blood pressure 125/79, heart rate 74, respiratory rate 20, temperature 97.8. HEENT: Normocephalic, atraumatic. NECK: Supple, no JVD. LUNGS: Bilateral equal air entry, no rales, no rhonchi. CARDIAC: S1, S2, regular rate and rhythm, no murmur, no rub. ABDOMEN: Obese, distended, soft, nontender, bowel sounds present. EXTREMITIES: Contusions, bruises on both elbows, 2+ pitting edema of her lower extremities. LABORATORY DATA: Sodium 136, potassium 3.9, chloride 98, CO2 of 32, BUN 30, creatinine 0.7, glucose 70, calcium 10.6, albumin 3.0, corrected calcium is 11.3, WBC 16, hemoglobin 12.8, hematocrit 38, sue telets 226. CURRENT MEDICATIONS: Brovana, Cepacol, Colace, Daliresp, Diflucan, DuoNeb, hydrochlorothiazide 25 mg daily, Isentress, Lasix 20, amlodipine 10, Norvir, oxycodone, prednisone 5 daily, Singulair, Pulmico rt, Toprol-XL, Tylenol, Xanax, lisinopril 20. ASSESSMENT: 1. Resolved acute kidney injury, acute tubular necrosis. 2. Hypertension. 3. Human immunodeficiency virus. 4. Asthma. 5. Hypercalcemia. PLAN: 1. Discontinue hydrochlorothiazide. 2. Increase Lasix to 40 mg daily. 3. Check vitamin D and PTH levels. 4. Continue antihypertensives. 5. . Kelly Cantu MD cc: [id number] TT: 03/02/2017 20:20:48 Confirmation # [id number] Dictation # [id number] mn
--- NOTE | 2017-03-02 20:42 | PN ---
DATE: 03/02/2017 REFERRING PHYSICIAN: Dr. Ramírez. SUBJECTIVE: She is lying in the bed, head at 45 degrees, night was unremarkable. Yesterday, she sli pped and had a CAT scan done today. No sore throat today. No cough, no sputum production, no nausea , no vomiting, no diarrhea. No leg pain or leg swelling. Has some skin breakdown on the right elbow area. OBJECTIVE: GENERAL: No acute distress. VITAL SIGNS: Temperature is 98, heart rate is 74, respiratory rate is 20, blood pressure 125/79, pul se ox 99% on room air. HEENT: Moist mucous membranes. Small oral cavity, no thrush. NECK: Supple. No JVD. LUNGS: Has a fair airflow with rhonchi. HEART: S1, S2. ABDOMEN: Soft, nontender. No organomegaly. EXTREMITIES: There is no edema. Right elbow has some skin breakdown. NEUROLOGIC: Awake, alert, follows simple command. MEDICATIONS: She is on Brovana 15 mcg inhaled twice a day, Cepacol lozenges q. 2 hours, Colace 100 m g twice a day, Daliresp 500 mcg daily, Diflucan 200 mg daily, DuoNeb q. 6 hours, furosemide 1 tab q. 4 hours p.r.n., Isentress 400 mg twice a day, Lasix 40 mg daily, Norvasc 10 mg daily, Norvir 100 mg t wice a day, Percocet 10/325 one tab q. 4 hours p.r.n., prednisone 5 mg daily, Pulmicort inhaler twice a day, Singulair 10 mg daily, metoprolol succinate 50 mg daily, Tylenol p.r.n., Xanax 1 mg 3 times a day p.r.n., Zestril 20 mg daily. LABORATORY DATA: Shows hemoglobin 12.8, hematocrit 37.9, WBC 16.0, and platelet is 226. Blood gases yesterday shows VBG pH 7.42, pCO2 of 31, O2 of 58. Sodium 136, potassium 3.9, chloride 98, bicarbon ate 32, BUN 30, creatinine 0.7, calcium is 10.6, AST 23, ALT 66, alkaline phosphatase is 99, albumin is 3.0. Microbiology: Blood cultures have been no growth. Had a CAT scan of the head done after a slip and fall, which shows no acute intracranial hemorrhage and minor chronic periventricular white m atter ischemic changes, mild degenerative volume loss, small extraaxial calcification in the right po sterior temporoparietal region as above, partial opacification of right mastoid complex and the right middle ear. IMPRESSION AND PLAN: Exacerbation of chronic obstructive lung disease, resolving pneumonia, HIV posi tive, sleep apnea syndrome, renal insufficiency, mild pulmonary hypertension, cardiac diastolic dysfu nction, may have a sleep apnea syndrome, esophagitis. Pulmonary point of view, doing great. We will discontinue prednisone. Continue inhaled bronchodilator, keep head elevated at 45 degrees. Discont inue after 5 days. Fall precaution. Outpatient sleep study and also the PFT. Thank you and rut echols will follow with you. Tamiko Collado MD cc: [id number] TT: 03/02/2017 20:42:07 Confirmation # [id number] Dictation # [id number] mn
[2017-03-03] MEDS: Albuterol-Ipratrop 3 mg / 0.5 (3 ml) UD IH SCH ×4 (03:38→20:30)
[2017-03-03] MEDS: Apap-Butalbital-Caffeine 325-50-40mg Tab PO PRN ×3 (07:25→21:00)
[2017-03-03 07:49] LABS: BLOOD UREA NITROGEN 31 mg/dL (7-21); CALCIUM 10.1 mg/dL (8.4-10.5); CARBON DIOXIDE 32 mmol/L (21-33); CHLORIDE 98 mmol/L (98-107); GFR AFRICAN-AMERICAN > 60; GLUCOSE,RANDOM 79 mg/dL (70-110); POTASSIUM 3.6 mmol/L (3.6-5.0); SODIUM 136 mmol/L (132-148)
[2017-03-03] MEDS: Budesonide 0.5 mg/2 ml Inhal Susp UD IH SCH ×2 (08:37→20:30)
[2017-03-03] MEDS: Arformoterol 15 mcg/2 ml Inh Sol IH SCH ×2 (08:37→20:29)
[2017-03-03] MEDS: Metoprolol Succinate 50 mg XL Tab PO SCH ×2 (08:57→08:59)
[2017-03-03] MEDS ORDERED: Alum-Mag Hydrox-Simethicone Susp (30 mL) PO PRN (14:00)
--- NOTE | 2017-03-03 14:32 | PN ---
DATE: 03/03/2017 SUBJECTIVE: The patient is lying in bed. She complains of abdominal pain, which she describes as ep igastric discomfort which is nonradiating with mild nausea, no vomiting. There is no melena, no brig ht red blood per rectum, no dysuria, no vaginal bleeding or discharge, no melena, no bright red blood per rectum. The patient also denies any chest pain or shortness of breath. PHYSICAL EXAMINATION: VITAL SIGNS: Blood pressure 116/75, pulse 85, temperature 97.9, respiratory rate 18. LUNGS: Clear. HEART: Regular rate and rhythm. ABDOMEN: Soft. There is mild epigastric tenderness to palpation with no guarding, no rebound. Lowell l sounds are normoactive. EXTREMITIES: Without cyanosis, clubbing, or edema. NEUROLOGIC: The patient is awake and oriented x 3 without focal sensory or motor deficits. SKIN: Warm and dry. IMPRESSION: 1. Abdominal pain, rule out gastritis, status post steroids. 2. Postconcussion syndrome, status post head injury from fall. 3. Lactic acidosis, possibly secondary to Zyvox. 4. Human immunodeficiency virus positive. 5. Exacerbation of asthma with bilateral pneumonia, clinically improved. 6. Hypertension. 7. Leukocytosis, probably secondary to steroids. 8. Anxiety disorder. PLAN: We will check labs, amylase, lipase, urinalysis and urine C and S. Continue pulmonary followup with Dr. Collado and ID followup with Dr. Carr, renal up with Dr. Cantu. Social work for discharge [facility]. Ty Ramírez JD, MD cc: [id number] TT: 03/03/2017 14:32:02 Confirmation # [id number] Dictation # [id number] rolando
--- NOTE | 2017-03-03 17:52 | PN ---
DATE: 03/03/2017 SUBJECTIVE: The patient is seen lying in bed. She is awake. She is alert. She is comfortable. Sh e denies any pain. She denies any shortness of breath. PHYSICAL EXAMINATION: GENERAL: Obese elderly lady lying in bed. VITAL SIGNS: Blood pressure 116/75, heart rate 85, respiratory rate 18, temperature 98. HEENT: Normocephalic, atraumatic. NECK: Supple, no JVD. LUNGS: Bilateral equal air entry, bilateral good expansion, no rales. CARDIAC: S1, S2, regular rate and rhythm, no murmur, no rub. ABDOMEN: Obese, distended, soft, nontender, bowel sounds present. EXTREMITIES: Chronic stasis changes, 1+ pitting edema. INTAKE AND OUTPUT: Not charted. LABORATORY DATA: WBC 16, hemoglobin 12.8, hematocrit 37.9, platelets 226. Sodium 136, potassium 3.6 , chloride 98, CO2 of 32, BUN 31, creatinine 0.7, glucose 79, calcium 10.1, vitamin D 18.9, AST 23, A LT 66, albumin 3.0. CURRENT MEDICATIONS: Brovana, Colace, Daliresp, Diflucan, DuoNeb, Fioricet, Raltegravir, Lasix 40 p. o. daily, Neurontin, amlodipine 10, Norvir, Percocet, Protonix, Pulmicort, Singulair, Toprol-XL 50, T ylenol, Xanax, Zestril. ASSESSMENT: 1. Acute kidney injury, acute tubular necrosis secondary to contrast exposure, resolved. 2. Asthma exacerbation, now compensated. 3. Status post fall. 4. Human immunodeficiency virus. 5. Hypertension, well controlled. 6. Leukocytosis. 7. Hypercalcemia. PLAN: 1. Discontinued hydrochlorothiazide, continue to keep off it. 2. Continue increased Lasix at 40 mg per day. 3. Continue antihypertensive. 4. Physical therapy. 5. Discharge planning. Kelly Cantu MD cc: [id number] TT: 03/03/2017 17:51:39 Confirmation # [id number] Dictation # [id number] florentin
--- NOTE | 2017-03-03 21:13 | CP.PCM.PN ---
Subjective - Date & Time of Evaluation Date of Evaluation: 03/03/17 Time of Evaluation: 18:30 - Subjective Subjective: Infectious Disease Follow Up: March 03, 2017 61 yo female with presentation of nausea, dizziness, and subjective fevers. She also complains of cough, shortness of breath, and wheezing. The patient is known to have HIV and is on HAART treatment. CD4 is reported as over 900 with an undetectable viral load. The patient without leukocytosis. No fevers observed in hospital. Spiculated density in right upper lobe. Small ground-glass opacity at lung bases. No new findings today. Supportive care. CAP. Most recent Chest X-ray clear. Highly anxious personality. Lactic acid levels are elevated at 3.3 on last check. Zyvox was stopped several days ago. Patient did receive 3 days worth. There are case reports of Zyvox being the cause of lactic acidosis. The lactic acidosis has not improved. Lactic acid did show improvement today. The patient remains highly anxious. Supportive care. Patient complains that she is still short of breath. Echocardiogram shows severe sclerotic disease to the aortic valve. The patient did have a fall two days ago while going to the bathroom. Leukocytosis up to 16 today... Steroid related. Objective - Vital Signs/Intake and Output Vital Signs (last 24 hours): Temp Pulse Resp BP Pulse Ox 98.0 F 86 18 83/53 L 100 03/03/17 16:00 03/03/17 16:00 03/03/17 16:00 03/03/17 16:00 03/03/17 16:00 - Medications Medications: Current Medications Acetaminophen (Tylenol 325mg Tab) 650 mg PO QD6 PRN PRN Reason: Pain, Mild (1-3) Acetaminophen/Butalbital/Caffeine (Fioricet) 1 tab PO Q4H PRN PRN Reason: Headache Last Admin: 03/03/17 21:00 Dose: 1 tab Al Hydrox/Mg Hydrox/Simethicone (Maalox Plus 30 Ml) 30 ml PO DAILY PRN PRN Reason: Indigestion / Heartburn Albuterol/Ipratropium (Duoneb 3 Mg/0.5 Mg (3 Ml) Ud) 3 ml IH [id number] GABRIEL Last Admin: 03/03/17 20:30 Dose: 3 ml Alprazolam (Xanax) 1 mg PO TID PRN; Protocol PRN Reason: Anxiety Last Admin: 02/28/17 21:25 Dose: 1 mg Amlodipine Besylate (Norvasc) 10 mg PO DAILY [facility] Last Admin: 03/03/17 10:47 Dose: 10 mg Arformoterol Tartrate (Brovana) 15 mcg IH [id number] [facility] Last Admin: 03/03/17 20:29 Dose: 15 mcg Benzocaine/Menthol (Cepacol Sore Throat) 1 linda MT Q2H PRN PRN Reason: Sore Throat Budesonide (Pulmicort Respules) 0.5 mg IH [id number] [facility] Last Admin: 03/03/17 20:30 Dose: 0.5 mg Docusate Sodium (Colace) 100 mg PO BID [facility] Last Admin: 03/03/17 17:34 Dose: Not Given Fluconazole (Diflucan) 200 mg PO DAILY [facility] PRN Reason: Protocol Last Admin: 03/03/17 10:47 Dose: 200 mg Furosemide (Lasix) 40 mg PO DAILY [facility] Last Admin: 03/03/17 10:47 Dose: 40 mg Gabapentin (Neurontin) 300 mg PO HS [facility] PRN Reason: Protocol Last Admin: 03/03/17 21:00 Dose: 300 mg Lisinopril (Zestril) 20 mg PO DAILY [facility] Last Admin: 03/03/17 10:47 Dose: 20 mg Metoprolol Succinate (Toprol Xl) 50 mg PO BRK [facility] Last Admin: 03/03/17 08:59 Dose: 50 mg Montelukast Sodium (Singulair) 10 mg PO HS [facility] Last Admin: 03/03/17 21:00 Dose: 10 mg Oxycodone/Acetaminophen (Percocet 10/325 Mg Tab) 1 tab PO Q4H PRN PRN Reason: Pain, moderate (4-7) Last Admin: 03/02/17 13:10 Dose: 1 tab Pantoprazole Sodium (Protonix Ec Tab) 40 mg PO 0630 [facility] Raltegravir (Isentress) 400 mg PO BID [facility] Last Admin: 03/03/17 17:34 Dose: 400 mg Ritonavir (Norvir) 100 mg PO BRKDIN [facility] Last Admin: 03/03/17 17:34 Dose: 100 mg Roflumilast (Daliresp) 500 mcg PO DAILY [facility] Last Admin: 03/03/17 10:47 Dose: 500 mcg - Labs Labs: 03/02/17 07:00 03/03/17 07:25 PT 11.5 Seconds (9.9-11.8) 02/24/17 13:42 INR 1.06 (0.93-1.08) 02/24/17 13:42 APTT 21.0 Seconds (23.7-30.8) L 02/24/17 13:42 - Constitutional Appears: Non-toxic, No Acute Distress, Chronically Ill - Head Exam Head Exam: ATRAUMATIC, NORMOCEPHALIC - Eye Exam Eye Exam: EOMI, PERRL Pupil Exam: NORMAL ACCOMODATION, PERRL - ENT Exam ENT Exam: Mucous Membranes Moist, Normal External Ear Exam, TM's Normal Bilaterally - Neck Exam Neck Exam: Full ROM, Normal Inspection - Respiratory Exam Respiratory Exam: Clear to Ausculation Bilateral, NORMAL BREATHING PATTERN. absent: Rales, Rhonchi, Wheezes - Cardiovascular Exam Cardiovascular Exam: REGULAR RHYTHM, RRR, +S1, +S2 - GI/Abdominal Exam GI & Abdominal Exam: Soft, Normal Bowel Sounds. absent: Distended, Tenderness - Extremities Exam Extremities Exam: Full ROM, Normal Inspection - Neurological Exam Neurological Exam: Alert, Awake, CN II-XII Intact, Oriented x3 - Psychiatric Exam Psychiatric exam: Normal Affect, Normal Mood - Skin Skin Exam: Intact, Normal Color Assessment and Plan - Assessment and Plan (Free Text) Assessment: 61 yo female with known HIV on good control with HAART presenting with subjective fevers, chills, nausea, and cough. Imaging studies show possible right lung reticular perihilar opacities. CT scan showing spiculated density at the right lung upper lobe about 1.5 centimeter in size. Small ground glass opacities noted. No evidence of pleural effusion. Possible mild compression fracture in T5 superior endplate. Started on one dose of Vancomycin. Difficult to administer more doses as the patient's renal function was affected by the dye administration and possibly the Vancomycin dose. Patient feeling better overall. Zyvox given instead due to PCN allergies. Creatinine improving. Renal insufficiency resolved. Lactic acid showing a value of 3.3 on last check up from 2.8. Noted Zyvox stopped for fears of lactic acidosis secondary to Zyvox administration but lactic acid levels remain high. Monitor lactic acidosis. Continue to monitor renal function. Noted low CO2 levels as well. No lactic acid level done today. Noted rapid response two days ago for fall. Patient attempted to go to bathroom under her own power. Noted leukocytosis of 16 today... steroid related ? Thank you for allowing me to participate in the care of the patient, we will follow with you.
--- NOTE | 2017-03-03 22:51 | PN ---
DATE: 03/03/2017 REFERRING PHYSICIAN: Dr. Ramírez. SUBJECTIVE: She is lying in the bed, head at 45 degrees. Tolerated BiPAP well. Cough is better, so re throat is better. No nausea, no vomiting. Mild abdominal discomfort, dysuria. No leg pain or le g swelling. OBJECTIVE: GENERAL: No acute distress. VITAL SIGNS: Temperature is 98, heart rate 86, respiratory rate is 18, blood pressure is 116/75, pul se ox 99% on room air. HEENT: Moist mucous membranes. Small oral cavity. Crowded airway. NECK: Supple. No JVD. LUNGS: Has a fair airflow with few rhonchi. HEART: S1 and S2. ABDOMEN: Soft, nontender. No organomegaly. EXTREMITIES: There is no edema. NEUROLOGIC: Awake, alert, follows simple command. MEDICATIONS: She is on Brovana 15 mcg inhaled twice a day, Cepacol lozenges q. 2 hours p.r.n., Colac e 100 mg twice a day, Daliresp 500 mcg daily, Diflucan 200 mg daily, DuoNeb q. 6 hours, Fioricet 1 ta b q. 4 hours p.r.n., Isentress 400 mg twice a day, Lasix 40 mg daily, MiraLax 30 mL p.o. daily p.r.n. , Neurontin 300 mg at bedtime, Norvasc 10 mg daily, Norvir 100 mg twice a day, Percocet 10/325 one ta b q. 4 hours p.r.n., Protonix 40 mg daily, Pulmicort inhaled twice a day, Singulair 10 mg daily, Topr ol-XL 50 mg daily, Tylenol p.r.n., Xanax 1 mg q. 8 hours p.r.n., Zestril 20 mg daily. LABORATORY DATA: Reviewed and noted. Sodium 136, potassium 3.6, chloride , bicarbonate 32, BUN 31, creatinine 0.7, glucose 79, calcium is 10.1, AST 23, ALT 66, alkaline phosphatase is 59, albumin is 3.0. Vitamin D is 18.9. IMPRESSION AND PLAN: Exacerbation of chronic obstructive lung disease, resolving pneumonia, HIV posi tive, sleep apnea syndrome, renal insufficiency, mild pulmonary hypertension, cardiac diastolic dysfu nction. Pulmonary point of view, doing okay. Continue bronchodilator. Keep head elevated at 45 deg kelly. Sleep apnea precaution. Encourage CPAP use. Gastric prophylaxis, deep venous thrombosis prop hylaxis. Fall precaution. Thank you and will follow with you. Tamiko Collado MD cc: [id number] TT: 03/03/2017 22:51:05 Confirmation # [id number] Dictation # [id number] mn
[2017-03-04] MEDS: Albuterol-Ipratrop 3 mg / 0.5 (3 ml) UD IH SCH ×4 (01:31→19:55)
[2017-03-04] MEDS: Apap-Butalbital-Caffeine 325-50-40mg Tab PO PRN ×3 (05:39→20:03)
[2017-03-04] MEDS: Pantoprazole 40 mg EC Tab PO SCH (05:40)
[2017-03-04 06:18] LABS: ALB/GLOB RATIO 1.2 (1.1-1.8); ALKALINE PHOSPHATASE 76 U/L (38-133); ALT/SGPT 72 U/L (7-56); AMYLASE 107 U/L (35-125); AST/SGOT 28 U/L (15-39); BILIRUBIN,TOTAL 0.5 mg/dL (0.2-1.3); BLOOD UREA NITROGEN 32 mg/dL (7-21); CALCIUM 10.2 mg/dL (8.4-10.5); CARBON DIOXIDE 36 mmol/L (21-33); CHLORIDE 97 mmol/L (98-107); GFR AFRICAN-AMERICAN > 60; GLUCOSE,RANDOM 103 mg/dL (70-110); LIPASE 138 U/L (23-300); POTASSIUM 3.7 mmol/L (3.6-5.0); SODIUM 137 mmol/L (132-148); TOTAL PROTEIN 5.5 g/dL (5.8-8.3)
[2017-03-04 06:20] LABS: HEMATOCRIT 38.7 % (36.0-48.0); MEAN CELL VOLUME 91.3 fL (80.0-105.0); MEAN CORPUSCULAR HEMOGLOBIN 30.4 pg (25.0-35.0); MEAN CORPUSCULAR HGB CONC 33.3 g/dl (31.0-37.0); MEAN PLATELET VOLUME 10.6 fl (7.0-11.0); PLATELET COUNT 230 10^3/uL (120.0-450.0); RED CELL DISTRIBUTION WIDTH 16.3 % (11.5-14.5); WHITE BLOOD COUNT 16.8 10^3/ul (4.5-11.0)
[2017-03-04 06:21] LABS: ADD MANUAL DIFF? YES
[2017-03-04 07:18] LABS: NEUTROPHIL 67 % (50.0-70.0)
[2017-03-04 07:19] LABS: ANISOCYTOSIS SLIGHT; BAND 4 % (0-2); MYELOCYTE 2 %; PLATELET ESTIMATE NORMAL (NORMAL)
[2017-03-04] MEDS: Budesonide 0.5 mg/2 ml Inhal Susp UD IH SCH ×2 (07:50→19:54)
[2017-03-04] MEDS: Arformoterol 15 mcg/2 ml Inh Sol IH SCH ×2 (07:50→19:54)
[2017-03-04] MEDS: Metoprolol Succinate 50 mg XL Tab PO SCH (09:37)
--- NOTE | 2017-03-04 13:17 | PN ---
DATE: 03/04/2017 SUBJECTIVE: The patient is lying in bed in no acute distress. Her abdominal pain has resolved. She complains of some dizziness and headache. No nausea, no vomiting, no diaphoresis, no chest pain or shortness of breath. There is no cough. PHYSICAL EXAMINATION: VITAL SIGNS: Blood pressure is 91/56, temperature 98, pulse 88, respiratory rate 19. LUNGS: Clear. HEART: Regular rate and rhythm. ABDOMEN: Soft, nontender, bowel sounds are normoactive. EXTREMITIES: Without cyanosis, clubbing, or edema. NEUROLOGIC: The patient is awake and oriented x 3 without focal sensory or motor deficits. SKIN: Warm and dry. LABORATORY DATA: WBC 16.8, hemoglobin 12.9, hematocrit 38.7, sodium 137, potassium 3.7, chloride 97, CO2 36, BUN 32, creatinine 1.0. Glucose 103. IMPRESSION: 1. Mild headache and dizziness, possibly postconcussion syndrome, status post fall. 2. Mild hypotension secondary to antihypertensive medications. 3. Lactic acidosis, possibly secondary to Zyvox, clinically improved. 4. Human immunodeficiency virus positive. 5. Exacerbation of asthma with bilateral pneumonia, clinically improved. 6. Hypertension, now patient is slightly hypotensive on multiple medications. 7. Leukocytosis, improving, possibly secondary to steroids. 8. Anxiety disorder. PLAN: Neurology consult by Dr. Akins is appreciated. Continue ID followup with Dr. Carr, pulmonary f ollowup with Dr. Collado and renal followup with Dr. Cantu. Monitor blood pressure. Will discontinue amlodipine secondary to mild hypotension. Social work for discharge planning. Ty Ramírez JD, MD cc: [id number] TT: 03/04/2017 13:16:12 Confirmation # [id number] Dictation # [id number] mn
--- NOTE | 2017-03-04 18:08 | CP.PCM.PN ---
Subjective - Date & Time of Evaluation Date of Evaluation: 03/04/17 Time of Evaluation: 17:01 - Subjective Subjective: Infectious Disease Follow Up: March 04, 2017 61 yo female with presentation of nausea, dizziness, and subjective fevers. She also complains of cough, shortness of breath, and wheezing. The patient is known to have HIV and is on HAART treatment. CD4 is reported as over 900 with an undetectable viral load. The patient without leukocytosis. No fevers observed in hospital. Spiculated density in right upper lobe. Small ground-glass opacity at lung bases. No new findings today. Supportive care. CAP. Most recent Chest X-ray clear. Highly anxious personality. Lactic acid levels are elevated at 3.3 on last check. Zyvox was stopped several days ago. Patient did receive 3 days worth. There are case reports of Zyvox being the cause of lactic acidosis. The lactic acidosis has not improved a great deal and is persisting at 2.4. Lactic acid did show improvement today. The patient remains highly anxious. Supportive care. Patient complains that she is still short of breath. Echocardiogram shows severe sclerotic disease to the aortic valve. The patient did have a fall two days ago while going to the bathroom. Leukocytosis up to 16.8 today... Steroid related. Objective - Vital Signs/Intake and Output Vital Signs (last 24 hours): Temp Pulse Resp BP Pulse Ox 98.2 F 91 H 18 96/61 L 99 03/04/17 17:37 03/04/17 17:37 03/04/17 17:37 03/04/17 17:37 03/04/17 17:37 Intake and Output: 03/04/17 03/04/17 06:59 18:59 Intake Total 240 Output Total 0 Balance 240 - Medications Medications: Current Medications Acetaminophen (Tylenol 325mg Tab) 650 mg PO QD6 PRN PRN Reason: Pain, Mild (1-3) Acetaminophen/Butalbital/Caffeine (Fioricet) 1 tab PO Q4H PRN PRN Reason: Headache Last Admin: 03/04/17 09:36 Dose: 1 tab Al Hydrox/Mg Hydrox/Simethicone (Maalox Plus 30 Ml) 30 ml PO DAILY PRN PRN Reason: Indigestion / Heartburn Albuterol/Ipratropium (Duoneb 3 Mg/0.5 Mg (3 Ml) Ud) 3 ml IH [id number] [facility] Last Admin: 03/04/17 14:07 Dose: 3 ml Alprazolam (Xanax) 1 mg PO TID PRN; Protocol PRN Reason: Anxiety Last Admin: 02/28/17 21:25 Dose: 1 mg Arformoterol Tartrate (Brovana) 15 mcg IH [id number] [facility] Last Admin: 03/04/17 07:50 Dose: 15 mcg Benzocaine/Menthol (Cepacol Sore Throat) 1 linda MT Q2H PRN PRN Reason: Sore Throat Budesonide (Pulmicort Respules) 0.5 mg IH [id number] [facility] Last Admin: 03/04/17 07:50 Dose: 0.5 mg Docusate Sodium (Colace) 100 mg PO BID [facility] Last Admin: 03/04/17 17:25 Dose: Not Given Furosemide (Lasix) 40 mg PO DAILY [facility] Last Admin: 03/04/17 09:36 Dose: Not Given Gabapentin (Neurontin) 300 mg PO HS [facility] PRN Reason: Protocol Last Admin: 03/03/17 21:00 Dose: 300 mg Lisinopril (Zestril) 20 mg PO DAILY [facility] Last Admin: 03/04/17 09:37 Dose: Not Given Metoprolol Succinate (Toprol Xl) 50 mg PO BRK [facility] Last Admin: 03/04/17 09:37 Dose: Not Given Montelukast Sodium (Singulair) 10 mg PO HS [facility] Last Admin: 03/03/17 21:00 Dose: 10 mg Oxycodone/Acetaminophen (Percocet 10/325 Mg Tab) 1 tab PO Q4H PRN PRN Reason: Pain, moderate (4-7) Last Admin: 03/02/17 13:10 Dose: 1 tab Pantoprazole Sodium (Protonix Ec Tab) 40 mg PO 0630 [facility] Last Admin: 03/04/17 05:40 Dose: 40 mg Raltegravir (Isentress) 400 mg PO BID [facility] Last Admin: 03/04/17 17:28 Dose: 400 mg Ritonavir (Norvir) 100 mg PO BRKDIN [facility] Last Admin: 03/04/17 17:28 Dose: 100 mg Roflumilast (Daliresp) 500 mcg PO DAILY [facility] Last Admin: 03/04/17 09:36 Dose: 500 mcg - Labs Labs: 03/04/17 05:15 03/04/17 05:15 PT 11.5 Seconds (9.9-11.8) 02/24/17 13:42 INR 1.06 (0.93-1.08) 02/24/17 13:42 APTT 21.0 Seconds (23.7-30.8) L 02/24/17 13:42 - Constitutional Appears: Non-toxic, No Acute Distress, Chronically Ill - Head Exam Head Exam: ATRAUMATIC, NORMOCEPHALIC - Eye Exam Eye Exam: EOMI, PERRL Pupil Exam: NORMAL ACCOMODATION, PERRL - ENT Exam ENT Exam: Mucous Membranes Moist, Normal External Ear Exam, TM's Normal Bilaterally - Neck Exam Neck Exam: Full ROM, Normal Inspection - Respiratory Exam Respiratory Exam: Clear to Ausculation Bilateral, NORMAL BREATHING PATTERN. absent: Rales, Rhonchi, Wheezes - Cardiovascular Exam Cardiovascular Exam: REGULAR RHYTHM, RRR, +S1, +S2 - GI/Abdominal Exam GI & Abdominal Exam: Soft, Normal Bowel Sounds. absent: Distended, Tenderness - Extremities Exam Extremities Exam: Full ROM, Normal Inspection - Neurological Exam Neurological Exam: Alert, Awake, CN II-XII Intact, Oriented x3 - Psychiatric Exam Psychiatric exam: Normal Affect, Normal Mood - Skin Skin Exam: Intact, Normal Color Assessment and Plan - Assessment and Plan (Free Text) Assessment: 61 yo female with known HIV on good control with HAART presenting with subjective fevers, chills, nausea, and cough. Imaging studies show possible right lung reticular perihilar opacities. CT scan showing spiculated density at the right lung upper lobe about 1.5 centimeter in size. Small ground glass opacities noted. No evidence of pleural effusion. Possible mild compression fracture in T5 superior endplate. Started on one dose of Vancomycin. Difficult to administer more doses as the patient's renal function was affected by the dye administration and possibly the Vancomycin dose. Patient feeling better overall. Zyvox given instead due to PCN allergies. Creatinine improving. Renal insufficiency resolved. Lactic acid showing a value of 2.4. Noted Zyvox stopped for fears of lactic acidosis secondary to Zyvox administration but lactic acid levels remain high. Monitor lactic acidosis. Continue to monitor renal function. Noted low CO2 levels as well. Lactic acidosis persisting. Given persistence, unlikely secondary to Zyvox. Noted rapid response two days ago for fall. Patient attempted to go to bathroom under her own power. Noted leukocytosis of 16.8 today... steroid related? Thank you for allowing me to participate in the care of the patient, we will follow with you.
--- NOTE | 2017-03-05 00:14 | PN ---
DATE: 03/04/2017 PULMONARY PROGRESS NOTE REFERRING PHYSICIAN: Dr. Ramírez. SUBJECTIVE: She is sitting side of the bed, having lunch, night was unremarkable. No headache, no r hinitis, no nausea, no vomiting, no diarrhea. No leg pain or leg swelling. OBJECTIVE: GENERAL: No acute distress. VITAL SIGNS: Temp is 98, heart rate is , respiratory rate is 18, blood pressure 96/61, pulse ox 99% on room air. HEENT: Moist mucous membranes. Crowded airway. NECK: Supple. No JVD. LUNGS: Has a fair airflow with rhonchi. HEART: S1, S2. ABDOMEN: Soft, nontender. No organomegaly. EXTREMITIES: No edema. NEUROLOGIC: Awake, alert, follows simple commands. MEDICATIONS: She is on Brovana 15 mcg inhaled twice a day, Cepacol lozenges q. 2 hours p.r.n., Colac e 100 mg twice a day, Daliresp 500 mcg daily, DuoNeb q. 6 hours, Fioricet 1 tab q. 4 hours p.r.n., Is entress 400 mg twice a day, Lasix 40 mg daily, Neurontin 300 mg at bedtime, Norvir 100 mg twice a day , Percocet 10/325 one tab q. 4 hours p.r.n., Protonix 40 mg daily, Pulmicort inhaled twice a day, Sin gulair 10 mg daily, Toprol-XL 50 mg daily, Tylenol on a p.r.n. basis, Xanax 1 mg 3 times a day p.r.n. , Zestril 20 mg daily. LABORATORY DATA: Shows hemoglobin 12.9, hematocrit 38.7, WBC 16.8, platelet is 230. Sodium 137, pot assium 3.7, chloride 97, bicarbonate 36, BUN is 32, creatinine 1.0. Lactic acid 2.4, calcium is 10.2 . AST 28, ALT 72, alkaline phosphatase is 76, albumin is 3.0. Lipase is 138, is 107, vitamin D is 18.9. Microbiology: Blood cultures have been no growth. IMPRESSION AND PLAN: Exacerbation of chronic obstructive lung disease, resolving pneumonia, HIV posi tive, sleep apnea syndrome, renal insufficiency, mild pulmonary hypertension, cardiac diastolic dysfu nction. Pulmonary point of view, doing well. Will continue inhaled bronchodilator, keep head elevat ed at 45 degrees. Encourage BiPAP use. May decrease the Lasix to 20 mg daily. Gastric prophylaxis, deep venous thrombosis prophylaxis. Fall precautions. Will need outpatient PFT and attended sleep study. Thank you and we will follow with you. Tamiko Collado MD cc: [phone] TT: 03/05/2017 00:14:22 Confirmation # [id number] Dictation # [id number] mn
[2017-03-05] MEDS: Pantoprazole 40 mg EC Tab PO SCH (05:37)
[2017-03-05] MEDS: Arformoterol 15 mcg/2 ml Inh Sol IH SCH ×2 (07:54→20:09)
[2017-03-05] MEDS: Albuterol-Ipratrop 3 mg / 0.5 (3 ml) UD IH SCH ×3 (07:54→20:09)
[2017-03-05] MEDS: Budesonide 0.5 mg/2 ml Inhal Susp UD IH SCH ×2 (07:54→20:09)
[2017-03-05] MEDS: Metoprolol Succinate 50 mg XL Tab PO SCH (08:26)
--- NOTE | 2017-03-05 12:08 | PN ---
DATE: 03/05/2017 SUBJECTIVE: The patient is lying in bed in no acute distress. She complains of some dizziness and h eadache. There is no nausea, no vomiting, no diaphoresis, no chest pain or shortness of breath. PHYSICAL EXAMINATION: VITAL SIGNS: Blood pressure 93/53, pulse 92, temperature 97.9, respiratory rate 20. LUNGS: Clear. HEART: Regular rate and rhythm. ABDOMEN: Soft, nontender, bowel sounds are normoactive. EXTREMITIES: Without cyanosis, clubbing, or edema. NEUROLOGIC: The patient is awake and oriented x 3 without focal sensory or motor deficits. SKIN: Warm and dry. LABORATORY DATA: Lactate level from 03/04/2017 is 2.4. IMPRESSION: 1. Mild hypotension secondary to antihypertensive medications. 2. Lactic acidosis, possibly secondary to Zyvox, resolving. 3. Human immunodeficiency virus positive. 4. Exacerbation of asthma with bilateral pneumonia, clinically improved. PLAN: Will discontinue lisinopril and observe blood pressure. Continue ID followup with Dr. Carr, pul monary followup with Dr. Collado, neurology followup with Dr. Akins and renal followup with Dr. Cantu . Social work for discharge planning. Ty Ramírez JD, MD cc: [phone] TT: 03/05/2017 11:56:20 Confirmation # [id number] Dictation # [id number] mn
[2017-03-05] MEDS: Oxycodone/Acetaminophen 10/325 mg Tab PO PRN ×2 (13:03→22:48)
--- NOTE | 2017-03-05 16:37 | PN ---
DATE: 03/05/2017 SUBJECTIVE: The patient is in 5R. She is comfortable. Complains of some dizziness. PHYSICAL EXAMINATION: VITAL SIGNS: Blood pressure 93/53, heart rate 92, respiratory rate 20, temperature 97.9. EXTREMITIES: Trace lower extremity edema. INTAKE AND OUTPUT: . It is at 760/600. LABORATORY DATA: WBC 16.8, hemoglobin 12.9, hematocrit 38.7, platelets 230, 67% polys, 4% bands. Sodium 137, potassium 3.7, chloride 97, CO2 36, BUN 32, creatinine 1.0, glucose 103, lactic acid 2.4, calcium 10.2. AST 28, ALT 72, albumin 3.0. Vitamin D 18.9. PTH 6. CURRENT MEDICATIONS: Brovana, Cepacol, Colace, Daliresp, DuoNeb, Fioricet, Isentress, Lasix 20 p.o. daily which was held this morning, Maalox, Neurontin, Norvir, Percocet, Protonix, Pulmicort, Singula ir, Toprol-XL 50, Tylenol, vitamin D, Xanax. ASSESSMENT: 1. Resolved acute kidney injury. 2. Asthma exacerbation. 3. Anxiety disorder. 4. Human immunodeficiency virus. 5. Hypercalcemia, workup consistent with primary hypercalcemia. 6. Hypotension. PLAN: 1. Check PTH related peptide. 2. Agree with decreasing Lasix to 20 mg daily. 3. Would opt for discontinuation of Toprol-XL over Zestril, would restart Zestril for renal protecti on. 4. Elevated WBCs, bandemia, check urinalysis, blood cultures. Kelly Cantu MD cc: [phone] TT: 03/05/2017 16:37:14 Confirmation # [id number] Dictation # [id number] ln
--- NOTE | 2017-03-05 18:44 | CP.PCM.PN ---
Subjective - Date & Time of Evaluation Date of Evaluation: 03/05/17 Time of Evaluation: 16:45 - Subjective Subjective: Infectious Disease Follow Up: March 05, 2017 61 yo female with presentation of nausea, dizziness, and subjective fevers. She also complains of cough, shortness of breath, and wheezing. The patient is known to have HIV and is on HAART treatment. CD4 is reported as over 900 with an undetectable viral load. The patient without leukocytosis. No fevers observed in hospital. Spiculated density in right upper lobe. Small ground-glass opacity at lung bases. No new findings today. Supportive care. CAP. Most recent Chest X-ray clear. Highly anxious personality. Lactic acid levels remained elevated at 2.4. Zyvox was stopped several days ago. Patient did receive 3 days worth. There are case reports of Zyvox being the cause of lactic acidosis. The lactic acidosis has not improved a great deal and is persisting at 2.4... given this Zyvox is unlikely the culprit for the lactic acidosis. Lactic acid did show improvement today. The patient remains highly anxious. Supportive care. Patient complains that she is still short of breath. Echocardiogram shows severe sclerotic disease to the aortic valve. The patient did have a fall two days ago while going to the bathroom. Leukocytosis up to 16.8 yesterday... Steroid related. Monitor leukocytosis. Objective - Vital Signs/Intake and Output Vital Signs (last 24 hours): Temp Pulse Resp BP Pulse Ox 97.9 F 92 H 20 93/53 L 100 03/05/17 07:30 03/05/17 08:26 03/05/17 07:30 03/05/17 08:26 03/05/17 07:30 Intake and Output: 03/05/17 03/05/17 06:59 18:59 Intake Total 760 900 Output Total 600 Balance 160 900 - Medications Medications: Current Medications Acetaminophen (Tylenol 325mg Tab) 650 mg PO QD6 PRN PRN Reason: Pain, Mild (1-3) Acetaminophen/Butalbital/Caffeine (Fioricet) 1 tab PO Q4H PRN PRN Reason: Headache Last Admin: 03/04/17 20:03 Dose: 1 tab Al Hydrox/Mg Hydrox/Simethicone (Maalox Plus 30 Ml) 30 ml PO DAILY PRN PRN Reason: Indigestion / Heartburn Albuterol/Ipratropium (Duoneb 3 Mg/0.5 Mg (3 Ml) Ud) 3 ml IH [id number] [facility] Last Admin: 03/05/17 13:57 Dose: 3 ml Alprazolam (Xanax) 1 mg PO TID PRN; Protocol PRN Reason: Anxiety Last Admin: 02/28/17 21:25 Dose: 1 mg Arformoterol Tartrate (Brovana) 15 mcg IH [id number] [facility] Last Admin: 03/05/17 07:54 Dose: 15 mcg Benzocaine/Menthol (Cepacol Sore Throat) 1 linda MT Q2H PRN PRN Reason: Sore Throat Budesonide (Pulmicort Respules) 0.5 mg IH [id number] [facility] Last Admin: 03/05/17 07:54 Dose: 0.5 mg Cholecalciferol (Vitamin D) 2,000 iu PO DAILY [facility] Docusate Sodium (Colace) 100 mg PO BID [facility] Last Admin: 03/05/17 17:07 Dose: Not Given Furosemide (Lasix) 20 mg PO DAILY [facility] Last Admin: 03/05/17 10:00 Dose: Not Given Gabapentin (Neurontin) 300 mg PO [facility] PRN Reason: Protocol Last Admin: 03/04/17 21:15 Dose: 300 mg Metoprolol Succinate (Toprol Xl) 50 mg PO BRK [facility] Last Admin: 03/05/17 08:26 Dose: Not Given Montelukast Sodium (Singulair) 10 mg PO HS [facility] Last Admin: 03/04/17 21:15 Dose: 10 mg Oxycodone/Acetaminophen (Percocet 10/325 Mg Tab) 1 tab PO Q4H PRN PRN Reason: Pain, moderate (4-7) Last Admin: 03/05/17 13:03 Dose: 1 tab Pantoprazole Sodium (Protonix Ec Tab) 40 mg PO 0630 [facility] Last Admin: 03/05/17 05:37 Dose: 40 mg Raltegravir (Isentress) 400 mg PO BID [facility] Last Admin: 03/05/17 17:10 Dose: 400 mg Ritonavir (Norvir) 100 mg PO BRKDIN [facility] Last Admin: 03/05/17 17:10 Dose: 100 mg Roflumilast (Daliresp) 500 mcg PO DAILY [facility] Last Admin: 03/05/17 09:49 Dose: 500 mcg - Labs Labs: 03/04/17 05:15 03/04/17 05:15 PT 11.5 Seconds (9.9-11.8) 02/24/17 13:42 INR 1.06 (0.93-1.08) 02/24/17 13:42 APTT 21.0 Seconds (23.7-30.8) L 02/24/17 13:42 - Constitutional Appears: Non-toxic, No Acute Distress, Chronically Ill - Head Exam Head Exam: ATRAUMATIC, NORMOCEPHALIC - Eye Exam Eye Exam: EOMI, PERRL Pupil Exam: NORMAL ACCOMODATION, PERRL - ENT Exam ENT Exam: Mucous Membranes Moist, Normal External Ear Exam, TM's Normal Bilaterally - Neck Exam Neck Exam: Full ROM, Normal Inspection - Respiratory Exam Respiratory Exam: Clear to Ausculation Bilateral, NORMAL BREATHING PATTERN. absent: Rales, Rhonchi, Wheezes - Cardiovascular Exam Cardiovascular Exam: REGULAR RHYTHM, RRR, +S1, +S2 - GI/Abdominal Exam GI & Abdominal Exam: Soft, Normal Bowel Sounds. absent: Distended, Tenderness - Extremities Exam Extremities Exam: Full ROM, Normal Inspection - Neurological Exam Neurological Exam: Alert, Awake, CN II-XII Intact, Oriented x3 - Psychiatric Exam Psychiatric exam: Normal Affect, Normal Mood - Skin Skin Exam: Intact, Normal Color Assessment and Plan - Assessment and Plan (Free Text) Assessment: 61 yo female with known HIV on good control with HAART presenting with subjective fevers, chills, nausea, and cough. Imaging studies show possible right lung reticular perihilar opacities. CT scan showing spiculated density at the right lung upper lobe about 1.5 centimeter in size. Small ground glass opacities noted. No evidence of pleural effusion. Possible mild compression fracture in T5 superior endplate. Started on one dose of Vancomycin. Difficult to administer more doses as the patient's renal function was affected by the dye administration and possibly the Vancomycin dose. Patient feeling better overall. Zyvox given instead due to PCN allergies. Creatinine improving. Renal insufficiency resolved. Lactic acid showing a value of 2.4. Noted Zyvox stopped for fears of lactic acidosis secondary to Zyvox administration but lactic acid levels remain high. Monitor lactic acidosis. Continue to monitor renal function. Noted low CO2 levels as well. Lactic acidosis persisting. Given persistence, unlikely secondary to Zyvox. Noted rapid response two days ago for fall. Patient attempted to go to bathroom under her own power. Noted leukocytosis of 16.8 yesterday... steroid related? Monitor leukocytosis. Thank you for allowing me to participate in the care of the patient, we will follow with you.
--- NOTE | 2017-03-05 22:23 | PN ---
DATE: 03/05/2017 REFERRING PHYSICIAN: Dr. Ramírez. SUBJECTIVE: She is lying in the bed, feels tired and sleepy. Blood pressure has been low. No heada eugenio, no rhinitis, no chest pain, no nausea, no vomiting, diarrhea. No leg pain or leg swelling. OBJECTIVE: GENERAL: No acute distress. VITAL SIGNS: Temperature is 98, heart rate is 72, respiratory rate is 20, blood pressure 92/55, puls e ox 95% on 2 liters nasal cannula. HEENT: Moist mucous membranes. Crowded airway. Mallampati score is 4. NECK: Supple. No JVD. LUNGS: Has a fair airflow. HEART: S1 and S2. ABDOMEN: Soft, nontender. No organomegaly. EXTREMITIES: There is no edema. NEUROLOGIC: Awake, alert, follows simple command. MEDICATIONS: She is on Brovana 15 mcg inhaled twice a day, Cepacol lozenges q. 2 hours p.r.n., Colac e 100 mg twice a day, Daliresp 500 mcg daily, DuoNeb q. 6 hours, Fioricet 1 tab q. 4 hours p.r.n., Is entress 400 mg twice a day, Lasix 20 mg daily, 30 mL daily p.r.n., Neurontin 300 mg at bedtime, Norvir 100 mg twice a day, Percocet 10/325 one tab q. 4 hours p.r.n., Protonix 40 mg daily, budesoni de 0.5 mg inhaled twice a day, Singulair 10 mg daily, Toprol-XL 50 mg daily, Tylenol p.r.n. basis, Vi tamin D 2000 international units daily, Xanax 1 mg 3 times a day p.r.n. LABORATORY DATA: Reviewed. No new lab is available since yesterday. Microbiology: Blood cultures have been negative. IMPRESSION AND PLAN: Exacerbation of chronic obstructive lung disease, resolved pneumonia, HIV posit lakshmi, sleep apnea syndrome, renal insufficiency, mild pulmonary hypertension, cardiac diastolic dysfun ction. Pulmonary point of view, doing okay. He may have adrenal insufficiency. I spoke to nursing staff. P.m. cortisol level is 10. Prednisone 20 mg will be given after the blood draw. Gastric pro phylaxis, deep venous thrombosis prophylaxis. Fall precautions. We will dose prednisone once the co rtisol level is available from tomorrow, 20 mg given after blood drawing today. Thank you and will follow with you. Tamiko Collado MD cc: [phone] TT: 03/05/2017 22:23:06 Confirmation # [id number] Dictation # [id number] mn
[2017-03-06] MEDS: Albuterol-Ipratrop 3 mg / 0.5 (3 ml) UD IH SCH ×3 (01:43→13:29)
[2017-03-06] MEDS: Pantoprazole 40 mg EC Tab PO SCH (06:04)
[2017-03-06] MEDS: Arformoterol 15 mcg/2 ml Inh Sol IH SCH (07:27)
[2017-03-06] MEDS: Budesonide 0.5 mg/2 ml Inhal Susp UD IH SCH (07:28)
[2017-03-06 08:25] VITALS: BP 119/82; PULSE 85; RESP 18; TEMP 97.8; O2SAT 99
[2017-03-06] MEDS: Metoprolol Succinate 50 mg XL Tab PO SCH (09:45)
[2017-03-06] MEDS: Apap-Butalbital-Caffeine 325-50-40mg Tab PO PRN (11:05)
--- NOTE | 2017-03-06 12:37 | PN ---
DATE: 03/06/2017 SUBJECTIVE: The patient is currently seen on 5R. She states she is having a much better day than tigre echols had yesterday. Lower extremity edema has resolved. She is entirely comfortable and is asking me a bout possible discharge home later today. MEDICATIONS: List reviewed. The patient is currently on Brovana, Cepacol, Colace, Daliresp, DuoNeb, Fioricet, Isentress, Lasix 20 mg a day, Maalox, Neurontin, Norvir, Protonix, Pulmicort Respules, Sin gulair, Toprol, p.r.n. Tylenol, vitamin D, and Xanax p.r.n. OBJECTIVE: INTAKE AND OUTPUT: Intake is 1580, output is not charted. VITAL SIGNS: Blood pressure 119/82, temperature is 97.8, respiratory rate is 18 with a pulse of 85. HEENT: Shows her to be normocephalic, atraumatic. Conjunctivae are pink. Sclerae are nonicteric. NECK: Supple, no neck vein distention. CHEST: Clear to auscultation and percussion. No rales, no rhonchi, no wheezing. CARDIOVASCULAR: Shows a regular rate and rhythm without murmurs, rubs, or gallops. ABDOMEN: Soft. Moderate obesity. No rebound, no guarding. Bowel sounds are normal. EXTREMITIES: Show no lower extremity edema. No cyanosis, no clubbing. LABORATORY DATA AND IMAGING: CBC from 03/04: White blood cell count 6.8, hemoglobin is 12.9 with a p latelet count of 230,000. Chemistry showed normal electrolytes. BUN 32 with a creatinine of 1.0. C alcium is 10.2 with albumin of 3.0. Vitamin D level was low at 18.9. PTH was low at 6.0. PTH relat ed peptide is pending. ASSESSMENT: 1. Acute renal failure, resolved. The patient remains mildly prerenal. She is currently off steroi ds, but she is on low dose diuretic therapy. This mild degree of prerenal azotemia is acceptable to prevent edema. 2. Asthma exacerbation. The patient is currently stable on above inhalation medication and therapy. 3. History of hypertension. The patient's blood pressure remains controlled. The patient remains o n low dose beta colton therapy. Presently, she is off ESTRELLA inhibitors. She does remain on low dose Lasix. Blood pressures have been in the 120s systolic with diastolics in the 80 range, which are acc eptable. 4. History of human immunodeficiency virus. The patient will continue on HAART therapy. 5. History of mild anemia and leukocytosis. These appear to be stable. PLAN: 1. The patient is currently stable on present medication. 2. From my standpoint, she may be discharged home on p.r.n. use of Lasix therapy to use when she not ices edema of her lower extremity. 3. Follow up with ID and pulmonary during hospitalization. 4. The patient is awaiting visit by Dr. Ramírez to see whether or not she will be discharged home late r today. Umesh Tran MD cc: [id number] TT: 03/06/2017 12:37:03 Confirmation # [id number] Dictation # [id number]
--- NOTE | 2017-03-06 15:13 | DS ---
HOSPITAL COURSE: The patient is a 61-year-old female who [facility] for exacerbation of asthma with pneumonia. The patient was admitted, treated with IV antibiotics, seen in consultation by Dr. Carr for infectious disease and Dr. Collado for pulmonary. The patient was treated with nebulizers and low flow oxygen with improvement. Her hospital course was c omplicated by the development of lactic acidosis presumed secondary to Zyvox and elevated blood press ure. She was started on antihypertensive medications including lisinopril and amlodipine as well as metoprolol. Hospital course was then further complicated by hypotension. The hypotension resolved a fter discontinuation of amlodipine and lisinopril and the patient is now medically stable for dischar ge. There is no chest pain, no shortness of breath, no fever, no chills, no nausea, no vomiting, no diarrhea. PHYSICAL EXAMINATION: VITAL SIGNS: Blood pressure 119/82, temperature 97.8, pulse 85, respiratory rate 18. LUNGS: Clear. HEART: Regular rate and rhythm. ABDOMEN: Soft, nontender, bowel sounds are normoactive. EXTREMITIES: Without cyanosis, clubbing, or edema. NEUROLOGIC: The patient is awake and oriented x 3 without focal sensory or motor deficits. SKIN: Warm and dry. IMPRESSION: 1. Exacerbation of asthma. 2. Bilateral pneumonia. 3. Human immunodeficiency virus positive. 4. Lactic acidosis, presumably secondary to Zyvox, improved. 5. Hypertension. PLAN: The patient will be discharged to home in stable condition today on the following medications: Norvir 100 mg daily, metoprolol 50 mg daily, Xanax 1 mg q.i.d. Symbicort darunavir 800 mg daily, ra ltegravir 400 mg twice daily, ranitidine 150 mg daily, famotidine 20 mg daily. The patient will be m aintained on a heart-healthy diet, activities ad libitum. She will be scheduled as an outpatient [facility] the next 1-2 weeks. Ty Ramírez JD, MD cc: [id number] TT: 03/06/2017 15:12:59 klarissa
--- NOTE | 2017-03-06 16:19 | CP.PCM.PN ---
Subjective - Date & Time of Evaluation Date of Evaluation: 03/06/17 Time of Evaluation: 14:00 - Subjective Subjective: Infectious Disease Follow Up: March 06, 2017 61 yo female with presentation of nausea, dizziness, and subjective fevers. She also complains of cough, shortness of breath, and wheezing. The patient is known to have HIV and is on HAART treatment. CD4 is reported as over 900 with an undetectable viral load. The patient without leukocytosis. No fevers observed in hospital. Spiculated density in right upper lobe. Small ground-glass opacity at lung bases. No new findings today. Supportive care. CAP. Most recent Chest X-ray clear. Highly anxious personality. Lactic acid levels remained elevated at 2.4. Zyvox was stopped several days ago. Patient did receive 3 days worth. There are case reports of Zyvox being the cause of lactic acidosis. The lactic acidosis has not improved a great deal and is persisting at 2.4... given this Zyvox is unlikely the culprit for the lactic acidosis. Lactic acid did show improvement today. The patient remains highly anxious. Supportive care. Patient complains that she is still short of breath. Echocardiogram shows severe sclerotic disease to the aortic valve. The patient did have a fall two days ago while going to the bathroom. Leukocytosis up to 16.8 on last check... Steroid related. Monitor leukocytosis. Objective - Vital Signs/Intake and Output Vital Signs (last 24 hours): Temp Pulse Resp BP Pulse Ox 97.8 F 85 18 119/82 99 03/06/17 08:26 03/06/17 08:26 03/06/17 08:26 03/06/17 09:45 03/06/17 08:26 Intake and Output: 03/06/17 03/06/17 06:59 18:59 Intake Total 680 Balance 680 - Labs Labs: 03/04/17 05:15 03/04/17 05:15 PT 11.5 Seconds (9.9-11.8) 02/24/17 13:42 INR 1.06 (0.93-1.08) 02/24/17 13:42 APTT 21.0 Seconds (23.7-30.8) L 02/24/17 13:42 - Constitutional Appears: Non-toxic, No Acute Distress, Chronically Ill - Head Exam Head Exam: ATRAUMATIC, NORMOCEPHALIC - Eye Exam Eye Exam: EOMI, PERRL Pupil Exam: NORMAL ACCOMODATION, PERRL - ENT Exam ENT Exam: Mucous Membranes Moist, Normal External Ear Exam, TM's Normal Bilaterally - Neck Exam Neck Exam: Full ROM, Normal Inspection - Respiratory Exam Respiratory Exam: Clear to Ausculation Bilateral, NORMAL BREATHING PATTERN. absent: Rales, Rhonchi, Wheezes - Cardiovascular Exam Cardiovascular Exam: REGULAR RHYTHM, RRR, +S1, +S2 - GI/Abdominal Exam GI & Abdominal Exam: Soft, Normal Bowel Sounds. absent: Distended, Tenderness - Extremities Exam Extremities Exam: Full ROM, Normal Inspection - Neurological Exam Neurological Exam: Alert, Awake, CN II-XII Intact, Oriented x3 - Psychiatric Exam Psychiatric exam: Normal Affect, Normal Mood - Skin Skin Exam: Intact, Normal Color Assessment and Plan - Assessment and Plan (Free Text) Assessment: 61 yo female with known HIV on good control with HAART presenting with subjective fevers, chills, nausea, and cough. Imaging studies show possible right lung reticular perihilar opacities. CT scan showing spiculated density at the right lung upper lobe about 1.5 centimeter in size. Small ground glass opacities noted. No evidence of pleural effusion. Possible mild compression fracture in T5 superior endplate. Started on one dose of Vancomycin. Difficult to administer more doses as the patient's renal function was affected by the dye administration and possibly the Vancomycin dose. Patient feeling better overall. Zyvox given instead due to PCN allergies. Creatinine improving. Renal insufficiency resolved. Lactic acid showing a value of 2.4. Noted Zyvox stopped for fears of lactic acidosis secondary to Zyvox administration but lactic acid levels remain high. Monitor lactic acidosis. Continue to monitor renal function. Noted low CO2 levels as well. Lactic acidosis persisting. Given persistence, unlikely secondary to Zyvox. Noted rapid response two days ago for fall. Patient attempted to go to bathroom under her own power. Noted leukocytosis of 16.8 on last check... steroid related? Monitor leukocytosis. Thank you for allowing me to participate in the care of the patient, we will follow with you.
== END 2017-03-06 14:24 | disposition home health service (06) | DRG 190 ==
LOC: ED 14:46 → MERGE 17:17 → ERH 17:17 → 5RSO 20:12
PROVIDERS: ADMIT Internal Medicine; ATTEND Internal Medicine
PROC: 3E0F7GC Introduction of Other Therapeutic Substance into Respiratory Tract, Via Natural or Artificial Opening (ICD-10-PCS; 2017-02-20)
PROC: 3E03328 Introduction of Oxazolidinones into Peripheral Vein, Percutaneous Approach (ICD-10-PCS; principal; 2017-02-22)
PROC: 5A09457 Assistance with Respiratory Ventilation, 24-96 Consecutive Hours, Continuous Positive Airway Pressure (ICD-10-PCS; 2017-02-23)
DX: J44.0 Chronic obstructive pulmonary disease with (acute) lower respiratory infection (principal); J18.9 Pneumonia, unspecified organism; J44.1 Chronic obstructive pulmonary disease with (acute) exacerbation; N17.0 Acute kidney failure with tubular necrosis; I27.2 Other secondary pulmonary hypertension; E87.2 Acidosis; E83.52 Hypercalcemia; Z21 Asymptomatic human immunodeficiency virus [HIV] infection status; I10 Essential (primary) hypertension; F41.9 Anxiety disorder, unspecified; T38.0X5A Adverse effect of glucocorticoids and synthetic analogues, initial encounter; R73.9 Hyperglycemia, unspecified; T50.8X5A Adverse effect of diagnostic agents, initial encounter; E87.5 Hyperkalemia; D64.9 Anemia, unspecified; W01.0XXA Fall on same level from slipping, tripping and stumbling without subsequent striking against object, initial encounter; F07.81 Postconcussional syndrome; Y92.231 Patient bathroom in hospital as the place of occurrence of the external cause; I95.2 Hypotension due to drugs; T46.4X5A Adverse effect of angiotensin-converting-enzyme inhibitors, initial encounter; T46.1X5A Adverse effect of calcium-channel blockers, initial encounter; G44.309 Post-traumatic headache, unspecified, not intractable; G47.30 Sleep apnea, unspecified; T36.8X5A Adverse effect of other systemic antibiotics, initial encounter; Z79.899 Other long term (current) drug therapy; Y93.89 Activity, other specified; Y99.8 Other external cause status; Z85.72 Personal history of non-Hodgkin lymphomas; Z90.710 Acquired absence of both cervix and uterus; Z90.49 Acquired absence of other specified parts of digestive tract; Z87.891 Personal history of nicotine dependence; Z88.0 Allergy status to penicillin

== ENCOUNTER 2017-04-02 14:05 | Inpatient (IN) | payer MEDICAID, OTHER ==
[2017-04-02 14:16] VITALS: BMI 32.7
[2017-04-02] MEDS ORDERED: Morphine 4 mg/ml ISec IM STA (14:38)
--- NOTE | 2017-04-02 14:59 | ED PDOC ---
Arrival/HPI - General Historian: Patient - History of Present Illness Time/Duration: Prior to Arrival Symptom Onset: Sudden Symptom Course: Worsening Quality: Aching Context: Walking - General Chief Complaint: Trauma Time Seen by Provider: 04/02/17 14:38 - History of Present Illness Narrative History of Present Illness (Text): 04/02/17 14:53 Patient is a 61 y/o with PMH of HIV for 25 years ( CD4 count 940s, viral load undetectable), asthma and htn presenting s/p fall. Patient states few minutes prior to presenting [place], [place] walker when she tripped on one of the pot holes and fell to her knees. Patient states she strikes her left knee to the ground, denies hitting her head, denies LOC. Patient states she has been falling a lot, fell few weeks ago and injured her right knee. patient currently c/o pain and dizziness. (Marine Mejía) Past Medical History - Provider Review Nursing Documentation Reviewed: Yes - Travel History Have you recently traveled outside [place] w/in the past 3 mons?: No - Tetanus Immunization Tetanus Immunization: Unknown - Cardiac Hx Cardiac Disorders: Yes Hx Hypertension: Yes - Pulmonary Hx Respiratory Disorders: Yes Hx Asthma: Yes - Neurological Hx Neurological Disorder: Yes Hx Dizziness: Yes Hx Headaches: Yes Hx Migraine: Yes - HEENT Hx HEENT Disorder: No - Renal Hx Renal Disorder: No - Endocrine/Metabolic Hx Endocrine Disorders: No - Hematological/Oncological Hx Blood Disorders: Yes Hx Blood Transfusions: Yes Hx Blood Transfusion Reaction: No - Integumentary Hx Dermatological Disorder: No - Musculoskeletal/Rheumatological Hx Falls: No - Gastrointestinal Hx Gastrointestinal Disorders: Yes Hx Gastritis: Yes Hx Gastroesophageal Reflux: Yes Hx Nausea: Yes - Genitourinary/Gynecological Hx Genitourinary Disorders: Yes Hx Sexually Transmitted Diseases: Yes - Psychiatric Hx Substance Use: No - Surgical History Hx Appendectomy: Yes Hx Cholecystectomy: Yes Hx Hysterectomy: Yes Other/Comment: Fibroid removal. Cyst removal Family/Social History - Physician Review Nursing Documentation Reviewed: Yes Family/Social History: Hypertension, CAD/IN Smoking Status: Former Smoker Hx Alcohol Use: No (socially) Hx Substance Use: No Allergies/Home Meds Allergies/Adverse Reactions: Allergies Penicillins Allergy (Verified 04/02/17 14:16) SWELLING Home Medications: Home Meds Medication Instructions Recorded Confirmed ALPRAZolam [Xanax] 1 mg PO QID 02/19/17 02/19/17 Albuterol Sulfate [Proair Hfa] 0.09 mg IH DAILY 02/19/17 02/19/17 Albuterol/Ipratropium [Duoneb 3 3 ml IH Q6 PRN 02/19/17 02/19/17 MG/3 Ml-0.5 MG/3 Ml 3 Ml] Alendronate Sodium [Binosto] 70 mg PO DAILY 02/19/17 02/19/17 Aspirin [[place] Aspirin] 81 mg PO DAILY 02/19/17 02/19/17 Budesonide/Formoterol Fumarate 1 aer IH DAILY 02/19/17 02/19/17 [Symbicort] Cyclobenzaprine [Flexeril] 5 mg PO BID 02/19/17 02/19/17 Darunavir [Prezista] 800 mg PO DAILY 02/19/17 02/19/17 DiphenhydrAMINE [Benadryl] 50 mg PO PRN PRN 02/19/17 02/19/17 Enalapril Maleate [Vasotec] 10 mg PO BID 02/19/17 02/19/17 Famotidine [Heartburn Prevention] 20 mg PO DAILY 02/19/17 02/19/17 Furosemide [Lasix] 20 mg PO DAILY 02/19/17 02/19/17 Hydrochlorothiazide [Microzide] 25 mg PO DAILY 02/19/17 02/19/17 Metoprolol Tartrate [Lopressor] 50 mg PO DAILY 02/19/17 02/19/17 Mv,Min10/Folic Acid/D3/Ala/Lut 1 tab PO DAILY 02/19/17 02/19/17 [Strovite One Caplet] Oxycodone HCl/Acetaminophen 1 each PO Q4 02/19/17 02/19/17 [Endocet 10-325 mg Tablet] Potassium Chloride [Klor-Con 10] 10 meq PO DAILY 02/19/17 02/19/17 Raltegravir Potassium [Isentress] 400 mg PO BID 02/19/17 02/19/17 Ranitidine HCl [Acid Pig Conveyor Operator 150] 150 mg PO DAILY 02/19/17 02/19/17 Ritonavir [Norvir] 100 mg PO DAILY 02/19/17 02/19/17 Theophylline Anhydrous [Jose-24] 300 mg PO DAILY 02/19/17 02/19/17 Umeclidinium Brm/Vilanterol Tr 1 pow IH BID 02/19/17 02/19/17 [Anoro Ellipta] Varenicline Tartrate [Chantix] 1 mg PO BID 02/19/17 02/19/17 Review of Systems - Review of Systems Constitutional: Normal Eyes: Normal ENT: Normal Respiratory: Normal Cardiovascular: Normal Gastrointestinal: Normal Genitourinary Female: Normal Musculoskeletal: Other (left knee pain ) Skin: Other Neurological: Dizziness Endocrine: Normal Hemo/Lymphatic: Normal Psychiatric: Normal Physical Exam Temperature: Afebrile Blood Pressure: Hypertensive Pulse: Regular Respiratory Rate: Normal Appearance: Positive for: Well-Appearing, Non-Toxic, Comfortable Pain Distress: Moderate Mental Status: Positive for: Alert and Oriented X 3 - Systems Exam Head: Present: Atraumatic, Normocephalic. No: Tenderness, Contusion, Abrasion, Laceration Mouth: Present: Dry Neck: Present: Normal Range of Motion Respiratory/Chest: Present: Clear to Auscultation, Good Air Exchange. No: Respiratory Distress, Accessory Muscle Use, Wheezes, Rales, Retracting, Rhonchi Cardiovascular: Present: Regular Rate and Rhythm, Normal S1, S2. No: Murmurs, Tachycardic, Bradycardic Abdomen: Present: Normal Bowel Sounds. No: Tenderness, Distention Upper Extremity: Present: Normal Inspection. No: Cyanosis, Edema Lower Extremity: Present: NORMAL PULSES, Tenderness, Other (Left lower extremities: large knee laceration, with open skin flap, exposing adipose tissue , + active hemorrhaging. + dorsalis pedis pulse, patient is able to wiggle her toes, and able to list her left lower extremities ) Neurological: Present: GCS=15 Skin: Present: Warm, Dry, Laceration (large left knee wound with open flap of skin, able to visilized the fatty adipose, unable to see a bone, + active bleeding. ) Psychiatric: Present: Alert, Oriented x 3, Normal Insight, Normal Concentration Vital Signs Temp Pulse Resp BP Pulse Ox 04/02/17 14:16 97.9 F 88 18 162/71 H 98 Medical Decision Making Re-evaluation Time: 15:10 Reassessment Condition: Improving,but remains with symptoms - Lab Interpretations I have reviewed the lab results: Yes (hgb 10.1 from 12.9) - RAD Interpretation Historical Site Guide: ED Physician - EKG Interpretation Interpreted by ED Physician: Yes Type: 12 lead EKG ED Course and Treatment: Patient seen and examined with resident. Came up with treatment and disposition plan with resident. (Renny Sanders) 04/02/17 15:11 Patient is a 61 y/o with PMH of HIV for 25 years ( CD4 count 940s, viral load undetectable), asthma and htn presenting s/p fall and trauma of her left knee. Plan: Pain management with stat dose 4 mg morphine IM LEFT KNEE AND PATELLA X-RAY Chest x-ray, ekg, cbc, cmp, PT, PTT, type and screen. Discussed with Dr Sanders. 04/02/17 15:36 Patient states the pain has improved. Reports she had tetanus shot 3 weeks ago here at [facility], wasn't able to locate history of tetanus shot on the emr, will give a dose of TDAP booster. 04/02/17 16:53 Dr Sanders spoke to Dr Ramírez, prefers Dr Marcelo for orthopedic. 04/02/17 16:54 Dr Marcelo aware, will take patient for wound debridement, and possible ORIF tonight. (Marine Mejía) - Lab Interpretations Lab Results: 04/02/17 17:00 04/02/17 17:00 Lab Results 04/02/17 17:00: PT 11.8, INR 1.09 H, APTT 20.1 L 04/02/17 17:00: Sodium 137, Potassium 4.2, Chloride 109 H, Carbon Dioxide 23, Anion Gap 9 L, BUN 22 H, Creatinine 0.7, Est GFR ( Amer) > 60, Est GFR ( Non-Af Amer) > 60, Random Glucose 123 H, Calcium 8.5, Total Bilirubin 0.7, AST 46 H, ALT 47, Alkaline Phosphatase 45, Total Protein 6.0, Albumin 3.2, Globulin 2.8, Albumin/Globulin Ratio 1.1 04/02/17 17:00: WBC 9.9 D, RBC 3.37 L, Hgb 10.1 L, Hct 31.5 L, MCV 93.5, MCH 30.0, MCHC 32.1, RDW 15.9 H, Plt Count 236, MPV 11.2 H, Gran % 69.9 H, Lymph % ( Auto) 19.5 L, [place] % (Auto) 9.8 H, Eos % (Auto) 0.4 L, Baso % (Auto) 0.4, Gran # 6.93 H, Lymph # 1.9, [place] # 1.0 H, Eos # 0.0, Baso # 0.04 - RAD Interpretation Narrative RAD Interpretations (Text): 04/02/17 18:14 Normal chest x-ray, no acute findings. 04/02/17 18:15 Knee x-ray with left knee patella fracture. (Marine Mejía) Radiology Orders: 04/02/17 14:38 KNEE WITH PATELLA LEFT 3 VIEW [RAD] Stat 04/02/17 14:50 CHEST PORTABLE [RAD] Stat - EKG Interpretation EKG Interpretation (Text): 04/02/17 18:15 NSR at HR of 63 bmp. (Marine Mejía) - Medication Orders Current Medication Orders: Sodium Chloride (Sodium Chloride 0.9%) 1,000 mls @ 100 mls/hr IV .Q10H GABRIEL Clindamycin Phosphate 600 mg/ (Sodium Chloride) 54 mls @ 108 mls/hr IVPB STAT STA PRN Reason: Protocol Stop: 04/02/17 18:24 Discontinued Medications Acetaminophen (Tylenol 325mg Tab) 650 mg PO STAT STA Stop: 04/02/17 16:08 Last Admin: 04/02/17 17:03 Dose: 650 mg Aztreonam (Azactam 1 Gm) 100 mls @ 100 mls/hr IVPB STAT STA PRN Reason: Protocol Stop: 04/02/17 16:36 Morphine Sulfate (Morphine) 4 mg IM STAT STA Stop: 04/02/17 14:39 Last Admin: 04/02/17 15:03 Dose: 4 mg Tetanus/Reduced Diphtheria/Acell Pertussis (Boostrix Vaccine Inj) 0.5 ml IM .ONCE ONE Stop: 04/02/17 16:20 Last Admin: 04/02/17 17:04 Dose: 0.5 ml - Procedure PROCEDURE NOTE (Text): 04/02/17 16:08 Wound irrigated thoroughly with normal saline, xeroform dressing applied, then multiple layers of 4x4 were placed on top of the xeroform then dressed with curlex. (Marine Mejía) Disposition/Present on Arrival - Present on Arrival Any Indicators Present on Arrival: No History of DVT/PE: No History of Uncontrolled Diabetes: No Urinary Catheter: No History Surgical Site Infection Followin, 5 - Disposition Have Diagnosis and Disposition been Completed?: Yes Disposition Time: 16:59 Patient Plan: Admission - Disposition Diagnosis: Patella fracture, Laceration of knee, left, complicated Disposition: HOSPITALIZED Patient Problems: Current Active Problems Problem Status Onset Laceration of knee, left, complicated Acute Patella fracture Acute Condition: SERIOUS
[2017-04-02] MEDS ORDERED: Aztreonam 1 Gm in NS 100mL 100 ML IVPB STA (15:37)
[2017-04-02] MEDS ORDERED: TDAP Vaccine 0.5 mL Syr IM ONE (16:19)
[2017-04-02] MEDS ORDERED: Sodium Chloride 0.9% 1,000 ML IV SCH (17:00)
[2017-04-02 17:11] LABS: ADD MANUAL DIFF? NO
[2017-04-02 17:28] LABS: BASO # 0.04 K/mm3 (0.0-2.0); BASO % 0.4 % (0.0-3.0); EOS % 0.4 % (1.5-5.0); GRAN # 6.93 (1.4-6.5); GRAN % 69.9 % (50.0-68.0); HEMATOCRIT 31.5 % (36.0-48.0); LYMPH # 1.9 (1.2-3.4); LYMPH % 19.5 % (22.0-35.0); MEAN CELL VOLUME 93.5 fL (80.0-105.0); MEAN CORPUSCULAR HGB CONC 32.1 g/dl (31.0-37.0); MEAN PLATELET VOLUME 11.2 fl (7.0-11.0); MONO % 9.8 % (1.0-6.0); PLATELET COUNT 236 10^3/uL (120.0-450.0); RED CELL DISTRIBUTION WIDTH 15.9 % (11.5-14.5); WHITE BLOOD COUNT 9.9 10^3/ul (4.5-11.0)
[2017-04-02 17:34] LABS: ALB/GLOB RATIO 1.1 (1.1-1.8); ALKALINE PHOSPHATASE 45 U/L (38-133); ALT/SGPT 47 U/L (7-56); AST/SGOT 46 U/L (15-39); BILIRUBIN,TOTAL 0.7 mg/dL (0.2-1.3); BLOOD UREA NITROGEN 22 mg/dL (7-21); CALCIUM 8.5 mg/dL (8.4-10.5); CARBON DIOXIDE 23 mmol/L (21-33); CHLORIDE 109 mmol/L (98-107); GFR AFRICAN-AMERICAN > 60; GLUCOSE,RANDOM 123 mg/dL (70-110); SODIUM 137 mmol/L (132-148)
[2017-04-02 17:48] LABS: INR 1.09 (0.93-1.08); PARTIAL THROMBOPLASTIN TIME 20.1 Seconds (23.7-30.8)
[2017-04-02 17:58] LABS: POTASSIUM 4.2 mmol/L (3.6-5.0)
[2017-04-02] MEDS ORDERED: Albuterol HFA 90 mcg/actuation (8 g) ONE (18:40)
--- NOTE | 2017-04-02 18:40 | CON ---
DATE: 04/02/2017 HISTORY OF PRESENT ILLNESS: A 61-year-old female, seen in the Emergency Room for traumatic arthrotomy of the left knee with exposed patellar tendon and patella and entering into the joint, as is air in the joint of the left knee. She is HIV positive. She fell when walking with her walker because she evidently has neuropathy. and she also fell 3 weeks ago and lacerated her right knee area prepatellar with sutures still in there, but the present laceration was to the left knee, has a jagged laceration 6 inches on the medial side and x 7 incheson the lateral side in a Vtype laceration. the compliating thing is she hatd a transverse laseration 21 cm above the present laeration about10 inches long from medial to lateral.and ahe had contaminated tissue down to the tendon and bone and entering the joint as there is air in the joint on the x-ray. She had a simple irrigation in the ER and the rest of it has to be done in the OR. We are going to bring her to the OR urgently to do a formal I and D, exploration of the joint and extensor mechanism. Hopefully , we could do a primary wound closure after the surgery is complete and primarily close the wound. If not, we will have to leave it open and put her on a VAC machine. I will give another dictation after I do the procedure. The patient understands the risks and complications of this procedure. FINAL DIAGNOSIS: Traumatic arthrotomy of left knee with exposed bone, tendon and synovium and we are going to do of the wound and possible deep exploration to see if the patellar tendon is ruptured too. Tomas Marcelo DO cc: [id number] TT: 04/02/2017 18:39:17 Confirmation # [id number] Dictation # [id number] MTDD
[2017-04-02] MEDS ORDERED: Propofol 10 mg/ml Inj (20 ML) ONE (18:42)
[2017-04-02] MEDS ORDERED: ePHEDrine 50 mg/ml Inj ONE (18:56)
[2017-04-02] MEDS ORDERED: Sevoflurane - Inhalation Anesthetic Liq (250 ml) ONE (19:45)
[2017-04-02] MEDS ORDERED: Desflurane Inhalation Anesthetic Liq (240 ml) ONE (19:47)
[2017-04-02] MEDS: HYDROmorphone 0.5 mg/0.5 ml ISec IVP PRN ×2 (20:15→20:30)
[2017-04-02] MEDS ORDERED: Lactated Ringer's 1,000 ML IV SCH (20:17)
--- NOTE | 2017-04-02 20:44 | OP ---
PROCEDURE DATE: 04/02/2017 PREOPERATIVE DIAGNOSIS: Deep large V-shaped laceration apex distally of her left knee with an 8 cm medial wing and a 7 cm lateral wing of the shaped laceration down to the patellar tendon and patella exposed. POSTOPERATIVE DIAGNOSIS: Deep large V-shaped laceration apex distally of her left knee with 8 cm medial wing and a 7 cm lateral wing of the shaped laceration down to the patellar tendon and patella exposed. No intra-articular extension noted through the exploration. PROCEDURE: Irrigation and debridement with a simple 6000 mL of normal saline. Exploration of the wound showed no communication with the joint, but she had extensive laceration, 8 cm long on the medial side, which went from parapatellar down to the tibial tubercle at a 45-degree angle, meeting the distal extent of the lateral limb, which is going from the tibial tubercle proximally to the lateral parapatellar region. That was 7 cm long. With exposed patella and patellar tendon. She had a preexisting laceration 1-year- old, transverse, about 2 cm above that V laceration, decrease in the blood supply to the distal flap, which had cyanosis to the distal marginal edge of the skin. PROCEDURE: The patient taken to the OR. Under general anesthesia of tracheal tube. Tourniquet applied to 300 mmHg pressure. Wound exploration was done with first doing deep irrigation with normal saline with a lavage pulse. The edges were measured 8 cm in the lateral limb and 7 cm on the medial limb, and it was down to the patellar tendon and the patella, and we took off the blood clots and defatted the skin because it looks like it is going to have to heal with sort of like a full-thickness skin flap, so we defatted everything. The distal margin of the skin was cyanotic already, more on the lateral side than medial side because the blood supply comes from the medial side. So, what we did is just trimmed the distal margin of that skin on the lateral side and closed the wound after it was cleaned with 6000 mL of normal saline, with a layer of 2-0 Vicryl in the far, and near and far sutures of 2-0 nylon interrupted space enough where it could drain with the planned vacuum-assisted closure device to do negative pressure. This was applied after the wound was closed and pressure was put on 100 mmHg pressure continuous. Will keep it on for 3 days then examine the wound. We will have to keep the patient in the hospital and she may require plastic surgery consult in the future. Hopefully, I could keep the sutures in for 3 weeks. She was put in a knee immobilizer to protect the VAC and the knee from hyperflexion, but she will be able to ambulate with weightbearing. So, the prognosis is guarded for skin necrosis because of the transverse laceration that occurred a year ago while she was in [place]. That will decrease the blood supply to the new laceration, primarily the lateral side. As I said, she had good dorsalis pedis pulses. She was a smoker up until 6 months ago, so she had a couple of bad prognostic considerations of the smoking. The proximal laceration done a year ago and the poor skin turgor. The patient had the tourniquet deflated and no excess bleeding came from the wound. The VAC is applied and will keep it on for, like I said, 3 days. Will be admitted to the floor.the goal is to get the wound to heal with out infection and skin necrosis,or other wound complications. Tomas Marcelo DO cc: [id number] TT: 04/02/2017 20:43:53 klarissa MARTEL
[2017-04-02] MEDS ORDERED: Dextrose 5%/0.45% NS 1,000 ML IV SCH (20:45)
[2017-04-02] MEDS: Aztreonam 1 Gm in NS 100mL 100 ML IVPB SCH (21:41)
[2017-04-02] MEDS: Oxycodone/Acetaminophen 5/325 mg Tab PO PRN (21:41)
[2017-04-02] MEDS: HYDROmorphone 0.5 mg/0.5 ml ISec SC PRN (23:29)
[2017-04-03] MEDS: Oxycodone/Acetaminophen 5/325 mg Tab PO PRN ×3 (02:29→11:24)
[2017-04-03] MEDS: HYDROmorphone 0.5 mg/0.5 ml ISec SC PRN ×5 (03:30→21:05)
[2017-04-03] MEDS: Aztreonam 1 Gm in NS 100mL 100 ML IVPB SCH ×3 (06:05→21:05)
--- NOTE | 2017-04-03 08:05 | RAD ---
HISTORY: dizziness COMPARISON: No prior. FINDINGS: Comparison chest 02/23/2017 LUNGS: No active pulmonary disease. PLEURA: No significant pleural effusion identified, no pneumothorax apparent. CARDIOVASCULAR: Normal. OSSEOUS STRUCTURES: No significant abnormalities. VISUALIZED UPPER ABDOMEN: Normal. OTHER FINDINGS: None. IMPRESSION: No acute infiltrates.
[2017-04-03 09:29] LABS: ADD MANUAL DIFF? NO
[2017-04-03 09:41] LABS: BASO # 0.02 K/mm3 (0.0-2.0); BASO % 0.3 % (0.0-3.0); EOS # 0.1 (0.0-0.7); EOS % 0.9 % (1.5-5.0); GRAN # 5.59 (1.4-6.5); GRAN % 70.1 % (50.0-68.0); HEMATOCRIT 29.6 % (36.0-48.0); LYMPH # 1.4 (1.2-3.4); MEAN CELL VOLUME 93.4 fL (80.0-105.0); MEAN CORPUSCULAR HEMOGLOBIN 30.3 pg (25.0-35.0); MEAN CORPUSCULAR HGB CONC 32.4 g/dl (31.0-37.0); MEAN PLATELET VOLUME 10.6 fl (7.0-11.0); MONO # 0.9 (0.1-0.6); MONO % 10.7 % (1.0-6.0); PLATELET COUNT 224 10^3/uL (120.0-450.0); RED CELL DISTRIBUTION WIDTH 15.9 % (11.5-14.5)
--- NOTE | 2017-04-03 10:23 | PN ---
DATE: 04/03/2017 A 61-year-old female with large and extensive deep laceration of the left knee going down to the patellar tendon and patella with exposed retinaculum, but no evidence of traumatic arthrotomy. It was cleaned and irrigated last night and closed in layers and applied a VAC machine to increase the chances of revascularization of that proximally based skin flap below a 1-year-old transverse laceration that was about a cm proximal to the current laceration. This will decrease the blood supply to that proximally based flap. Some of the skin was already turning cyanotic, which was removed and hopefully the VAC machine can encourage granulation after we defatted the proximal base flap. We will keep her in a knee immobilizer for a couple of weeks and keep the VAC on for at least 4 or 5 days. May have to change it to prolong its usefulness. I will try to keep her contained in the room, she can get out of bed, but no bending of the knee as I told her this could compromise the revascularization of that flap and if need be, we will get a plastic surgery consult. In the meantime, she is on antibiotics and VAC machine and the knee immobilizer but could be allowed up out of bed without bending the left knee and she could put weight on that left leg, limited with a walker. Tomas Marcelo DO cc: [id number] TT: 04/03/2017 10:22:33 Confirmation # [id number] Dictation # [id number] MTDD
--- NOTE | 2017-04-03 10:51 | RAD ---
PROCEDURE: Left Knee Radiographs. HISTORY: Pain. COMPARISON: None. FINDINGS: BONES: No acute fracture. JOINTS: Patellofemoral osteoarthritis. Medial and lateral compartments appear preserved. JOINT EFFUSION: None. OTHER FINDINGS: Soft tissue wound anterior infrapatellar soft tissues was subcutaneous emphysema, more prominent laterally. IMPRESSION: Soft tissue wound. No fracture. Patellofemoral osteoarthritis.
[2017-04-03] MEDS: Vancomycin 1gm in NS 250ml 1 GM/250 ML BAG IVPB SCH ×2 (11:24→22:31)
[2017-04-03] MEDS: Metoprolol Succinate 50 mg XL Tab PO SCH (11:25)
--- NOTE | 2017-04-03 17:44 | CARD ---
APPROVED REPORT EKG Measurement Heart [id number] <Conclusion> Unusual P axis, possible ectopic atrial rhythm Minimal voltage criteria for LVH, may be normal variant Abnormal ECG
--- NOTE | 2017-04-03 18:26 | HP ---
HISTORY OF PRESENT ILLNESS: The patient is a 61-year-old female [facility]2017 after suffering a laceration of the left knee. X-ray of the left knee was negati ve for fracture. The patient claims to have fallen into a hole while walking on the street with her walker. There was no loss of consciousness, no seizures. The patient was seen in consultation by [facility] surgery, Dr. Tomas Marcelo, who took the patient to the operating room for debridement and wound closure and placement of a VAC to assist with wound healing. The patient does not complai n of any pain at the present time. The patient complains of some mild nausea with no vomiting, no di arrhea, no chest pain, no shortness of breath. PAST MEDICAL HISTORY: Includes hypertension, asthma. 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 She is followed as an outpatient by Dr. Juanjo Hoyt. She reports her vi ral load is undetectable with an adequate CD4 count greater than 900. The patient also has a history of lymphoma in the remote past. PAST SURGICAL HISTORY: Includes total abdominal hysterectomy, appendectomy and cholecystectomy. ALLERGIES: THE PATIENT REPORTS AN ALLERGY TO [facility] WHERE SHE GETS FACIAL SWELLING. CURRENT MEDICATIONS: Include Xanax 1 mg q.i.d., albuterol inhaler q.i.d., alendronate 70 mg q. weekl y, Ecotrin 81 mg daily, Symbicort 160/4.5 one inhalation twice daily, Darunavir 800 mg daily, enalapr il 10 mg twice daily, Pepcid 20 mg daily, Lasix 20 mg daily, metoprolol 50 mg daily, Strovite 1 tab d aily, Percocet 10/325 one tab q. 4 hours, potassium chloride 10 mEq daily, Raltegravir 400 mg twice d aily, Norvir 100 mg daily. SOCIAL HISTORY: The patient denies alcohol or drug use. She has approximately [id number] history of tobacco use. FAMILY HISTORY: Noncontributory. REVIEW OF SYSTEMS: Essentially negative other than above. PHYSICAL EXAMINATION: GENERAL: The patient is a well-developed female in no acute distress. VITAL SIGNS: Blood pressure 123/76, temperature 97.6, pulse 71, respiratory rate 20. HEENT: Head is normocephalic, atraumatic. Pupils equal, round and reactive to light. Extraocular m ovements intact. NECK: Supple, with no thyromegaly, no carotid bruit, no adenopathy. LUNGS: Clear. HEART: Regular rate and rhythm. ABDOMEN: Soft, nontender, bowel sounds are normoactive. EXTREMITIES: Without cyanosis, clubbing or edema. There is a knee immobilizer present on the left l eg. There is no swelling in the left foot. There is good capillary refill as well. NEUROLOGIC: The patient is awake and oriented x 3 without focal sensory or motor deficits. SKIN: Warm and dry. LABORATORY DATA: WBC is 8.0, hemoglobin 9.6, hematocrit 29.6. Sodium 137, potassium 4.2, chloride 1 09, CO2 23, BUN 22, creatinine 0.7, glucose 123. IMAGING: Chest x-ray shows no active disease. X-ray of the left knee is negative for fracture. IMPRESSION: 1. Complex laceration of the left knee, status post fall. 2. Human immunodeficiency virus positive. 3. Asthma. 4. Hypertension. 5. Anxiety disorder. PLAN: The patient is admitted to the medical surgical floor. The patient is being followed by Dr. Tess lopez for orthopedics/surgery. Will obtain an infectious disease consult with Dr. Carr for antib iotics. Social work for discharge planning for possible subacute rehab for wound care and further amanda juares. Ty Ramírez JD, MD cc: [id number] TT: 04/03/2017 18:25:21 wa
--- NOTE | 2017-04-03 19:48 | CP.PCM.CON ---
History of Present Illness - History of Present Illness History of Present Illness: 61 year old female with PMH of HIV with last CD4 940, virus load undetectable, asthma, HTN, obesity with BMI 33 came in because of a fall when she tripped on one of the potholes on the street and he sustained a laceration on her left knee , all the way to the patella. She underwent surgery yesterday and is now doing well. She denies fever or chills, no nausea or vomiting, no chest pain, no SOB, no headache or dizziness, no abdominal pain, no diarrhea, no dysuria. Infectious Diseases consult is requested to further evaluate and manage. Review of Systems - Review of Systems All systems: reviewed and no additional remarkable complaints except (as per HPI ) Past Patient History - Tetanus Immunizations Tetanus Immunization: Unknown - Past Social History Smoking Status: Never Smoked - CARDIAC Hx Cardiac Disorders: Yes Hx Hypertension: Yes - PULMONARY Hx Respiratory Disorders: Yes Hx Asthma: Yes - NEUROLOGICAL Hx Neurological Disorder: Yes Hx Dizziness: Yes Hx Migraine: Yes - HEENT Hx HEENT Problems: No - RENAL Hx Chronic Kidney Disease: No - ENDOCRINE/METABOLIC Hx Endocrine Disorders: No - HEMATOLOGICAL/ONCOLOGICAL Hx Blood Disorders: Yes - INTEGUMENTARY Hx Dermatological Problems: No - MUSCULOSKELETAL/RHEUMATOLOGICAL Hx Falls: No - GASTROINTESTINAL Hx Gastrointestinal Disorders: Yes Hx Gastroesophageal Reflux: Yes - GENITOURINARY/GYNECOLOGICAL Hx Genitourinary Disorders: Yes Hx Sexually Transmitted Disorders: Yes - PSYCHIATRIC Hx Psychophysiologic Disorder: Yes Hx Anxiety: Yes Hx Depression: Yes - SURGICAL HISTORY Hx Surgeries: Yes - ANESTHESIA Hx Anesthesia Reactions: No Hx Malignant Hyperthermia: No Meds Allergies/Adverse Reactions: Allergies Allergy/AdvReac Type Severity Reaction Status Date / Time Penicillins Allergy SWELLING Verified 04/02/17 14:16 - Medications Medications: Current Medications Alprazolam (Xanax) 1 mg PO TID PRN; Protocol PRN Reason: Anxiety Famotidine (Pepcid) 20 mg PO 1000,2200 [facility] Hydromorphone HCl (Dilaudid) 0.5 mg SC Q4H PRN PRN Reason: Pain, severe (8-10) Last Admin: 04/03/17 07:50 Dose: 0.5 mg Sodium Chloride (Sodium Chloride 0.9%) 1,000 mls @ 100 mls/hr IV .Q10H [facility] Aztreonam (Azactam 1 Gm) 100 mls @ 100 mls/hr IVPB Q8 [facility] PRN Reason: Protocol Stop: 04/09/17 22:01 Last Admin: 04/03/17 06:05 Dose: 100 mls/hr Dextrose/Sodium Chloride (Dextrose 5%/0.45% Ns 1000 Ml) 1,000 mls @ 100 mls/hr IV .Q10H [facility] Vancomycin HCl (Vancomycin 1gm) 1 gm in 250 mls @ 167 mls/hr IVPB Q12H [facility] PRN Reason: Protocol Metoprolol Succinate (Toprol Xl) 50 mg PO BRK [facility] Oxycodone/Acetaminophen (Percocet 5/325 Mg Tab) 1 tab PO Q4H PRN PRN Reason: Pain, moderate (4-7) Stop: 04/05/17 20:30 Last Admin: 04/03/17 06:36 Dose: 1 tab Raltegravir (Isentress) 400 mg PO BID [facility] Ritonavir (Norvir) 100 mg PO BRKDIN [facility] Physical Exam - Constitutional Appears: Non-toxic, No Acute Distress - Head Exam Head Exam: NORMAL INSPECTION - ENT Exam ENT Exam: Mucous Membranes Moist - Neck Exam Neck exam: Negative for: Lymphadenopathy, Meningismus - Respiratory Exam Respiratory Exam: Decreased Breath Sounds - Cardiovascular Exam Cardiovascular Exam: +S1, +S2 - GI/Abdominal Exam GI & Abdominal Exam: Soft. absent: Tenderness - Extremities Exam Additional comments: left knee with immobilizer in place Results - Vital Signs Recent Vital Signs: Last Vital Signs Temp 97.6 F 04/03/17 07:30 Pulse 71 04/03/17 07:30 Resp 20 04/03/17 07:30 BP 123/76 04/03/17 07:30 Pulse Ox 98 04/03/17 07:30 - Labs Result Diagrams: 04/03/17 09:10 04/02/17 17:00 Labs: Laboratory Results - last 24 hr 04/03/17 04/03/17 04/03/17 07:47 09:10 09:10 WBC 8.0 RBC 3.17 L Hgb 9.6 L Hct 29.6 L MCV 93.4 MCH 30.3 MCHC 32.4 RDW 15.9 H Plt Count 224 MPV 10.6 Gran % 70.1 H Lymph % (Auto) 18.0 L Whitley % (Auto) 10.7 H Eos % (Auto) 0.9 L Baso % (Auto) 0.3 Gran # 5.59 Lymph # 1.4 Whitley # 0.9 H Eos # 0.1 Baso # 0.02 Blood Type O POSITIVE Blood Type Confirm O POSITIVE Antibody Screen Negative BBK History Checked No verified bt Assessment & Plan - Assessment and Plan (Free Text) Plan: Assessment Contaminated lacerated wound of the left knee (all the way to patella), S/P surgery POD #1 HIV with last CD4 940, virus load undetectable asthma HTN obesity with BMI 33 Plan Started patient on Vancomycin and Azactam; follow up OR cx/pathology continue Isentress, boosted Prezista (patient is to bring her own supply of Prezista because it is non-formulary) will follow clinically
[2017-04-04] MEDS: HYDROmorphone 0.5 mg/0.5 ml ISec SC PRN ×6 (01:39→22:07)
[2017-04-04] MEDS: Aztreonam 1 Gm in NS 100mL 100 ML IVPB SCH ×3 (05:22→22:09)
[2017-04-04 08:26] LABS: ALB/GLOB RATIO 1.1 (1.1-1.8); ALKALINE PHOSPHATASE 69 U/L (38-133); ALT/SGPT 76 U/L (7-56); AST/SGOT 41 U/L (15-39); BILIRUBIN,TOTAL 0.3 mg/dL (0.2-1.3); BLOOD UREA NITROGEN 9 mg/dL (7-21); CALCIUM 7.6 mg/dL (8.4-10.5); CARBON DIOXIDE 23 mmol/L (21-33); CHLORIDE 110 mmol/L (95-110); GFR AFRICAN-AMERICAN > 60; GLUCOSE,RANDOM 104 mg/dL (70-110); POTASSIUM 3.5 mmol/L (3.6-5.0); SODIUM 138 mmol/L (132-148); TOTAL PROTEIN 5.3 g/dL (5.8-8.3)
[2017-04-04] MEDS: Enoxaparin 30 mg Syringe SC SCH (10:36)
[2017-04-04] MEDS: Metoprolol Succinate 50 mg XL Tab PO SCH (10:36)
[2017-04-04] MEDS: Vancomycin 1gm in NS 250ml 1 GM/250 ML BAG IVPB SCH ×2 (10:37→22:34)
[2017-04-04] MEDS ORDERED: Potassium Chloride 20 mEq ER Tab PO ONE (13:20)
--- NOTE | 2017-04-04 13:54 | PN ---
DATE: 04/04/2017 SUBJECTIVE: The patient is lying in bed in no acute distress. The pain in the left knee has diminis hed. OBJECTIVE: VITAL SIGNS: Blood pressure 107/62, temperature 98.3, pulse 82, respiratory rate 20. LUNGS: Clear. HEART: Regular rate and rhythm. ABDOMEN: Soft, nontender, bowel sounds are normoactive. EXTREMITIES: Left knee immobilizer is intact. Wound VAC with a few milliliters of serosanguineous d rainage. NEUROLOGIC: The patient is awake and oriented x 3 without focal sensory or motor deficits. SKIN: Warm and dry. LABORATORY DATA: Sodium 138, potassium 3.5, chloride 110, CO2 23, BUN 9, creatinine 0.6, glucose 104 . IMPRESSION: 1. Infected complex laceration of the left knee, status post fall. 2. Human immunodeficiency virus positive. 3. Asthma. 4. Hypertension. 5. Anxiety disorder. PLAN: Continue wound care, IV antibiotics and infectious disease followup as well as orthopedic surg edith followup with Dr. Marcelo. Social work for discharge planning. Ty Ramírez JD, MD cc: [id number] TT: 04/04/2017 13:54:04 Confirmation # [id number] Dictation # [id number] mn
[2017-04-04] MEDS ORDERED: Home Med 1 UNIT PO SCH (17:30)
--- NOTE | 2017-04-04 17:33 | CP.PCM.PN ---
Subjective - Date & Time of Evaluation Date of Evaluation: 04/04/17 Time of Evaluation: 11:10 - Subjective Subjective: Comfortable, afebrile, less pain in the left leg. Objective - Vital Signs/Intake and Output Vital Signs (last 24 hours): Temp Pulse Resp BP Pulse Ox 98.3 F 82 20 107/62 96 04/04/17 07:30 04/04/17 07:30 04/04/17 07:30 04/04/17 07:30 04/04/17 07:30 Intake and Output: 04/04/17 04/04/17 06:59 18:59 Intake Total 760 Balance 760 - Medications Medications: Current Medications Alprazolam (Xanax) 1 mg PO TID PRN; Protocol PRN Reason: Anxiety Enoxaparin Sodium (Lovenox) 30 mg SC DAILY [facility] PRN Reason: Protocol Famotidine (Pepcid) 20 mg PO 1000,2200 [facility] Last Admin: 04/03/17 21:05 Dose: 20 mg Hydromorphone HCl (Dilaudid) 0.5 mg SC Q4H PRN PRN Reason: Pain, severe (8-10) Last Admin: 04/04/17 06:00 Dose: 0.5 mg Sodium Chloride (Sodium Chloride 0.9%) 1,000 mls @ 100 mls/hr IV .Q10H [facility] Last Admin: 04/03/17 16:25 Dose: 100 mls/hr Aztreonam (Azactam 1 Gm) 100 mls @ 100 mls/hr IVPB Q8 [facility] PRN Reason: Protocol Stop: 04/09/17 22:01 Last Admin: 04/04/17 05:22 Dose: 100 mls/hr Vancomycin HCl (Vancomycin 1gm) 1 gm in 250 mls @ 167 mls/hr IVPB Q12H [facility] PRN Reason: Protocol Last Admin: 04/03/17 22:31 Dose: 167 mls/hr Metoprolol Succinate (Toprol Xl) 50 mg PO BRK [facility] Last Admin: 04/03/17 11:25 Dose: 50 mg Ondansetron HCl (Zofran Tab) 4 mg PO Q8H PRN PRN Reason: Nausea/Vomiting Last Admin: 04/03/17 16:24 Dose: 4 mg Oxycodone/Acetaminophen (Percocet 5/325 Mg Tab) 1 tab PO Q4H PRN PRN Reason: Pain, moderate (4-7) Stop: 04/05/17 20:30 Last Admin: 04/03/17 11:24 Dose: 1 tab Raltegravir (Isentress) 400 mg PO BID [facility] Last Admin: 04/03/17 16:24 Dose: 400 mg Ritonavir (Norvir) 100 mg PO BRKDIN [facility] Last Admin: 04/03/17 16:24 Dose: 100 mg - Labs Labs: 04/04/17 07:20 PT 11.8 Seconds (9.9-11.8) 04/02/17 17:00 INR 1.09 (0.93-1.08) H 04/02/17 17:00 APTT 20.1 Seconds (23.7-30.8) L 04/02/17 17:00 - Constitutional Appears: Non-toxic, No Acute Distress - Head Exam Head Exam: NORMAL INSPECTION - Neck Exam Neck Exam: absent: Meningismus - Respiratory Exam Respiratory Exam: Decreased Breath Sounds - Cardiovascular Exam Cardiovascular Exam: +S1, +S2 - GI/Abdominal Exam GI & Abdominal Exam: Soft. absent: Tenderness - Extremities Exam Additional comments: left leg with immobilizer in place Assessment and Plan - Assessment and Plan (Free Text) Plan: Assessment Contaminated lacerated wound of the left knee (all the way to patella), S/P surgery POD #2 HIV with last CD4 940, virus load undetectable asthma HTN obesity with BMI 33 Plan continue Vancomycin and Azactam; follow up OR cx/pathology continue Isentress, boosted Prezista (patient is to bring her own supply of Prezista because it is non-formulary) will continue follow clinically
[2017-04-05] MEDS: HYDROmorphone 0.5 mg/0.5 ml ISec SC PRN ×4 (04:32→19:40)
[2017-04-05] MEDS: Aztreonam 1 Gm in NS 100mL 100 ML IVPB SCH ×3 (05:46→21:03)
--- NOTE | 2017-04-05 09:11 | PN ---
DATE: 04/05/2017 LOCATION: Room 569, bed 2. She underwent a primary irrigation and debridement, and primary wound closure of her deep laceration of her left knee which was quite extensive, and we had to use a VAC machine because there is a good c ying of skin necrosis. We are going to take the VAC machine off tomorrow and check on the integrity of the proximally based flap below a horizontal laceration by a centimeter or 2. So we will probabl y take it off tomorrow afternoon and see how the flap looks. If need be, we could put another VAC on or continue treatment with the dressings and a knee immobilizer. The skin may not demarcate for at least 2-3 weeks so I will follow her by changing the VAC tomorrow, which will be 04/06/2017. Tomas Marcelo DO cc: [id number] TT: 04/05/2017 09:10:31 Confirmation # [id number] Dictation # [id number] crystal
[2017-04-05] MEDS: Enoxaparin 30 mg Syringe SC SCH (09:25)
[2017-04-05] MEDS: Metoprolol Succinate 50 mg XL Tab PO SCH (09:25)
--- NOTE | 2017-04-05 10:34 | PN ---
DATE: 04/05/2017 SUBJECTIVE: The patient is lying in bed in no acute distress. She complains of mild discomfort of t he left knee. OBJECTIVE: VITAL SIGNS: Blood pressure 140/80, temperature 97.7, respiratory rate 20, pulse 79. LUNGS: Clear. HEART: Regular rate and rhythm. ABDOMEN: Soft, nontender, bowel sounds are normoactive. EXTREMITIES: Left knee immobilizer is intact, wound VAC with a few mL of bloody drainage. NEUROLOGIC: The patient is awake and oriented x 3 without focal sensory or motor deficits. SKIN: Warm and dry. IMPRESSION: 1. Infected complex laceration of left knee, status post fall. 2. Human immunodeficiency virus positive. 3. Asthma. 4. Hypertension. 5. Anxiety disorder. PLAN: Continue physical therapy, wound care, IV antibiotics. Infectious disease followup with Dr. Tresa alfredo and orthopedic surgery followup with Dr. Marcelo. Social work for discharge planning. Ty Ramírez JD, MD cc: [id number] TT: 04/05/2017 10:33:04 Confirmation # [id number] Dictation # [id number] jn
[2017-04-05] MEDS: Vancomycin 1gm in NS 250ml 1 GM/250 ML BAG IVPB SCH ×2 (10:40→22:24)
[2017-04-05] MEDS ORDERED: Bacitracin 500 Units/gm Oint Foilpak UD ONE (18:02)
[2017-04-06] MEDS: HYDROmorphone 0.5 mg/0.5 ml ISec SC PRN ×4 (00:30→17:50)
[2017-04-06] MEDS: Aztreonam 1 Gm in NS 100mL 100 ML IVPB SCH ×3 (05:40→22:25)
[2017-04-06] MEDS: Enoxaparin 30 mg Syringe SC SCH (10:17)
[2017-04-06] MEDS: Metoprolol Succinate 50 mg XL Tab PO SCH (10:17)
[2017-04-06] MEDS: Vancomycin 1gm in NS 250ml 1 GM/250 ML BAG IVPB SCH ×2 (10:18→23:44)
[2017-04-06] MEDS ORDERED: HYDROmorphone 0.5 mg/0.5 ml ISec ONE (10:22)
--- NOTE | 2017-04-06 11:14 | PN ---
DATE: 04/06/2017 SUBJECTIVE: The patient is lying in bed in no acute distress. OBJECTIVE: VITAL SIGNS: Blood pressure 147/91, temperature 97.8, pulse 78, respiratory rate 20. LUNGS: Clear. HEART: Regular rate and rhythm. ABDOMEN: Soft, nontender, bowel sounds are normoactive. EXTREMITIES: There is a left knee immobilizer, which is intact. Wound VAC with a few mL of serosang uineous drainage. NEUROLOGIC: The patient is awake and oriented x 3 without focal sensory or motor deficits. SKIN: Warm and dry. IMPRESSION: 1. Infected complex laceration of the left knee, status post fall. 2. Human immunodeficiency virus positive. 3. Asthma. 4. Hypertension. 5. Anxiety disorder. PLAN: Continue physical therapy, wound care. IV antibiotics. Infectious disease follow up with Dr. Carr and orthopedic surgery follow up with Dr. Marcelo. Social work for discharge planning. Ty Ramírez JD, MD cc: [id number] TT: 04/06/2017 11:13:37 Confirmation # [id number] Dictation # [id number] jn
[2017-04-06 12:07] LABS: ADD MANUAL DIFF? NO
[2017-04-06 12:10] LABS: BASO # 0.03 K/mm3 (0.0-2.0); BASO % 0.6 % (0.0-3.0); EOS # 0.1 (0.0-0.7); EOS % 2.4 % (1.5-5.0); GRAN # 3.15 (1.4-6.5); GRAN % 58.6 % (50.0-68.0); HEMATOCRIT 29.7 % (36.0-48.0); LYMPH # 1.5 (1.2-3.4); LYMPH % 27.6 % (22.0-35.0); MEAN CORPUSCULAR HEMOGLOBIN 29.7 pg (25.0-35.0); MEAN CORPUSCULAR HGB CONC 31.6 g/dl (31.0-37.0); MEAN PLATELET VOLUME 10.9 fl (7.0-11.0); MONO # 0.6 (0.1-0.6); MONO % 10.8 % (1.0-6.0); PLATELET COUNT 199 10^3/uL (120.0-450.0); RED CELL DISTRIBUTION WIDTH 16.1 % (11.5-14.5); WHITE BLOOD COUNT 5.4 10^3/ul (4.5-11.0)
[2017-04-06 12:22] LABS: ALB/GLOB RATIO 1.1 (1.1-1.8); ALKALINE PHOSPHATASE 81 U/L (38-133); ALT/SGPT 54 U/L (7-56); AST/SGOT 28 U/L (15-39); BILIRUBIN,TOTAL 0.3 mg/dL (0.2-1.3); BLOOD UREA NITROGEN 8 mg/dL (7-21); CALCIUM 8.6 mg/dL (8.4-10.5); CARBON DIOXIDE 23 mmol/L (21-33); CHLORIDE 110 mmol/L (98-107); GFR AFRICAN-AMERICAN > 60; GLUCOSE,RANDOM 103 mg/dL (70-110); POTASSIUM 3.5 mmol/L (3.6-5.0); SODIUM 139 mmol/L (132-148); TOTAL PROTEIN 5.9 g/dL (5.8-8.3)
--- NOTE | 2017-04-06 15:16 | PN ---
DATE: 04/06/2017 The patient is a 61-year-old female who underwent a primary skin closure with application of VAC and defatting the large proximally based flap right over the patella and patellar tendon on 04/04/2017. I took the VAC machine off today. The wound shows pre-ischemic change of her proximally based flap. I called the plastic surgeon, Dr. Montano, number [phone] with the urgent phone number of [phone]. I just left a message on both phones for consult to have the plastic surgeon see the patient so they can follow her for the pre-ischemic changes on her skin on the left knee that measures approximately 7 x 8 cm right under or distal to a 1-year-old transverse laceration of her left knee from a fall. Hopefully, the doctor gets back with me so we can have a plastic surgeon on the case in case she needs a skin graft or a muscle flap. Tomas Marcelo DO cc: [id number] TT: 04/06/2017 15:15:39 Confirmation # [id number] Dictation # [id number] klarissa MARTEL
[2017-04-06] MEDS ORDERED: HYDROmorphone 0.5 mg/0.5 ml ISec IVP STA (22:15)
--- NOTE | 2017-04-06 22:34 | CP.PCM.PN ---
Subjective - Date & Time of Evaluation Date of Evaluation: 04/06/17 Time of Evaluation: 22:30 - Subjective Subjective: S: Patient was seen at bedside for her complaint of left leg pain. Has no other complaints. No weakness, no paraesthesia. Medical record was reviewed. S/P left knee wound drainage. O: Last Vital Signs 3 Temp 97.7 F 04/06/17 17:49 Pulse 82 04/06/17 17:49 Resp 20 04/06/17 17:49 BP 129/66 04/06/17 17:49 Pulse Ox 98 04/06/17 17:49 Awake, alert, not in distress. EXT: Left lower extremity in brace. Can wiggle her toes. No loss of sensation. No swelling ,no deformity of left foot present. LUNGS: Normal breathing pattern. A: Left leg pain. P:Dilaudid 0.5 mg IV stat. Objective - Vital Signs/Intake and Output Vital Signs (last 24 hours): Temp Pulse Resp BP Pulse Ox 97.7 F 82 20 129/66 98 04/06/17 17:49 04/06/17 17:49 04/06/17 17:49 04/06/17 17:49 04/06/17 17:49 - Medications Medications: Current Medications Alprazolam (Xanax) 1 mg PO TID PRN; Protocol PRN Reason: Anxiety Last Admin: 04/06/17 11:24 Dose: 1 mg Enoxaparin Sodium (Lovenox) 30 mg SC DAILY [facility] PRN Reason: Protocol Last Admin: 04/06/17 10:17 Dose: 30 mg Famotidine (Pepcid) 20 mg PO 1000,2200 [facility] Last Admin: 04/06/17 22:25 Dose: 20 mg Home Med (Home Med) 1 unit PO DAILY [facility] Aztreonam (Azactam 1 Gm) 100 mls @ 100 mls/hr IVPB Q8 [facility] PRN Reason: Protocol Stop: 04/09/17 22:01 Last Admin: 04/06/17 22:25 Dose: 100 mls/hr Vancomycin HCl (Vancomycin 1gm) 1 gm in 250 mls @ 167 mls/hr IVPB Q12H [facility] PRN Reason: Protocol Last Admin: 04/06/17 10:18 Dose: 167 mls/hr Metoprolol Succinate (Toprol Xl) 50 mg PO BRK [facility] Last Admin: 04/06/17 10:17 Dose: 50 mg Ondansetron HCl (Zofran Tab) 4 mg PO Q8H PRN PRN Reason: Nausea/Vomiting Last Admin: 04/03/17 16:24 Dose: 4 mg Raltegravir (Isentress) 400 mg PO BID [facility] Last Admin: 04/06/17 17:50 Dose: 400 mg Ritonavir (Norvir) 100 mg PO BRKDIN [facility] Last Admin: 04/06/17 17:50 Dose: 100 mg - Labs Labs: 04/06/17 12:00 04/06/17 12:00 PT 11.8 Seconds (9.9-11.8) 04/02/17 17:00 INR 1.09 (0.93-1.08) H 04/02/17 17:00 APTT 20.1 Seconds (23.7-30.8) L 04/02/17 17:00
[2017-04-07] MEDS ORDERED: HYDROmorphone 0.5 mg/0.5 ml ISec IVP STA (04:47)
[2017-04-07] MEDS: Aztreonam 1 Gm in NS 100mL 100 ML IVPB SCH ×3 (06:45→21:14)
[2017-04-07] MEDS: Metoprolol Succinate 50 mg XL Tab PO SCH (08:27)
[2017-04-07] MEDS: Enoxaparin 30 mg Syringe SC SCH (09:32)
[2017-04-07] MEDS: HYDROmorphone 0.5 mg/0.5 ml ISec IVP PRN ×3 (09:32→21:14)
--- NOTE | 2017-04-07 09:49 | PN ---
DATE: 04/07/2017 The patient has large impending necrotic tissue over her left knee due to the fact she had a previous laceration 1 year ago just above this new laceration which was 7 x 8 cm. I had called Dr. Montano, but now Dr. Betancourt has taken over the service of Dr. Montano, so it is going to be Dr. Betancourt, have to have call her. The number is [phone] and the backup number is [phone] Betancourt. So I am going to reach out and try to get her to see the case for plastic surgery coverage of the impending skin necrosis of the patient's left knee.dr [facility] will also evaluate the ptientas advised by dr betancourt. Tomas Marcelo DO cc: [id number] TT: 04/07/2017 09:48:02 Confirmation # [id number] Dictation # [id number] patricia MTDGalina
--- NOTE | 2017-04-07 10:34 | CP.PCM.CON ---
<RolandoYari - Last Filed: 04/07/17 10:30> History of Present Illness - History of Present Illness History of Present Illness: 61 y/o female with PMHx of HIV for 25 years, asthma and htn was seen at bedside this morning with attending Dr. Dempsey after request for podiatry consult. Pt states she fell in a pothole on Sunday and got a large laceration on her left knee. Pt states that Dr. Marcelo took her into the operating room on Sunday for primary closure of the wound. Patient states she is in a moderate amount of pain today. Review of Systems - Review of Systems All systems: reviewed and no additional remarkable complaints except (HPI) Review of Systems: except per HPI - Constitutional Constitutional: As Per HPI Past Patient History - Tetanus Immunizations Tetanus Immunization: Unknown - Past Social History Smoking Status: Never Smoked - CARDIAC Hx Cardiac Disorders: Yes (CAD) Hx Hypertension: Yes - PULMONARY Hx Respiratory Disorders: Yes Hx Asthma: Yes - NEUROLOGICAL Hx Neurological Disorder: Yes Hx Dizziness: Yes Hx Migraine: Yes - HEENT Hx HEENT Problems: No - RENAL Hx Chronic Kidney Disease: No - ENDOCRINE/METABOLIC Hx Endocrine Disorders: No - HEMATOLOGICAL/ONCOLOGICAL Hx Blood Disorders: Yes - INTEGUMENTARY Hx Dermatological Problems: No - MUSCULOSKELETAL/RHEUMATOLOGICAL Hx Arthritis: Yes (OA) - GASTROINTESTINAL Hx Gastrointestinal Disorders: Yes Hx Gastroesophageal Reflux: Yes - GENITOURINARY/GYNECOLOGICAL Hx Genitourinary Disorders: Yes Hx Sexually Transmitted Disorders: Yes - PSYCHIATRIC Hx Psychophysiologic Disorder: Yes Hx Anxiety: Yes Hx Depression: Yes - SURGICAL HISTORY Hx Surgeries: Yes - ANESTHESIA Hx Anesthesia Reactions: No Hx Malignant Hyperthermia: No Meds Allergies/Adverse Reactions: Allergies Allergy/AdvReac Type Severity Reaction Status Date / Time Penicillins Allergy SWELLING Verified 04/02/17 14:16 - Medications Medications: Current Medications Alprazolam (Xanax) 1 mg PO TID PRN; Protocol PRN Reason: Anxiety Last Admin: 04/07/17 09:31 Dose: 1 mg Enoxaparin Sodium (Lovenox) 30 mg SC DAILY [facility] PRN Reason: Protocol Last Admin: 04/07/17 09:32 Dose: 30 mg Famotidine (Pepcid) 20 mg PO 1000,2200 [facility] Last Admin: 04/07/17 09:31 Dose: 20 mg Home Med (Home Med) 1 unit PO DAILY [facility] Hydromorphone HCl (Dilaudid) 0.5 mg IVP Q4H PRN PRN Reason: Pain, moderate (4-7) Last Admin: 04/07/17 09:32 Dose: 0.5 mg Aztreonam (Azactam 1 Gm) 100 mls @ 100 mls/hr IVPB Q8 [facility] PRN Reason: Protocol Stop: 04/09/17 22:01 Last Admin: 04/07/17 06:45 Dose: 100 mls/hr Vancomycin HCl (Vancomycin 1gm) 1 gm in 250 mls @ 167 mls/hr IVPB Q12H [facility] PRN Reason: Protocol Last Admin: 04/06/17 23:44 Dose: 167 mls/hr Metoprolol Succinate (Toprol Xl) 50 mg PO BRK [facility] Last Admin: 04/07/17 08:27 Dose: 50 mg Ondansetron HCl (Zofran Tab) 4 mg PO Q8H PRN PRN Reason: Nausea/Vomiting Last Admin: 04/03/17 16:24 Dose: 4 mg Raltegravir (Isentress) 400 mg PO BID [facility] Last Admin: 04/07/17 09:31 Dose: 400 mg Ritonavir (Norvir) 100 mg PO BRKDIN [facility] Last Admin: 04/07/17 08:27 Dose: 100 mg Physical Exam - Constitutional Appears: Well, Non-toxic, No Acute Distress - Extremities Exam Additional comments: Left lower extremity focused examination: Vasc: DP/PT 2/4. Temp gradient WNL. CFT < 3 sec x 5. No pedal edema. Derm: Surgical site appears well-coapted, no dehiscence, sutures intact along the primary closure site, measuring approximately 17 cm V-shape on the anterior aspect of the left knee. Superficial skin blisters noted in wound periphery. No drainage, no malodor, no fluctuance, no necrotic changes noted, no clinical signs of infection. Neuro: Protective sensation grossly intact Ortho: No ROM of L knee and joints distal to left knee secondary to guarding. - Neurological Exam Neurological exam: Abnormal Gait, Alert, Oriented x3 - Psychiatric Exam Psychiatric exam: Normal Affect, Normal Mood - Skin Skin Exam: Normal Color, Warm Results - Vital Signs Recent Vital Signs: Last Vital Signs Temp 98.4 F 04/07/17 07:30 Pulse 80 04/07/17 08:27 Resp 20 04/07/17 07:30 BP 125/80 04/07/17 08:27 Pulse Ox 95 04/07/17 07:30 - Labs Result Diagrams: 04/06/17 12:00 04/06/17 12:00 Labs: Laboratory Results - last 24 hr 04/06/17 04/06/17 04/06/17 12:00 12:00 16:32 WBC 5.4 D RBC 3.16 L Hgb 9.4 L Hct 29.7 L MCV 94.0 MCH 29.7 MCHC 31.6 RDW 16.1 H Plt Count 199 MPV 10.9 Gran % 58.6 Lymph % (Auto) 27.6 Zavala % (Auto) 10.8 H Eos % (Auto) 2.4 Baso % (Auto) 0.6 Gran # 3.15 Lymph # 1.5 Zavala # 0.6 Eos # 0.1 Baso # 0.03 Sodium 139 Potassium 3.5 L Chloride 110 H Carbon Dioxide 23 Anion Gap 10 BUN 8 Creatinine 0.5 Est GFR ( Amer) > 60 Est GFR (Non-Af Amer) > 60 POC Glucose (mg/dL) 138 H Random Glucose 103 Calcium 8.6 Total Bilirubin 0.3 AST 28 ALT 54 Alkaline Phosphatase 81 Total Protein 5.9 Albumin 3.1 Globulin 2.7 Albumin/Globulin Ratio 1.1 Assessment & Plan - Assessment and Plan (Free Text) Assessment: 61 y/o female 4 days s/p primary closure of left anterior knee wound by Dr. Marcelo secondary to fall. Plan: Pt seen and evaluated at bedside with attending Dr. Dempsey Chart, labs and vitals reviewed - afebrile Post-op dressing removed and surgical site evaluated Applied adaptic, ABD, DSD and ESTRELLA bandage to left knee. Dr. Dempsey discussed findings with Dr. Marcelo Podiatry will continue to follow and monitor surgical site <Jesús Dempsey - Last Filed: 04/09/17 13:07> Meds - Medications Medications: Current Medications Acetaminophen (Tylenol 325mg Tab) 650 mg PO Q6H PRN PRN Reason: Fever >100.4 F Acetaminophen/Butalbital/Caffeine (Fioricet) 1 tab PO Q6H PRN PRN Reason: Headache Last Admin: 04/08/17 13:11 Dose: 1 tab Albuterol/Ipratropium (Duoneb 3 Mg/0.5 Mg (3 Ml) Ud) 3 ml IH [id number] [facility] Last Admin: 04/09/17 07:32 Dose: 3 ml Alprazolam (Xanax) 1 mg PO TID PRN; Protocol PRN Reason: Anxiety Last Admin: 04/07/17 09:31 Dose: 1 mg Enoxaparin Sodium (Lovenox) 30 mg SC DAILY [facility] PRN Reason: Protocol Last Admin: 04/09/17 09:02 Dose: 30 mg Famotidine (Pepcid) 20 mg PO 1000,2200 [facility] Last Admin: 04/09/17 09:02 Dose: 20 mg Home Med (Home Med) 1 unit PO DAILY [facility] Hydromorphone HCl (Dilaudid) 0.5 mg IVP Q4H PRN PRN Reason: Pain, moderate (4-7) Last Admin: 04/09/17 08:30 Dose: 0.5 mg Metoprolol Succinate (Toprol Xl) 50 mg PO BRK [facility] Last Admin: 04/09/17 08:30 Dose: 50 mg Ondansetron HCl (Zofran Tab) 4 mg PO Q8H PRN PRN Reason: Nausea/Vomiting Last Admin: 04/08/17 08:28 Dose: 4 mg Raltegravir (Isentress) 400 mg PO BID [facility] Last Admin: 04/09/17 09:02 Dose: 400 mg Ritonavir (Norvir) 100 mg PO BRKDIN [facility] Last Admin: 04/09/17 08:30 Dose: 100 mg Results - Vital Signs Recent Vital Signs: Last Vital Signs Temp 98.0 F 04/09/17 07:30 Pulse 74 04/09/17 08:30 Resp 18 04/09/17 07:30 BP 127/66 04/09/17 08:30 Pulse Ox 98 04/09/17 07:30 - Labs Result Diagrams: 04/09/17 07:15 04/09/17 07:15 Labs: Laboratory Results - last 24 hr 04/08/17 04/09/17 04/09/17 15:00 07:15 07:15 WBC 3.7 L D RBC 2.99 L Hgb 8.6 L Hct 27.4 L MCV 91.6 MCH 28.8 MCHC 31.4 RDW 15.8 H Plt Count 179 MPV 10.1 Gran % 60.5 Lymph % (Auto) 23.9 Zavala % (Auto) 12.1 H Eos % (Auto) 3.0 Baso % (Auto) 0.5 Gran # 2.25 Lymph # 0.9 L Zavala # 0.5 Eos # 0.1 Baso # 0.02 Sodium 138 Potassium 2.7 L* D Chloride 102 Carbon Dioxide 32 Anion Gap 7 L BUN 10 Creatinine 0.7 Est GFR ( Amer) > 60 Est GFR (Non-Af Amer) > 60 Random Glucose 90 Calcium 8.4 Total Bilirubin 0.4 AST 35 ALT 54 Alkaline Phosphatase 45 Total Protein 5.4 L Albumin 2.7 L Globulin 2.7 Albumin/Globulin Ratio 1.0 L Random Vancomycin 9.7 L Attending/Attestation - Attestation I have personally seen and examined this patient.: Yes I have fully participated in the care of the patient.: Yes I have reviewed all pertinent clinical information: Yes
[2017-04-07] MEDS: Vancomycin 1gm in NS 250ml 1 GM/250 ML BAG IVPB SCH ×2 (10:35→22:34)
[2017-04-07] MEDS: Albuterol-Ipratrop 3 mg / 0.5 (3 ml) UD IH SCH ×3 (10:48→20:53)
--- NOTE | 2017-04-07 11:57 | PN ---
DATE: 04/07/2017 SUBJECTIVE: The patient is lying in bed in no acute distress. She previously had some shortness of breath and wheezing and received a DuoNeb treatment with some improvement. She denies any chest pain or shortness of breath at the present time. OBJECTIVE: VITAL SIGNS: Blood pressure 125/80, pulse 80, temperature 98.4, respiratory rate 20. LUNGS: Show a few bibasilar crackles and occasional expiratory wheeze. HEART: Regular rate and rhythm. No JVD. ABDOMEN: Soft, nontender, bowel sounds are normoactive. EXTREMITIES: Left knee immobilizer is intact. Right lower extremity shows 1-2+ edema to the ankles bilaterally. IMPRESSION: 1. Infected complex laceration of the left knee, status post fall. As per Dr. Marcelo, the wou nd appears somewhat ischemic and will need plastic surgery evaluation for possible grafting or flap. 2. Human immunodeficiency virus positive. 3. Asthma. 4. Hypertension, hypertensive cardiovascular disease, possible early congestive heart failure. 5. Anxiety disorder. PLAN: Continue wound care, IV antibiotics. Infectious disease followup with Dr. Carr. Continue surgi nathen followup with Dr. Marcelo, the patient is for plastic surgery evaluation. We will continue DuoNeb treatments q. 6 hours and give Lasix 20 mg IV x 1 dose and observe. Physical therapy and soci al work for discharge planning. Ty Ramírez JD, MD cc: [id number] TT: 04/07/2017 11:57:15 Confirmation # [id number] Dictation # [id number] meka
--- NOTE | 2017-04-07 13:44 | CP.PCM.CON ---
History of Present Illness - History of Present Illness History of Present Illness: Surgery: Dr. Chatterjee Reason for consult: impending necrosis of skin flap CC: fall HPI: Patient is a 61 y/o HIV+ female w/ recent history of fall about 5 days ago. Patient states she was walking with her walker to a doctor's appointment and her walker got stuck in a pot hole. Subsequently, patient fell on left knee and suffered a deep V shaped laceration to the lateral and mid portion of her knee. Patient underwent primary closure of the laceration with laurie Barahona, however there was concern of distal lateral margin ischemia to the skin flap post-operatively. Patient states she has fallen on that same knee a few years ago and suffered a laceration to the knee however she states it healed on its own. Patient currently receiving physical therapy treatment in which she reports ambulating with assistance and walker. She reports pain to the knee but controlled with medication. She denies f/c/n/v. PMH: HIV+, followed by Dr. Hoyt as outpatient and she reports full compliance with medication, asthma, obesity, HTN PSH: laceration repair Social: former smoker Review of Systems - Review of Systems Review of Systems: negative unless in HPI Past Patient History - Tetanus Immunizations Tetanus Immunization: Unknown - Past Social History Smoking Status: Never Smoked - CARDIAC Hx Cardiac Disorders: Yes (CAD) Hx Hypertension: Yes - PULMONARY Hx Respiratory Disorders: Yes Hx Asthma: Yes - NEUROLOGICAL Hx Neurological Disorder: Yes Hx Dizziness: Yes Hx Migraine: Yes - HEENT Hx HEENT Problems: No - RENAL Hx Chronic Kidney Disease: No - ENDOCRINE/METABOLIC Hx Endocrine Disorders: No - HEMATOLOGICAL/ONCOLOGICAL Hx Blood Disorders: Yes - INTEGUMENTARY Hx Dermatological Problems: No - MUSCULOSKELETAL/RHEUMATOLOGICAL Hx Arthritis: Yes (OA) - GASTROINTESTINAL Hx Gastrointestinal Disorders: Yes Hx Gastroesophageal Reflux: Yes - GENITOURINARY/GYNECOLOGICAL Hx Genitourinary Disorders: Yes Hx Sexually Transmitted Disorders: Yes - PSYCHIATRIC Hx Psychophysiologic Disorder: Yes Hx Anxiety: Yes Hx Depression: Yes - SURGICAL HISTORY Hx Surgeries: Yes - ANESTHESIA Hx Anesthesia Reactions: No Hx Malignant Hyperthermia: No Meds Allergies/Adverse Reactions: Allergies Allergy/AdvReac Type Severity Reaction Status Date / Time Penicillins Allergy SWELLING Verified 04/02/17 14:16 - Medications Medications: Current Medications Albuterol/Ipratropium (Duoneb 3 Mg/0.5 Mg (3 Ml) Ud) 3 ml IH [id number] [facility] Last Admin: 04/07/17 10:48 Dose: 3 ml Alprazolam (Xanax) 1 mg PO TID PRN; Protocol PRN Reason: Anxiety Last Admin: 04/07/17 09:31 Dose: 1 mg Enoxaparin Sodium (Lovenox) 30 mg SC DAILY [facility] PRN Reason: Protocol Last Admin: 04/07/17 09:32 Dose: 30 mg Famotidine (Pepcid) 20 mg PO 1000,2200 [facility] Last Admin: 04/07/17 09:31 Dose: 20 mg Home Med (Home Med) 1 unit PO DAILY [facility] Hydromorphone HCl (Dilaudid) 0.5 mg IVP Q4H PRN PRN Reason: Pain, moderate (4-7) Last Admin: 04/07/17 09:32 Dose: 0.5 mg Aztreonam (Azactam 1 Gm) 100 mls @ 100 mls/hr IVPB Q8 [facility] PRN Reason: Protocol Stop: 04/09/17 22:01 Last Admin: 04/07/17 13:04 Dose: 100 mls/hr Vancomycin HCl (Vancomycin 1gm) 1 gm in 250 mls @ 167 mls/hr IVPB Q12H [facility] PRN Reason: Protocol Last Admin: 04/07/17 10:35 Dose: 167 mls/hr Metoprolol Succinate (Toprol Xl) 50 mg PO BRK [facility] Last Admin: 04/07/17 08:27 Dose: 50 mg Ondansetron HCl (Zofran Tab) 4 mg PO Q8H PRN PRN Reason: Nausea/Vomiting Last Admin: 04/07/17 11:59 Dose: 4 mg Raltegravir (Isentress) 400 mg PO BID [facility] Last Admin: 04/07/17 09:31 Dose: 400 mg Ritonavir (Norvir) 100 mg PO BRKDIN [facility] Last Admin: 04/07/17 08:27 Dose: 100 mg Physical Exam - Constitutional Appears: Non-toxic, No Acute Distress - Head Exam Head Exam: ATRAUMATIC, NORMOCEPHALIC - Eye Exam Eye Exam: EOMI - ENT Exam ENT Exam: Mucous Membranes Moist - Respiratory Exam Respiratory Exam: NORMAL BREATHING PATTERN. absent: Respiratory Distress - Cardiovascular Exam Cardiovascular Exam: REGULAR RHYTHM. absent: Tachycardia - Extremities Exam Extremities exam: Positive for: normal capillary refill. Negative for: calf tenderness, pedal edema Additional comments: Left mid to lateral V shaped laceration s/p primary closure encompassing entirety of knee joint. Distal lateral and medial skin edges w/ some dusky appearance directly at suture line. remainder of skin flap w/ some erythema congestion, blanches with brisk refill. hemorrhagic blister noted to distal lateral portion of wound. distal pulse palpable - Neurological Exam Neurological exam: Alert, Oriented x3 - Psychiatric Exam Psychiatric exam: Normal Affect, Normal Mood - Skin Skin Exam: Dry, Warm Results - Vital Signs Recent Vital Signs: Last Vital Signs Temp 98.4 F 04/07/17 07:30 Pulse 80 04/07/17 08:27 Resp 20 04/07/17 07:30 BP 126/78 04/07/17 11:35 Pulse Ox 95 04/07/17 07:30 - Labs Result Diagrams: 04/06/17 12:00 04/06/17 12:00 Labs: Laboratory Results - last 24 hr 04/06/17 16:32 POC Glucose (mg/dL) 138 H Assessment & Plan - Assessment and Plan (Free Text) Assessment: 61 y/o F s/p primary closure of left knee laceration w/ possible ischemia to sutured skin edges Plan: -cont dressing changes per podiatry -cont physical therapy -
[2017-04-07] MEDS: Apap-Butalbital-Caffeine 325-50-40mg Tab PO PRN ×2 (17:31→23:24)
[2017-04-08] MEDS: Albuterol-Ipratrop 3 mg / 0.5 (3 ml) UD IH SCH ×4 (01:58→20:20)
[2017-04-08] MEDS: Aztreonam 1 Gm in NS 100mL 100 ML IVPB SCH (05:17)
[2017-04-08] MEDS: HYDROmorphone 0.5 mg/0.5 ml ISec IVP PRN ×3 (05:24→20:22)
[2017-04-08] MEDS: Apap-Butalbital-Caffeine 325-50-40mg Tab PO PRN ×2 (05:25→13:11)
[2017-04-08] MEDS: Metoprolol Succinate 50 mg XL Tab PO SCH (08:28)
[2017-04-08] MEDS: Enoxaparin 30 mg Syringe SC SCH (09:42)
--- NOTE | 2017-04-08 11:42 | RAD ---
HISTORY: fever COMPARISON: 04/02/2017 TECHNIQUE: Chest PA and lateral FINDINGS: LUNGS: No active pulmonary disease. PLEURA: No significant pleural effusion identified. No pneumothorax apparent. CARDIOVASCULAR: Normal. OSSEOUS STRUCTURES: No significant abnormalities. VISUALIZED UPPER ABDOMEN: Normal. OTHER FINDINGS: None. IMPRESSION: No active disease.
--- NOTE | 2017-04-08 13:05 | PN ---
DATE: 04/08/2017 SUBJECTIVE: The patient is lying in bed. She is complaining of some nausea and vomiting this mornin g. There is no chest pain or shortness of breath. OBJECTIVE: VITAL SIGNS: Blood pressure 156/80, temperature 99.1, T-max 100.2, pulse 97, respiratory rate 20. LUNGS: Show a few bibasilar crackles. HEART: Regular rate and rhythm. ABDOMEN: Soft, nontender, bowel sounds are normoactive. EXTREMITIES: Left knee immobilizer is intact. Right lower extremity shows trace edema to the ankles . IMPRESSION: 1. Infected complex laceration of the left knee, status post fall. 2. Human immunodeficiency virus positive. 3. Asthma. 4. Hypertension, hypertensive cardiovascular disease, mild congestive heart failure. 5. Anxiety disorder. 6. Acute gastroenteritis, rule out viral, rule out secondary to antibiotics. PLAN: Continue wound care. Will hold IV antibiotics. Check vancomycin level. Continue infectious disease followup with Dr. Carr. Continue surgical followup with Dr. Marcelo. Awaiting plastic vazquez rgery evaluation. Physical therapy and social work for discharge planning. Ty Ramírez JD, MD cc: [id number] TT: 04/08/2017 13:04:50 Confirmation # [id number] Dictation # [id number] en
[2017-04-09] MEDS: HYDROmorphone 0.5 mg/0.5 ml ISec IVP PRN ×4 (02:12→22:36)
[2017-04-09] MEDS: Albuterol-Ipratrop 3 mg / 0.5 (3 ml) UD IH SCH ×4 (02:25→20:10)
[2017-04-09 07:21] LABS: ADD MANUAL DIFF? NO
[2017-04-09 07:27] LABS: BASO # 0.02 K/mm3 (0.0-2.0); BASO % 0.5 % (0.0-3.0); EOS # 0.1 (0.0-0.7); GRAN # 2.25 (1.4-6.5); GRAN % 60.5 % (50.0-68.0); HEMATOCRIT 27.4 % (36.0-48.0); LYMPH # 0.9 (1.2-3.4); LYMPH % 23.9 % (22.0-35.0); MEAN CELL VOLUME 91.6 fL (80.0-105.0); MEAN CORPUSCULAR HEMOGLOBIN 28.8 pg (25.0-35.0); MEAN CORPUSCULAR HGB CONC 31.4 g/dl (31.0-37.0); MEAN PLATELET VOLUME 10.1 fl (7.0-11.0); MONO # 0.5 (0.1-0.6); MONO % 12.1 % (1.0-6.0); PLATELET COUNT 179 10^3/uL (120.0-450.0); RED CELL DISTRIBUTION WIDTH 15.8 % (11.5-14.5); WHITE BLOOD COUNT 3.7 10^3/ul (4.5-11.0)
[2017-04-09 07:42] LABS: ALKALINE PHOSPHATASE 45 U/L (38-133); ALT/SGPT 54 U/L (7-56); AST/SGOT 35 U/L (15-39); BILIRUBIN,TOTAL 0.4 mg/dL (0.2-1.3); BLOOD UREA NITROGEN 10 mg/dL (7-21); CALCIUM 8.4 mg/dL (8.4-10.5); CARBON DIOXIDE 32 mmol/L (21-33); CHLORIDE 102 mmol/L (98-107); GFR AFRICAN-AMERICAN > 60; GLUCOSE,RANDOM 90 mg/dL (70-110); SODIUM 138 mmol/L (132-148); TOTAL PROTEIN 5.4 g/dL (5.8-8.3)
[2017-04-09 07:47] LABS: POTASSIUM 2.7 mmol/L (3.6-5.0)
[2017-04-09] MEDS: Metoprolol Succinate 50 mg XL Tab PO SCH (08:30)
[2017-04-09] MEDS: Enoxaparin 30 mg Syringe SC SCH (09:02)
[2017-04-09] MEDS ORDERED: Potassium Chloride 40 mEq/30 ml LIQ UD PO ONE (09:07)
--- NOTE | 2017-04-09 09:26 | PN ---
DATE: 04/09/2017 ROOM: 569, bed 2. She underwent surgical repair of a large unstable laceration of her left prepatellar region on 2016, complicated by a horizontal laceration 2 cm above the new laceration. Today, the dressing was changed. The skin is still hyperemic, but it blanches. She has marginal necrosis of the lateral win g of the V-shaped incision, but the sutures are dry. Hopefully, the revascularization will avoid any skin graft. Will have to keep her leg protected by not bending it, no trauma, keep sterile dressing s on and keep the knee immobilizer. A good thing for her is that if she could go to TCU for 8 days t hat would bring it out to 2 weeks and we should know much more whether the knee is going to need furt her skin coverage with a graft. So we are still waiting for the skin laceration to demarcate. We ca n only help it improve by keeping it immobile and dressed and observe frequently. So if she goes vaibhav e, this may not happen because she does have a history of falling quite a lot from a neuropathy. Hop efully, she can go to [facility] Tomas Marcelo DO cc: [id number] TT: 04/09/2017 09:25:40 Confirmation # [id number] Dictation # [id number]
--- NOTE | 2017-04-09 11:12 | PN ---
DATE: 04/09/2017 SUBJECTIVE: The patient is lying in bed, in no acute distress. There is no nausea, vomiting. She f eels better than previously. No chest pain, no shortness of breath. OBJECTIVE: VITAL SIGNS: Blood pressure 127/66, pulse 74, temperature 98, respiratory rate 18. LUNGS: Clear. HEART: Regular rate and rhythm. ABDOMEN: Soft, nontender, bowel sounds are normoactive. EXTREMITIES: Left wound is clean and intact. Extremities without edema. NEUROLOGIC: The patient is awake and oriented x 3 without focal, sensory or motor deficits. SKIN: Warm and dry. LABORATORY DATA: WBCs 3.7, hemoglobin 8.6, hematocrit 27.4. Sodium 138, potassium 2.7, chloride 102 , CO2 32, BUN 10, creatinine 0.7, glucose 90. Chest x-ray showed no active disease. Blood cultures from yesterday are pending. IMPRESSION: 1. Hypokalemia, probably secondary to diuretics and vomiting. 2. Infected complex laceration of the left knee, status post fall. 3. Human immunodeficiency virus positive. 4. Asthma. 5. Hypertension, hypertensive cardiovascular disease and mild congestive heart failure. 6. Anxiety disorder. 7. Acute gastroenteritis, probably viral, improved. PLAN: Continue wound care. Surgical followup with Dr. Marcelo. Infectious disease followup [facility] Dr. Carr. We will continue to monitor off IV antibiotics. Physical therapy and social work for dis charge planning. Ty Ramírez JD, MD cc: [id number] TT: 04/09/2017 11:12:08 Confirmation # [id number] Dictation # [id number] en
--- NOTE | 2017-04-09 11:34 | CP.PCM.PN ---
Subjective - Date & Time of Evaluation Date of Evaluation: 04/09/17 Time of Evaluation: 11:31 - Subjective Subjective: 61 y/o female was seen at bedside with attending Dr. Fischer for left knee laceration which Dr. Marcelo performed delayed primary closure of the wound on 04/02/17. Patient is resting comfortably in bed with knee immobilizer. Dressing is c/d/i to left knee. Patient is having mild pain in the area. She denies any acute events overnight. She denies n/v/sob/f/cp or chills. Objective - Vital Signs/Intake and Output Vital Signs (last 24 hours): Temp Pulse Resp BP Pulse Ox 98.0 F 74 18 127/66 98 04/09/17 07:30 04/09/17 08:30 04/09/17 07:30 04/09/17 08:30 04/09/17 07:30 Intake and Output: 04/09/17 04/09/17 06:59 18:59 Intake Total 600 Balance 600 - Medications Medications: Current Medications Acetaminophen (Tylenol 325mg Tab) 650 mg PO Q6H PRN PRN Reason: Fever >100.4 F Acetaminophen/Butalbital/Caffeine (Fioricet) 1 tab PO Q6H PRN PRN Reason: Headache Last Admin: 04/08/17 13:11 Dose: 1 tab Albuterol/Ipratropium (Duoneb 3 Mg/0.5 Mg (3 Ml) Ud) 3 ml IH [id number] [facility] Last Admin: 04/09/17 07:32 Dose: 3 ml Alprazolam (Xanax) 1 mg PO TID PRN; Protocol PRN Reason: Anxiety Last Admin: 04/07/17 09:31 Dose: 1 mg Enoxaparin Sodium (Lovenox) 30 mg SC DAILY [facility] PRN Reason: Protocol Last Admin: 04/09/17 09:02 Dose: 30 mg Famotidine (Pepcid) 20 mg PO 1000,2200 [facility] Last Admin: 04/09/17 09:02 Dose: 20 mg Home Med (Home Med) 1 unit PO DAILY [facility] Hydromorphone HCl (Dilaudid) 0.5 mg IVP Q4H PRN PRN Reason: Pain, moderate (4-7) Last Admin: 04/09/17 08:30 Dose: 0.5 mg Metoprolol Succinate (Toprol Xl) 50 mg PO BRK [facility] Last Admin: 04/09/17 08:30 Dose: 50 mg Ondansetron HCl (Zofran Tab) 4 mg PO Q8H PRN PRN Reason: Nausea/Vomiting Last Admin: 04/08/17 08:28 Dose: 4 mg Raltegravir (Isentress) 400 mg PO BID [facility] Last Admin: 04/09/17 09:02 Dose: 400 mg Ritonavir (Norvir) 100 mg PO BRKDIN [facility] Last Admin: 04/09/17 08:30 Dose: 100 mg - Labs Labs: 04/09/17 07:15 04/09/17 07:15 PT 11.8 Seconds (9.9-11.8) 04/02/17 17:00 INR 1.09 (0.93-1.08) H 04/02/17 17:00 APTT 20.1 Seconds (23.7-30.8) L 04/02/17 17:00 - Constitutional Appears: Well, Non-toxic, No Acute Distress - Extremities Exam Additional comments: Dressing is c/d/i with knee immobilizer in place to left lower extremity. - Neurological Exam Neurological Exam: Alert, Awake, Oriented x3 - Psychiatric Exam Psychiatric exam: Normal Affect, Normal Mood Assessment and Plan - Assessment and Plan (Free Text) Assessment: 61 y/o female 7 days s/p primary closure of left anterior knee wound by Dr. Marcelo secondary to fall. Plan: Pt seen and evaluated at bedside with attending Dr. Fischer Chart, labs and vitals reviewed - afebrile Dressing is c/d/i with knee immobilizer in place to left lower extremity Will discuss treatment plan with Dr. Marcelo Podiatry will continue to follow and monitor surgical site
--- NOTE | 2017-04-09 14:23 | CP.PCM.PN ---
Subjective - Date & Time of Evaluation Date of Evaluation: 04/09/17 Time of Evaluation: 14:22 - Subjective Subjective: pt needs angiocath insertion. Objective - Vital Signs/Intake and Output Vital Signs (last 24 hours): Temp Pulse Resp BP Pulse Ox 98.0 F 74 18 127/66 98 04/09/17 07:30 04/09/17 08:30 04/09/17 07:30 04/09/17 08:30 04/09/17 07:30 Intake and Output: 04/09/17 04/09/17 06:59 18:59 Intake Total 600 Balance 600 - Medications Medications: Current Medications Acetaminophen (Tylenol 325mg Tab) 650 mg PO Q6H PRN PRN Reason: Fever >100.4 F Acetaminophen/Butalbital/Caffeine (Fioricet) 1 tab PO Q6H PRN PRN Reason: Headache Last Admin: 04/08/17 13:11 Dose: 1 tab Albuterol/Ipratropium (Duoneb 3 Mg/0.5 Mg (3 Ml) Ud) 3 ml IH [id number] [facility] Last Admin: 04/09/17 13:32 Dose: 3 ml Alprazolam (Xanax) 1 mg PO TID PRN; Protocol PRN Reason: Anxiety Last Admin: 04/07/17 09:31 Dose: 1 mg Enoxaparin Sodium (Lovenox) 30 mg SC DAILY [facility] PRN Reason: Protocol Last Admin: 04/09/17 09:02 Dose: 30 mg Famotidine (Pepcid) 20 mg PO 1000,2200 [facility] Last Admin: 04/09/17 09:02 Dose: 20 mg Home Med (Home Med) 1 unit PO DAILY [facility] Hydromorphone HCl (Dilaudid) 0.5 mg IVP Q4H PRN PRN Reason: Pain, moderate (4-7) Last Admin: 04/09/17 08:30 Dose: 0.5 mg Metoprolol Succinate (Toprol Xl) 50 mg PO BRK [facility] Last Admin: 04/09/17 08:30 Dose: 50 mg Ondansetron HCl (Zofran Tab) 4 mg PO Q8H PRN PRN Reason: Nausea/Vomiting Last Admin: 04/08/17 08:28 Dose: 4 mg Raltegravir (Isentress) 400 mg PO BID [facility] Last Admin: 04/09/17 09:02 Dose: 400 mg Ritonavir (Norvir) 100 mg PO BRKDIN [facility] Last Admin: 04/09/17 08:30 Dose: 100 mg - Labs Labs: 04/09/17 07:15 04/09/17 07:15 PT 11.8 Seconds (9.9-11.8) 04/02/17 17:00 INR 1.09 (0.93-1.08) H 04/02/17 17:00 APTT 20.1 Seconds (23.7-30.8) L 04/02/17 17:00 Assessment and Plan - Assessment and Plan (Free Text) Assessment: 24 guage angiocath inserted in left wrist area.
[2017-04-09 16:38] VITALS: RESP 20
--- NOTE | 2017-04-09 17:07 | PN ---
DATE: 04/09/2017 SUBJECTIVE: The patient seen earlier today in 569, bed 2. No fevers and no chills, no nausea. PHYSICAL EXAMINATION: VITAL SIGNS: Temperature of 98, T-max yesterday was 100.2, blood pressure is 125/70, respiratory rat e of 20. HEENT: Unremarkable. NECK: Supple. LUNGS: Have decreased breath sounds. ABDOMEN: Soft, nontender. LABORATORY DATA: Reveals a white count of 3.7, hemoglobin of 8. Coagulation is noted. Platelets ar e 179. BUN of 10, creatinine of 0.7. Vanco random is 9.7. Blood cultures are no growth. ASSESSMENT AND PLAN: This is a 61-year-old female with a macerated wound of left knee status post vazquez rgery, postoperative noted. The patient positive human immunodeficiency virus. The patient states t hat she sees Dr. Hoyt in [place] for her human immunodeficiency virus, currently on Persista, _ ____ and Isentress regarding taking her human immunodeficiency virus medication. Recommend valeria ing her human immunodeficiency virus medications from home, including the Isentress 400 mg p.o. b.i.d . and ritonavir 100 mg p.o. and Persista. Zafar Greene MD cc: 350 TT: 04/09/2017 17:06:36 Confirmation # [id number] Dictation # [id number]
--- NOTE | 2017-04-09 18:45 | CP.PCM.PCO ---
Physician Communication Note - Physician Communication Note Physician Communication Note: Plastic Surgery consult requested Assessment & Plan - Assessment and Plan (Free Text) Assessment: I spoke with Dr. Butler over the weekend. Dr. Montano and I are no longer on staff at [facility]. Wound care consult recommended and if the patient needs a skin graft in the future, will see as out patient and schedule as needed.
[2017-04-10] MEDS: Albuterol-Ipratrop 3 mg / 0.5 (3 ml) UD IH SCH ×4 (01:25→20:19)
[2017-04-10] MEDS: HYDROmorphone 0.5 mg/0.5 ml ISec IVP PRN ×4 (05:18→20:32)
[2017-04-10 07:35] LABS: ALKALINE PHOSPHATASE 49 U/L (38-133); ALT/SGPT 54 U/L (7-56); AST/SGOT 34 U/L (15-39); BILIRUBIN,TOTAL 0.3 mg/dL (0.2-1.3); BLOOD UREA NITROGEN 8 mg/dL (7-21); CALCIUM 8.6 mg/dL (8.4-10.5); CARBON DIOXIDE 30 mmol/L (21-33); CHLORIDE 102 mmol/L (98-107); GFR AFRICAN-AMERICAN > 60; GLUCOSE,RANDOM 100 mg/dL (70-110); SODIUM 138 mmol/L (132-148); TOTAL PROTEIN 5.6 g/dL (5.8-8.3)
[2017-04-10] MEDS: Metoprolol Succinate 50 mg XL Tab PO SCH (07:59)
[2017-04-10 09:03] LABS: ADD MANUAL DIFF? NO
[2017-04-10 09:06] LABS: BASO # 0.01 K/mm3 (0.0-2.0); BASO % 0.3 % (0.0-3.0); EOS # 0.1 (0.0-0.7); EOS % 3.9 % (1.5-5.0); GRAN # 1.57 (1.4-6.5); GRAN % 47.5 % (50.0-68.0); HEMATOCRIT 27.7 % (36.0-48.0); LYMPH # 1.1 (1.2-3.4); LYMPH % 32.9 % (22.0-35.0); MEAN CELL VOLUME 91.1 fL (80.0-105.0); MEAN CORPUSCULAR HEMOGLOBIN 28.9 pg (25.0-35.0); MEAN CORPUSCULAR HGB CONC 31.8 g/dl (31.0-37.0); MEAN PLATELET VOLUME 10.4 fl (7.0-11.0); MONO # 0.5 (0.1-0.6); MONO % 15.4 % (1.0-6.0); PLATELET COUNT 200 10^3/uL (120.0-450.0); RED CELL DISTRIBUTION WIDTH 15.5 % (11.5-14.5); WHITE BLOOD COUNT 3.3 10^3/ul (4.5-11.0)
[2017-04-10] MEDS ORDERED: Potassium Chloride 40 mEq/30 ml LIQ UD PO ONE (09:11)
[2017-04-10] MEDS: Enoxaparin 30 mg Syringe SC SCH (10:08)
[2017-04-10] MEDS: PREZISTA 800 MG PO SCH (10:17)
--- NOTE | 2017-04-10 13:21 | CP.PCM.PN ---
<JesePolina rahman - Last Filed: 04/10/17 13:25> Subjective - Date & Time of Evaluation Date of Evaluation: 04/10/17 Time of Evaluation: 13:19 - Subjective Subjective: 61 y/o female was seen at bedside with attending Dr. Dempsey for left knee laceration which Dr. Marcelo performed delayed primary closure of the wound on 04/02/17. Patient is resting comfortably in bed with knee immobilizer. Dressing is c/d/i to left knee. Patient is having mild pain in the area. Patient also admits to pain in the left great toe over the last couple of days with noticeable redness and swelling. She denies any acute events overnight. She denies n/v/sob/f/cp or chills. Objective - Vital Signs/Intake and Output Vital Signs (last 24 hours): Temp Pulse Resp BP Pulse Ox 97.6 F 87 20 165/87 H 94 L 04/10/17 07:30 04/10/17 07:59 04/10/17 07:30 04/10/17 07:59 04/10/17 07:30 Intake and Output: 04/10/17 04/10/17 06:59 18:59 Intake Total 600 Output Total 400 Balance 200 - Medications Medications: Current Medications Acetaminophen (Tylenol 325mg Tab) 650 mg PO Q6H PRN PRN Reason: Fever >100.4 F Acetaminophen/Butalbital/Caffeine (Fioricet) 1 tab PO Q6H PRN PRN Reason: Headache Last Admin: 04/08/17 13:11 Dose: 1 tab Albuterol/Ipratropium (Duoneb 3 Mg/0.5 Mg (3 Ml) Ud) 3 ml IH [id number] [facility] Last Admin: 04/10/17 07:17 Dose: 3 ml Alprazolam (Xanax) 1 mg PO TID PRN; Protocol PRN Reason: Anxiety Last Admin: 04/07/17 09:31 Dose: 1 mg Enoxaparin Sodium (Lovenox) 30 mg SC DAILY [facility] PRN Reason: Protocol Last Admin: 04/10/17 10:08 Dose: 30 mg Famotidine (Pepcid) 20 mg PO 1000,2200 [facility] Last Admin: 04/10/17 10:03 Dose: 20 mg Home Med (Home Med) 1 unit PO DAILY [facility] Last Admin: 04/10/17 10:17 Dose: 1 unit Hydromorphone HCl (Dilaudid) 0.5 mg IVP Q4H PRN PRN Reason: Pain, moderate (4-7) Last Admin: 04/10/17 11:23 Dose: 0.5 mg Indomethacin (Indocin) 25 mg PO TID [facility] Last Admin: 04/10/17 10:08 Dose: 25 mg Metoprolol Succinate (Toprol Xl) 50 mg PO BRK [facility] Last Admin: 04/10/17 07:59 Dose: 50 mg Ondansetron HCl (Zofran Tab) 4 mg PO Q8H PRN PRN Reason: Nausea/Vomiting Last Admin: 04/08/17 08:28 Dose: 4 mg Raltegravir (Isentress) 400 mg PO BID [facility] Last Admin: 04/10/17 10:03 Dose: 400 mg Ritonavir (Norvir) 100 mg PO BRKDIN [facility] Last Admin: 04/10/17 07:59 Dose: 100 mg - Labs Labs: 04/10/17 08:28 04/10/17 06:45 PT 11.8 Seconds (9.9-11.8) 04/02/17 17:00 INR 1.09 (0.93-1.08) H 04/02/17 17:00 APTT 20.1 Seconds (23.7-30.8) L 04/02/17 17:00 - Constitutional Appears: Well, Non-toxic, No Acute Distress - Extremities Exam Additional comments: Left lower extremity focused examination: Vasc: DP/PT 2/4. Temp gradient WNL. CFT < 3 sec x 5. No pedal edema noted. Derm: Surgical site appears well-coapted, no dehiscence, sutures intact along the primary closure site, measuring approximately 17 cm V-shape on the anterior aspect of the left knee. No drainage, no malodor, no fluctuance, no necrotic changes noted, no clinical signs of infection. Erythema noted at medial aspect of 1st MPJ. Neuro: Protective sensation grossly intact Ortho: Pain upon light palpation of medial aspect of 1st MPJ. No ROM of L knee and joints distal to left knee secondary to guarding. - Neurological Exam Neurological Exam: Alert, Awake, Oriented x3 - Psychiatric Exam Psychiatric exam: Normal Affect, Normal Mood Assessment and Plan - Assessment and Plan (Free Text) Assessment: 61 y/o female 8 days s/p primary closure of left anterior knee wound by Dr. Marcelo secondary to fall and new onset of left great toe pain. Plan: Pt seen and evaluated at bedside with attending Dr. Dempsey Chart, labs and vitals reviewed - afebrile Post-op dressing removed and surgical site evaluated Applied adaptic, ABD, DSD and ESTRELLA bandage to left knee. Ordered serum uric acid Ordered left foot x-ray Podiatry will continue to follow and monitor surgical site <Jesús Dempsey - Last Filed: 04/13/17 11:03> Objective - Vital Signs/Intake and Output Vital Signs (last 24 hours): Temp Pulse Resp BP Pulse Ox 98.1 F 84 20 132/72 96 04/11/17 16:00 04/11/17 16:00 04/11/17 16:00 04/11/17 16:00 04/11/17 16:00 - Labs Labs: 04/11/17 06:30 04/11/17 06:30 PT 11.8 Seconds (9.9-11.8) 04/02/17 17:00 INR 1.09 (0.93-1.08) H 04/02/17 17:00 APTT 20.1 Seconds (23.7-30.8) L 04/02/17 17:00 Attending/Attestation - Attestation I have personally seen and examined this patient.: Yes I have fully participated in the care of the patient.: Yes I have reviewed all pertinent clinical information, including history, physical exam and plan: Yes
--- NOTE | 2017-04-10 17:34 | CP.PCM.PN ---
Subjective - Date & Time of Evaluation Date of Evaluation: 04/10/17 Time of Evaluation: 17:00 - Subjective Subjective: Infectious Disease Follow Up: April 10, 2017 61 yo female with presentation of left knee laceration after falling in the street when tripping on a pothole. She had washout done in the OR. The patient is known to have HIV and is on HAART treatment. CD4 is reported as 940 with an undetectable viral load on last check. The patient without leukocytosis. No fevers observed in hospital. Anxiety issues. Currently off antibiotics... had received a few days of Vancomycin, Aztreonam, and Clindamycin. Small ground-glass opacity at lung bases on last hospitalization. PMHx: Hypertension, Asthma, HIV, lymphoma, anxiety. PSHx: hysterectomy, appendectomy, nephrectomy Allergies: PCN Social Hx: No EtOH or illicit drug use. 40 pack year tobacco use history. Active Medications Acetaminophen (Tylenol 325mg Tab) 650 mg PO Q6H PRN PRN Reason: Fever >100.4 F Acetaminophen/Butalbital/Caffeine (Fioricet) 1 tab PO Q6H PRN PRN Reason: Headache Last Admin: 04/08/17 13:11 Dose: 1 tab Albuterol/Ipratropium (Duoneb 3 Mg/0.5 Mg (3 Ml) Ud) 3 ml IH [id number] [facility] Last Admin: 04/10/17 13:38 Dose: 3 ml Alprazolam (Xanax) 1 mg PO TID PRN; Protocol PRN Reason: Anxiety Last Admin: 04/07/17 09:31 Dose: 1 mg Enoxaparin Sodium (Lovenox) 30 mg SC DAILY [facility] PRN Reason: Protocol Last Admin: 04/10/17 10:08 Dose: 30 mg Famotidine (Pepcid) 20 mg PO 1000,2200 [facility] Last Admin: 04/10/17 10:03 Dose: 20 mg Home Med (Home Med) 1 unit PO DAILY [facility] Last Admin: 04/10/17 10:17 Dose: 1 unit Hydromorphone HCl (Dilaudid) 0.5 mg IVP Q4H PRN PRN Reason: Pain, moderate (4-7) Last Admin: 04/10/17 16:31 Dose: 0.5 mg Indomethacin (Indocin) 25 mg PO TID [facility] Last Admin: 04/10/17 17:15 Dose: 25 mg Metoprolol Succinate (Toprol Xl) 50 mg PO BRK [facility] Last Admin: 04/10/17 07:59 Dose: 50 mg Ondansetron HCl (Zofran Tab) 4 mg PO Q8H PRN PRN Reason: Nausea/Vomiting Last Admin: 04/08/17 08:28 Dose: 4 mg Raltegravir (Isentress) 400 mg PO BID [facility] Last Admin: 04/10/17 17:15 Dose: 400 mg Ritonavir (Norvir) 100 mg PO BRKDIN [facility] Last Admin: 04/10/17 17:15 Dose: 100 mg Family Hx: none ROS: leg rash, cough, SOB, wheezing. subjective fever. No melena, hematuria, hematemesis, hematochezia, depression,anxiety. Objective - Vital Signs/Intake and Output Vital Signs (last 24 hours): Temp Pulse Resp BP Pulse Ox 98.1 F 83 20 122/65 96 04/10/17 16:00 04/10/17 16:00 04/10/17 16:00 04/10/17 16:00 04/10/17 16:00 Intake and Output: 04/10/17 04/10/17 06:59 18:59 Intake Total 600 780 Output Total 400 500 Balance 200 280 - Medications Medications: Current Medications Acetaminophen (Tylenol 325mg Tab) 650 mg PO Q6H PRN PRN Reason: Fever >100.4 F Acetaminophen/Butalbital/Caffeine (Fioricet) 1 tab PO Q6H PRN PRN Reason: Headache Last Admin: 04/08/17 13:11 Dose: 1 tab Albuterol/Ipratropium (Duoneb 3 Mg/0.5 Mg (3 Ml) Ud) 3 ml IH [id number] [facility] Last Admin: 04/10/17 13:38 Dose: 3 ml Alprazolam (Xanax) 1 mg PO TID PRN; Protocol PRN Reason: Anxiety Last Admin: 04/07/17 09:31 Dose: 1 mg Enoxaparin Sodium (Lovenox) 30 mg SC DAILY [facility] PRN Reason: Protocol Last Admin: 04/10/17 10:08 Dose: 30 mg Famotidine (Pepcid) 20 mg PO 1000,2200 [facility] Last Admin: 04/10/17 10:03 Dose: 20 mg Home Med (Home Med) 1 unit PO DAILY [facility] Last Admin: 04/10/17 10:17 Dose: 1 unit Hydromorphone HCl (Dilaudid) 0.5 mg IVP Q4H PRN PRN Reason: Pain, moderate (4-7) Last Admin: 04/10/17 16:31 Dose: 0.5 mg Indomethacin (Indocin) 25 mg PO TID [facility] Last Admin: 04/10/17 17:15 Dose: 25 mg Metoprolol Succinate (Toprol Xl) 50 mg PO BRK [facility] Last Admin: 04/10/17 07:59 Dose: 50 mg Ondansetron HCl (Zofran Tab) 4 mg PO Q8H PRN PRN Reason: Nausea/Vomiting Last Admin: 04/08/17 08:28 Dose: 4 mg Raltegravir (Isentress) 400 mg PO BID [facility] Last Admin: 04/10/17 17:15 Dose: 400 mg Ritonavir (Norvir) 100 mg PO BRKDIN [facility] Last Admin: 04/10/17 17:15 Dose: 100 mg - Labs Labs: 04/10/17 08:28 04/10/17 06:45 PT 11.8 Seconds (9.9-11.8) 04/02/17 17:00 INR 1.09 (0.93-1.08) H 04/02/17 17:00 APTT 20.1 Seconds (23.7-30.8) L 04/02/17 17:00 - Constitutional Appears: Non-toxic, No Acute Distress, Chronically Ill - Head Exam Head Exam: ATRAUMATIC, NORMOCEPHALIC - Eye Exam Eye Exam: EOMI, PERRL Pupil Exam: NORMAL ACCOMODATION, PERRL - ENT Exam ENT Exam: Mucous Membranes Moist, Normal External Ear Exam, TM's Normal Bilaterally - Neck Exam Neck Exam: Full ROM, Normal Inspection - Respiratory Exam Respiratory Exam: Clear to Ausculation Bilateral, NORMAL BREATHING PATTERN. absent: Rales, Rhonchi, Wheezes - Cardiovascular Exam Cardiovascular Exam: REGULAR RHYTHM, RRR, +S1, +S2 - GI/Abdominal Exam GI & Abdominal Exam: Soft, Normal Bowel Sounds. absent: Distended, Tenderness - Extremities Exam Extremities Exam: Full ROM, Normal Inspection - Neurological Exam Neurological Exam: Alert, Awake, CN II-XII Intact, Oriented x3 - Psychiatric Exam Psychiatric exam: Normal Affect, Normal Mood - Skin Skin Exam: Intact, Normal Color Additional comments: laceration on left knee. cleaned in OR a few days ago. dressed. Assessment and Plan - Assessment and Plan (Free Text) Assessment: 61 yo female with known HIV controlled well with HAART. Laceration of the left knee after falling in the outside after tripping on a pothole. The patient continuing HAART. Currently off antibiotics. Will monitor wound site. The patient had about 2-3 days of IV Vancomycin, Aztreonam, and Clindamycin. Patient does have some anxiety issues as well. Thank you for allowing me to participate in the care of this patient, we will follow with you.
--- NOTE | 2017-04-10 17:48 | RAD ---
PROCEDURE: Left Foot Radiographs. HISTORY: left foot pain COMPARISON: None. FINDINGS: BONES: Normal. No fracture. JOINTS: Normal. SOFT TISSUES: Normal. OTHER FINDINGS: None. IMPRESSION: Normal left foot radiographs.
[2017-04-10 19:45] LABS: PH,URINE 6.5 (4.7-8.0); URINE BILIRUBIN NEGATIVE (NEGATIVE); URINE BLOOD LARGE (NEGATIVE); URINE GLUCOSE (UA) NEGATIVE (NEGATIVE); URINE KETONE NEGATIVE (NEGATIVE); URINE LEUKOCYTE ESTERASE NEGATIVE Leu/uL (NEGATIVE); URINE PROTEIN 30 mg/dL (<30 mg/dL); URINE UROBILINOGEN 0.2 E.U./dL (<1 E.U./dL)
[2017-04-10 19:50] LABS: URINE APPEARANCE CLEAR (CLEAR); URINE COLOR YELLOW (YELLOW)
[2017-04-10 19:54] LABS: URINE BACTERIA MANY (NEG); URINE RBC 25 - 30 /hpf (0-2)
[2017-04-10 19:56] LABS: URINE AMORPHOUS SEDIMENT MODERATE
[2017-04-11] MEDS: HYDROmorphone 0.5 mg/0.5 ml ISec IVP PRN ×2 (00:40→04:57)
[2017-04-11] MEDS: Albuterol-Ipratrop 3 mg / 0.5 (3 ml) UD IH SCH ×3 (01:14→13:18)
[2017-04-11 06:44] LABS: ADD MANUAL DIFF? NO
[2017-04-11 06:49] LABS: BASO # 0.04 K/mm3 (0.0-2.0); BASO % 1.1 % (0.0-3.0); EOS # 0.2 (0.0-0.7); EOS % 4.8 % (1.5-5.0); GRAN # 1.85 (1.4-6.5); GRAN % 48.9 % (50.0-68.0); HEMATOCRIT 27.8 % (36.0-48.0); LYMPH # 1.1 (1.2-3.4); MEAN CELL VOLUME 91.4 fL (80.0-105.0); MEAN CORPUSCULAR HEMOGLOBIN 29.3 pg (25.0-35.0); MONO # 0.7 (0.1-0.6); MONO % 17.2 % (1.0-6.0); PLATELET COUNT 219 10^3/uL (120.0-450.0); RED CELL DISTRIBUTION WIDTH 15.5 % (11.5-14.5); WHITE BLOOD COUNT 3.8 10^3/ul (4.5-11.0)
[2017-04-11 07:07] LABS: ALKALINE PHOSPHATASE 54 U/L (38-133); ALT/SGPT 51 U/L (7-56); AST/SGOT 36 U/L (15-39); BILIRUBIN,TOTAL 0.3 mg/dL (0.2-1.3); BLOOD UREA NITROGEN 10 mg/dL (7-21); CALCIUM 8.6 mg/dL (8.4-10.5); CARBON DIOXIDE 29 mmol/L (21-33); CHLORIDE 102 mmol/L (98-107); GFR AFRICAN-AMERICAN > 60; GLUCOSE,RANDOM 99 mg/dL (70-110); POTASSIUM 3.3 mmol/L (3.6-5.0); SODIUM 136 mmol/L (132-148); TOTAL PROTEIN 5.8 g/dL (5.8-8.3); URIC ACID 5.9 mg/dL (2.5-6.2)
[2017-04-11] MEDS: Metoprolol Succinate 50 mg XL Tab PO SCH (08:15)
[2017-04-11] MEDS ORDERED: Potassium Chloride 40 mEq/30 ml LIQ UD PO ONE (09:25)
[2017-04-11] MEDS: PREZISTA 800 MG PO SCH (09:53)
[2017-04-11] MEDS: Enoxaparin 30 mg Syringe SC SCH (09:58)
[2017-04-11] MEDS ORDERED: HYDROmorphone 0.5 mg/0.5 ml ISec IVP PRN (12:17)
--- NOTE | 2017-04-11 13:32 | CP.PCM.PN ---
Subjective - Date & Time of Evaluation Date of Evaluation: 04/11/17 Time of Evaluation: 13:29 - Subjective Subjective: 61 y/o female was seen at bedside with attending Dr. Fischer for left knee laceration which Dr. Marcelo performed delayed primary closure of the wound on 04/02/17. Patient is resting comfortably in bed with knee immobilizer. Dressing is c/d/i to left knee. Patient is having mild pain in the area. Patient also admits continued pain in the left great toe over the last couple of days with noticeable redness and swelling. Patient states her left great toe is very sensitive to touch. She denies any acute events overnight. She denies n/ v/sob/f/cp or chills. No other pedal complaints at this time. Objective - Vital Signs/Intake and Output Vital Signs (last 24 hours): Temp Pulse Resp BP Pulse Ox 98.8 F 83 20 140/75 97 04/11/17 07:47 04/11/17 08:15 04/11/17 07:47 04/11/17 08:15 04/11/17 07:47 Intake and Output: 04/11/17 04/11/17 06:59 18:59 Intake Total 780 Output Total 300 Balance 480 - Medications Medications: Current Medications Acetaminophen (Tylenol 325mg Tab) 650 mg PO Q6H PRN PRN Reason: Fever >100.4 F Last Admin: 04/11/17 10:01 Dose: 650 mg Acetaminophen/Butalbital/Caffeine (Fioricet) 1 tab PO Q6H PRN PRN Reason: Headache Last Admin: 04/08/17 13:11 Dose: 1 tab Albuterol/Ipratropium (Duoneb 3 Mg/0.5 Mg (3 Ml) Ud) 3 ml IH [id number] [facility] Last Admin: 04/11/17 13:18 Dose: 3 ml Alprazolam (Xanax) 1 mg PO TID PRN; Protocol PRN Reason: Anxiety Last Admin: 04/07/17 09:31 Dose: 1 mg Enoxaparin Sodium (Lovenox) 30 mg SC DAILY [facility] PRN Reason: Protocol Last Admin: 04/11/17 09:58 Dose: 30 mg Famotidine (Pepcid) 20 mg PO 1000,2200 [facility] Last Admin: 04/11/17 09:58 Dose: 20 mg Home Med (Home Med) 1 unit PO DAILY [facility] Last Admin: 04/11/17 09:53 Dose: 1 unit Hydromorphone HCl (Dilaudid) 0.5 mg IVP Q4H PRN PRN Reason: Pain, moderate (4-7) Last Admin: 04/11/17 12:32 Dose: 0.5 mg Indomethacin (Indocin) 25 mg PO TID [facility] Last Admin: 04/11/17 09:53 Dose: 25 mg Metoprolol Succinate (Toprol Xl) 50 mg PO BRK [facility] Last Admin: 04/11/17 08:15 Dose: 50 mg Ondansetron HCl (Zofran Tab) 4 mg PO Q8H PRN PRN Reason: Nausea/Vomiting Last Admin: 04/08/17 08:28 Dose: 4 mg Raltegravir (Isentress) 400 mg PO BID [facility] Last Admin: 04/10/17 17:15 Dose: 400 mg Ritonavir (Norvir) 100 mg PO BRKDIN [facility] Last Admin: 04/11/17 08:15 Dose: 100 mg - Labs Labs: 04/11/17 06:30 04/11/17 06:30 PT 11.8 Seconds (9.9-11.8) 04/02/17 17:00 INR 1.09 (0.93-1.08) H 04/02/17 17:00 APTT 20.1 Seconds (23.7-30.8) L 04/02/17 17:00 - Constitutional Appears: Well, Non-toxic, No Acute Distress - Extremities Exam Additional comments: Left lower extremity focused examination: Vasc: DP/PT 2/4. Temp gradient WNL. CFT < 3 sec x 5. Nonpitting edema noted to knee. Derm: Surgical site appears well-coapted, no dehiscence, sutures intact along the primary closure site, measuring approximately 17 cm V-shape on the anterior aspect of the left knee. No drainage, no malodor, no fluctuance, no necrotic changes noted, no clinical signs of infection. Erythema noted at medial aspect of 1st MPJ. Neuro: Protective sensation grossly intact Ortho: Pain upon light palpation of medial aspect of 1st MPJ. No ROM of L knee and joints distal to left knee secondary to guarding. - Neurological Exam Neurological Exam: Alert, Awake, Oriented x3 - Psychiatric Exam Psychiatric exam: Normal Affect, Normal Mood Assessment and Plan - Assessment and Plan (Free Text) Assessment: 61 y/o female 1) 9 days s/p primary closure of left anterior knee wound by Dr. Marcelo secondary to fall and 2)gout Plan: Patient examined and evaluated with attending Dr. Fischer Charts, labs, vitals reviewed: afebrile, WBC = 3.8 Knee was dressed with xeroform, ABDs, kerlix, stockinette, and knee immobilizer Patient is to continue with medical management of gout Podiatry will continue wound management to L knee Will continue to follow while in-house
[2017-04-11] MEDS ORDERED: Oxycodone/Acetaminophen 5/325 mg Tab PO PRN (15:54)
--- NOTE | 2017-04-11 16:20 | CP.PCM.PN ---
Subjective - Date & Time of Evaluation Date of Evaluation: 04/11/17 Time of Evaluation: 15:15 - Subjective Subjective: Infectious Disease Follow Up: April 11, 2017 61 yo female with presentation of left knee laceration after falling in the street when tripping on a pothole. She had washout done in the OR. The patient is known to have HIV and is on HAART treatment. CD4 is reported as 940 with an undetectable viral load on last check. The patient without leukocytosis. No fevers observed in hospital. Anxiety issues. Currently off antibiotics... had received a few days of Vancomycin, Aztreonam, and Clindamycin. Small ground-glass opacity at lung bases on last hospitalization. Patient complaining of pain in the left big toe but the mild erythema present yesterday appears resolved today. Area remains sensitive to light touch. There was a question of whether the patient has gout... uric acid was normal at last check. Patient has some anxiety issues. Objective - Vital Signs/Intake and Output Vital Signs (last 24 hours): Temp Pulse Resp BP Pulse Ox 98.8 F 83 20 140/75 97 04/11/17 07:47 04/11/17 08:15 04/11/17 07:47 04/11/17 08:15 04/11/17 07:47 Intake and Output: 04/11/17 04/11/17 06:59 18:59 Intake Total 780 720 Output Total 300 Balance 480 720 - Medications Medications: Current Medications Acetaminophen (Tylenol 325mg Tab) 650 mg PO Q6H PRN PRN Reason: Fever >100.4 F Last Admin: 04/11/17 10:01 Dose: 650 mg Acetaminophen/Butalbital/Caffeine (Fioricet) 1 tab PO Q6H PRN PRN Reason: Headache Last Admin: 04/08/17 13:11 Dose: 1 tab Albuterol/Ipratropium (Duoneb 3 Mg/0.5 Mg (3 Ml) Ud) 3 ml IH [id number] [facility] Last Admin: 04/11/17 13:18 Dose: 3 ml Alprazolam (Xanax) 1 mg PO TID PRN; Protocol PRN Reason: Anxiety Last Admin: 04/07/17 09:31 Dose: 1 mg Enoxaparin Sodium (Lovenox) 30 mg SC DAILY [facility] PRN Reason: Protocol Last Admin: 04/11/17 09:58 Dose: 30 mg Famotidine (Pepcid) 20 mg PO 1000,2200 [facility] Last Admin: 04/11/17 09:58 Dose: 20 mg Home Med (Home Med) 1 unit PO DAILY [facility] Last Admin: 04/11/17 09:53 Dose: 1 unit Hydromorphone HCl (Dilaudid) 0.5 mg IVP Q4H PRN PRN Reason: Pain, moderate (4-7) Last Admin: 04/11/17 12:32 Dose: 0.5 mg Indomethacin (Indocin) 25 mg PO TID [facility] Last Admin: 04/11/17 09:53 Dose: 25 mg Metoprolol Succinate (Toprol Xl) 50 mg PO BRK [facility] Last Admin: 04/11/17 08:15 Dose: 50 mg Ondansetron HCl (Zofran Tab) 4 mg PO Q8H PRN PRN Reason: Nausea/Vomiting Last Admin: 04/08/17 08:28 Dose: 4 mg Raltegravir (Isentress) 400 mg PO BID [facility] Last Admin: 04/10/17 17:15 Dose: 400 mg Ritonavir (Norvir) 100 mg PO BRKDIN [facility] Last Admin: 04/11/17 08:15 Dose: 100 mg - Labs Labs: 04/11/17 06:30 04/11/17 06:30 PT 11.8 Seconds (9.9-11.8) 04/02/17 17:00 INR 1.09 (0.93-1.08) H 04/02/17 17:00 APTT 20.1 Seconds (23.7-30.8) L 04/02/17 17:00 - Constitutional Appears: Non-toxic, No Acute Distress, Chronically Ill - Head Exam Head Exam: ATRAUMATIC, NORMOCEPHALIC - Eye Exam Eye Exam: EOMI, PERRL Pupil Exam: NORMAL ACCOMODATION, PERRL - ENT Exam ENT Exam: Mucous Membranes Moist, Normal External Ear Exam, TM's Normal Bilaterally - Neck Exam Neck Exam: Full ROM, Normal Inspection - Respiratory Exam Respiratory Exam: Clear to Ausculation Bilateral, NORMAL BREATHING PATTERN. absent: Rales, Rhonchi, Wheezes - Cardiovascular Exam Cardiovascular Exam: REGULAR RHYTHM, RRR, +S1, +S2 - GI/Abdominal Exam GI & Abdominal Exam: Soft, Normal Bowel Sounds. absent: Distended, Tenderness - Extremities Exam Extremities Exam: Full ROM, Normal Inspection - Neurological Exam Neurological Exam: Alert, Awake, CN II-XII Intact, Oriented x3 - Skin Skin Exam: Normal Color Additional comments: laceration on left knee now closed with delayed primary closure by Dr. Marcelo. cleaned in OR a few days ago. dressed. Assessment and Plan - Assessment and Plan (Free Text) Assessment: 61 yo female with known HIV controlled well with HAART. Laceration of the left knee after falling in the outside after tripping on a pothole. The patient continuing HAART. Currently off antibiotics. Will monitor wound site. The patient had about 2-3 days of IV Vancomycin, Aztreonam, and Clindamycin. The laceration was closed by delayed primary closure by Dr. Marcelo. Patient does have some anxiety issues as well. There is a question that the patient has gout in the big left toe as well. The patient has issues with anxiety. Thank you for allowing me to participate in the care of this patient, we will follow with you.
[2017-04-11 16:40] VITALS: BP 132/72; PULSE 84; TEMP 98.1; O2SAT 96
[2017-04-11] MEDS ORDERED: HYDROmorphone 0.5 mg/0.5 ml ISec SC STA (16:44)
== END 2017-04-11 22:06 | DRG 605 ==
LOC: ED 14:05 → UNDOADMOB 16:59 → ERH 16:59 → SDS 18:30 → 5RNO 21:09 → MERGE 04-03 12:46 → OBSVTOIN 04-03 12:46 → 5RNO 04-03 20:30
PROVIDERS: ADMIT Internal Medicine; ATTEND Internal Medicine
PROC: 3E0234Z Introduction of Serum, Toxoid and Vaccine into Muscle, Percutaneous Approach (ICD-10-PCS; 2017-04-02)
PROC: 0HQLXZZ Repair Left Lower Leg Skin, External Approach (ICD-10-PCS; principal; 2017-04-02 19:30)
PROC: 0HDLXZZ Extraction of Left Lower Leg Skin, External Approach (ICD-10-PCS; 2017-04-02 19:30)
PROC: 3E0F7GC Introduction of Other Therapeutic Substance into Respiratory Tract, Via Natural or Artificial Opening (ICD-10-PCS; 2017-04-07)
DX: S81.012A Laceration without foreign body, left knee, initial encounter (principal); W01.0XXA Fall on same level from slipping, tripping and stumbling without subsequent striking against object, initial encounter; I11.0 Hypertensive heart disease with heart failure; I50.9 Heart failure, unspecified; Z21 Asymptomatic human immunodeficiency virus [HIV] infection status; F41.9 Anxiety disorder, unspecified; J45.909 Unspecified asthma, uncomplicated; G62.9 Polyneuropathy, unspecified; K52.9 Noninfective gastroenteritis and colitis, unspecified; Z79.899 Other long term (current) drug therapy; M79.675 Pain in left toe(s); M10.9 Gout, unspecified; K21.9 Gastro-esophageal reflux disease without esophagitis; E87.6 Hypokalemia; T50.2X5A Adverse effect of carbonic-anhydrase inhibitors, benzothiadiazides and other diuretics, initial encounter; E66.9 Obesity, unspecified; Z68.33 Body mass index [BMI] 33.0-33.9, adult; Z23 Encounter for immunization; Z85.72 Personal history of non-Hodgkin lymphomas; Z91.81 History of falling; Y93.01 Activity, walking, marching and hiking; Y92.410 Unspecified street and highway as the place of occurrence of the external cause; Y99.8 Other external cause status; Z90.49 Acquired absence of other specified parts of digestive tract

== ENCOUNTER 2017-04-22 16:05 | Inpatient (IN) | payer OTHER ==
[2017-04-22 16:11] VITALS: BMI 34.0
--- NOTE | 2017-04-22 16:27 | ED PDOC ---
Arrival/HPI - General Chief Complaint: GI Problem Time Seen by Provider: 04/22/17 16:09 Historian: Patient - History of Present Illness Narrative History of Present Illness (Text): 04/22/17 16:24 Michelle Gamino is a 61 year old female, with a history of hypertension, asthma , appendectomy, cholecystectomy, hysterectomy, and HIV, presents to the emergency department complaining of right upper quadrant abdominal pain associated with nausea/vomiting, cough, and sob for the past 3 days. Patient recently had a left knee surgery following fall last week and was transferred to a rehabilitation center. Reports that the vomiting is accompanied with dizzy spells and room spinning sensation. Also notes that abdominal pain radiates to the back and informs of mild burning sensation while urinating. Denies fever, headache, chest pain, neck pain, leg pain, or any other complaints at this time. PMD: Dr. Ramírez Time/Duration: Other (3 days ) Symptom Onset: Gradual Severity Level: Mild Activities at Onset: Light Context: Other (rehabilitation center ) Past Medical History - Provider Review Nursing Documentation Reviewed: Yes - Infectious Disease Hx of Infectious Diseases: None - Tetanus Immunization Tetanus Immunization: Unknown - Reproductive Menopause: No - Cardiac Hx Cardiac Disorders: Yes - Pulmonary Hx Respiratory Disorders: Yes Hx Asthma: Yes - Neurological Hx Neurological Disorder: No - HEENT Hx HEENT Disorder: Yes - Renal Hx Renal Disorder: No - Endocrine/Metabolic Hx Endocrine Disorders: No - Hematological/Oncological Hx Blood Disorders: Yes - Integumentary Hx Dermatological Disorder: No - Musculoskeletal/Rheumatological Hx Arthritis: Yes (RA) - Gastrointestinal Hx Gastrointestinal Disorders: Yes Hx Gastroesophageal Reflux: Yes - Genitourinary/Gynecological Hx Genitourinary Disorders: No - Psychiatric Hx Psychophysiologic Disorder: No Hx Depression: No Hx Substance Use: No - Surgical History Hx Orthopedic Surgery: Yes (left knee surgery) - Anesthesia Hx Anesthesia Reactions: No Hx Malignant Hyperthermia: No - Suicidal Assessment Feels Threatened In Home Enviroment: No Family/Social History - Physician Review Nursing Documentation Reviewed: Yes Family/Social History: No Known Family HX Smoking Status: Former Smoker Hx Alcohol Use: Yes Hx Substance Use: No Hx Substance Use Treatment: No Allergies/Home Meds Allergies/Adverse Reactions: Allergies Penicillins Allergy (Verified 01/20/17 15:00) SWELLING Home Medications: Home Meds Medication Instructions Recorded Confirmed Albuterol/Ipratropium [Duoneb 3 3 ml IH Q6 PRN 02/19/17 04/22/17 MG/3 Ml-0.5 MG/3 Ml 3 Ml] Darunavir [Prezista] 800 mg PO DAILY 02/19/17 04/22/17 Famotidine [Heartburn Prevention] 20 mg PO DAILY 02/19/17 04/22/17 Review of Systems - Physician Review All systems were reviewed & negative as marked: Yes - Review of Systems Constitutional: Night Sweats. absent: Fatigue, Fevers ENT: absent: Sore Throat, Rhinorrhea Respiratory: SOB, Cough. absent: Sputum Cardiovascular: absent: Chest Pain, Palpitations Gastrointestinal: Abdominal Pain, Nausea, Vomiting. absent: Diarrhea Genitourinary Female: Dysuria Musculoskeletal: Back Pain Neurological: Dizziness. absent: Focal Weakness Physical Exam Vital Signs Reviewed: Yes Vital Signs Temp Pulse Resp BP Pulse Ox 04/22/17 17:53 89 16 167/73 H 99 04/22/17 17:40 78 18 138/80 96 04/22/17 16:30 99.4 F 04/22/17 16:10 98.5 F 89 18 136/76 95 Temperature: Afebrile Blood Pressure: Normal Pulse: Regular Respiratory Rate: Normal Appearance: Positive for: Non-Toxic Pain Distress: None Mental Status: Positive for: Alert and Oriented X 3 - Systems Exam Head: Present: Atraumatic, Normocephalic Pupils: Present: PERRL Conjunctiva: Present: Normal Mouth: Present: Moist Mucous Membranes Pharnyx: Present: Normal. No: ERYTHEMA, EXUDATE, TONSILS ENLARGED Respiratory/Chest: Present: Clear to Auscultation, Good Air Exchange. No: Respiratory Distress, Accessory Muscle Use Cardiovascular: Present: Regular Rate and Rhythm, Normal S1, S2. No: Murmurs Abdomen: Present: Normal Bowel Sounds. No: Tenderness, Distention, Peritoneal Signs, Rebound, Guarding Upper Extremity: Present: Normal Inspection. No: Cyanosis, Edema Lower Extremity: Present: Normal Inspection. No: Edema Neurological: Present: GCS=15, CN II-XII Intact, Speech Normal, Motor Func Grossly Intact, Normal Sensory Function Skin: Present: Warm, Dry, Normal Color. No: Rashes Psychiatric: Present: Alert, Oriented x 3, Normal Insight, Normal Concentration Medical Decision Making ED Course and Treatment: 04/22/17 16:31 Impression: A 61 year old female who presents to the emergency department complaining of abdominal pain associated with nausea and vomiting for 3 days. Differential Diagnosis include but are not limited to: gastritis vs gastroenteritis vs pneumonia vs renal stone Plan: -- EKG -- CT abdomen pelvis -- Labs, Cardiac enzymes -- Chest X-ray -- Pepcid -- Zofran -- IV fluids -- Urinalysis -- Reassess and disposition Progress Notes: 04/22/17 16:57 EKG interpreted by me: NSR @ 85 bpm. Normal interval. Borderline left axis deviation. No STT changes. 04/22/17 20:49 EXAM: CT Abdomen and Pelvis results reviewed: FINDINGS: LOWER THORAX: Small area of consolidation in the right lung base posteriorly, suspicious for a very small infiltrate/pneumonia (versus atelectasis). ABDOMEN: LIVER: Diffuse fatty infiltration of the liver. More focal areas of low density in the liver, abutting the falciform ligament, most compatible with more focal fatty infiltration. The liver is enlarged. GALLBLADDER AND BILE DUCTS: Cholecystectomy clips. Mild biliary ductal dilatation, most likely related to the post cholecystectomy state. No radiopaque common bile duct stones are visualized. Recommend correlation with LFTs as clinically indicated. PANCREAS: No CT evidence of acute pancreatitis. SPLEEN: No acute abnormality of the spleen identified. ADRENALS: No acute abnormality of the adrenal glands identified. KIDNEYS AND URETERS: No acute abnormality of the kidneys identified. No evidence of significant hydrouereteronephrosis. STOMACH AND BOWEL: No acute abnormality of the stomach, small bowel or colon identified. No evidence of bowel obstruction. APPENDIX: Normal appendix is not seen, however, there are no significant inflammatory changes visualized in the expected location of the appendix to suggest appendicitis. Recommend clinical correlation. PELVIS: BLADDER: No acute abnormality of the bladder identified. REPRODUCTIVE: Uterus is surgically absent. No evidence of large adnexal masses. ABDOMEN and PELVIS: INTRAPERITONEAL SPACE: No evidence of free intraperitoneal air or fluid. BONES/JOINTS: Bony structures appear demineralized. No acute abnormality of the visualized bony structures identified. SOFT TISSUES: Mild, diffuse subcutaneous edema involving the pelvic wall soft tissues. Atrophy of the right hip and gluteal musculature, most likely secondary to disuse. VASCULATURE: No evidence of abdominal aortic aneurysm. No evidence of periaortic hemorrhage. LYMPH NODES: No evidence of diffuse lymphadenopathy. IMPRESSION: - Findings suspicious for a very small pneumonia (versus atelectasis) in the right lung base - Otherwise, no evidence of significant acute process. - Mild biliary ductal dilatation, most likely related to the post cholecystectomy state. Recommend correlation with LFTs as clinically indicated. - Enlarged, fatty liver. - See above for remaining findings. 04/22/17 22:16 Patient with noted history with GI symptoms and cough and some sob. Vitals are unremarkable. Labs with mild ast/alt elevation but otherwise unremarkable. Abdomen is nontender. CT a/p showing finding suspicious for possible pneumonia R lung base. Given her symptoms, will start on iv antibiotics. Patient remains nauseated in the ED and will need additinal antiemetics, so will admit to the hospital for IV antibiotics. Case discussed with Dr. Ty Ramírez. 04/22/17 22:20 Patient given levaquin due to PCN allergy and vanco added due to possible nosocomial etiology. - Lab Interpretations Lab Results: 04/22/17 16:50 04/22/17 17:45 Lab Results 04/22/17 17:45: Sodium 140, Chloride 107, Potassium 3.9, Carbon Dioxide 27, Anion Gap 10, BUN 10, Creatinine 0.9, Est GFR ( Amer) > 60, Est GFR (Non- Af Amer) > 60, Random Glucose 86, Calcium 9.6, Total Bilirubin 0.4, Direct Bilirubin 0.3, AST 40 H, ALT 62 H, Alkaline Phosphatase 48, Lactate Dehydrogenase 587, Total Creatine Kinase 39, Troponin I < 0.01 D, Total Protein 5.7 L, Albumin 2.8 L, Globulin 2.9, Albumin/Globulin Ratio 1.0 L, Amylase 39, Lipase 37 04/22/17 16:50: pO2 47, VBG pH 7.43, VBG pCO2 46.0, VBG HCO3 30.5 H, VBG Total CO2 31.9 H, VBG O2 Sat (Calc) 84.9 H, VBG Base Excess 5.4 H, VBG Potassium 5.3 H , Sodium 140.0, Chloride 108.0 H, Glucose 96, Lactate 1.7, FiO2 21.0, Venous Blood Potassium 5.3 H 04/22/17 16:50: PT 12.7 H, INR 1.18 H, APTT 27.1 04/22/17 16:50: WBC 5.6 D, RBC 3.77, Hgb 10.5 L, Hct 33.1 L, MCV 87.8, MCH 27.9 , MCHC 31.7, RDW 15.7 H, Plt Count 480 H, MPV 9.7, Gran % 46.4 L, Lymph % (Auto ) 35.1 H, [place] % (Auto) 13.2 H, Eos % (Auto) 4.4, Baso % (Auto) 0.9, Gran # 2.61 , Lymph # 2.0, [place] # 0.7 H, Eos # 0.3, Baso # 0.05 I have reviewed the lab results: Yes - RAD Interpretation Radiology Orders: 04/22/17 16:43 ABD & PELVIS IV CONTRAST ONLY [CT] Stat CHEST TWO VIEWS (PA/LAT) [RAD] Stat Director Biostatistics: Radiologist - EKG Interpretation Interpreted by ED Physician: Yes Type: 12 lead EKG - Medication Orders Current Medication Orders: Vancomycin HCl 1 gm/ Sodium (Chloride) 250 mls @ 133.333 mls/hr IV STAT STA PRN Reason: Protocol Stop: 04/22/17 22:44 Discontinued Medications Famotidine (Pepcid) 20 mg IVP STAT STA Stop: 04/22/17 16:42 Last Admin: 04/22/17 17:02 Dose: 20 mg Sodium Chloride (Sodium Chloride 0.9%) 1,000 mls @ 999 mls/hr IV .Q1H1M STA Stop: 04/22/17 17:42 Last Admin: 04/22/17 17:03 Dose: 999 mls/hr Iohexol (Omnipaque 350 100 Ml) Confirm Administered Dose 350 mg .ROUTE .STK-MED ONE Stop: 04/22/17 18:18 Levofloxacin/Dextrose (Levaquin 750mg) 750 mg IVPB ONCE STA Stop: 04/22/17 20:52 Last Admin: 04/22/17 21:53 Dose: 750 mg Ondansetron HCl (Zofran Inj) 4 mg IVP STAT STA Stop: 04/22/17 16:42 Last Admin: 04/22/17 17:03 Dose: 4 mg Ondansetron HCl (Zofran Inj) 4 mg IVP STAT STA Stop: 04/22/17 21:32 Last Admin: 04/22/17 21:53 Dose: 4 mg Comments: Administered by Xiang Lorenzana. Oxycodone/Acetaminophen (Percocet 5/325 Mg Tab) 1 tab PO STAT STA Stop: 04/22/17 21:32 Last Admin: 04/22/17 21:52 Dose: 1 tab Comments: Administered by Xiang Lorenzana. - Scribe Statement The provider has reviewed the documentation as recorded by the Scribe Lucho De La Torre Provider Attestation: Provider Scribe Attestation: All medical record entries made by the Scribe were at my direction and personally dictated by me. I have reviewed the chart and agree that the record accurately reflects my personal performance of the history, physical exam, medical decision making, and the department course for this patient. I have also personally directed, reviewed, and agree with the discharge instructions and disposition. Disposition/Present on Arrival - Present on Arrival Any Indicators Present on Arrival: No History of DVT/PE: No History of Uncontrolled Diabetes: No Urinary Catheter: No History of Decub. Ulcer: No History Surgical Site Infection Following: None - Disposition Have Diagnosis and Disposition been Completed?: Yes Diagnosis: Pneumonia, Vomiting Disposition: HOSPITALIZED Disposition Time: 21:30 Patient Plan: Admission Condition: FAIR
[2017-04-22] MEDS ORDERED: Sodium Chloride 0.9% 1,000 ML IV STA (16:42)
[2017-04-22 17:14] LABS: VENOUS BLOOD GAS BASE EXCESS 5.4 mmol/L (0.0-2.0); VENOUS BLOOD GAS PO2 47 mm/Hg (30-55); VENOUS BLOOD PH 7.43 (7.32-7.43)
[2017-04-22 17:27] LABS: BASO # 0.05 K/mm3 (0.0-2.0); BASO % 0.9 % (0.0-3.0); EOS # 0.3 (0.0-0.7); EOS % 4.4 % (1.5-5.0); GRAN # 2.61 (1.4-6.5); GRAN % 46.4 % (50.0-68.0); HEMOGLOBIN 10.5 gm/dL (12.0-16.0); LYMPH % 35.1 % (22.0-35.0); MEAN CELL VOLUME 87.8 fL (80.0-105.0); MEAN CORPUSCULAR HEMOGLOBIN 27.9 pg (25.0-35.0); MEAN CORPUSCULAR HGB CONC 31.7 g/dl (31.0-37.0); MEAN PLATELET VOLUME 9.7 fl (7.0-11.0); MONO # 0.7 (0.1-0.6); MONO % 13.2 % (1.0-6.0); PLATELET COUNT 480 10^3/uL (120.0-450.0); RBC 3.77 10^6/uL (3.5-6.1); RED CELL DISTRIBUTION WIDTH 15.7 % (11.5-14.5); WHITE BLOOD COUNT 5.6 10^3/ul (4.5-11.0)
[2017-04-22 17:33] LABS: INR 1.18 (0.93-1.08); PARTIAL THROMBOPLASTIN TIME 27.1 Seconds (23.7-30.8); PROTHROMBIN TIME 12.7 Seconds (9.9-11.8)
[2017-04-22 18:06] LABS: ALBUMIN 2.8 g/dL (3.0-4.8); ALT/SGPT 62 U/L (7-56); AMYLASE 39 U/L (35-125); AST/SGOT 40 U/L (15-39); BILIRUBIN,DIRECT 0.3 mg/dL (0.0-0.4); BLOOD UREA NITROGEN 10 mg/dL (7-21); CALCIUM 9.6 mg/dL (8.4-10.5); GFR AFRICAN-AMERICAN > 60; GFR NON-AFRICAN AMERICAN > 60; LIPASE 37 U/L (23-300)
[2017-04-22] MEDS ORDERED: Iohexol 350 MG/100 ML VIAL ONE (18:17)
[2017-04-22 18:18] LABS: TROPONIN I < 0.01 ng/mL
--- NOTE | 2017-04-22 20:32 | CT ---
EXAM: CT Abdomen and Pelvis With Intravenous Contrast CLINICAL HISTORY: 61 years old, female; Pain; Abdominal pain; Acute; Additional info: R side abd pain, vomiting TECHNIQUE: Axial computed tomography images of the abdomen and pelvis with intravenous contrast. This CT exam was performed using one or more of the following dose reduction techniques: automated exposure control, adjustment of the mA and/or kV according to patient size, and/or use of iterative reconstruction technique. Coronal and sagittal reformatted images were created and reviewed. CONTRAST: 100 mL of OMNI 350 administered intravenously. EXAM DATE/TIME: 04/22/2017 4:43 PM COMPARISON: No relevant prior studies available. FINDINGS: LOWER THORAX: Small area of consolidation in the right lung base posteriorly, suspicious for a very small infiltrate/pneumonia (versus atelectasis). ABDOMEN: LIVER: Diffuse fatty infiltration of the liver. More focal areas of low density in the liver, abutting the falciform ligament, most compatible with more focal fatty infiltration. The liver is enlarged. GALLBLADDER AND BILE DUCTS: Cholecystectomy clips. Mild biliary ductal dilatation, most likely related to the post cholecystectomy state. No radiopaque common bile duct stones are visualized. Recommend correlation with LFTs as clinically indicated. PANCREAS: No CT evidence of acute pancreatitis. SPLEEN: No acute abnormality of the spleen identified. ADRENALS: No acute abnormality of the adrenal glands identified. KIDNEYS AND URETERS: No acute abnormality of the kidneys identified. No evidence of significant hydrouereteronephrosis. STOMACH AND BOWEL: No acute abnormality of the stomach, small bowel or colon identified. No evidence of bowel obstruction. APPENDIX: Normal appendix is not seen, however, there are no significant inflammatory changes visualized in the expected location of the appendix to suggest appendicitis. Recommend clinical correlation. PELVIS: BLADDER: No acute abnormality of the bladder identified. REPRODUCTIVE: Uterus is surgically absent. No evidence of large adnexal masses. ABDOMEN and PELVIS: INTRAPERITONEAL SPACE: No evidence of free intraperitoneal air or fluid. BONES/JOINTS: Bony structures appear demineralized. No acute abnormality of the visualized bony structures identified. SOFT TISSUES: Mild, diffuse subcutaneous edema involving the pelvic wall soft tissues. Atrophy of the right hip and gluteal musculature, most likely secondary to disuse. VASCULATURE: No evidence of abdominal aortic aneurysm. No evidence of periaortic hemorrhage. LYMPH NODES: No evidence of diffuse lymphadenopathy. IMPRESSION: - Findings suspicious for a very small pneumonia (versus atelectasis) in the right lung base - Otherwise, no evidence of significant acute process. - Mild biliary ductal dilatation, most likely related to the post cholecystectomy state. Recommend correlation with LFTs as clinically indicated. - Enlarged, fatty liver. - See above for remaining findings.
[2017-04-22] MEDS ORDERED: levoFLOXacin 750 mg in D5W 150 ML BAG IVPB STA (20:51)
[2017-04-22] MEDS ORDERED: Oxycodone/Acetaminophen 5/325 mg Tab PO STA (21:31)
--- NOTE | 2017-04-22 23:21 | CP.PCM.PN ---
Subjective - Date & Time of Evaluation Date of Evaluation: 04/22/17 Time of Evaluation: 23:20 - Subjective Subjective: Patient was seen at bedside because she had vomited .Feels nauseous. Complains of little RLQ pain. Has no other complaints. Medical record was reviewed. This 61 year old white woman was admitted with RUQ pain , nausea, vomiting, anemia, pneumonia. Has PMH of HTN, asthma , HIV , lymphoma, appendectomy, hystrectomy, cholecystectomy. Objective - Vital Signs/Intake and Output Vital Signs (last 24 hours): Temp Pulse Resp BP Pulse Ox 97.6 F 86 20 144/74 99 04/22/17 23:01 04/22/17 23:01 04/22/17 23:01 04/22/17 23:01 04/22/17 17:53 - Medications Medications: Current Medications Ondansetron HCl (Zofran Inj) 4 mg IVP STAT STA Stop: 04/22/17 23:20 - Labs Labs: PT 12.7 Seconds (9.9-11.8) H 04/22/17 16:50 INR 1.18 (0.93-1.08) H 04/22/17 16:50 APTT 27.1 Seconds (23.7-30.8) 04/22/17 16:50 Most Recent Lab Values WBC 5.6 10^3/ul (4.5-11.0) D 04/22/17 16:50 RBC 3.77 10^6/uL (3.5-6.1) 04/22/17 16:50 Hgb 10.5 gm/dL (12.0-16.0) L 04/22/17 16:50 Hct 33.1 % (36.0-48.0) L 04/22/17 16:50 MCV 87.8 fL (80.0-105.0) 04/22/17 16:50 MCH 27.9 pg (25.0-35.0) 04/22/17 16:50 MCHC 31.7 g/dl (31.0-37.0) 04/22/17 16:50 RDW 15.7 % (11.5-14.5) H 04/22/17 16:50 Plt Count 480 10^3/uL (120.0-450.0) H 04/22/17 16:50 MPV 9.7 fl (7.0-11.0) 04/22/17 16:50 Gran % 46.4 % (50.0-68.0) L 04/22/17 16:50 Lymph % (Auto) 35.1 % (22.0-35.0) H 04/22/17 16:50 [place] % (Auto) 13.2 % (1.0-6.0) H 04/22/17 16:50 Eos % (Auto) 4.4 % (1.5-5.0) 04/22/17 16:50 Baso % (Auto) 0.9 % (0.0-3.0) 04/22/17 16:50 Gran # 2.61 (1.4-6.5) 04/22/17 16:50 Lymph # 2.0 (1.2-3.4) 04/22/17 16:50 [place] # 0.7 (0.1-0.6) H 04/22/17 16:50 Eos # 0.3 (0.0-0.7) 04/22/17 16:50 Baso # 0.05 K/mm3 (0.0-2.0) 04/22/17 16:50 PT 12.7 Seconds (9.9-11.8) H 04/22/17 16:50 INR 1.18 (0.93-1.08) H 04/22/17 16:50 APTT 27.1 Seconds (23.7-30.8) 04/22/17 16:50 pO2 47 mm/Hg (30-55) 04/22/17 16:50 VBG pH 7.43 (7.32-7.43) 04/22/17 16:50 VBG pCO2 46.0 (40-60) 04/22/17 16:50 VBG HCO3 30.5 mmol/l (21-28) H 04/22/17 16:50 VBG Total CO2 31.9 mmol.L (22-28) H 04/22/17 16:50 VBG O2 Sat (Calc) 84.9 % (40-65) H 04/22/17 16:50 VBG Base Excess 5.4 mmol/L (0.0-2.0) H 04/22/17 16:50 VBG Potassium 5.3 mmol/L (3.6-5.2) H 04/22/17 16:50 Sodium 140.0 mmol/L (132-148) 04/22/17 16:50 Chloride 108.0 mmol/L (98-107) H 04/22/17 16:50 Glucose 96 mg/dl (65-105) 04/22/17 16:50 Lactate 1.7 mmol/L (0.7-2.1) 04/22/17 16:50 FiO2 21.0 % 04/22/17 16:50 Sodium 140 mmol/L (132-148) 04/22/17 17:45 Potassium 3.9 mmol/L (3.6-5.0) 04/22/17 17:45 Chloride 107 mmol/L (98-107) 04/22/17 17:45 Carbon Dioxide 27 mmol/L (21-33) 04/22/17 17:45 Anion Gap 10 (10-20) 04/22/17 17:45 BUN 10 mg/dL (7-21) 04/22/17 17:45 Creatinine 0.9 mg/dL (0.5-1.4) 04/22/17 17:45 Est GFR ( Amer) > 60 04/22/17 17:45 Est GFR (Non-Af Amer) > 60 04/22/17 17:45 Random Glucose 86 mg/dL (70-110) 04/22/17 17:45 Calcium 9.6 mg/dL (8.4-10.5) 04/22/17 17:45 Total Bilirubin 0.4 mg/dL (0.2-1.3) 04/22/17 17:45 Direct Bilirubin 0.3 mg/dL (0.0-0.4) 04/22/17 17:45 AST 40 U/L (15-39) H 04/22/17 17:45 ALT 62 U/L (7-56) H 04/22/17 17:45 Alkaline Phosphatase 48 U/L (38-133) 04/22/17 17:45 Lactate Dehydrogenase 587 U/L (333-699) 04/22/17 17:45 Total Creatine Kinase 39 U/L (35-230) 04/22/17 17:45 Troponin I < 0.01 ng/mL D 04/22/17 17:45 Total Protein 5.7 g/dL (5.8-8.3) L 04/22/17 17:45 Albumin 2.8 g/dL (3.0-4.8) L 04/22/17 17:45 Globulin 2.9 gm/dL 04/22/17 17:45 Albumin/Globulin Ratio 1.0 (1.1-1.8) L 04/22/17 17:45 Amylase 39 U/L (35-125) 04/22/17 17:45 Lipase 37 U/L (23-300) 04/22/17 17:45 Venous Blood Potassium 5.3 mmol/L (3.6-5.2) H 04/22/17 16:50 - Constitutional Appears: Well, No Acute Distress - Head Exam Head Exam: ATRAUMATIC, NORMAL INSPECTION, NORMOCEPHALIC - Eye Exam Eye Exam: Normal appearance - ENT Exam ENT Exam: Normal External Ear Exam - Neck Exam Neck Exam: Normal Inspection - Respiratory Exam Respiratory Exam: NORMAL BREATHING PATTERN - Cardiovascular Exam Cardiovascular Exam: absent: JVD - GI/Abdominal Exam GI & Abdominal Exam: Tenderness (Mild RLQ abdominal tendereness present.). absent: Distended - Rectal Exam Rectal Exam: Deferred - Exam Additional comments: Deferred. - Extremities Exam Extremities Exam: Normal Inspection - Back Exam Back Exam: NORMAL INSPECTION - Neurological Exam Neurological Exam: Alert, Oriented x3 - Psychiatric Exam Psychiatric exam: Normal Affect, Normal Mood - Skin Skin Exam: Dry Assessment and Plan - Assessment and Plan (Free Text) Assessment: Nausea & Vomiting. PNA. Anemia. HIV. HTN. Asthma. Lymphoma. Plan: Zofran 4 mg IV was given. Then, Reglan 10 mg IV was given. D5 1/2 NS was ordered . Nebulizer treatment was ordered. Continue management as per PMD.
[2017-04-23] MEDS ORDERED: Albuterol-Ipratrop 3 mg / 0.5 (3 ml) UD IH STA (01:15)
[2017-04-23] MEDS: Dextrose 5%/0.45% NS 1,000 ML IV SCH ×2 (01:20→13:38)
--- NOTE | 2017-04-23 06:13 | CP.PCM.PN ---
Subjective - Date & Time of Evaluation Date of Evaluation: 04/23/17 Time of Evaluation: 06:12 - Subjective Subjective: # 22 angiocath was inserted in left hand. Dx:Poor venous access. Objective - Vital Signs/Intake and Output Vital Signs (last 24 hours): Temp Pulse Resp BP Pulse Ox 97.6 F 86 20 144/74 99 04/22/17 23:01 04/22/17 23:01 04/22/17 23:01 04/22/17 23:01 04/22/17 17:53 - Medications Medications: Current Medications Albuterol/Ipratropium (Duoneb 3 Mg/0.5 Mg (3 Ml) Ud) 3 ml IH [id number] PRN PRN Reason: sob/wheezing Dextrose/Sodium Chloride (Dextrose 5%/0.45% Ns 1000 Ml) 1,000 mls @ 80 mls/hr IV .[id number] GABRIEL Last Admin: 04/23/17 01:20 Dose: 80 mls/hr - Labs Labs: PT 12.7 Seconds (9.9-11.8) H 04/22/17 16:50 INR 1.18 (0.93-1.08) H 04/22/17 16:50 APTT 27.1 Seconds (23.7-30.8) 04/22/17 16:50
[2017-04-23] MEDS: Albuterol-Ipratrop 3 mg / 0.5 (3 ml) UD IH PRN (06:19)
--- NOTE | 2017-04-23 07:40 | RAD ---
HISTORY: vomiting COMPARISON: Comparison chest dated 12/01/2016 TECHNIQUE: Chest PA and lateral FINDINGS: LUNGS: Poor inspiration with low lung volumes, crowded bronchovascular markings and mild bibasilar atelectasis right greater than left PLEURA: No significant pleural effusion identified. No pneumothorax apparent. CARDIOVASCULAR: Normal. OSSEOUS STRUCTURES: No significant abnormalities. VISUALIZED UPPER ABDOMEN: Normal. OTHER FINDINGS: None. IMPRESSION: Poor inspiration with low lung volumes, crowded bronchovascular markings and mild bibasilar atelectasis right greater than left
--- NOTE | 2017-04-23 09:56 | CARD ---
APPROVED REPORT EKG Measurement Heart [id number] <Conclusion> Normal sinus rhythm Leftward axis PRWP Mildly prolonged QTc No change
[2017-04-23] MEDS ORDERED: Apap-Butalbital-Caffeine 325-50-40mg Tab PO PRN (10:27)
[2017-04-23] MEDS ORDERED: Home Med 1 UNIT PO SCH (10:30)
[2017-04-23] MEDS: Enoxaparin 30 mg Syringe SC SCH (10:42)
--- NOTE | 2017-04-23 16:54 | CP.PCM.HP ---
History of Present Illness - History of Present Illness History of Present Illness: 61 yo female, HIV pos, presents to ER from [facility] with cough, sob, fever , N/V Present on Admission - Present on Admission Any Indicators Present on Admission: No History of DVT/PE: No History of Uncontrolled Diabetes: No Urinary Catheter: No Decubitus Ulcer Present: No Past Patient History - Infectious Disease Hx of Infectious Diseases: None - Tetanus Immunizations Tetanus Immunization: Unknown - Past Social History Smoking Status: Former Smoker - CARDIAC Hx Cardiac Disorders: Yes - PULMONARY Hx Respiratory Disorders: Yes Hx Asthma: Yes - NEUROLOGICAL Hx Neurological Disorder: No - HEENT Hx HEENT Problems: Yes - RENAL Hx Chronic Kidney Disease: No - ENDOCRINE/METABOLIC Hx Endocrine Disorders: No - HEMATOLOGICAL/ONCOLOGICAL Hx Blood Disorders: Yes Hx AIDS: Yes - INTEGUMENTARY Hx Dermatological Problems: No - MUSCULOSKELETAL/RHEUMATOLOGICAL Hx Falls: Yes - GASTROINTESTINAL Hx Gastrointestinal Disorders: Yes Hx Gastroesophageal Reflux: Yes - GENITOURINARY/GYNECOLOGICAL Hx Genitourinary Disorders: No - PSYCHIATRIC Hx Psychophysiologic Disorder: No Hx Depression: No - SURGICAL HISTORY Hx Orthopedic Surgery: Yes (left knee surgery) Other/Comment: S/P FALL - ANESTHESIA Hx Anesthesia Reactions: No Hx Malignant Hyperthermia: No Meds Allergies/Adverse Reactions: Allergies Allergy/AdvReac Type Severity Reaction Status Date / Time Penicillins Allergy SWELLING Verified 01/20/17 15:00 Results - Vital Signs Recent Vital Signs: Last Vital Signs Temp 97.7 F 04/23/17 08:47 Pulse 89 04/23/17 08:47 Resp 20 04/23/17 08:47 BP 148/79 04/23/17 08:47 Pulse Ox 96 04/23/17 08:47 - Labs Result Diagrams: 04/22/17 16:50 04/22/17 17:45 Assessment & Plan (1) Pneumonia Status: Acute (2) Vomiting Status: Acute (3) Asthma exacerbation Status: Acute (4) HIV (human immunodeficiency virus infection) Status: Acute
--- NOTE | 2017-04-23 21:34 | CP.PCM.CON ---
History of Present Illness - History of Present Illness History of Present Illness: Infectious Disease Consultation: April 23, 2017 61 yo female with presentation SOB, cough, nausea/vomiting, and RUQ abdominal pain. On last hospitalization, the patient had repair of left knee laceration after falling in the street when tripping on a pothole. The patient is known to have HIV and is on HAART treatment. CD4 is reported as 940 with an undetectable viral load on last check. The patient without leukocytosis. No fevers observed in hospital. Anxiety issues. No leukocytosis. Received Levaquin and Vancomcyin in the ER. Continuing Levaquin at this time. Small ground-glass opacity at lung bases on last hospitalization. Patient readmitted for the RUQ abdominal pain, nausea/vomiting, cough, and SOB. PMHx: Hypertension, Asthma, HIV, lymphoma, anxiety. PSHx: hysterectomy, appendectomy, nephrectomy Allergies: PCN Social Hx: No EtOH or illicit drug use. 40 pack year tobacco use history. Active Medications Acetaminophen (Tylenol 325mg Tab) 650 mg PO Q6H PRN PRN Reason: Pain, Mild (1-3) Acetaminophen/Butalbital/Caffeine (Fioricet) 1 tab PO Q6H PRN PRN Reason: Headache Albuterol/Ipratropium (Duoneb 3 Mg/0.5 Mg (3 Ml) Ud) 3 ml IH [id number] PRN PRN Reason: sob/wheezing Last Admin: 04/23/17 06:19 Dose: 3 ml Alprazolam (Xanax) 1 mg PO TID PRN; Protocol PRN Reason: Anxiety Enoxaparin Sodium (Lovenox) 30 mg SC DAILY [facility] PRN Reason: Protocol Last Admin: 04/23/17 10:42 Dose: 30 mg Famotidine (Pepcid) 20 mg PO 1000,2200 [facility] Home Med (Home Med) 0 unit PO DAILY [facility] Dextrose/Sodium Chloride (Dextrose 5%/0.45% Ns 1000 Ml) 1,000 mls @ 80 mls/hr IV .[id number] [facility] Last Admin: 04/23/17 13:38 Dose: 80 mls/hr Indomethacin (Indocin) 25 mg PO TID [facility] Last Admin: 04/23/17 17:21 Dose: 25 mg Levofloxacin/Dextrose (Levaquin 750mg) 750 mg IVPB DAILY [facility] Metoprolol Succinate (Toprol Xl) 50 mg PO BRK [facility] Ondansetron HCl (Zofran Inj) 4 mg IVP Q6H PRN PRN Reason: Nausea/Vomiting Last Admin: 04/23/17 20:41 Dose: 4 mg Oxycodone/Acetaminophen (Percocet 5/325 Mg Tab) 1 tab PO Q6H PRN PRN Reason: Pain, severe (8-10) Stop: 04/26/17 10:29 Raltegravir (Isentress) 400 mg PO BID [facility] Last Admin: 04/23/17 17:21 Dose: 400 mg Ritonavir (Norvir) 100 mg PO BRKDIN [facility] Last Admin: 04/23/17 17:21 Dose: 100 mg Family Hx: none ROS: Patient with leg rash, cough, SOB, wheezing, and RUQ abdominal pain. No subjective fever. No melena, hematuria, hematemesis, hematochezia, depression, anxiety. Past Patient History - Infectious Disease Hx of Infectious Diseases: None - Tetanus Immunizations Tetanus Immunization: Unknown - Past Social History Smoking Status: Former Smoker - CARDIAC Hx Cardiac Disorders: Yes - PULMONARY Hx Respiratory Disorders: Yes Hx Asthma: Yes - NEUROLOGICAL Hx Neurological Disorder: No - HEENT Hx HEENT Problems: Yes - RENAL Hx Chronic Kidney Disease: No - ENDOCRINE/METABOLIC Hx Endocrine Disorders: No - HEMATOLOGICAL/ONCOLOGICAL Hx Blood Disorders: Yes Hx AIDS: Yes - INTEGUMENTARY Hx Dermatological Problems: No - MUSCULOSKELETAL/RHEUMATOLOGICAL Hx Falls: Yes - GASTROINTESTINAL Hx Gastrointestinal Disorders: Yes Hx Gastroesophageal Reflux: Yes - GENITOURINARY/GYNECOLOGICAL Hx Genitourinary Disorders: No - PSYCHIATRIC Hx Psychophysiologic Disorder: No Hx Depression: No - SURGICAL HISTORY Hx Orthopedic Surgery: Yes (left knee surgery) Other/Comment: S/P FALL - ANESTHESIA Hx Anesthesia Reactions: No Hx Malignant Hyperthermia: No Meds Allergies/Adverse Reactions: Allergies Allergy/AdvReac Type Severity Reaction Status Date / Time Penicillins Allergy SWELLING Verified 01/20/17 15:00 - Medications Medications: Current Medications Acetaminophen (Tylenol 325mg Tab) 650 mg PO Q6H PRN PRN Reason: Pain, Mild (1-3) Acetaminophen/Butalbital/Caffeine (Fioricet) 1 tab PO Q6H PRN PRN Reason: Headache Albuterol/Ipratropium (Duoneb 3 Mg/0.5 Mg (3 Ml) Ud) 3 ml IH [id number] PRN PRN Reason: sob/wheezing Last Admin: 04/23/17 06:19 Dose: 3 ml Alprazolam (Xanax) 1 mg PO TID PRN; Protocol PRN Reason: Anxiety Enoxaparin Sodium (Lovenox) 30 mg SC DAILY [facility] PRN Reason: Protocol Last Admin: 04/23/17 10:42 Dose: 30 mg Famotidine (Pepcid) 20 mg PO 1000,2200 [facility] Home Med (Home Med) 0 unit PO DAILY [facility] Dextrose/Sodium Chloride (Dextrose 5%/0.45% Ns 1000 Ml) 1,000 mls @ 80 mls/hr IV .[id number] [facility] Last Admin: 04/23/17 13:38 Dose: 80 mls/hr Indomethacin (Indocin) 25 mg PO TID [facility] Last Admin: 04/23/17 17:21 Dose: 25 mg Levofloxacin/Dextrose (Levaquin 750mg) 750 mg IVPB DAILY [facility] Metoprolol Succinate (Toprol Xl) 50 mg PO BRK [facility] Ondansetron HCl (Zofran Inj) 4 mg IVP Q6H PRN PRN Reason: Nausea/Vomiting Last Admin: 04/23/17 20:41 Dose: 4 mg Oxycodone/Acetaminophen (Percocet 5/325 Mg Tab) 1 tab PO Q6H PRN PRN Reason: Pain, severe (8-10) Stop: 04/26/17 10:29 Raltegravir (Isentress) 400 mg PO BID [facility] Last Admin: 04/23/17 17:21 Dose: 400 mg Ritonavir (Norvir) 100 mg PO BRKDIN [facility] Last Admin: 04/23/17 17:21 Dose: 100 mg Physical Exam - Constitutional Appears: Non-toxic, No Acute Distress, Chronically Ill - Head Exam Head Exam: ATRAUMATIC, NORMOCEPHALIC - Eye Exam Eye Exam: EOMI, PERRL Pupil Exam: NORMAL ACCOMODATION, PERRL - Respiratory Exam Respiratory Exam: Clear to Auscultation Bilateral, NORMAL BREATHING PATTERN. absent: Rales, Rhonchi, Wheezes - Cardiovascular Exam Cardiovascular Exam: REGULAR RHYTHM, RRR, +S1, +S2 - GI/Abdominal Exam GI & Abdominal Exam: Normal Bowel Sounds, Soft, Tenderness. absent: Distended - Extremities Exam Extremities exam: Positive for: full ROM, normal inspection - Neurological Exam Neurological exam: Alert, CN II-XII Intact, Oriented x3, Reflexes Normal - Psychiatric Exam Psychiatric exam: Agitated, Anxious, Normal Affect, Normal Mood - Skin Skin Exam: Intact, Normal Color Results - Vital Signs Recent Vital Signs: Last Vital Signs Temp 98.2 F 04/23/17 16:00 Pulse 93 H 04/23/17 16:00 Resp 20 04/23/17 16:00 BP 143/86 04/23/17 16:00 Pulse Ox 95 04/23/17 16:00 - Labs Result Diagrams: 04/22/17 16:50 04/22/17 17:45 Assessment & Plan - Assessment and Plan (Free Text) Assessment: 61 yo female with RUQ abdominal pain, SOB, cough. No fevers or chills. No leukocytosis. Patient is awake and alert. She appears comfortable. Supportive care. Continue on Levaquin PO for now. Relatively recent hospitalization to [facility]. Supportive care. PCN allergies. Supportive care. HIV on HAART. She is compliant with medications. Good CD4 count and HIV viral load. Potential pneumonia. Patient with anxiety issues. Thank you for allowing me to participate in the care of the patient, we will follow with you.
[2017-04-24] MEDS: Oxycodone/Acetaminophen 5/325 mg Tab PO PRN (00:44)
[2017-04-24] MEDS: Dextrose 5%/0.45% NS 1,000 ML IV SCH ×2 (05:33→14:25)
[2017-04-24] MEDS: Metoprolol Succinate 50 mg XL Tab PO SCH (08:03)
[2017-04-24] MEDS: levoFLOXacin 750 mg in D5W 150 ML BAG IVPB SCH (09:38)
[2017-04-24] MEDS: Enoxaparin 30 mg Syringe SC SCH (09:38)
[2017-04-24] MEDS: Albuterol-Ipratrop 3 mg / 0.5 (3 ml) UD IH PRN (09:39)
[2017-04-24] MEDS: PREZISTA 800 MG PO SCH ×3 (09:40→12:30)
[2017-04-24] MEDS ORDERED: PREZISTA 800 MG PO SCH (12:08)
--- NOTE | 2017-04-24 13:35 | CP.PCM.PN ---
Subjective - Date & Time of Evaluation Date of Evaluation: 04/24/17 Time of Evaluation: 09:15 - Subjective Subjective: feels better today. no n/v Objective - Vital Signs/Intake and Output Vital Signs (last 24 hours): Temp Pulse Resp BP Pulse Ox 98.4 F 99 H 19 134/80 86 L 04/24/17 09:10 04/24/17 09:10 04/24/17 09:10 04/24/17 09:10 04/24/17 09:10 Intake and Output: 04/24/17 04/24/17 06:59 18:59 Intake Total 2280 0 Output Total 0 Balance 2280 0 - Medications Medications: Current Medications Acetaminophen (Tylenol 325mg Tab) 650 mg PO Q6H PRN PRN Reason: Pain, Mild (1-3) Acetaminophen/Butalbital/Caffeine (Fioricet) 1 tab PO Q6H PRN PRN Reason: Headache Albuterol/Ipratropium (Duoneb 3 Mg/0.5 Mg (3 Ml) Ud) 3 ml IH [id number] PRN PRN Reason: sob/wheezing Last Admin: 04/24/17 09:39 Dose: 3 ml Alprazolam (Xanax) 1 mg PO TID PRN; Protocol PRN Reason: Anxiety Enoxaparin Sodium (Lovenox) 30 mg SC DAILY [facility] PRN Reason: Protocol Last Admin: 04/24/17 09:38 Dose: 30 mg Famotidine (Pepcid) 20 mg PO 1000,2200 [facility] Last Admin: 04/24/17 09:39 Dose: 20 mg Home Med (Home Med) 0 unit PO DAILY [facility] Last Admin: 04/24/17 12:30 Dose: Not Given Dextrose/Sodium Chloride (Dextrose 5%/0.45% Ns 1000 Ml) 1,000 mls @ 80 mls/hr IV .[id number] [facility] Last Admin: 04/24/17 05:33 Dose: 80 mls/hr Indomethacin (Indocin) 25 mg PO TID [facility] Last Admin: 04/24/17 09:39 Dose: 25 mg Levofloxacin/Dextrose (Levaquin 750mg) 750 mg IVPB DAILY [facility] Last Admin: 04/24/17 09:38 Dose: 750 mg Metoprolol Succinate (Toprol Xl) 50 mg PO BRK [facility] Last Admin: 04/24/17 08:03 Dose: 50 mg Ondansetron HCl (Zofran Inj) 4 mg IVP Q6H PRN PRN Reason: Nausea/Vomiting Last Admin: 04/23/17 20:41 Dose: 4 mg Oxycodone/Acetaminophen (Percocet 5/325 Mg Tab) 1 tab PO Q6H PRN PRN Reason: Pain, severe (8-10) Stop: 04/26/17 10:29 Last Admin: 04/24/17 00:44 Dose: 1 tab Raltegravir (Isentress) 400 mg PO BID [facility] Last Admin: 04/24/17 09:39 Dose: 400 mg Ritonavir (Norvir) 100 mg PO BRKDIN [facility] Last Admin: 04/24/17 08:03 Dose: 100 mg - Labs Labs: PT 12.7 Seconds (9.9-11.8) H 04/22/17 16:50 INR 1.18 (0.93-1.08) H 04/22/17 16:50 APTT 27.1 Seconds (23.7-30.8) 04/22/17 16:50 - Respiratory Exam Respiratory Exam: Rhonchi (R base) - Cardiovascular Exam Cardiovascular Exam: REGULAR RHYTHM - GI/Abdominal Exam GI & Abdominal Exam: Soft, Normal Bowel Sounds Assessment and Plan (1) Pneumonia Status: Acute (2) Vomiting Status: Acute (3) Asthma exacerbation Status: Acute (4) HIV (human immunodeficiency virus infection) Status: Acute - Assessment and Plan (Free Text) Plan: ID consult Dr. Carr appreciated/on IV Levaquin, contine wound care, for d/c planning
--- NOTE | 2017-04-24 18:29 | CP.PCM.PN ---
Subjective - Date & Time of Evaluation Date of Evaluation: 04/24/17 Time of Evaluation: 17:15 - Subjective Subjective: Infectious Disease Follow Up: April 24, 2017 61 yo female with presentation SOB, cough, nausea/vomiting, and RUQ abdominal pain. On last hospitalization, the patient had repair of left knee laceration after falling in the street when tripping on a pothole. The patient is known to have HIV and is on HAART treatment. CD4 is reported as 940 with an undetectable viral load on last check. The patient without leukocytosis. No fevers observed in hospital. Anxiety issues. No leukocytosis. Received Levaquin and Vancomcyin in the ER. Continuing Levaquin at this time. Small ground-glass opacity at lung bases on last hospitalization. Patient readmitted for the RUQ abdominal pain, nausea/vomiting, cough, and SOB. Patient states that she feels better today. Objective - Vital Signs/Intake and Output Vital Signs (last 24 hours): Temp Pulse Resp BP Pulse Ox 98.5 F 85 20 121/86 97 04/24/17 16:00 04/24/17 16:00 04/24/17 16:00 04/24/17 16:00 04/24/17 16:00 Intake and Output: 04/24/17 04/24/17 06:59 18:59 Intake Total 2280 720 Output Total 300 Balance 2280 420 - Medications Medications: Current Medications Acetaminophen (Tylenol 325mg Tab) 650 mg PO Q6H PRN PRN Reason: Pain, Mild (1-3) Acetaminophen/Butalbital/Caffeine (Fioricet) 1 tab PO Q6H PRN PRN Reason: Headache Albuterol/Ipratropium (Duoneb 3 Mg/0.5 Mg (3 Ml) Ud) 3 ml IH [id number] PRN PRN Reason: sob/wheezing Last Admin: 04/24/17 09:39 Dose: 3 ml Alprazolam (Xanax) 1 mg PO TID PRN; Protocol PRN Reason: Anxiety Enoxaparin Sodium (Lovenox) 30 mg SC DAILY [facility] PRN Reason: Protocol Last Admin: 04/24/17 09:38 Dose: 30 mg Famotidine (Pepcid) 20 mg PO 1000,2200 [facility] Last Admin: 04/24/17 09:39 Dose: 20 mg Home Med (Home Med) 0 unit PO DAILY [facility] Last Admin: 04/24/17 12:30 Dose: Not Given Dextrose/Sodium Chloride (Dextrose 5%/0.45% Ns 1000 Ml) 1,000 mls @ 80 mls/hr IV .[id number] [facility] Last Admin: 04/24/17 14:25 Dose: Not Given Indomethacin (Indocin) 25 mg PO TID [facility] Last Admin: 04/24/17 17:35 Dose: 25 mg Levofloxacin/Dextrose (Levaquin 750mg) 750 mg IVPB DAILY [facility] Last Admin: 04/24/17 09:38 Dose: 750 mg Metoprolol Succinate (Toprol Xl) 50 mg PO BRK [facility] Last Admin: 04/24/17 08:03 Dose: 50 mg Ondansetron HCl (Zofran Inj) 4 mg IVP Q6H PRN PRN Reason: Nausea/Vomiting Last Admin: 04/23/17 20:41 Dose: 4 mg Oxycodone/Acetaminophen (Percocet 5/325 Mg Tab) 1 tab PO Q6H PRN PRN Reason: Pain, severe (8-10) Stop: 04/26/17 10:29 Last Admin: 04/24/17 00:44 Dose: 1 tab Raltegravir (Isentress) 400 mg PO BID [facility] Last Admin: 04/24/17 17:35 Dose: 400 mg Ritonavir (Norvir) 100 mg PO BRKDIN [facility] Last Admin: 04/24/17 17:35 Dose: 100 mg - Labs Labs: PT 12.7 Seconds (9.9-11.8) H 04/22/17 16:50 INR 1.18 (0.93-1.08) H 04/22/17 16:50 APTT 27.1 Seconds (23.7-30.8) 04/22/17 16:50 - Constitutional Appears: Non-toxic, No Acute Distress, Chronically Ill - Head Exam Head Exam: ATRAUMATIC, NORMOCEPHALIC - Eye Exam Eye Exam: EOMI, PERRL Pupil Exam: NORMAL ACCOMODATION, PERRL - ENT Exam ENT Exam: Mucous Membranes Moist, Normal External Ear Exam, TM's Normal Bilaterally - Neck Exam Neck Exam: Full ROM, Normal Inspection - Respiratory Exam Respiratory Exam: Decreased Breath Sounds, NORMAL BREATHING PATTERN. absent: Rales, Rhonchi, Wheezes - Cardiovascular Exam Cardiovascular Exam: REGULAR RHYTHM, RRR, +S1, +S2 - GI/Abdominal Exam GI & Abdominal Exam: Soft, Normal Bowel Sounds. absent: Distended, Tenderness - Extremities Exam Extremities Exam: Full ROM, Normal Inspection - Neurological Exam Neurological Exam: Alert, Awake, CN II-XII Intact, Oriented x3 - Psychiatric Exam Psychiatric exam: Normal Affect, Normal Mood - Skin Skin Exam: Intact, Normal Color Assessment and Plan - Assessment and Plan (Free Text) Assessment: 61 yo female with RUQ abdominal pain, SOB, cough. No fevers or chills. No leukocytosis. Patient is awake and alert. She appears comfortable. Supportive care. Continue on Levaquin PO for now. Relatively recent hospitalization to [facility]. Supportive care. PCN allergies. Supportive care. HIV on HAART. She is compliant with medications. Good CD4 count and HIV viral load. Potential pneumonia. Patient with anxiety issues. Patient states that she feels better today. Thank you for allowing me to participate in the care of the patient, we will follow with you.
--- NOTE | 2017-04-24 23:10 | CP.PCM.CON ---
History of Present Illness - History of Present Illness History of Present Illness: 61 year old female, with a history of hypertension, asthma, appendectomy, cholecystectomy, hysterectomy, and HIV, suspected sleep apnea syndrome presents to the emergency department complaining of right upper quadrant abdominal pain associated with nausea/vomiting, cough, and sob for the past 3 days. Patient recently had a left knee surgery following fall last week and was transferred to a rehabilitation center Review of Systems - Review of Systems Systems not reviewed;Unavailable: Acuity of Condition - Constitutional Constitutional: Daytime Sleepiness, Snoring, Sleep Apnea. absent: Headache - EENT Eyes: absent: Blurred Vision, Diplopia, Discharge, Itchy Eyes Ears: absent: Ear Discharge, Ear Pain Nose/Mouth/Throat: absent: Nasal Congestion, Nose Pain, Dysphagia, Hoarsness - Cardiovascular Cardiovascular: Dyspnea, Orthopnea - Respiratory Respiratory: Cough, Dyspnea, Wheezing, Snoring, Chest Congestion. absent: Hemoptysis, Stridor - Gastrointestinal Gastrointestinal: Abdominal Pain. absent: Belching, Bloating, Coffee Ground Emesis - Musculoskeletal Musculoskeletal: absent: Arthralgias, Back Pain - Neurological Neurological: absent: Dizziness, Numbness, Headaches, Syncope, Tingling - Psychiatric Psychiatric: Anxiety - Endocrine Endocrine: Fatigue. absent: Excessive Sweating Past Patient History - Infectious Disease Hx of Infectious Diseases: None - Tetanus Immunizations Tetanus Immunization: Unknown - Past Social History Smoking Status: Former Smoker - CARDIAC Hx Cardiac Disorders: Yes - PULMONARY Hx Respiratory Disorders: Yes Hx Asthma: Yes - NEUROLOGICAL Hx Neurological Disorder: No - HEENT Hx HEENT Problems: Yes - RENAL Hx Chronic Kidney Disease: No - ENDOCRINE/METABOLIC Hx Endocrine Disorders: No - HEMATOLOGICAL/ONCOLOGICAL Hx Blood Disorders: Yes Hx AIDS: Yes - INTEGUMENTARY Hx Dermatological Problems: No - MUSCULOSKELETAL/RHEUMATOLOGICAL Hx Falls: Yes - GASTROINTESTINAL Hx Gastrointestinal Disorders: Yes Hx Gastroesophageal Reflux: Yes - GENITOURINARY/GYNECOLOGICAL Hx Genitourinary Disorders: No - PSYCHIATRIC Hx Psychophysiologic Disorder: No Hx Depression: No - SURGICAL HISTORY Hx Orthopedic Surgery: Yes (left knee surgery) Other/Comment: S/P FALL - ANESTHESIA Hx Anesthesia Reactions: No Hx Malignant Hyperthermia: No Meds Allergies/Adverse Reactions: Allergies Allergy/AdvReac Type Severity Reaction Status Date / Time Penicillins Allergy SWELLING Verified 01/20/17 15:00 - Medications Medications: Current Medications Acetaminophen (Tylenol 325mg Tab) 650 mg PO Q6H PRN PRN Reason: Pain, Mild (1-3) Acetaminophen/Butalbital/Caffeine (Fioricet) 1 tab PO Q6H PRN PRN Reason: Headache Albuterol/Ipratropium (Duoneb 3 Mg/0.5 Mg (3 Ml) Ud) 3 ml IH [id number] PRN PRN Reason: sob/wheezing Last Admin: 04/24/17 09:39 Dose: 3 ml Alprazolam (Xanax) 1 mg PO TID PRN; Protocol PRN Reason: Anxiety Enoxaparin Sodium (Lovenox) 30 mg SC DAILY [facility] PRN Reason: Protocol Last Admin: 04/24/17 09:38 Dose: 30 mg Famotidine (Pepcid) 20 mg PO 1000,2200 [facility] Last Admin: 04/24/17 21:21 Dose: 20 mg Home Med (Home Med) 0 unit PO DAILY [facility] Last Admin: 04/24/17 12:30 Dose: Not Given Dextrose/Sodium Chloride (Dextrose 5%/0.45% Ns 1000 Ml) 1,000 mls @ 80 mls/hr IV .[id number] [facility] Last Admin: 04/24/17 14:25 Dose: Not Given Indomethacin (Indocin) 25 mg PO TID [facility] Last Admin: 04/24/17 17:35 Dose: 25 mg Levofloxacin/Dextrose (Levaquin 750mg) 750 mg IVPB DAILY [facility] Last Admin: 04/24/17 09:38 Dose: 750 mg Metoprolol Succinate (Toprol Xl) 50 mg PO BRK [facility] Last Admin: 04/24/17 08:03 Dose: 50 mg Ondansetron HCl (Zofran Inj) 4 mg IVP Q6H PRN PRN Reason: Nausea/Vomiting Last Admin: 04/23/17 20:41 Dose: 4 mg Oxycodone/Acetaminophen (Percocet 5/325 Mg Tab) 1 tab PO Q6H PRN PRN Reason: Pain, severe (8-10) Stop: 04/26/17 10:29 Last Admin: 04/24/17 00:44 Dose: 1 tab Raltegravir (Isentress) 400 mg PO BID [facility] Last Admin: 04/24/17 17:35 Dose: 400 mg Ritonavir (Norvir) 100 mg PO BRKDIN [facility] Last Admin: 04/24/17 17:35 Dose: 100 mg Physical Exam - Constitutional Appears: No Acute Distress - Head Exam Head Exam: ATRAUMATIC, NORMAL INSPECTION, NORMOCEPHALIC - ENT Exam ENT Exam: Mucous Membranes Moist, Normal Exam - Neck Exam Neck exam: Positive for: Normal Inspection - Respiratory Exam Respiratory Exam: Prolonged Expiratory Phase, Wheezes - Cardiovascular Exam Cardiovascular Exam: REGULAR RHYTHM - Neurological Exam Neurological exam: Alert, CN II-XII Intact, Normal Gait, Oriented x3, Reflexes Normal Results - Vital Signs Recent Vital Signs: Last Vital Signs Temp 98.5 F 04/24/17 16:00 Pulse 85 04/24/17 16:00 Resp 20 04/24/17 16:00 BP 121/86 04/24/17 16:00 Pulse Ox 97 04/24/17 16:00 - Labs Result Diagrams: 04/22/17 16:50 04/22/17 17:45 - Imaging and Cardiology CT scan - abdomen Status: Report reviewed by me Assessment & Plan (1) CHANCE (obstructive sleep apnea) Assessment and Plan: c pap was sleeping, avoid sedatives, out patient sleep study Status: Acute (2) Pneumonia Assessment and Plan: antibiotics Status: Acute (3) HIV (human immunodeficiency virus infection) Assessment and Plan: continue meds Status: Acute (4) Laceration of knee, left, complicated Assessment and Plan: has dressing Status: Acute (5) Patella fracture Assessment and Plan: continue therapy Status: Acute
[2017-04-25] MEDS: Dextrose 5%/0.45% NS 1,000 ML IV SCH (03:28)
[2017-04-25] MEDS: Oxycodone/Acetaminophen 5/325 mg Tab PO PRN (03:28)
[2017-04-25] MEDS: Metoprolol Succinate 50 mg XL Tab PO SCH (08:33)
[2017-04-25] MEDS: levoFLOXacin 750 mg in D5W 150 ML BAG IVPB SCH (10:02)
[2017-04-25] MEDS: PREZISTA 800 MG PO SCH (10:04)
[2017-04-25] MEDS: Enoxaparin 30 mg Syringe SC SCH (10:04)
--- NOTE | 2017-04-25 13:08 | CP.PCM.PN ---
Subjective - Date & Time of Evaluation Date of Evaluation: 04/25/17 Time of Evaluation: 12:15 - Subjective Subjective: mild nausea, no vomiting, no cough, no sob Objective - Vital Signs/Intake and Output Vital Signs (last 24 hours): Temp Pulse Resp BP Pulse Ox 98.3 F 90 20 142/85 97 04/25/17 09:02 04/25/17 09:02 04/25/17 09:02 04/25/17 09:02 04/25/17 09:02 Intake and Output: 04/25/17 04/25/17 06:59 18:59 Intake Total 720 Output Total 500 Balance 220 - Medications Medications: Current Medications Acetaminophen (Tylenol 325mg Tab) 650 mg PO Q6H PRN PRN Reason: Pain, Mild (1-3) Acetaminophen/Butalbital/Caffeine (Fioricet) 1 tab PO Q6H PRN PRN Reason: Headache Albuterol/Ipratropium (Duoneb 3 Mg/0.5 Mg (3 Ml) Ud) 3 ml IH [id number] PRN PRN Reason: sob/wheezing Last Admin: 04/24/17 09:39 Dose: 3 ml Alprazolam (Xanax) 1 mg PO TID PRN; Protocol PRN Reason: Anxiety Last Admin: 04/25/17 11:38 Dose: 1 mg Enoxaparin Sodium (Lovenox) 30 mg SC DAILY [facility] PRN Reason: Protocol Last Admin: 04/25/17 10:04 Dose: 30 mg Famotidine (Pepcid) 20 mg PO 1000,2200 [facility] Last Admin: 04/25/17 10:10 Dose: 20 mg Home Med (Home Med) 0 unit PO DAILY [facility] Last Admin: 04/25/17 10:04 Dose: 1 unit Levofloxacin/Dextrose (Levaquin 750mg) 750 mg IVPB DAILY [facility] Last Admin: 04/25/17 10:02 Dose: 750 mg Metoprolol Succinate (Toprol Xl) 50 mg PO BRK [facility] Last Admin: 04/25/17 08:33 Dose: 50 mg Ondansetron HCl (Zofran Inj) 4 mg IVP Q6H PRN PRN Reason: Nausea/Vomiting Last Admin: 04/25/17 11:38 Dose: 4 mg Oxycodone/Acetaminophen (Percocet 5/325 Mg Tab) 1 tab PO Q6H PRN PRN Reason: Pain, severe (8-10) Stop: 04/26/17 10:29 Last Admin: 04/25/17 03:28 Dose: 1 tab Raltegravir (Isentress) 400 mg PO BID [facility] Last Admin: 04/25/17 10:09 Dose: 400 mg Ritonavir (Norvir) 100 mg PO BRKDIN [facility] Last Admin: 04/25/17 08:33 Dose: 100 mg - Labs Labs: PT 12.7 Seconds (9.9-11.8) H 04/22/17 16:50 INR 1.18 (0.93-1.08) H 04/22/17 16:50 APTT 27.1 Seconds (23.7-30.8) 04/22/17 16:50 - Constitutional Appears: Well - Head Exam Head Exam: ATRAUMATIC - Neck Exam Neck Exam: Normal Inspection - Respiratory Exam Respiratory Exam: Clear to Ausculation Bilateral, NORMAL BREATHING PATTERN - Cardiovascular Exam Cardiovascular Exam: REGULAR RHYTHM - GI/Abdominal Exam GI & Abdominal Exam: Soft, Normal Bowel Sounds - Neurological Exam Neurological Exam: Awake, Oriented x3 Assessment and Plan (1) Pneumonia Status: Acute (2) Vomiting Status: Resolved (3) Asthma exacerbation Status: Acute (4) HIV (human immunodeficiency virus infection) Status: Acute - Assessment and Plan (Free Text) Plan: check cxr, continue levaquin, ID follow-up
[2017-04-25] MEDS: Albuterol-Ipratrop 3 mg / 0.5 (3 ml) UD IH PRN (13:21)
--- NOTE | 2017-04-25 14:34 | CP.PCM.PN ---
Subjective - Date & Time of Evaluation Date of Evaluation: 04/25/17 Time of Evaluation: 13:00 - Subjective Subjective: 61 year old female, with a history of hypertension, asthma, appendectomy, cholecystectomy, hysterectomy, and HIV, suspected sleep apnea syndrome presents to the emergency department complaining of right upper quadrant abdominal pain associated with nausea/vomiting, cough, and sob for the past 3 days. Patient recently had a left knee surgery following fall last week and was transferred to a rehabilitation center 04/25/2017: could not use B PAP last night, lag swelling Objective - Vital Signs/Intake and Output Vital Signs (last 24 hours): Temp Pulse Resp BP Pulse Ox 98.3 F 90 20 142/85 97 04/25/17 09:02 04/25/17 09:02 04/25/17 09:02 04/25/17 09:02 04/25/17 09:02 Intake and Output: 04/25/17 04/25/17 06:59 18:59 Intake Total 720 Output Total 500 Balance 220 - Medications Medications: Current Medications Acetaminophen (Tylenol 325mg Tab) 650 mg PO Q6H PRN PRN Reason: Pain, Mild (1-3) Acetaminophen/Butalbital/Caffeine (Fioricet) 1 tab PO Q6H PRN PRN Reason: Headache Albuterol/Ipratropium (Duoneb 3 Mg/0.5 Mg (3 Ml) Ud) 3 ml IH [id number] PRN PRN Reason: sob/wheezing Last Admin: 04/25/17 13:21 Dose: 3 ml Alprazolam (Xanax) 1 mg PO TID PRN; Protocol PRN Reason: Anxiety Last Admin: 04/25/17 11:38 Dose: 1 mg Enoxaparin Sodium (Lovenox) 30 mg SC DAILY [facility] PRN Reason: Protocol Last Admin: 04/25/17 10:04 Dose: 30 mg Famotidine (Pepcid) 20 mg PO 1000,2200 [facility] Last Admin: 04/25/17 10:10 Dose: 20 mg Home Med (Home Med) 0 unit PO DAILY [facility] Last Admin: 04/25/17 10:04 Dose: 1 unit Levofloxacin/Dextrose (Levaquin 750mg) 750 mg IVPB DAILY [facility] Last Admin: 04/25/17 10:02 Dose: 750 mg Metoprolol Succinate (Toprol Xl) 50 mg PO BRK [facility] Last Admin: 04/25/17 08:33 Dose: 50 mg Ondansetron HCl (Zofran Inj) 4 mg IVP Q6H PRN PRN Reason: Nausea/Vomiting Last Admin: 04/25/17 11:38 Dose: 4 mg Oxycodone/Acetaminophen (Percocet 5/325 Mg Tab) 1 tab PO Q6H PRN PRN Reason: Pain, severe (8-10) Stop: 04/26/17 10:29 Last Admin: 04/25/17 03:28 Dose: 1 tab Raltegravir (Isentress) 400 mg PO BID [facility] Last Admin: 04/25/17 10:09 Dose: 400 mg Ritonavir (Norvir) 100 mg PO BRKDIN [facility] Last Admin: 04/25/17 08:33 Dose: 100 mg - Labs Labs: PT 12.7 Seconds (9.9-11.8) H 04/22/17 16:50 INR 1.18 (0.93-1.08) H 04/22/17 16:50 APTT 27.1 Seconds (23.7-30.8) 04/22/17 16:50 - Constitutional Appears: No Acute Distress - Head Exam Head Exam: ATRAUMATIC, NORMAL INSPECTION, NORMOCEPHALIC - ENT Exam ENT Exam: Mucous Membranes Moist, Normal Exam - Neck Exam Neck Exam: Full ROM, Normal Inspection. absent: Lymphadenopathy - Respiratory Exam Respiratory Exam: Rhonchi - Cardiovascular Exam Cardiovascular Exam: REGULAR RHYTHM, +S1, +S2. absent: Murmur - GI/Abdominal Exam GI & Abdominal Exam: Soft, Normal Bowel Sounds. absent: Tenderness - Extremities Exam Extremities Exam: Calf Tenderness, Pedal Edema - Neurological Exam Neurological Exam: Alert, Awake, CN II-XII Intact, Normal Gait, Oriented x3 - Psychiatric Exam Psychiatric exam: Normal Affect, Normal Mood - Skin Skin Exam: Dry, Intact, Normal Color, Warm Assessment and Plan (1) CHANCE (obstructive sleep apnea) Assessment & Plan: encourage C PAP use, sleep apnea precaution Status: Acute (2) Pneumonia Assessment & Plan: on antibiotics Status: Acute (3) HIV (human immunodeficiency virus infection) Assessment & Plan: continue treatment Status: Acute (4) Laceration of knee, left, complicated Assessment & Plan: supportive care, venous dupp Status: Acute (5) Patella fracture Assessment & Plan: s/p surgery Status: Acute
--- NOTE | 2017-04-25 14:45 | CP.PCM.PN ---
Subjective - Date & Time of Evaluation Date of Evaluation: 04/25/17 Time of Evaluation: 14:15 - Subjective Subjective: Infectious Disease Follow Up: April 25, 2017 61 yo female with presentation SOB, cough, nausea/vomiting, and RUQ abdominal pain. On last hospitalization, the patient had repair of left knee laceration after falling in the street when tripping on a pothole. The patient is known to have HIV and is on HAART treatment. CD4 is reported as 940 with an undetectable viral load on last check. The patient without leukocytosis. No fevers observed in hospital. Anxiety issues. No leukocytosis. Received Levaquin and Vancomcyin in the ER. Continuing Levaquin at this time. Small ground-glass opacity at lung bases on last hospitalization. Patient readmitted for the RUQ abdominal pain, nausea/vomiting, cough, and SOB. Patient states that she feels better today. Saturating 97% on room air today. She appears comfortable. The left knee appears to be healing although slowly. Objective - Vital Signs/Intake and Output Vital Signs (last 24 hours): Temp Pulse Resp BP Pulse Ox 98.3 F 90 20 142/85 97 04/25/17 09:02 04/25/17 09:02 04/25/17 09:02 04/25/17 09:02 04/25/17 09:02 Intake and Output: 04/25/17 04/25/17 06:59 18:59 Intake Total 720 Output Total 500 Balance 220 - Medications Medications: Current Medications Acetaminophen (Tylenol 325mg Tab) 650 mg PO Q6H PRN PRN Reason: Pain, Mild (1-3) Acetaminophen/Butalbital/Caffeine (Fioricet) 1 tab PO Q6H PRN PRN Reason: Headache Albuterol/Ipratropium (Duoneb 3 Mg/0.5 Mg (3 Ml) Ud) 3 ml IH [id number] PRN PRN Reason: sob/wheezing Last Admin: 04/25/17 13:21 Dose: 3 ml Alprazolam (Xanax) 1 mg PO TID PRN; Protocol PRN Reason: Anxiety Last Admin: 04/25/17 11:38 Dose: 1 mg Enoxaparin Sodium (Lovenox) 30 mg SC DAILY [facility] PRN Reason: Protocol Last Admin: 04/25/17 10:04 Dose: 30 mg Famotidine (Pepcid) 20 mg PO 1000,2200 [facility] Last Admin: 04/25/17 10:10 Dose: 20 mg Home Med (Home Med) 0 unit PO DAILY [facility] Last Admin: 04/25/17 10:04 Dose: 1 unit Levofloxacin/Dextrose (Levaquin 750mg) 750 mg IVPB DAILY [facility] Last Admin: 04/25/17 10:02 Dose: 750 mg Metoprolol Succinate (Toprol Xl) 50 mg PO BRK [facility] Last Admin: 04/25/17 08:33 Dose: 50 mg Ondansetron HCl (Zofran Inj) 4 mg IVP Q6H PRN PRN Reason: Nausea/Vomiting Last Admin: 04/25/17 11:38 Dose: 4 mg Oxycodone/Acetaminophen (Percocet 5/325 Mg Tab) 1 tab PO Q6H PRN PRN Reason: Pain, severe (8-10) Stop: 04/26/17 10:29 Last Admin: 04/25/17 03:28 Dose: 1 tab Raltegravir (Isentress) 400 mg PO BID [facility] Last Admin: 04/25/17 10:09 Dose: 400 mg Ritonavir (Norvir) 100 mg PO BRKDIN [facility] Last Admin: 04/25/17 08:33 Dose: 100 mg - Labs Labs: PT 12.7 Seconds (9.9-11.8) H 04/22/17 16:50 INR 1.18 (0.93-1.08) H 04/22/17 16:50 APTT 27.1 Seconds (23.7-30.8) 04/22/17 16:50 - Constitutional Appears: Non-toxic, No Acute Distress, Chronically Ill - Head Exam Head Exam: ATRAUMATIC, NORMOCEPHALIC - Eye Exam Eye Exam: EOMI, PERRL Pupil Exam: NORMAL ACCOMODATION, PERRL - ENT Exam ENT Exam: Mucous Membranes Moist, Normal External Ear Exam, TM's Normal Bilaterally - Neck Exam Neck Exam: Full ROM, Normal Inspection - Respiratory Exam Respiratory Exam: Clear to Ausculation Bilateral, NORMAL BREATHING PATTERN. absent: Rales, Rhonchi, Wheezes - Cardiovascular Exam Cardiovascular Exam: REGULAR RHYTHM, RRR, +S1, +S2 - GI/Abdominal Exam GI & Abdominal Exam: Soft, Normal Bowel Sounds. absent: Distended, Tenderness - Extremities Exam Extremities Exam: Full ROM, Normal Inspection - Neurological Exam Neurological Exam: Alert, Awake, CN II-XII Intact, Oriented x3 - Psychiatric Exam Psychiatric exam: Normal Affect, Normal Mood - Skin Skin Exam: Intact, Normal Color Assessment and Plan - Assessment and Plan (Free Text) Assessment: 61 yo female with RUQ abdominal pain, SOB, cough. No fevers or chills. No leukocytosis. Patient is awake and alert. She appears comfortable. Supportive care. Continue on Levaquin PO for now. [place] [facility] [place] [facility] [place] Supportive care. PCN allergies. Supportive care. HIV on HAART. She is compliant with medications. Good CD4 count and HIV viral load. Potential pneumonia. Patient with anxiety issues. Patient states that she feels better today. On Levaquin - consider 5 day course in total. Clinically improved. Thank you for allowing me to participate in the care of the patient, we will follow with you.
--- NOTE | 2017-04-25 15:02 | RAD ---
HISTORY: pneumonia COMPARISON: 04/22/2017 TECHNIQUE: Chest PA and lateral FINDINGS: LUNGS: No active pulmonary disease. PLEURA: No significant pleural effusion identified. No pneumothorax apparent. CARDIOVASCULAR: Normal. OSSEOUS STRUCTURES: No significant abnormalities. VISUALIZED UPPER ABDOMEN: Normal. OTHER FINDINGS: None. IMPRESSION: No active disease.
--- NOTE | 2017-04-25 18:52 | US ---
HISTORY: Leg pain and swelling. Evaluate for DVT PHYSICIAN(S): Partha Jacobs MD. TECHNIQUE: Duplex sonography and color-flow Doppler with graded compression were used to evaluate the deep venous systems of both lower extremities. FINDINGS: The visualized deep venous systems of both lower extremities are sonographically normal and compressible. Normal wave forms and augmentation are seen. There is no sonographic evidence for deep venous thrombosis in the visualized segments of both lower extremities. IMPRESSION: No sonographic evidence for deep venous thrombosis in the visualized segments of both lower extremities.
[2017-04-26] MEDS: Metoprolol Succinate 50 mg XL Tab PO SCH (08:18)
[2017-04-26] MEDS: Albuterol-Ipratrop 3 mg / 0.5 (3 ml) UD IH PRN ×2 (09:44→20:18)
[2017-04-26] MEDS: levoFLOXacin 750 mg in D5W 150 ML BAG IVPB SCH (10:08)
[2017-04-26] MEDS: Enoxaparin 30 mg Syringe SC SCH (10:08)
[2017-04-26] MEDS: PREZISTA 800 MG PO SCH (10:09)
--- NOTE | 2017-04-26 11:05 | CP.PCM.PN ---
Subjective - Date & Time of Evaluation Date of Evaluation: 04/26/17 Time of Evaluation: 09:30 - Subjective Subjective: feels better, no N/V, no cough, no sob Objective - Vital Signs/Intake and Output Vital Signs (last 24 hours): Temp Pulse Resp BP Pulse Ox 98 F 89 22 128/72 97 04/26/17 08:57 04/26/17 08:57 04/26/17 08:57 04/26/17 08:57 04/26/17 08:57 Intake and Output: 04/26/17 04/26/17 06:59 18:59 Intake Total 480 Output Total 400 Balance 80 - Medications Medications: Current Medications Acetaminophen (Tylenol 325mg Tab) 650 mg PO Q6H PRN PRN Reason: Pain, Mild (1-3) Acetaminophen/Butalbital/Caffeine (Fioricet) 1 tab PO Q6H PRN PRN Reason: Headache Albuterol/Ipratropium (Duoneb 3 Mg/0.5 Mg (3 Ml) Ud) 3 ml IH [id number] PRN PRN Reason: sob/wheezing Last Admin: 04/26/17 09:44 Dose: 3 ml Alprazolam (Xanax) 1 mg PO TID PRN; Protocol PRN Reason: Anxiety Last Admin: 04/25/17 11:38 Dose: 1 mg Enoxaparin Sodium (Lovenox) 30 mg SC DAILY [facility] PRN Reason: Protocol Last Admin: 04/26/17 10:08 Dose: 30 mg Famotidine (Pepcid) 20 mg PO 1000,2200 [facility] Last Admin: 04/26/17 10:08 Dose: 20 mg Home Med (Home Med) 0 unit PO DAILY [facility] Last Admin: 04/26/17 10:09 Dose: 1 unit Levofloxacin/Dextrose (Levaquin 750mg) 750 mg IVPB DAILY [facility] Last Admin: 04/26/17 10:08 Dose: 750 mg Metoprolol Succinate (Toprol Xl) 50 mg PO BRK [facility] Last Admin: 04/26/17 08:18 Dose: 50 mg Ondansetron HCl (Zofran Inj) 4 mg IVP Q6H PRN PRN Reason: Nausea/Vomiting Last Admin: 04/25/17 11:38 Dose: 4 mg Raltegravir (Isentress) 400 mg PO BID [facility] Last Admin: 04/26/17 10:08 Dose: 400 mg Ritonavir (Norvir) 100 mg PO BRKDIN [facility] Last Admin: 04/26/17 08:18 Dose: 100 mg - Labs Labs: PT 12.7 Seconds (9.9-11.8) H 04/22/17 16:50 INR 1.18 (0.93-1.08) H 04/22/17 16:50 APTT 27.1 Seconds (23.7-30.8) 04/22/17 16:50 - Respiratory Exam Respiratory Exam: Clear to Ausculation Bilateral, NORMAL BREATHING PATTERN - Cardiovascular Exam Cardiovascular Exam: REGULAR RHYTHM - GI/Abdominal Exam GI & Abdominal Exam: Normal Bowel Sounds - Extremities Exam Extremities Exam: Normal Inspection - Neurological Exam Neurological Exam: Alert, Awake, Oriented x3 Assessment and Plan (1) Pneumonia Status: Acute (2) Vomiting Status: Resolved (3) Asthma exacerbation Status: Acute (4) HIV (human immunodeficiency virus infection) Status: Acute - Assessment and Plan (Free Text) Plan: continue [facility]ijo f/u ENEDINA Valenzuela for d/c planning
--- NOTE | 2017-04-26 14:49 | CP.PCM.PN ---
Subjective - Date & Time of Evaluation Date of Evaluation: 04/26/17 Time of Evaluation: 14:15 - Subjective Subjective: Infectious Disease Follow Up: April 26, 2017 61 yo female with presentation SOB, cough, nausea/vomiting, and RUQ abdominal pain. On last hospitalization, the patient had repair of left knee laceration after falling in the street when tripping on a pothole. The patient is known to have HIV and is on HAART treatment. CD4 is reported as 940 with an undetectable viral load on last check. The patient without leukocytosis. No fevers observed in hospital. Anxiety issues. No leukocytosis. Received Levaquin and Vancomcyin in the ER. Continuing Levaquin at this time. Small ground-glass opacity at lung bases on last hospitalization. Patient readmitted for the RUQ abdominal pain, nausea/vomiting, cough, and SOB. Patient states that she feels better today. Saturating 97% on room air today. She appears comfortable. The left knee appears to be healing although slowly. Objective - Vital Signs/Intake and Output Vital Signs (last 24 hours): Temp Pulse Resp BP Pulse Ox 98 F 89 22 128/72 97 04/26/17 08:57 04/26/17 08:57 04/26/17 08:57 04/26/17 08:57 04/26/17 08:57 Intake and Output: 04/26/17 04/26/17 06:59 18:59 Intake Total 480 Output Total 400 Balance 80 - Medications Medications: Current Medications Acetaminophen (Tylenol 325mg Tab) 650 mg PO Q6H PRN PRN Reason: Pain, Mild (1-3) Acetaminophen/Butalbital/Caffeine (Fioricet) 1 tab PO Q6H PRN PRN Reason: Headache Albuterol/Ipratropium (Duoneb 3 Mg/0.5 Mg (3 Ml) Ud) 3 ml IH [id number] PRN PRN Reason: sob/wheezing Last Admin: 04/26/17 09:44 Dose: 3 ml Alprazolam (Xanax) 1 mg PO TID PRN; Protocol PRN Reason: Anxiety Last Admin: 04/25/17 11:38 Dose: 1 mg Enoxaparin Sodium (Lovenox) 30 mg SC DAILY [facility] PRN Reason: Protocol Last Admin: 04/26/17 10:08 Dose: 30 mg Famotidine (Pepcid) 20 mg PO 1000,2200 [facility] Last Admin: 04/26/17 10:08 Dose: 20 mg Home Med (Home Med) 0 unit PO DAILY [facility] Last Admin: 04/26/17 10:09 Dose: 1 unit Levofloxacin/Dextrose (Levaquin 750mg) 750 mg IVPB DAILY [facility] Last Admin: 04/26/17 10:08 Dose: 750 mg Metoprolol Succinate (Toprol Xl) 50 mg PO BRK [facility] Last Admin: 04/26/17 08:18 Dose: 50 mg Ondansetron HCl (Zofran Inj) 4 mg IVP Q6H PRN PRN Reason: Nausea/Vomiting Last Admin: 04/25/17 11:38 Dose: 4 mg Raltegravir (Isentress) 400 mg PO BID [facility] Last Admin: 04/26/17 10:08 Dose: 400 mg Ritonavir (Norvir) 100 mg PO BRKDIN [facility] Last Admin: 04/26/17 08:18 Dose: 100 mg - Labs Labs: PT 12.7 Seconds (9.9-11.8) H 04/22/17 16:50 INR 1.18 (0.93-1.08) H 04/22/17 16:50 APTT 27.1 Seconds (23.7-30.8) 04/22/17 16:50 - Constitutional Appears: Non-toxic, No Acute Distress, Chronically Ill - Head Exam Head Exam: ATRAUMATIC, NORMOCEPHALIC - Eye Exam Eye Exam: EOMI, PERRL Pupil Exam: NORMAL ACCOMODATION, PERRL - ENT Exam ENT Exam: Mucous Membranes Moist, Normal External Ear Exam, TM's Normal Bilaterally - Neck Exam Neck Exam: Full ROM, Normal Inspection - Respiratory Exam Respiratory Exam: Clear to Ausculation Bilateral, NORMAL BREATHING PATTERN. absent: Rales, Rhonchi, Wheezes - Cardiovascular Exam Cardiovascular Exam: REGULAR RHYTHM, RRR, +S1, +S2 - GI/Abdominal Exam GI & Abdominal Exam: Soft, Normal Bowel Sounds. absent: Distended, Tenderness - Extremities Exam Extremities Exam: Full ROM, Normal Inspection - Neurological Exam Neurological Exam: Alert, Awake, CN II-XII Intact, Oriented x3 - Psychiatric Exam Psychiatric exam: Normal Affect, Normal Mood - Skin Skin Exam: Intact, Normal Color Assessment and Plan - Assessment and Plan (Free Text) Assessment: 61 yo female with RUQ abdominal pain, SOB, cough. No fevers or chills. No leukocytosis. Patient is awake and alert. She appears comfortable. Supportive care. Continue on Levaquin PO for now. Relatively recent hospitalization to [facility] [place]. Supportive care. PCN allergies. Supportive care. HIV on HAART. She is compliant with medications. Good CD4 count and HIV viral load. Potential pneumonia. Patient with anxiety issues. Patient states that she feels better today. On Levaquin - consider 5 day course in total. Clinically improved. Cultures to date are negative. Thank you for allowing me to participate in the care of the patient, we will follow with you.
[2017-04-26 16:14] VITALS: RESP 20
[2017-04-27 08:00] LABS: MEAN CELL VOLUME 87.2 fL (80.0-105.0); MEAN CORPUSCULAR HEMOGLOBIN 27.8 pg (25.0-35.0); MEAN CORPUSCULAR HGB CONC 31.8 g/dl (31.0-37.0); MEAN PLATELET VOLUME 10.2 fl (7.0-11.0); RBC 3.6 10^6/uL (3.5-6.1); RED CELL DISTRIBUTION WIDTH 15.9 % (11.5-14.5); WHITE BLOOD COUNT 4.9 10^3/ul (4.5-11.0)
[2017-04-27] MEDS: Albuterol-Ipratrop 3 mg / 0.5 (3 ml) UD IH PRN (08:02)
[2017-04-27 08:08] LABS: ALBUMIN 2.9 g/dL (3.0-4.8); ALT/SGPT 38 U/L (7-56); AST/SGOT 26 U/L (15-39); BLOOD UREA NITROGEN 6 mg/dL (7-21); CALCIUM 9.4 mg/dL (8.4-10.5); GFR AFRICAN-AMERICAN > 60; GFR NON-AFRICAN AMERICAN 56
[2017-04-27] MEDS: Metoprolol Succinate 50 mg XL Tab PO SCH (08:17)
[2017-04-27 08:22] VITALS: PULSE 104
[2017-04-27] MEDS: levoFLOXacin 750 mg in D5W 150 ML BAG IVPB SCH ×2 (09:54→10:54)
[2017-04-27] MEDS: Enoxaparin 30 mg Syringe SC SCH (10:00)
[2017-04-27 10:03] VITALS: BP 122/68; TEMP 97.9; O2SAT 98
[2017-04-27] MEDS: PREZISTA 800 MG PO SCH (10:21)
[2017-04-27] MEDS ORDERED: levoFLOXacin 750 MG TAB PO SCH (11:00)
--- NOTE | 2017-04-27 11:27 | CP.PCM.DIS ---
Provider - Provider Date of Admission: 04/22/17 21:32 Attending physician: Ty Ramírez JD, MD Primary care physician: Ty Ramírez JD, MD Time Spent in preparation of Discharge (in minutes): 30 Diagnosis - Discharge Diagnosis (1) Pneumonia Status: Acute (2) Vomiting Status: Resolved (3) Asthma exacerbation Status: Acute (4) HIV (human immunodeficiency virus infection) Status: Acute Hospital Course - Lab Results Lab Results: Most Recent Lab Values WBC 4.9 10^3/ul (4.5-11.0) 04/27/17 07:00 RBC 3.60 10^6/uL (3.5-6.1) 04/27/17 07:00 Hgb 10.0 gm/dL (12.0-16.0) L 04/27/17 07:00 Hct 31.4 % (36.0-48.0) L 04/27/17 07:00 MCV 87.2 fL (80.0-105.0) 04/27/17 07:00 MCH 27.8 pg (25.0-35.0) 04/27/17 07:00 MCHC 31.8 g/dl (31.0-37.0) 04/27/17 07:00 RDW 15.9 % (11.5-14.5) H 04/27/17 07:00 Plt Count 325 10^3/uL (120.0-450.0) 04/27/17 07:00 MPV 10.2 fl (7.0-11.0) 04/27/17 07:00 Gran % 46.4 % (50.0-68.0) L 04/22/17 16:50 Lymph % (Auto) 35.1 % (22.0-35.0) H 04/22/17 16:50 Bay % (Auto) 13.2 % (1.0-6.0) H 04/22/17 16:50 Eos % (Auto) 4.4 % (1.5-5.0) 04/22/17 16:50 Baso % (Auto) 0.9 % (0.0-3.0) 04/22/17 16:50 Gran # 2.61 (1.4-6.5) 04/22/17 16:50 Lymph # 2.0 (1.2-3.4) 04/22/17 16:50 Bay # 0.7 (0.1-0.6) H 04/22/17 16:50 Eos # 0.3 (0.0-0.7) 04/22/17 16:50 Baso # 0.05 K/mm3 (0.0-2.0) 04/22/17 16:50 PT 12.7 Seconds (9.9-11.8) H 04/22/17 16:50 INR 1.18 (0.93-1.08) H 04/22/17 16:50 APTT 27.1 Seconds (23.7-30.8) 04/22/17 16:50 pO2 47 mm/Hg (30-55) 04/22/17 16:50 VBG pH 7.43 (7.32-7.43) 04/22/17 16:50 VBG pCO2 46.0 (40-60) 04/22/17 16:50 VBG HCO3 30.5 mmol/l (21-28) H 04/22/17 16:50 VBG Total CO2 31.9 mmol.L (22-28) H 04/22/17 16:50 VBG O2 Sat (Calc) 84.9 % (40-65) H 04/22/17 16:50 VBG Base Excess 5.4 mmol/L (0.0-2.0) H 04/22/17 16:50 VBG Potassium 5.3 mmol/L (3.6-5.2) H 04/22/17 16:50 Sodium 140.0 mmol/L (132-148) 04/22/17 16:50 Chloride 108.0 mmol/L (98-107) H 04/22/17 16:50 Glucose 96 mg/dl (65-105) 04/22/17 16:50 Lactate 1.7 mmol/L (0.7-2.1) 04/22/17 16:50 FiO2 21.0 % 04/22/17 16:50 Sodium 138 mmol/L (132-148) 04/27/17 07:00 Potassium 3.8 mmol/L (3.6-5.0) 04/27/17 07:00 Chloride 106 mmol/L (98-107) 04/27/17 07:00 Carbon Dioxide 25 mmol/L (21-33) 04/27/17 07:00 Anion Gap 11 (10-20) 04/27/17 07:00 BUN 6 mg/dL (7-21) L 04/27/17 07:00 Creatinine 1.0 mg/dL (0.5-1.4) 04/27/17 07:00 Est GFR ( Amer) > 60 04/27/17 07:00 Est GFR (Non-Af Amer) 56 04/27/17 07:00 Random Glucose 91 mg/dL (70-110) 04/27/17 07:00 Calcium 9.4 mg/dL (8.4-10.5) 04/27/17 07:00 Total Bilirubin 0.3 mg/dL (0.2-1.3) 04/27/17 07:00 Direct Bilirubin 0.3 mg/dL (0.0-0.4) 04/22/17 17:45 AST 26 U/L (15-39) 04/27/17 07:00 ALT 38 U/L (7-56) 04/27/17 07:00 Alkaline Phosphatase 53 U/L (38-133) 04/27/17 07:00 Lactate Dehydrogenase 587 U/L (333-699) 04/22/17 17:45 Total Creatine Kinase 39 U/L (35-230) 04/22/17 17:45 Troponin I < 0.01 ng/mL D 04/22/17 17:45 Total Protein 5.7 g/dL (5.8-8.3) L 04/27/17 07:00 Albumin 2.9 g/dL (3.0-4.8) L 04/27/17 07:00 Globulin 2.8 gm/dL 04/27/17 07:00 Albumin/Globulin Ratio 1.0 (1.1-1.8) L 04/27/17 07:00 Amylase 39 U/L (35-125) 04/22/17 17:45 Lipase 37 U/L (23-300) 04/22/17 17:45 Venous Blood Potassium 5.3 mmol/L (3.6-5.2) H 04/22/17 16:50 Discharge Exam - Head Exam Head Exam: ATRAUMATIC, NORMOCEPHALIC - Respiratory Exam Respiratory Exam: Clear to PA & Lateral, NORMAL BREATHING PATTERN - Cardiovascular Exam Cardiovascular Exam: REGULAR RHYTHM - GI/Abdominal Exam GI & Abdominal Exam: Normal Bowel Sounds - Neurological Exam Neurological exam: Alert, Oriented x3 Discharge Plan - Discharge Medications Prescriptions: Levofloxacin [Levaquin] 750 mg PO DAILY #5 tablet - Follow Up Plan Condition: FAIR Disposition: HOME/ ROUTINE Instructions: Pneumococcal Vaccine for Adults (DC), Staple Care (DC), Pneumonia (DC) Additional Instructions: Follow up in Dr. Ramírez office in week. Continue all home medications Complete full five days of Antibiotics Referrals: Ty Ramírez JD, MD [Primary Care Provider] -
--- NOTE | 2017-04-27 12:34 | CP.PCM.PN ---
Subjective - Date & Time of Evaluation Date of Evaluation: 04/27/17 Time of Evaluation: 11:00 - Subjective Subjective: Infectious Disease Follow Up: April 27, 2017 61 yo female with presentation SOB, cough, nausea/vomiting, and RUQ abdominal pain. On last hospitalization, the patient had repair of left knee laceration after falling in the street when tripping on a pothole. The patient is known to have HIV and is on HAART treatment. CD4 is reported as 940 with an undetectable viral load on last check. The patient without leukocytosis. No fevers observed in hospital. Anxiety issues. No leukocytosis. Received Levaquin and Vancomcyin in the ER. Continuing Levaquin at this time. Small ground-glass opacity at lung bases on last hospitalization. Patient readmitted for the RUQ abdominal pain, nausea/vomiting, cough, and SOB. Patient states that she feels better today. Saturating 97% on room air today. She appears comfortable. The left knee appears to be healing although slowly. Lost IV access today but patient can complete antibiotics with PO Levaquin. She continues to appear comfortable. Objective - Vital Signs/Intake and Output Vital Signs (last 24 hours): Temp Pulse Resp BP Pulse Ox 97.9 F 104 H 20 122/68 98 04/27/17 10:00 04/27/17 10:00 04/27/17 10:00 04/27/17 10:00 04/27/17 10:00 Intake and Output: 04/27/17 04/27/17 06:59 18:59 Intake Total 540 0 Balance 540 0 - Labs Labs: 04/27/17 07:00 04/27/17 07:00 PT 12.7 Seconds (9.9-11.8) H 04/22/17 16:50 INR 1.18 (0.93-1.08) H 04/22/17 16:50 APTT 27.1 Seconds (23.7-30.8) 04/22/17 16:50 - Constitutional Appears: Non-toxic, No Acute Distress, Chronically Ill - Head Exam Head Exam: ATRAUMATIC, NORMOCEPHALIC - Eye Exam Eye Exam: EOMI, PERRL Pupil Exam: NORMAL ACCOMODATION, PERRL - ENT Exam ENT Exam: Mucous Membranes Moist, Normal External Ear Exam, TM's Normal Bilaterally - Neck Exam Neck Exam: Full ROM, Normal Inspection - Respiratory Exam Respiratory Exam: Clear to Ausculation Bilateral, NORMAL BREATHING PATTERN. absent: Rales, Rhonchi, Wheezes - Cardiovascular Exam Cardiovascular Exam: REGULAR RHYTHM, RRR, +S1, +S2 - GI/Abdominal Exam GI & Abdominal Exam: Soft, Normal Bowel Sounds. absent: Distended, Tenderness - Extremities Exam Extremities Exam: Full ROM, Normal Inspection - Neurological Exam Neurological Exam: Alert, Awake, CN II-XII Intact, Oriented x3 - Psychiatric Exam Psychiatric exam: Normal Affect, Normal Mood - Skin Skin Exam: Intact, Normal Color Assessment and Plan - Assessment and Plan (Free Text) Assessment: 61 yo female with RUQ abdominal pain, SOB, cough. No fevers or chills. No leukocytosis. Patient is awake and alert. She appears comfortable. Supportive care. Continue on Levaquin PO for now. Relatively recent hospitalization to [facility] [place]. Supportive care. PCN allergies. Supportive care. HIV on HAART. She is compliant with medications. Good CD4 count and HIV viral load. Potential pneumonia. Patient with anxiety issues. Patient states that she feels better today. On Levaquin - consider 5 day course in total. Can switch to PO Levaquin for discharge. Clinically improved. Cultures to date are negative. She can be discharged from ID standpoint. Thank you for allowing me to participate in the care of the patient, we will follow with you.
--- NOTE | 2017-04-27 16:35 | PN ---
PULMONARY PROGRESS NOTE DATE: 04/26/2017 REFERRING PHYSICIAN: Dr. Ramírez. SUBJECTIVE: She is lying in the bed, head at 45 degrees, q. hourly she uses BiPAP. No headache, no rhinitis. Not much cough today. No nausea, no vomiting, no abdominal pain. There is decreased leg swelling. Has a left knee discomfort. PHYSICAL EXAMINATION GENERAL: In no acute distress. VITAL SIGNS: Temp is 98, heart rate is 89, respiratory rate is 20, blood pressure 125/80, pulse ox 96% on nasal cannula. HEENT: Small oral cavity. NECK: Supple. No JVD. LUNGS: Diffuse scattered rhonchi. HEART: S1 and S2. ABDOMEN: Soft and nontender. No organomegaly. EXTREMITIES: Decreased edema. Left knee had a dressing. NEUROLOGIC: Awake and alert. Follows simple commands. MEDICATIONS: She is on Duoneb q.3 h. p.r.n., also Fioricet one tab q.6 h. p.r.n. for headache, Isentress 400 mg twice a day, Levaquin 750 mg daily, Lovenox 30 mg subcu daily, Norvir 100 mg twice a day, Pepcid 20 mg twice a day, Toprol-XL 50 mg daily, Tylenol on p.r.n. basis, Xanax 1 mg three times a day p.r.n. only, Zofran on p.r.n. basis. LABORATORY DATA: Reviewed and no new lab is available since yesterday. Microbiology, blood culture has been negative. Venous Doppler done yesterday shows no evidence of DVT. ASSESSMENT: 1. Chronic obstructive lung disease. 2. Basilar infiltrate. 3. Human immunodeficiency virus positive. 4. Mild sleep apnea syndrome. 5. Renal insufficiency. 6. Mild pulmonary hypertension. 7. Cardiac diastolic dysfunction. 8. Status post fall with left knee injury. PLAN: From pulmonary point of view, continue bronchodilator, keep head at 45 degrees, elevate lower extremities. May use p.r.n. diuretics if lower extremities have edema. Gastric prophylaxis, DVT prophylaxis, fall precaution. We will need outpatient standard sleep study and PFT. We will order labs in the morning. Thank you, and we will follow with you. Tamiko Collado MD [facility] # [id number]
== END 2017-04-27 12:07 | DRG 190 ==
LOC: ED 16:05 → ERH 21:32 → 3RSO 22:15
PROVIDERS: ADMIT Internal Medicine; ATTEND Internal Medicine
DX: J44.0 Chronic obstructive pulmonary disease with (acute) lower respiratory infection (principal); J18.9 Pneumonia, unspecified organism; I27.2 Other secondary pulmonary hypertension; C85.90 Non-Hodgkin lymphoma, unspecified, unspecified site; J45.901 Unspecified asthma with (acute) exacerbation; R11.10 Vomiting, unspecified; Z21 Asymptomatic human immunodeficiency virus [HIV] infection status; D64.9 Anemia, unspecified; F41.9 Anxiety disorder, unspecified; G47.33 Obstructive sleep apnea (adult) (pediatric); I10 Essential (primary) hypertension; K21.9 Gastro-esophageal reflux disease without esophagitis; K76.0 Fatty (change of) liver, not elsewhere classified; N28.9 Disorder of kidney and ureter, unspecified; Z88.0 Allergy status to penicillin; Z72.0 Tobacco use; Z79.899 Other long term (current) drug therapy; Z91.81 History of falling; Z90.710 Acquired absence of both cervix and uterus; Z90.49 Acquired absence of other specified parts of digestive tract; Z90.5 Acquired absence of kidney; S82.009D Unspecified fracture of unspecified patella, subsequent encounter for closed fracture with routine healing; S81.012D Laceration without foreign body, left knee, subsequent encounter

== ENCOUNTER 2017-11-09 14:10 | Emergency (ER) | payer OTHER ==
[2017-11-09 14:11] VITALS: BMI 34.0
[2017-11-09 14:35] VITALS: RESP 17
--- NOTE | 2017-11-09 14:45 | ED PDOC ---
Arrival/HPI - General Chief Complaint: Pain, Chronic Time Seen by Provider: 11/09/17 14:22 Historian: Patient - History of Present Illness Narrative History of Present Illness (Text): 11/09/17 14:41 62yo female with PMHx of hypertension, HIV and diabetes present with complaint of right knee pain x one week. Reports pain with ambulation. States took Aleve this morning with some relieve. Denies trauma ,calf pain, swelling, redness, any other complaint. Past Medical History - Provider Review Nursing Documentation Reviewed: Yes - Infectious Disease Hx of Infectious Diseases: None - Tetanus Immunization Tetanus Immunization: Unknown - Cardiac Hx Cardiac Disorders: Yes Hx Hypertension: Yes - Pulmonary Hx Respiratory Disorders: Yes Hx Asthma: Yes - Neurological Hx Neurological Disorder: No - HEENT Hx HEENT Disorder: Yes - Renal Hx Renal Disorder: No - Endocrine/Metabolic Hx Endocrine Disorders: No - Hematological/Oncological Hx Blood Disorders: Yes Hx AIDS: Yes - Integumentary Hx Dermatological Disorder: No - Musculoskeletal/Rheumatological Hx Falls: Yes - Gastrointestinal Hx Gastrointestinal Disorders: Yes Hx Gastroesophageal Reflux: Yes - Genitourinary/Gynecological Hx Genitourinary Disorders: No - Psychiatric Hx Psychophysiologic Disorder: No Hx Depression: No Hx Substance Use: No - Surgical History Hx Orthopedic Surgery: Yes (left knee surgery) Other/Comment: S/P FALL - Anesthesia Hx Anesthesia Reactions: No Hx Malignant Hyperthermia: No - Suicidal Assessment Feels Threatened In Home Enviroment: No Family/Social History - Physician Review Nursing Documentation Reviewed: Yes Family/Social History: Unknown Family HX Smoking Status: Former Smoker Hx Alcohol Use: Yes Hx Substance Use: No Hx Substance Use Treatment: No Allergies/Home Meds Allergies/Adverse Reactions: Allergies Penicillins Allergy (Verified 01/20/17 15:00) SWELLING Home Medications: Home Meds Medication Instructions Recorded Confirmed Albuterol/Ipratropium [Duoneb 3 3 ml IH Q6 PRN 02/19/17 04/22/17 mg/0.5 mg (3 ml) UD] Darunavir [Prezista] 800 mg PO DAILY 02/19/17 04/22/17 Famotidine [Heartburn Prevention] 20 mg PO DAILY 02/19/17 04/22/17 Review of Systems - Physician Review All systems were reviewed & negative as marked: Yes - Review of Systems Constitutional: Normal Eyes: Normal ENT: Normal Respiratory: Normal Cardiovascular: Normal Gastrointestinal: Normal Genitourinary Female: Normal Musculoskeletal: Arthralgias (Right knee pain) Skin: Normal Neurological: Normal Endocrine: Normal Hemo/Lymphatic: Normal Psychiatric: Normal Physical Exam Vital Signs Reviewed: Yes Vital Signs Temp Pulse Resp BP Pulse Ox 11/09/17 14:29 97.6 F 74 17 151/82 H 96 Temperature: Afebrile Blood Pressure: Normal Pulse: Regular Respiratory Rate: Normal Appearance: Positive for: Well-Appearing, Non-Toxic, Comfortable Pain Distress: None Mental Status: Positive for: Alert and Oriented X 3 - Systems Exam Head: Present: Atraumatic, Normocephalic Pupils: Present: PERRL Extroacular Muscles: Present: EOMI Conjunctiva: Present: Normal Mouth: Present: Moist Mucous Membranes Neck: Present: Normal Range of Motion Respiratory/Chest: Present: Clear to Auscultation, Good Air Exchange. No: Respiratory Distress, Accessory Muscle Use Cardiovascular: Present: Regular Rate and Rhythm, Normal S1, S2. No: Murmurs Abdomen: Present: Normal Bowel Sounds. No: Tenderness, Distention, Peritoneal Signs Back: Present: Normal Inspection Upper Extremity: Present: Normal Inspection. No: Cyanosis, Edema Lower Extremity: Present: NORMAL PULSES, Normal ROM, Tenderness (Over the right knee patellar), Neurovascularly Intact. No: Edema, CALF TENDERNESS, Swelling, Erythema Neurological: Present: GCS=15, CN II-XII Intact, Speech Normal Skin: Present: Warm, Dry, Normal Color. No: Rashes Psychiatric: Present: Alert, Oriented x 3, Normal Insight, Normal Concentration Medical Decision Making ED Course and Treatment: 11/09/17 15:26 Right knee xray - No acute fracture/dislocation Result was DW the pt. Her pain was controlled in ED. She is ambulatory. Will be DC home with Tramadol. Referred to her PMD/ortho/. TRT ED for any new or worsening symptoms - RAD Interpretation Radiology Orders: 11/09/17 14:39 KNEE W PATELLA RIGHT 3 VIEW [RAD] Stat Disposition/Present on Arrival - Present on Arrival Any Indicators Present on Arrival: No History of DVT/PE: No History of Uncontrolled Diabetes: No Urinary Catheter: No History of Decub. Ulcer: No History Surgical Site Infection Following: None - Disposition Have Diagnosis and Disposition been Completed?: Yes Diagnosis: Knee pain Disposition: HOME/ ROUTINE Disposition Time: 15:30 Patient Plan: Discharge Condition: STABLE Discharge Instructions (ExitCare): Knee Pain (ED) Additional Instructions: Follow up with your doctor/Orthopedist Return to ED for any new or worsening symptoms Prescriptions: traMADol [Ultram] 50 mg PO Q6 #9 tab Referrals: Graciela Vazquez, [Non-Staff] - Follow up with primary Oskar Arroyo MD [Staff Provider] - Follow up with primary Forms: [employer] (Amharic)
--- NOTE | 2017-11-09 15:15 | RAD ---
PROCEDURE: Right Knee Radiographs. HISTORY: knee pain COMPARISON: Right knee radiographs dated 01/20/2017. FINDINGS: BONES: No acute fracture. JOINTS: Unremarkable. JOINT EFFUSION: None. OTHER FINDINGS: None. IMPRESSION: No demonstrated fracture or dislocation.
[2017-11-09 15:52] VITALS: BP 148/78; PULSE 65; TEMP 97.5; O2SAT 100
== END 2017-11-09 16:03 | disposition home or self-care (01) ==
LOC: ED 14:10
DX: M25.561 Pain in right knee (principal)

== ENCOUNTER 2018-12-10 09:33 | Outpatient (CLI) | payer OTHER | END 2018-12-10 09:34 | disposition home or self-care (01) | LOC: PAT 09:33 | DX: M20.12 Hallux valgus (acquired), left foot (principal); M20.42 Other hammer toe(s) (acquired), left foot ==

== ENCOUNTER 2018-12-31 06:19 | Day surgery (SDC) | payer OTHER ==
[2018-12-31 07:00] VITALS: BMI 34.0
[2018-12-31] MEDS ORDERED: Bupivacaine 0.25% 50 ML INJ IJ ONE (07:15)
[2018-12-31] MEDS ORDERED: Lidocaine 1% Inj (20ml) ONE (07:15)
[2018-12-31] MEDS ORDERED: Propofol 10 mg/ml Inj (20 ML) ONE (07:23)
[2018-12-31] MEDS ORDERED: Midazolam 2 MG/2 ML VIAL ONE (07:23)
[2018-12-31] MEDS ORDERED: Albuterol HFA 90 mcg/actuation (8 g) ONE (07:26)
[2018-12-31] MEDS ORDERED: ePHEDrine 50 mg/ml Inj ONE (07:47)
[2018-12-31] MEDS ORDERED: Vasopressin 20 Units/ml Inj ONE (08:10)
[2018-12-31] MEDS ORDERED: Bupivacaine 0.5% Inj(30mL) IJ ONE (09:15)
[2018-12-31] MEDS ORDERED: Oxycodone/Acetaminophen 5/325 mg Tab PO PRN ×2 (09:29)
[2018-12-31] MEDS ORDERED: Lactated Ringer's 1,000 ML IV SCH (09:30)
--- NOTE | 2018-12-31 09:36 | PCM.SURG1 ---
Surgeon's Initial Post Op Note - Surgeon's Notes Surgeon: Dr. Partha Adair DPM Direct Sales Consultant: Dr. Rajput PGY1 Dr. Huber PGY2 Type of Anesthesia: General LMA, Local Pre-Operative Diagnosis: left foot bunion and second digit hammertoe deformity Operative Findings: see dictation. I: 20cc 1:1 mix 1% lidocaine plain 0.5% marcaine plain preop, postop 1 mg dex and 10cc marcaine 0.5% plain. M: 2-0,4-0 vicryl, 4-0 nylon horizontal mattress running, 0.062 k wire second digit Post-Operative Diagnosis: same Operation Performed: Perez bunionectomy with cheilectomy and second digit arthrodesis of PIPJ with MPJ capsulotomy and extensor tendon release Specimen/Specimens Removed: left foot bone and soft tissue Estimated Blood Loss: EBL {In ML}: 0 Blood Products Given: N/A Drains Used: No Drains Post-Op Condition: Good Date of Surgery/Procedure: 12/31/18 Time of Surgery/Procedure: 09:36
[2018-12-31 11:32] VITALS: RESP 18; TEMP 98
[2018-12-31 12:18] VITALS: PULSE 68; O2SAT 96
[2018-12-31 12:59] VITALS: BP 90/58
--- NOTE | 2018-12-31 13:37 | RAD ---
Date of service: 12/31/2018 PROCEDURE: Left Foot Radiographs. HISTORY: s/p left bunionectomy and 2nd digit hammertoe COMPARISON: None. FINDINGS: BONES: There is a longitudinal pin through the 2nd toe. JOINTS: Mild to moderate degenerative changes are seen at the 1st MTP joint SOFT TISSUES: Normal. OTHER FINDINGS: None. IMPRESSION: As above
--- NOTE | 2019-01-01 08:04 | OP ---
PROCEDURE DATE: 12/31/2018 PREOPERATIVE DIAGNOSIS: Left foot bunion and second digit hammertoe deformity. POSTOPERATIVE DIAGNOSIS: Left foot bunion and second digit hammertoe deformity. PROCEDURES PERFORMED: 1. Left foot Mullen bunionectomy. 2. Left second digit hammertoe correction with proximal interphalangeal joint arthrodesis, extensor tendon release and metatarsophalangeal joint capsulotomy. SURGEON: Partha Adair DPM ASSISTANTS: Robert Rajput DPM, PGY1 and Dr. Huber, PGY-2 ANESTHESIA: General LMA with local. INDICATION: The patient is a 63-year-old female with the above diagnosis. The patient has exhausted all conservative treatments at this time and now requires surgical intervention. The patient signed the consent after careful explanation of risks, benefits, complications, and alternatives for surgical procedure. No guarantees were given nor implied. PREPARATION: The patient was brought into the operating room and placed on the operating room table in THE supine position. A time-out was performed for identification of the correct patient and procedure. The patient received a total of 20 mL of a 1:1 mixture of 1% lidocaine plain and 0.5% Marcaine plain in a Jimenez block and local block type fashion to the left foot and left-sided incision. Once the local anesthesia was achieved, the left foot was then prepped and draped in a normal sterile manner. The patient's left foot was then exsanguinated, and the pneumatic ankle tourniquet was inflated to 225 mmHg in a sterile fashion and the procedure begun. DESCRIPTION OF PROCEDURE: Attention was then directed to the dorsal aspect of first metatarsal head of the left foot where an approximately 6-cm linear longitudinal incision was made medial and parallel to the tendon of the extensor hallucis longus and involved the deformity. The incision was then deepened through the subcutaneous tissue. Care was taken to identify and retract all vital neurovascular structures. All bleeders were cauterized and ligated as necessary. At this time, a linear type capsulotomy was performed over the dorsal aspect of the first metatarsophalangeal joint. Periosteal and capsular structures were then carefully dissected free around its attachments, identified medially and laterally thus exposing the head of the first metatarsal into the operative site. Attention was then directed to the first interspace where the original incision was extended away. The capsule was identified and tenotomized. The dissection was continued deep using blunt dissection down to the level of the margin was freed from its soft tissue attachments proximally, laterally, and distally. The conjoint tendon of the abductor hallucis muscle was then identified and was transacted away from its attachments of the base of the proximal phalanx of the hallux. At this time, the lateral contracture present in the hallux was noted to be reduced and sesamoid apparatus was noted to explore anymore corrected medial position. Next, utilizing a sagittal bone saw, medial prominence was resected and passed from the operative field. Correction of the deformity was assessed at that time and was noted to be excellent. Attention was then directed to the second digit of the patient's left foot, which was noted to be contracted, and an approximately 3-cm incision was made on the dorsal aspect of the proximal interphalangeal joint of the second digit in a semi-elliptical type orientation. Sharp dissection was carried down through the deep tissues being careful to identify and retract all vital neurovascular structures. All bleeders were ligated and cauterized. At this time, a transverse tenotomy and capsulotomy were performed to the proximal interphalangeal joint proximal phalangeal joint freed off its capsular ligamentous attachments. Next, utilizing oscillating bone saw, the head of the proximal phalanx was transected and passed from the operative site. Next, the base of the middle phalanx was resected using the oscillating saw. The subchondral drilling was performed with a 0.045 K-wire and a driver/guide to help similar fusion at this site. At this time, attention was then directed to second MPJ where a stab incision with a #15 blade was made lateral to the longus tendon just proximal to the MPJ. Using sharp and blunt dissection, the head of the MPJ was freed from its capsular attachment, and extensive curve with tenotomy and capsulotomy were performed at this time. The contracture present at the second MPJ was noted to be reduced. Next, attention was directed back to the same incision where a 0.062-inch K-wire was driven from the base of the middle phalanx and digit. The K-wire was then retrograded proximally into the proximal phalanx and through the second metatarsal. A button was placed to protect the exposed K-wire. Correction of the deformity was assessed at this time and noted to be excellent. The opening to the bunion position of second hammertoe was irrigated with copious amount of normal sterile saline. The tendon of the second digit was reapproximated with 4-0 Vicryl, and the skin was closed using 4-0 nylon in a simple suture technique. Bunion site was closed with 2-0 Vicryl for the capsule, 4-0 Vicryl for subcutaneous tissues, and 4-0 nylon in a running horizontal mattress technique for skin closure. The surgical site was then dressed with Betadine-soaked Adaptic, Betadine-soaked gauze, dry sterile dressing, and Coban. POSTOPERATIVE CONDITION: The patient tolerated the anesthesia and procedure well and was escorted to the recovery room with vital signs stable and neurovascular status intact to the left foot. The patient is to remain partial weightbearing to the mid foot and heel and to the left lower extremity and will follow up as an outpatient in one week with Dr. Adair. Robert Rajput DPM Partha Adair DPM
== END 2018-12-31 15:00 | disposition home or self-care (01) ==
LOC: SDS 06:19
PROVIDERS: ATTEND Podiatrist
DX: M20.42 Other hammer toe(s) (acquired), left foot (principal); M20.12 Hallux valgus (acquired), left foot; I10 Essential (primary) hypertension; J45.909 Unspecified asthma, uncomplicated; F17.200 Nicotine dependence, unspecified, uncomplicated; Z21 Asymptomatic human immunodeficiency virus [HIV] infection status; Z88.0 Allergy status to penicillin
CPT/HCPCS: 28270; 28285; 28292; 73630; 88304; 88311; J0131; J1100; J2001; J2250; J2405; J2704; J3010; J7120